=== PATIENT | male | born 1980 | race Caucasian/White ===

== ENCOUNTER 2024-07-28 07:12 | Outpatient (CLI) | payer OTHER, SELFPAY ==
[2024-07-28 08:28] LABS: INR 0.9
[2024-07-28 08:31] LABS: Partial Thromboplastin Time 24.6 Seconds (22.3-36.8)
== END 2024-07-28 07:13 | disposition home or self-care (01) ==
LOC: ANHLAB 07:18
PROVIDERS: PCP Family Medicine Sports Medicine; Visit Provider Urology
DX: N20.0 Calculus of kidney (principal)
CPT/HCPCS: 36415; 85610; 85730; 87086

== ENCOUNTER 2024-07-31 00:01 | Day surgery (SDC) | payer OTHER, SELFPAY ==
[2024-07-27 14:18] VITALS: BMI 29.5
--- NOTE | 2024-07-27 14:27 | PC.NURSE ---
Report to the Outpatient Waiting Room, entrance under the green pavilion located off [facility], at time _0600_ on date _[id number]_. Planned Procedure Time: _0730_.? Time changes happen often and if your time is changed the preop area will call you the afternoon before. - You and your visitor will be asked to self-screen and do not enter if you have any COVID symptoms. Please call surgeon if you need to reschedule. - A mask is optional within the hospital at this time. Patients may have clear liquids (water, carbonated beverages, clear teas, apple juice) until 3 hours prior to surgery with a maximum of 20 ounces. - No food from midnight until time of surgery and no smoking. This includes no chewing gum, candy or mints. Take only the following medications with a SIP of water on the morning of surgery: ____Hydrocodone if needed. DO NOT STOP ANY OF YOUR OTHER PRESCRIPTION MEDICATIONS PRIOR TO SURGERY EXCEPT THE FOLLOWING Medications to discontinue per physician ____None Please no make-up, nail armenian, hairspray, perfume, deodorant, or body powder the day of surgery.? No jewelry (including any body piercings) or valuables the day of surgery, leave them at home.? Please take a shower or bath the night before, or the morning of, surgery with an antibacterial soap.? Wear comfortable, loose fitting clothing.? - Jewelry must be removed prior to entering the operating room.? Rings and piercings that are not removed may be cut off. - The hospital will not accept responsibility for valuables.? - Please leave all valuables, including medications, at home the day of surgery. If you are going home after surgery, a licensed truck driver supervisor must drive you home.? - NO public transportation without another adult if you receive anesthesia. - We recommend that an adult stay with you for 24 hours following discharge. - We also recommend that you do not drive, make important decision, drink alcoholic beverages, or take any drugs that were not prescribed by your health care provider for at least 24 hours after your discharge time. Follow any additional instructions given to you from your surgeon. Telephone instructions given to _William__and asked if any additional questions and then verbalized understanding. Patient advised to call surgeon office or pre surgery nurse liaison [phone] if any additional questions.
--- NOTE | 2024-07-30 14:23 | WPDANESEPPF ---
Anes - Initial Pre Proc Eval Procedure: Operation Date: 07/31/24 07:30 Proposed Procedures p Left Ureteral Extracorporeal Shock Wave Lithotripsy - Jose Collier MD s Cystoscopy, Left Stent Removal/Exchange - Jose Collier MD Date/Time: 07/30/24 14:23 Surgeon: Jose Collier MD Pre Op Diagnosis: left ureteral stone Patient Data Age: 43 Gender: M Height: 1.85 m Weight: 101.4 kg Allergies Allergy/AdvReac Type Severity Reaction Status Date / Time No Known Allergies Allergy Verified 07/27/24 14:16 Home Medications ?Medication ?Instructions ?Recorded ?Confirmed ?Type hydrocodone 5 mg-acetaminophen 325 1 tablet PO Q6H PRN pain 07/27/24 07/27/24 History mg tablet omeprazole 20 mg capsule,delayed 20 mg PO DAILY 07/27/24 07/27/24 History release tamsulosin 0.4 mg capsule (Flomax) 0.4 mg PO HS 07/27/24 07/27/24 History Patient hx anesthesia problems: none Family hx anesthesia problems: none Results Review: All pre-operative results and documents have been reviewed as part of the pre-operative evaluation. [facility] Past Medical History Medical History (Updated 07/30/24 @ 14:24 by Ja Burr DO) Diverticulitis Surgical History Surgical History (Updated 07/30/24 @ 14:24 by Ja Burr DO) History of cervical spinal surgery C5-7 Social History Social History Smoking packs per day: 1 Smoking cigarettes per day: 20.0 Years smoked: 9 Smoking pack-years: 9.00 Smoking status: Former smoker Tobacco type: cigarettes Smoking end date: 07/27/04 Alcohol intake: current Living arrangements: with family Spiritual care concerns: No Anes - Eval Final PreProcedure Day of Procedure 07/30/24 14:23 Patient weight: overweight Heart: regular rate and rhythm Lungs: clear to auscultation Airway: Mallampati scale class III Neurological: alert and oriented Last oral intake: >/= 8 hours ASA classification: II Emergent: no Anesthetic plan: proceed Anesthesia type and monitoring: general LMA and standard monitoring Results Review: All pre-operative results and documents have been reviewed as part of the pre-operative evaluation. Informed Consent: The patient's anesthetic plan and its attendant risks and benefits were discussed with the patient/family/POA. Questions were solicited and answers provided to the satisfaction of the patient/family/POA.
[2024-07-31] VITALS (10 sets, daily range): BP systolic 115–149; BP diastolic 72–96; PULSE 73–91; RESP 13–18; TEMP 36.2–36.4; O2SAT 96–100
--- NOTE | ~2024-07-31 | XR_ITS ---
EXAMINATION: XR abdomen/kub 1V DATE: 07/31/2024 06:25 INDICATION: Left ureteral stone. TECHNIQUE: A supine view of the abdomen on 2 radiographs was obtained. COMPARISON: None. FINDINGS: There are no dilated loops of bowel. There is a left internal ureteral stent in expected po sition. There are 2 stones in left kidney measuring up to 9 mm. There is a 5 mm stone in proximal lef t ureter. IMPRESSION: 1. 5 mm stone in proximal left ureter with left internal ureteral stent in expected position. 2. Left kidney stones. Reviewed, dictated and finalized at location A. NG TECHNICIAN IMPRESSION: 1. 5 mm stone in proximal left ureter with left internal ureteral stent in expe cted position. 2. Left kidney stones.
[2024-07-31] MEDS: LACTATED RINGERS 1,000 ML 30 ML IV CONT ×2 (06:30→08:24)
--- NOTE | 2024-07-31 07:30 | WPDHPUPDATE1 ---
History and Physical Update Update Date/Time: 07/31/24 07:31 History and Physical has been reviewed, including an updated exam of the patient. There are NO changes in the patient's condition. Risks, benefits, and alternatives have been discussed and questions answered. Patient agrees to proceed with procedure. Proceed with left renal eswl
[2024-07-31] MEDS: ceFAZolin 2 GM/D5W 50 ML 2 GM/50 ML BAG IVPB (07:36)
--- NOTE | 2024-07-31 08:16 | P.OP_ITS ---
Procedure Note - Detailed Date of Procedure 07/31/24 Pre-op Diagnosis left renal l stone Post-op Diagnosis Same Procedure Performed Lithotripsy of left renal calculi Surgeon Jose Collier MD Anesthesia General Description of Procedure Patient was taken to the operative suite correctly identified. The stone that was in the proximal ureter was pushed back in the lower pole the kidney. There are 2 stones present there at the present time. Once anesthesia was obtained the lower pole stones were localized in both planes. Two thousand five hundred shocks were given. There appeared to be good fragmentation. Patient tolerated procedure well without any complications and was taken recovery stable co ndition. He will follow-up in 7-10 days with KUB. This completes dictation. Please send a copy of op note to my office. Estimated Blood Loss 0 Drains Yes (Has indwelling stent) Packing No Pathology None sent Complications No immediate complications Condition Stable Disposition PACU
[2024-07-31] MEDS: fentaNYL CITRATE INJ (*CRX) 100 MCG/2 ML VIAL 25 MCG IV PUSH ×2 (09:07→09:15)
[2024-07-31] MEDS: oxyCODONE HCL (*CRX) 5 MG TAB IR PO (09:33)
== END 2024-07-31 10:08 | disposition home or self-care (01) ==
PROVIDERS: PCP Family Medicine Sports Medicine; Visit Provider Urology
PROC: (CPT 50590; principal; 2024-07-31 07:30)
DX: N20.2 Calculus of kidney with calculus of ureter (principal); E78.5 Hyperlipidemia, unspecified; K21.9 Gastro-esophageal reflux disease without esophagitis; Z79.891 Long term (current) use of opiate analgesic; Z98.890 Other specified postprocedural states; Z98.1 Arthrodesis status; Z96.0 Presence of urogenital implants; Z87.891 Personal history of nicotine dependence; Z87.19 Personal history of other diseases of the digestive system
CPT/HCPCS: 50590; 74018; A9270; J0690; J2250; J3010; J7030; J7120

== ENCOUNTER 2024-08-21 15:12 | Outpatient (CLI) | payer OTHER, SELFPAY ==
--- NOTE | ~2024-08-21 | XR_ITS ---
Exam: Abdomen 1 V HISTORY: Calcium kidney stone, PAIN 3 WKS, BLOOD IN URINE COMPARISON: 08/13/2024 TECHNIQUE: Supine images of the abdomen and pelvis. FINDINGS: Bowel gas pattern is non-obstructive. There is no free air or deep sulci. Left-sided double-J stent in good position with the proximal pigtail projecting over the left renal p sherrill and the distal pigtail projecting over the bladder. Redemonstration of multiple calcifications projecting over the lower pole of the left kidney, unchang ed from prior. Lung bases are unremarkable. Bones and soft tissues are unremarkable. IMPRESSION: Nonspecific, nonobstructive bowel gas pattern. Double-J stent in good position with the redemonstration of multiple calcifications projecting over t he lower pole of the left kidney, unchanged from 08/13/2024 Reviewed, dictated and finalized at location A. D CARE COUNSELOR IMPRESSION: Nonspecific, nonobstructive bowel gas pattern. Double-J stent in good position with the redemonstration of multiple calcificat ions projecting over the lower pole of the left kidney, unchanged from
--- OUTSIDE RECORDS SUMMARY | 2024-08-21 15:22 | XMS_ITS | Encounter Summary ---
Author Organization [facility] Address [facility]. [place], [place] [id number] [place] [id number] Care Team Providers Care Caustic Room Attendant Name Role Phone Jann Saucedo MD Unavailable [phone] Luiz Matta MD Primary Care Provider [phone] Luiz Matta MD Primary Care Provider [phone] Encounter Details Date Type Department Care Team (Late st Contact Info) Description 08/18/2021 Contour Message Enc [facility] Family & Internal Medicine [address] [id number] [facility] Comp Information Social History Tobacco Use Types Packs/Day Years Used Date Smoking Tobacco: Former Cigarettes 1 10 990 - 1999 Smokeless Tobacco: Former Chew Quit: 09/26/2020 Comments:Light user Alcohol Use Standard Drinks/Week Comments Yes 0 (1 standard drink = 0.6 oz pur e alcohol) Occasionally PHQ-2 Answer Date Recorded PHQ-2 Score - If the patient scores above 3, please move on to questions 3-9 0 05/02/2021 Education Answer Date Recorded What is the highest level of school you have completed or the highest degree you have received? 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 on file Not on file Not on file documented as of this encounter Plan of Treatment Not on file documented as of this encounter Visit Diagnoses Not on filedocumented in this encounter Additional Health Concerns Infection Onset Date Last Indicated Resolved Time COVID-19 Rule Out 04/09/2023 04/09/2023 04/09/2023 8:30 AM CDT COVID-19 Confirmed 04/09/2023 04/09/2023 12:32 AM CDT Assessment Noted Time PHQ-9 Depression Total Score: 0 05/02/20 21 10:15 AM CDT documented as of this encounter Care Teams Caustic Room Attendant Relationship Specialty [place] [address] [facility] [place] [address] PCP - General FAMILY PRACTICE 02/25/20 09/12/21 [place] [address] [facility] [place] [address] PCP - General FAMILY PRACTICE 09/13/21 Jann Saucedo MD [facility] [address] [place] [address] [place] [employer] Provider INTERVENTIONAL CARDIOLOGY 02/26/18 documented as of this encounter
--- OUTSIDE RECORDS SUMMARY | 2024-08-21 15:22 | XMS_ITS | Encounter Summary ---
Author Organization [facility] Address [address] [place] [address]. [place] [address] [place] [address] Care Team Providers Care Manager Ob Name Role Phone Mckay Bradley MD Primary Care Provider [phone] Jann Saucedo MD Unavailable [phone] Luiz Matta MD Primary Care Provider [phone] Luiz Matta MD Primary Care Provider [phone] Encounter Details Date Type Department Care Team (Late st Contact Info) Description 02/20/2018 Abstract [facility] [address] [place] [address] , Carrie Hamlin MD Social History Tobacco Use Types Packs/Day Years Used Date Smoking Tobacco: Never Assessed Sex and Gender Information Value Date Recorded Sex Assigned at Not on file Legal Sex Male 4:21 PM CDT Gender Identity Not on file Sexual Orientation Not on file documented as of this encounter Plan of Treatment Not on file documented as of this encounter Visit Diagnoses Not on filedocumented in this encounter Additional Health Concerns Infection Onset Date Last Indicated Resolved Time COVID-19 Rule Out 03/04/2020 03/04/2020 05/03/2020 12:32 AM CDT COVID-19 Rule Out 05/16/2020 05/16/2020 05/18/2020 7:50 AM CDT COVID-19 Rule Out 08/10/2020 08/10/202008/10/2020 4:35 PM POWER DISTRIBUTOR COVID-19 Rule Out 03/29/2021 03/29/2021 03/29/2021 3:32 PM CDT COVID-19 Rule Out 03/29/2021 03/29/2021 03/31/2021 4:30 AM CDT COVID-19 Rule Out 04/09/2023 04/09/2023 04/09/2023 8:30 AM CDT COVID-19 Confirmed 04/09/2023 04/09/2023 12:32 AM CDT documented as of this encounter Care Teams Manager Ob Relationship Specialty Start Date End Date Mckay Bradley MD PCP - General INTERNAL MEDICINE 02/20/18 02/24/20 [place] [address] [place] [address] PCP - General FAMILY PRACTICE 02/25/20 09/12/21 [place] [address] [place] [address] PCP - General FAMILY PRACTICE 09/13/21 Jann Saucedo MD [facility]. [facility] [address] [place] [address] [employer] INTERVENTIONAL CARDIOLOGY 02/26/18 documented as of this encounter
--- OUTSIDE RECORDS SUMMARY | 2024-08-21 15:22 | XMS_ITS | Patient Health Summary ---
Author Organization [facility] Address [address] 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,non-owned Affiliates and Associated Physician Practices is amultiple site organization consisting of ambulatory clinics and hospital sitesin [place], [place], [place] and [place]. This disclosure is being madepursuant to the Care Everywhere program and may not contain all information available regarding this patient. Last updated 18.[facility] Allergies No known active allergies Medications * Be aware that medications may not be up to date on this document. Alwaysverify current medications with the patient. * omeprazole (PRILOSEC) 20 MG capsule(Started 04/04/2021) Take 1 (one) capsule by mouth once daily * cyclobenzaprine (FLEXERIL) 10 MG tablet(Started 05/24/2021) Take 1 (one) tablet by mouth nightly as needed * ibuprofen (MOTRIN) 800 MG tablet(Started 05/24/2021) Take 1 (one) tablet by mouth 3 times daily as needed * ergocalciferol (DRISDOL) 1.25 MG (79741 UT) capsule(Started 09/25/2021) Take 1 (one) capsule by mouth every 7 days * meloxicam (Mobic) 7.5 MG tablet(Started 06/13/2022) Take 1 (one) tablet by mouth once daily Active Problems Problem Noted Date Diagnosed Date S/P cervical disc replacement 10/01/2022 Obesity (BMI 30-39.9) 08/29/2022 04/19/2023 Pharyngeal dysphagia 06/14/2021 Myofascial pain 05/29/2021 04/19/2023 Exposure to COVID-19 virus 03/29/202104/19 Fatigue 03/29/2021 04/19/2023 Blunt trauma of neck 09/28/2020 Cervicalgia 09/28/2020 Closed fracture of larynx 09/28/2020 Blunt trauma of neck 08/01/2020 GERD (gastroesophageal reflux disease) 0 Diverticulitis 07/29/2018 Chest pain in adult 02/28/2018 Mixed hyperlipidemia 02/28/2018 Allergic rhinitis 05/07/2012 Immunizations * Covid Pfizer primary monovalent 12+ yr 0.3mL Purple cap(Given 10/17/2020, 09/18/2020) * DTP(Given 03/21/1985, 05/02/1984, 09/06/1981, 02/13/1980) * MMR(Given 03/27/1990, 10/28/1981) * MMR/VARICELLA(Given 03/27/1990, 10/28/1981) * POLIO OPV(Given 03/21/1985, 05/02/1984, 09/06/1981, 02/13/1980) * TD (ADULT), 5 LF TETANUS TOXOID, ADSORBED, PF(Given 02/26/1994) * TDAP (7yrs+)(Given 09/13/2021) * Td (Adult), 2 Lf Tetanus Toxoid, Adsorbed, Pf(Given 02/26/1994) Social History Tobacco Use Types Packs/Day Years Used Date Smoking Tobacco: Never Smokeless Tobacco: Never Sex and Gender Information Value Date Recorded Sex Assigned at Not on file Gender Identity Not on file Sexual Orientation Not on file Last Filed Vital Signs Vital Sign Reading Time Taken Comments Blood Pressure 112/73 01/17/2023 10:37 AM CDT Pulse 61 01/17/2023 10:37 AM CDT Temperature 37 ??C (98.6 ??F) 07/18/2022 1:37 PM NON DESTRUCTIVE TESTING SCIENTIST Respiratory Rate 18 09/29/2020 3:58 PM NON DESTRUCTIVE TESTING SCIENTIST Oxygen Saturation 96% 09/29/2020 3:58 PM NON DESTRUCTIVE TESTING SCIENTIST Inhaled Oxygen Concentration - - Weight 98 kg (216 lb) 04/19/2023 3:24 PM CDT Height 185.4 cm (6' 1 ) 04/19/2023 3:24 PM CDT Body Mass Index 28.5 04/19/2023 3:24 PM CDT Procedures * SC EAR MICROSCOPY EXAMINATION(Performed 04/19/2023) Performed for Tinnitus, unspecified laterality * AUDIOLOGY/TYMPANOMETRY ORDER(Performed 03/14/2023) * SC CHEMODENERV MUSC MIGRAINE(Performed 06/14/2021) Performed for Pharyngeal dysphagia, Closed fracture of larynx, subsequent encounter, Blunt trauma of neck, subsequent encounter * SC LARYNGOSCOPY,FLEX FIBER,DIAGNOSTIC(Performed 05/12/2021) Performed for Pharyngeal dysphagia, Closed fracture of larynx, subsequent encounter * SC LARYNGOSCOPY,FLEX/RIGID+STROBOSCOPY(Performed 04/05/2021) Performed for Blunt trauma of neck, subsequent encounter * SC LARYNGOSCOPY,FLEX/RIGID+STROBOSCOPY(Performed 12/21/2020) Performed for Blunt trauma of neck, subsequent encounter * SC LARYNGOSCOPY,FLEX FIBER,DIAGNOSTIC(Performed 12/21/2020) Performed for Blunt trauma of neck, subsequent encounter * PHOSPHORUS BLOOD(Performed 09/29/2020) Performed for Blunt trauma of neck, initial encounter * MAGNESIUM BLOOD(Performed 09/29/2020) Performed for Blunt trauma of neck, initial encounter * BASIC METABOLIC PANEL (CALCIUM TOTAL)(Performed 09/29/2020) Performed for Blunt trauma of neck, initial encounter * CBC W AUTO DIFFERENTIAL(Performed 09/29/2020) Performed for Blunt trauma of neck, initial encounter * MRI CERVICAL SPINE WO CONTRAST(Performed 09/28/2020) Performed for Trauma * SARS-COV-2 (COVID-19)+INFLU A+B PCR RAPID(Performed 09/28/2020) * URINE DRUG SCREEN IMMUNOASSAY(Performed 09/28/2020) * CT ANGIO BRAIN AND NECK(Performed 09/28/2020) Performed for Trauma * CT CERVICAL SPINE WO CONTRAST(Performed 09/28/2020) Performed for Trauma * CT FACIAL BONES WO CONTRAST(Performed 09/28/2020) Performed for Trauma * XR CHEST 1VW PORTABLE(Performed 09/28/2020) Performed for Trauma * TYPE + SCREEN PANEL(Performed 09/28/2020) * PTT [facility](Performed 09/28/2020) * PT-INR [facility](Performed 09/28/2020) * CBC W AUTO DIFFERENTIAL(Performed 09/28/2020) * BASIC METABOLIC PANEL (CALCIUM TOTAL)(Performed 09/28/2020) * ALCOHOL ETHYL BLOOD(Performed 09/28/2020) Results * SC EAR MICROSCOPY EXAMINATION (04/19/2023 4:11 PM CDT) Narrative Benton Bolden MD - 04/19/2023 4:11 PM CDT Benton Bolden MD ? 04/19/2023 ??4:11 PM Procedure: ??Microscopic exam of the ear(s) Findings: See main note. Procedure in detail: The binocular operating microscope and and ear speculum were used to exam the ear(s). ??The patient tolerated the procedure well and there was no bleeding. Benton Bolden MD Benton Bolden MD PROCEDURE/MINOR NANCY GICAL ORDERABLES * AUDIOLOGY/TYMPANOMETRY ORDER (03/14/2023 6:56 PM CDT) Mariola Champion AUDIOLOGY SERVICES O RDERABLES * SC CHEMODENERV MUSC MIGRAINE (06/14/2021 2:09 PM NON DESTRUCTIVE TESTING SCIENTIST) Narrative Griffin Gore MD - 06/14/2021 2:09 PM NON DESTRUCTIVE TESTING SCIENTIST Griffin Gore MD ? 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 Then using a 25-gauge needle and Kenalog 40 at a concentration of 2-1 with 2% lidocaine with 1 100,000 epinephrine was used and injected along the posterior border of the thyroid cartilage extending up to the attachment of the thyrohyoid ligament. Approximately 2 cc was totally injected the patient tolerated the procedure well. Location of Injection: Left superior horn thyroid cartilage Material Injected: Kenalog 40 1.0 cc. Condition: Stable. ??Patient tolerated procedure well. Complications: None Griffin Gore MD PROCEDURE/MINOR SURG ICAL ORDERABLES * SC LARYNGOSCOPY,FLEX FIBER,DIAGNOSTIC (05/12/2021 11:01 AM CDT) Narrative Griffin Gore MD - 05/12/2021 11:01 AM CDT Griffin Gore MD ? 05/12/2021 11:07 AM Procedure Note Endoscopy Type: ??Laryngoscopy without stroboscopy [id number] Endoscope: Flexible 4mm Scope Anesthesia: Lidocaine 2% and Neosynephrine 1/2% (nasal) Procedure Details: The patient was sitting upright in a chair with the head in a slightly anterior sniffing position. The topical anesthesia was administered and then adequate time was allowed ??for an anesthetic effect. The endoscope was passed thru the nasal cavity with the tongue retracted anteriorly. The tip of the endoscope was positioned in the oropharynx which allowed a complete view of the base of tongue, vallecula, pyriform recesses, epiglottis, bilateral true and false vocal folds, the interarytenoid and post cricoid region, and the immediate subglottis. Findings: normal nose, pharynx and larynx, normal cord motion, superior horn visualized protruding in the pyriform Condition: Stable. ??Patient tolerated procedure well. Complications: None I was present for the entirety of the procedure. Griffni Gore MD PROCEDURE/MINOR SURG ICAL ORDERABLES * SC LARYNGOSCOPY,FLEX/RIGID+STROBOSCOPY (04/05/2021 2:06 PM CDT) Narrative Silviano Pineda MD - 04/05/2021 2:06 PM CDT Silviano Pineda MD ? 04/05/2021 ??2:26 PM Procedure Note Anesthesia: Lidocaine and Neosynephrine Endoscopy Type: ??Flexible Qzwhr-Xhfjclbgrbgqhk-Lapdwhgspfaj Procedure Details: Informed consent was obtained. ??The patient was placed in the sitting position. ??After topical anesthesia and decongestion, the 4 mm laryngoscope was passed. ??The nasal cavities, nasopharynx, oropharynx, hypopharynx, and larynx were all examined. ??Vocal cords were examined during respiration and phonation. ??The following findings were noted: ??Slight asymmetry to left pharynx no mucosal lesion TVC normal function tonsil +3. The patient tolerated procedure well. Complications: None Silviano Pineda MD PROCEDURE/MINOR SURG ICAL ORDERABLES * SC LARYNGOSCOPY,FLEX FIBER,DIAGNOSTIC, SC LARYNGOSCOPY,FLEX/RIGID+STROBOSCOPY (12/21/2020 1:50 PM CDT) Narrative Silviano Pineda MD - 12/21/2020 1:50 PM CDT Silviano Pineda MD ? 12/21/2020 ??1:52 PM Procedure Note Anesthesia: Lidocaine and Neosynephrine Endoscopy Type: ??Flexible Xrufd-Bhubqegxgpgblq-Gmizoxqhwdmn Procedure Details: Informed consent was obtained. ??The patient was placed in the sitting position. ??After topical anesthesia and decongestion, the 4 mm laryngoscope was passed. ??The nasal cavities, nasopharynx, oropharynx, hypopharynx, and larynx were all examined. ??Vocal cords were examined during respiration and phonation. ??The following findings were noted: ??Mild asymmetry left laryngeal cartilage likely from injury mucosa intact no effect on airway. The patient tolerated procedure well. Complications: None Silviano Pineda MD PROCEDURE/MINOR SURG ICAL ORDERABLES * (ABNORMAL) CBC W AUTO DIFFERENTIAL (09/29/2020 2:03 AM NON DESTRUCTIVE TESTING SCIENTIST) Only the most recent of2 resultswithin the time period is included. WBC 7.4 3.5 - 10.5 10? 3 /uL 09/29/2020 2:41 AM [facility] RBC 4.38 4.30 - 5.70 10? 6 /uL 09/29/2020 2:41 AM [facility] Hemoglobin 12.5(L) 13.5 - 17.5 g/dL 09/29/2020 2:41 AM [facility] Hematocrit 38.0(L) 39.0 - 50.0 % 09/29/2020 2:41 AM [facility] MCV 86.8 81.0 - 97.0 fL 09/29/2020 2:41 AM [facility] MCH 28.5 28.0 - 34.0 pg 09/29/2020 2:41 AM [facility] MCHC 32.9 32.0 - 36.0 g/dL 09/29/2020 2:41 AM [facility] Platelet Count 282 150 - 400 10? 3 /uL 09/29/2020 2:41 AM [facility] RDW-SD 39.9 36.0 - 50.0 fL 09/29/2020 2:41 AM [facility] RDW-CV 12.4 11.2 - 14.8 % 09/29/2020 2:41 AM [facility] MPV 9.6 9.3 - 12.8 fL 09/29/2020 2:41 AM [facility] nRBC Absolute 0.00 0 10? 3 /uL 09/29/2020 2:41 AM [facility] nRBC Auto 0.0 0 /100 WBC 09/29/2020 2:41 AM [facility] Neutrophils % 60.5 35.0 - 70.0 % 09/29/2020 2:41 AM [facility] Lymphocytes % 29.0 19.7 - 55.1 % 09/29/2020 2:41 AM [facility] Monocytes % 8.6 3.0 - 15.0 % 09/29/2020 2:41 AM [facility] Eosinophils % 1.1 0.0 - 6.0 % 09/29/2020 2:41 AM [facility] Basophil % 0.3 0.0 - 1.5 % 09/29/2020 2:41 AM [facility] Neutrophils Absolute 4.5 1.6 - 7.0 10? 3 /uL 09/29/2020 2:41 AM [facility] Lymphocyte Absolute 2.1 0.8 - 2.9 10? 3 /uL 09/29/2020 2:41 AM [facility] Monocytes Absolute 0.63 0.14 - 0.66 10? 3 /uL 09/29/2020 2:41 AM [facility] Eosinophils Absolute 0.08 0.00 - 0.45 10? 3 /uL 09/29/2020 2:41 AM [facility] Basophils Absolute 0.02 0.00 - 0.06 10? 3 /uL 09/29/2020 2:41 AM [facility] Immature Granulocytes % 0.5 0.0 - 1.0 % 09/29/2020 2:41 AM [facility] Blood BLOOD SPECIMEN / Unknown Lab Venipuncture / Unknown 09/29/2020 2:03 AM NON DESTRUCTIVE TESTING SCIENTIST 09/29/2020 2:35 AM NON DESTRUCTIVE TESTING SCIENTIST Manny Wall MD LAB - HEMATOLOGY O RDERABLES [facility] [address] [place] [address], [facility] [phone] * (ABNORMAL) BASIC METABOLIC PANEL (CALCIUM TOTAL) (09/29/2020 2:03 AM NON DESTRUCTIVE TESTING SCIENTIST) Only the most recent of2 resultswithin the time period is included. BUN 20 7 - 26 mg/dL 09/29/2020 3:06 AM [facility] Creatinine 0.7 0.6 - 1.2 mg/dL 09/29/2020 3:06 AM [facility] Sodium 139 136 - 145 mmol/L 09/29/2020 3:06 AM [facility] Potassium 3.4(L) 3.5 - 4.5 mmol/L 09/29/2020 3:06 AM [facility] Chloride 105 98 - 107 mmol/L 09/29/2020 3:06 AM [facility] CO2 25 22 - 29 mmol/L 09/29/2020 3:06 AM [facility] Glucose 107 70 - 115 mg/dL 09/29/2020 3:06 AM [facility] Calcium 8.1(L) 8.4 - 10.2 mg/dL 09/29/2020 3:06 AM [facility] Anion Gap 12 8 - 18 09/29/2020 3:06 AM [facility] BUN/Creatinine Ratio 29(H) 7 - 23 09/29/2020 3:06 AM [facility] Osmolality Calculated 291 270 - 300 mOsm/kg 09/29/2020 3:06 AM [facility] eGFR >60 >60 mL/min/1.7 3 m2 09/29/2020 3:06 AM [facility] Blood BLOOD SPECIMEN / Unknown Lab Venipuncture / Unknown 09/29/2020 2:03 AM NON DESTRUCTIVE TESTING SCIENTIST 09/29/2020 2:35 AM NON DESTRUCTIVE TESTING SCIENTIST Manny Wall MD LAB - CHEMISTRY OR DERABLES Performing Organization Address [facility] Co de Phone Number [address] [address], [facility] [phone] * PHOSPHORUS BLOOD (09/29/2020 2:03 AM NON DESTRUCTIVE TESTING SCIENTIST) Phosphorus 4.0 2.3 - 4.7 mg/dL 09/29/2020 3:06 AM NON DESTRUCTIVE TESTING SCIENTIST [facility] Blood BLOOD SPECIMEN / Unknown Lab Venipuncture / Unknown 09/29/2020 2:03 AM NON DESTRUCTIVE TESTING SCIENTIST 09/29/2020 2:35 AM NON DESTRUCTIVE TESTING SCIENTIST Manny Wall MD LAB - CHEMISTRY OR DERABLES Performing Organization Address [facility] de Phone Number [address] [address], [facility] [phone] * MAGNESIUM BLOOD (09/29/2020 2:03 AM NON DESTRUCTIVE TESTING SCIENTIST) Magnesium 1.9 1.6 - 2.6 mg/dL 09/29/2020 3:06 AM NON DESTRUCTIVE TESTING SCIENTIST [facility] Blood BLOOD SPECIMEN / Unknown Lab Venipuncture / Unknown 09/29/2020 2:03 AM NON DESTRUCTIVE TESTING SCIENTIST 09/29/2020 2:35 AM NON DESTRUCTIVE TESTING SCIENTIST Manny Wall MD LAB - CHEMISTRY OR DERABLES Performing Organization Address [facility] Co de Phone Number [address] [address], [facility] [phone] * MRI CERVICAL SPINE WO CONTRAST (09/28/2020 7:11 PM NON DESTRUCTIVE TESTING SCIENTIST) Anatomical Region Laterality Modality Pelvis Magnetic Resonan ce 09/29/2020 7:47 AM NON DESTRUCTIVE TESTING SCIENTIST Impressions 09/29/2020 12:06 PM NON DESTRUCTIVE TESTING SCIENTIST IMPRESSION: 1. No ligamentous injury is identified. 2. Right subarticular/foraminal extrusion of C6-C7 disc with caudal migration which apparently impinges on exiting right C7 nerve in the foramen. 3. The patient has a reported fracture of thyroid cartilage which is not included on the images of this study. I, Dr. ALBARO BURT have personally reviewed and interpreted this examination/study. This report was electronically signed by ALBARO BURT ??on 09/29/2020 12:06 PM . Narrative 09/29/2020 12:06 PM NON DESTRUCTIVE TESTING SCIENTIST MRI CERVICAL SPINE WITHOUT INTRAVENOUS CONTRAST, 09/28/2020 7:11 PM HISTORY: T14.90XA: Trauma TECHNIQUE: MRI of the cervical spine was performed without contrast according to a trauma protocol. COMPARISON: CT Cervical Spine 09/28/2020. FINDINGS: Lordosis of the cervical spine is maintained. There is an apparent 1 mm anterolisthesis of C2 on C3 and 1 mm retrolisthesis of C6 on C7. Vertebral bodies are normal in height without evidence of compression fractures. Marrow signal intensity is normal. The craniocervical junction and its stabilizing ligaments are within normal limits. The spinal cord appears normal in size, contour and signal intensity without evidence of intramedullary hemorrhage. There is no evidence of epidural hematoma. The prevertebral soft tissue is normal. The anterior and posterior longitudinal ligaments, ligamentum flavum and the posterior ligamentous complex appear normal. There is no evidence of soft tissue edema. There is mild shortening of the disc space height at C6-C7. The remainder of the disc spaces are normal in heights. No soft tissue abnormality is identified. Normal flow voids are identified in the vertebral arteries. The location of the previously reported fracture of thyroid cartilage is not imaged on this examination. C2-C3, C3-C4, C4-C5 and C5-C6: The discs are normal without evidence of annular fissure, posterior herniation or posterior bulging. The facets and uncovertebral joints are within normal limits. The neural foramina are normal in size and the exiting nerves are normal. C6-C7: There is a right subarticular/foraminal extrusion of the disc with 4 mm caudal migration through an annular fissure, which impinges on the exiting right C7 nerve inside the foramen. Degenerative changes of the uncovertebral joints and facets are minimal and, on the CT images, there is no posterior bony spur of the uncovertebral joint on the right side. C7-T1: The disc, central canal, facets, uncovertebral joints, neural foramina and exiting nerves are within normal limits. There is incidental finding of a 4 mm perineural cyst in the left neural foramen without clinical significance. T1-T2: There is no evidence of posterior disc abnormality, central canal stenosis, neural foraminal stenosis, cord abnormality, facet osteoarthritis or neural impingement. Procedure Note Albaro Burt MD - 09/29/2020 MRI CERVICAL SPINE WITHOUT INTRAVENOUS CONTRAST, 09/28/2020 7:11 PM HISTORY: T14.90XA: Trauma TECHNIQUE: MRI of the cervical spine was performed without contrast according to a trauma protocol. COMPARISON: CT Cervical Spine 09/28/2020. FINDINGS: Lordosis of the cervical spine is maintained. There is an apparent 1 mm anterolisthesis of C2 on C3 and 1 mm retrolisthesis of C6 on C7.Vertebral bodies are normal in height without evidence of compression fractures. Marrow signal intensity is normal. The craniocervical junction and its stabilizing ligaments are within normal limits. The spinal cord appears normal in size, contour and signal intensity without evidence of intramedullary hemorrhage. There is no evidence of epidural hematoma.The prevertebral soft tissue is normal. The anterior and posterior longitudinal ligaments, ligamentum flavum and the posterior ligamentous complex appear normal. There is no evidence of soft tissue edema. There is mild shortening of the disc space height at C6-C7. Theremainder of the disc spaces are normal in heights. No soft tissue abnormality is identified. Normal flow voids are identified in the vertebral arteries. The location of the previously reported fracture of thyroid cartilage is not imaged on this examination. C2-C3, C3-C4, C4-C5 and C5-C6: The discs are normal without evidence of annular fissure, posterior herniation or posterior bulging. The facetsand uncovertebral joints are within normal limits. The neural foramina are normal in size and the exiting nerves are normal. C6-C7: There is a right subarticular/foraminal extrusion of the discwith 4 mm caudal migration through an annular fissure, which impinges on the exiting right C7 nerve inside the foramen. Degenerative changes of the uncovertebral joints and facets are minimal and, on the CT images, there is no posterior bony spur of the uncovertebral joint on the right side. C7-T1: The disc, central canal, facets, uncovertebral joints, neural foramina and exiting nerves are within normal limits. There isincidental finding of a 4 mm perineural cyst in the left neural foramen without clinical significance. T1-T2: There is no evidence of posterior disc abnormality, central canal stenosis, neural foraminal stenosis, cord abnormality, facet osteoarthritis or neural impingement. IMPRESSION: 1. No ligamentous injury is identified. 2. Right subarticular/foraminal extrusion of C6-C7 disc with caudal migration which apparently impinges on exiting right C7 nerve in the foramen. 3. The patient has a reported fracture of thyroid cartilage which is not included on the images of this study. I, Dr. ALBARO BURT have personally reviewed and interpreted this examination/study. This report was electronically signed by ALBARO BURT on 09/29/2020 12:06 PM . Manny Wall MD MR ORDERABLES * SARS-COV-2 (COVID-19)+INFLU A+B PCR RAPID (09/28/2020 2:30 PM NON DESTRUCTIVE TESTING SCIENTIST) COVID-19 PCR Not detected Not detected 09/29/19 21 3:23 PM [facility] Influenza A Rapid SAMM Not Detected Not Detected 09/28/2020 3:23 PM [facility] Influenza B SAMM Rapid Not Detected Not Detected 09/28/2020 3:23 PM [facility] Microbiology SPECIMEN FROM NASOPHARYNGEAL STRUCTURE / Unknown Collection / Unknown 09/28/2020 2:30 PM NON DESTRUCTIVE TESTING SCIENTIST 09/28/2020 2:55 PM NON DESTRUCTIVE TESTING SCIENTIST [facility] - 09/28/2020 3:23 PM NON DESTRUCTIVE TESTING SCIENTIST Influenza assay performed by Nucleic Acid Ampl[employer]. Results do not exclude the possibility of a mixed viral infection. NOTE: ??Detecting and identifying specific viral nucleic acids from individuals exhibiting signs and symptoms of respiratory infection aids in the diagnosis of respiratory infection, if used in conjunction with other clinical and laboratory findings. The results of this test should not be used as the sole basis for diagnosis, treatment, or patient management decisions. This nucleic acid amplification assay performance was validated by [facility]. This test has been authorized by the Food and Drug administration (FDA)under an Emergency??Use Authorization (EUA). This test has been validated in accordance with the FDA's guidance document Policy for Diagnostic Testing in Laboratories Certified to perform High Complexity Testing under CLIA prior to Emergency Use Authorization for Coronavirus Disease-2019 during the Public Health Emergency issued on September 26, 2019. FDA independent review of this validation is pending. This test is only authorized for the duration of time the declaration that circumstances exist justifying the authorization of emergency use of in vitro diagnostic tests for detection of SARS-CoV-2 virus and/or diagnosis of COVID-19 infection under section 564(b)(1) of the Act, 21 U.S.C 360bbb-3 (b)(1), unless the authorization is terminated or revoked sooner. Fact Sheets for this EUA assay are available upon request. Manny Wall MD LAB - MICROBIOLOGY ORDERABLES [facility] [address] [place] [address], [facility] [phone] * DRUG SCREEN TOX URINE PANEL (09/28/2020 2:20 PM NON DESTRUCTIVE TESTING SCIENTIST) Pathologist [facility] [place] Amphetamines Screen Urine Negative Negative: < 1000 ng/mL 09/28/2020 2:56 PM [facility] Barbiturates Screen Urine Negative Negative: < 200 ng/mL 09/28/2020 2:56 PM [facility] Benzodiazepine Screen Urine Negative Negative: < 200 ng/mL 09/28/2020 2:56 PM [facility] Opiates Urine Negative Negative: < 300 ng/mL 09/28/2020 2:56 PM [facility] Cocaine Metabolites Urine Negative Negative: < 300 ng/mL 09/28/2020 2:56 PM [facility] Phencyclidine Screen Urine Negative Negative: < 25 ng/ml 09/28/2020 2:56 PM [facility] Cannabinoids Screen Urine Negative Negative: <50 ng/mL 09/28/2020 2:56 PM [facility] Methadone Screen Urine Negative Negative: < 300 ng/mL 09/28/2020 2:56 PM [facility] Fentanyl Screen Urine Negative Negative: <1.0 ng/mL 09/28/2020 2:56 PM [facility] Urine URINE / Unknown Collection / Unknown 09/28/2020 2:20 PM NON DESTRUCTIVE TESTING SCIENTIST 09/28/2020 2:42 PM NON DESTRUCTIVE TESTING SCIENTIST Narrative [facility] - 09/28/2020 2:56 PM NON DESTRUCTIVE TESTING SCIENTIST The Urine Toxicology Screening Panel does not screen for Propoxyphene, Meprobamate, Carisoprodol, Trazodone, [id number] medications and/or volatiles (Acetone, Isopropanol, Methanol or Ethylene Glycol). Ethanol, Salicylate, Acetaminophen, Tricyclic Antidepressants and several therapeutic drugs may be individually assayed in serum or plasma specimen. Toxicology testing by the [facility] is an aid to medical diagnosis and treatment of patients. No documented chain of custody was maintained. Results are intended to be used for clinical purposes only. ? Manny Gaitan DO LAB - URINE CHEMISTR Y ORDERABLES Performing Organization Address [facility] de Phone Number [facility] [address] [place] [id number], [facility] [phone] * CT ANGIO BRAIN AND NECK (09/28/2020 1:14 PM NON DESTRUCTIVE TESTING SCIENTIST)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
--- OUTSIDE RECORDS SUMMARY | 2024-08-21 15:22 | XMS_ITS | Clinical Summary ---
Author Organization [facility] Address [address] [place] [address] Care Team Providers Care Manager Operations And Procurement Name Role Phone Luiz Matta MD Primary Care Provider Unknown, Provider Unavailable Unavailable Source Comments [facility],non-owned Affiliates and Associated Physician Practices is amultiple site organization consisting of ambulatory clinics and hospital sitesin [place], [place], [place] and [place]. This disclosure is being madepursuant to the Care Everywhere program and may not contain all information available regarding this patient. Last updated 18.[facility] Allergies No known active allergies Medications * Be aware that medications may not be up to date on this document. Alwaysverify current medications with the patient. Medication Sig Dispensed Refills Start Date End Date Status omeprazole (PRILOSEC) 20 MG capsule Take 1 (one) capsule by mouth once daily 04/04/2021 Active cyclobenzaprine (FLEXERIL) 10 MG tablet Take 1 (one) tablet by mouth nightly as needed 05/24/2021 Active ibuprofen (MOTRIN) 800 MG tablet Take 1 (one) tablet by mouth 3 times daily as needed 05/24/2021 Active ergocalciferol (DRISDOL) 1.25 MG (81354 UT) capsule Take 1 (one) capsule by mouth every 7 days 09/25/2021 Active meloxicam (Mobic) 7.5 MG tablet Take 1 (one) tablet by mouth once daily 06/13/2022 Active Active Problems Problem Noted Date Diagnosed Date [...] Mixed hyperlipidemia 02/28/2018 Allergic rhinitis 05/07/2012 Immunizations Name Administration Dates Next Due Covid Pfizer primary monoval ent 12+ yr 0.3mL Purple cap 10/17/2020,09/18/2020 DTP 03/21/1985, 4,09/06/1981, 980 MMR 03/27/1990,10/28/1981 MMR/VARICELLA 03/27/1990,10/28/1981 POLIO OPV 03/21/1985, 4,09/06/1981, 980 TD (ADULT), 5 LF TETANUS TOX OID, ADSORBED, PF 02/26/1994 TDAP (7yrs+) 09/13/2021 Td (Adult), 2 Lf Tetanus Tox oid, Adsorbed, Pf 02/26/1994 Social History Tobacco Use Types Packs/Day Years [...] 37 ??C (98.6 ??F) 07/18/2022 1:37 PM NURSE'S ASSISTANT Respiratory Rate 18 09/29/2020 3:58 PM NURSE'S ASSISTANT Oxygen Saturation 96% 09/29/2020 3:58 PM NURSE'S ASSISTANT Inhaled Oxygen Concentration - - Weight 98 kg (216 lb) 04/19/2023 3:24 PM CDT Height 185.4 cm (6' 1 ) 04/19/2023 3:24 PM CDT Body Mass Index 28.5 04/19/2023 3:24 PM CDT Plan of Treatment Health Maintenance Due Date Last Done Comments LIPID TESTING 1979 HIV SCREENING 12/13/1994 HEPATITIS C SCREENING 12/09/1997 HEPATITIS B VACCINE (1 of 3 - 19+ 3-dose series) 12/13/1998 SCREENING FOR DIABETES 09/30/2023 09/29/2020, 2020 COVID-19 VACCINE ( season) 2024 03/28/2021, 10/17/2020, 09/18/2020 INFLUENZA VACCINE (#1) 2024 DEPRESSION SCREENING 07/29/2024 ZOSTER VACCINE (1 of 2) 12/13/2029 DTAP/TDAP/TD VACCINES (7 - Td or Tdap) 09/13/2031 09/13/2021, 02/26/1994, 02/26/1994, Additional history exists HIB VACCINE Aged Out No longer eligi ble based on patient's age to complete this topic HPV VACCINE Aged Out No longer eligi ble based on patient's age to complete this topic MENINGOCOCCAL (Group B) VACCINE Aged Out No longer eligible based on patient's age to complete this topic MENINGOCOCCAL VACCINE Aged Out No zach lazaro eligible based on patient's age to complete this topic PNEUMOCOCCAL VACCINE Aged Out No long er eligible based on patient's age to complete this topic Procedures Procedure Name Priority Date/Time Associated Diagnosis Comments BASIC METABOLIC PANEL (CALCIUM TOTAL) Routine 09/29/2020 2:03 AM NURSE'S ASSISTANT Blunt trauma of neck, initial encounter from Last 3 Months or Most Recently Relevant to Health Maintenance Results * (ABNORMAL) BASIC METABOLIC PANEL (CALCIUM TOTAL) (09/29/2020 2:03 AM NURSE'S ASSISTANT) BUN 20 7 - 26 mg/dL 09/29/2020 3:06 AM [facility] Creatinine 0.7 0.6 - 1.2 mg/dL 09/29/2020 3:06 AM [facility] Sodium 139 136 - 145 mmol/L 09/29/2020 3:06 AM [facility] Potassium 3.4(L) 3.5 - 4.5 mmol/L 09/29/2020 3:06 AM [facility] Chloride 105 98 - 107 mmol/L 09/29/2020 3:06 AM [facility] CO2 25 22 - 29 mmol/L 09/29/2020 3:06 AM [facility] Glucose 107 70 - 115 mg/dL 09/29/2020 3:06 AM [facility] Calcium 8.1(L) 8.4 - 10.2 mg/dL 09/29/2020 3:06 AM [facility] Anion Gap 12 8 - 18 09/29/2020 3:06 AM [facility] BUN/Creatinine Ratio 29(H) 7 - 23 09/29/2020 3:06 AM [facility] Osmolality Calculated 291 270 - 300 mOsm/kg 09/29/2020 3:06 AM [facility] eGFR >60 >60 mL/min/1.7 3 m2 09/29/2020 3:06 AM [facility] Blood BLOOD SPECIMEN / Unknown Lab Venipuncture / Unknown 09/29/2020 2:03 AM NURSE'S ASSISTANT 09/29/2020 2:35 AM [facility] Manny Wall MD LAB - CHEMISTRY OR DERABLES [facility] [address] [place] [address] [phone] from Last 3 Months or Most Recently Relevant to Health Maintenance Advance Directives * Full Code (Latest Code Status on File) Date Activated Date Inactivated Comments 09/28/2020 5:29 PM 09/29/2020 6:59 PM Care Teams Manager Operations And Procurement Relationship Specialty [place] [address] [place] [address] PCP - General Family Medicine 09/28/20 Unknown, Provider [address] [place] [address] 09/28/20
--- OUTSIDE RECORDS SUMMARY | 2024-08-21 15:22 | XMS_ITS | Encounter Summary ---
Author Organization [facility] Address [address] [place] [address]. [place], [place] [address] [place] [address] Care Team Providers Care Content Production Specialist Name Role Phone Jann Saucedo MD Unavailable [phone] Luiz Matta MD Primary Care Provider [phone] Luiz Matta MD Primary Care Provider [phone] Reason for Referral * Surgical (Routine) - Closed Specialty Diagnoses / Procedures Referred By Alexandria barrios Referred To Contact Procedures Case request operating room: INJECTION TRIGGER POINT Cervical paraspinous, trapezius, deltoid Alta Oropeza APNP Phone: tel: fax: Referral ID Status Reason Start Date Expiration Date Visits Re quested Visits Authorized [id number] Closed 05/29/2021 06/28/2022 1 1 Encounter Details Date Type Department Care Team (Late st Contact Info) Description 05/29/[address] 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 No / Unsure 05/29/2021 8:59 AM CDT documented as of this encounter Plan of Treatment Scheduled Orders Name Type Priority Associated Diagnoses Orde r Schedule Case request operating room: INJECTION TRIGGER POINT Cervical paraspinous, trapezius, deltoid Case Request Routine Once for 1 Oc currences starting 05/29/2021 until 05/29/2021 documented as of this encounter Visit Diagnoses Not on filedocumented in this encounter Additional Health Concerns Infection Onset Date Last Indicated Resolved Time COVID-19 Rule Out 04/09/2023 04/09/2023 04/09/2023 8:30 AM CDT COVID-19 Confirmed 04/09/2023 04/09/2023 12:32 AM CDT Assessment Noted Time PHQ-9 Depression Total Score: 0 05/02/20 10:15 AM CDT documented as of this encounter Care Teams Content Production Specialist Relationship Specialty [place] [address] [place] [address] PCP - General FAMILY PRACTICE 02/25/20 09/12/21 [place] [address] [place] [address] PCP - General FAMILY PRACTICE 09/13/21 Jann Saucedo MD [facility]. [facility] [address] [place] [address] [place] [facility] Driver INTERVENTIONAL CARDIOLOGY 02/26/18 documented as of this encounter
--- OUTSIDE RECORDS SUMMARY | 2024-08-21 15:22 | XMS_ITS | Referral Summary ---
Author Organization [facility] [employer] Address [address] [address] Care Team Providers Care Kinder Teacher Name Role Phone Luiz Matta MD Primary Care Provider Unknown, Provider Unavailable Unavailable Source Comments [facility],non-owned Affiliates and Associated Physician Practices is amultiple site organization consisting of ambulatory clinics and hospital sitesin [place], [place], [place]. This disclosure is being madepursuant to the Care Everywhere program and may not contain all information available regarding this patient. Last updated 18.[facility] Allergies No known active allergies Medications * [...] needed 05/24/2021 Active ergocalciferol (DRISDOL) 1.25 MG (74321 UT) capsule Take 1 (one) capsule by [...] 37 ??C (98.6 ??F) 07/18/2022 1:37 PM MILITARY SOURCE OPERATIONS OFFICER Respiratory Rate 18 09/29/2020 3:58 PM MILITARY SOURCE OPERATIONS OFFICER Oxygen Saturation 96% 09/29/2020 3:58 PM MILITARY SOURCE OPERATIONS OFFICER Inhaled Oxygen Concentration - - Weight 98 kg (216 lb) 04/19/2023 3:24 PM CDT Height 185.4 cm (6' 1 ) 04/19/2023 3:24 PM CDT Body Mass Index 28.5 04/19/2023 3:24 PM CDT Plan of Treatment Not on file Procedures Procedure Name Priority Date/Time Associated Diagnosis Comments BASIC METABOLIC PANEL (CALCIUM TOTAL) Routine 09/29/2020 2:03 AM MILITARY SOURCE OPERATIONS OFFICER Blunt trauma of neck, initial encounter from Last 3 Months or Most Recently Relevant to Health Maintenance Results * (ABNORMAL) BASIC METABOLIC PANEL (CALCIUM TOTAL) (09/29/2020 2:03 AM MILITARY SOURCE OPERATIONS OFFICER) BUN 20 7 - 26 mg/dL 09/29/2020 3:06 AM [facility] Creatinine 0.7 0.6 - 1.2 mg/dL 09/29/2020 3:06 AM [facility] Sodium 139 136 - 145 mmol/L 09/29/2020 3:06 AM [facility] Potassium 3.4(L) 3.5 - 4.5 mmol/L 09/29/2020 3:06 AM [facility] Chloride 105 98 - 107 mmol/L 09/29/2020 3:06 AM [facility] CO2 25 22 - 29 mmol/L 09/29/2020 3:06 AM [facility] Glucose 107 70 - 115 mg/dL 09/29/2020 3:06 AM [facility] Calcium 8.1(L) 8.4 - 10.2 mg/dL 09/29/2020 3:06 AM [facility] Anion Gap 12 8 - 18 09/29/2020 3:06 AM [facility] BUN/Creatinine Ratio 29(H) 7 - 23 09/29/2020 3:06 AM [facility] Osmolality Calculated 291 270 - 300 mOsm/kg 09/29/2020 3:06 AM [facility] eGFR >60 >60 mL/min/1.7 3 m2 09/29/2020 3:06 AM [facility] Blood BLOOD SPECIMEN / Unknown Lab Venipuncture / Unknown 09/29/2020 2:03 AM MILITARY SOURCE OPERATIONS OFFICER 09/29/2020 2:35 AM MILITARY SOURCE OPERATIONS OFFICER Manny Wall MD LAB - CHEMISTRY OR DERABLES [facility] [address] [place] [address], [facility] [phone] from Last 3 Months or Most Recently Relevant to Health Maintenance Advance Directives * Full Code (Latest Code Status on File) Date Activated Date Inactivated Comments 09/28/2020 5:29 PM 09/29/2020 6:59 PM Care Teams Kinder Teacher Relationship Specialty [place] [address] [place] [address] PCP - General Family Medicine 09/28/20 Unknown, Provider [address] [place] [address] 09/28/20
--- OUTSIDE RECORDS SUMMARY | 2024-08-21 15:22 | XMS_ITS | Encounter Summary ---
Author Organization [facility] Address [address] [place] [address]. [place] [address] [place] [address] Care Team Providers Care Corporate Webmaster Name Role Phone Mckay Bradley MD Primary Care Provider [phone] Jann Saucedo MD Unavailable [phone] Luiz Matta MD Primary Care Provider [phone] Luiz Matta MD Primary Care Provider [phone] Encounter Details Date Type Department Care Team (Late st Contact Info) Description 02/26/2018 Abstract [facility] CONVERSION [address] [place] [address] , Carrie Hamlin MD Social [...] COVID-19 Rule Out 08/10/2020 08/10/202008/10/2020 4:35 PM EMERGENCY MEDICINE NURSE PRACTITIONER COVID-19 Rule Out 03/29/2021 03/29/2021 03/29/2021 3:32 PM CDT COVID-19 Rule Out 03/29/2021 03/29/2021 03/31/2021 4:30 AM CDT COVID-19 Rule Out 04/09/2023 04/09/2023 04/09/2023 8:30 AM CDT COVID-19 Confirmed 04/09/2023 04/09/2023 12:32 AM CDT documented as of this encounter Care Teams Corporate Webmaster Relationship Specialty Start Date End Date Mckay Bradley MD PCP - General INTERNAL MEDICINE 02/20/18 02/24/20 [place] [address] [place] [address] PCP - General FAMILY PRACTICE 02/25/20 09/12/21 [place] [address] [place] [address] PCP - General FAMILY PRACTICE 09/13/21 Jann Saucedo MD [facility]. [facility] [address] [place] [address] Edil Drawing Operator INTERVENTIONAL CARDIOLOGY 02/26/18 documented as of this encounter
--- OUTSIDE RECORDS SUMMARY | 2024-08-21 15:22 | XMS_ITS | Encounter Summary ---
Author Organization [facility] Address [address] [place] [address]. [place], [place] [address] [place] [address] Care Team Providers Care Disk Sharpener Name Role Phone Jann Saucedo MD Unavailable [phone] Luiz Matta MD Primary Care Provider [phone] Reason for Visit * Reason Comments Image (SCAN) Encounter Details Date Type Department Care Team (Latest Contact Info) Description 08/13/2024 Scan HEALTH INFO [facility] Scanned, Doc Med Group Image (SCAN) Social History Tobacco Use Types Packs/Day Years Used Date Smoking Tobacco: Former Cigarettes 1 10 1 990 - 1999 Passive Smoke Exposure: Never Smokeless Tobacco: Former Chew Quit: 09/26/2020 Comments:Light user Alcohol Use Standard Drinks/Week Comments Yes 0 (1 standard drink = 0.6 oz pur e alcohol) a couple week [facility] Utilities Answer Date Recorded In the past 12 months has [facility], gas, oil, or water [employer] threatened to shut off services in your home? No 07/25/2024 Humiliation, Afraid, Rape, and Kick questionnair e Answer Date Recorded Within the last year, have y ou been afraid of your partner or ex-partner? No 07/25/2024 Within the last year, have y ou been humiliated or emotionally abused in other ways by your partner or ex-partner? No Within the last year, have y ou been kicked, hit, slapped, or otherwise physically hurt by your partner or ex-partner? No 07/25/2024 Within the last year, have y ou been raped or forced to have any kind of sexual activity by your partner or ex-partner? No 07/25/2024 Overall Financial Resource Strain (CARDIA) Answe r Date Recorded How hard is it for you to pa y for the very basics like food, housing, medical care, and heating? Not hard at all 07/25/2024 PHQ-2 Answer Date Recorded Patient Health Questionnaire-2 Score 0 09/11/2023 Hunger Vital Sign Answer Date Recorded Within the past 12 months, y ou worried that your food would run out before you got the money to buy more. Never true 07/25/20 24 Within the past 12 months, t he food you bought just didn't last and you didn't have money to get more. Never true 07/25/2024 PRAPARE - Transportation Answer Date Re corded In the past 12 months, has l ack of transportation kept you from medical appointments or from getting medications? No 06/29 In the past 12 months, has l ack of transportation kept you from meetings, work, or from getting things needed for daily living? No 07/25/2024 Housing Stability Vital Sign Answer Harry e Recorded In the last 12 months, was t here a time when you were not able to pay the mortgage or rent on time? No 07/25/2024 In the past 12 months, how m any times have you moved where you were living? 0 07/25/2024 At any time in the past 12 m [facility], were you homeless or living in a custodial (including now)? No 07/25/2024 Education Answer Date Recorded What is the highest level of school you have completed or the highest degree you have received? 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 Answer Date of Assessment Author Status No 07/25/2024 2:43 PM Fariba Davis Nurse Shade Matcher II Active * Do you have serious difficulty walking or climbing stairs? Answer Date of Assessment Author Status No 07/25/2024 2:43 PM Fariba Davis Nurse Shade Matcher II Active * Do you have difficulty dressing or bathing? Answer Date of Assessment Author Status No 07/25/2024 2:43 PM Fariba Davis Nurse Shade Matcher II Active * Because of a physical, mental, or emotional condition, do you have difficulty doing errands alone such as visiting a doctor's office or shopping? Answer Date of Assessment Author Status No 07/25/2024 2:43 PM Fariba Davis Nurse Mary II Active documented as of this encounter Mental Status * Because of a physical, mental, or emotional condition, do you have serious difficulty concentrating, remembering, or making decisions? Answer Entry Date Author Status No 07/25/2024 2:43 PM Fariba Davis Nurse Shade Matcher II Active documented in this encounter Plan of Treatment Not on file documented as of this encounter Goals Goal Patient Goal Type Associated Problems Recent Progress Patient-Stated? Author Safety - demonstrates understanding of home safety measures Lifestyle No Cassia Cardoso RN Health - patient able to perform ADLs independently Lifestyle No John Paul Knapp RN documented as of this encounter Procedures Procedure Name Priority Date/Time Associated Diagnosis Comments IMAGE GENERIC 08/13/2024 documented in this encounter Results * IMAGE GENERIC (08/13/2024) Anatomical Region Laterality Modality Other 08/13/2024 us Doc Med Group Scanned SCANNING Final Resu lt documented in this encounter Visit Diagnoses Not on filedocumented in this encounter Additional Health Concerns Assessment Noted Time PHQ-9 Depression Total Score: 0 09/13/19 22 8:30 AM HOLISTIC PULSER documented as of this encounter Care Teams Disk Sharpener Relationship Specialty [place] [address] [place] [address] PCP - General FAMILY PRACTICE 09/13/21 Jann Saucedo MD [facility]. [facility] [address] [place] [address] Riverside Surveyor Geophysical Prospecting INTERVENTIONAL CARDIOLOGY 02/26/18 documented as of this encounter
--- OUTSIDE RECORDS SUMMARY | 2024-08-21 15:24 | XMS_ITS | Clinical Summary ---
Author Organization [facility] Address [address] [place] [address] Care Team Providers Care Dye Mixer Name Role Phone Luiz Matta MD Primary Care Provider [phone] Allergies No known active allergies Social History Tobacco Use Types Packs/Day Years Used Date Smoking Tobacco: Never Assessed Sex and Gender Information Value Date Recorded Sex Assigned at Not on file Legal Sex Male 2:41 PM CDT Gender Identity Not on file Sexual Orientation Not on file Plan of Treatment Health Maintenance Due Date Last Done Comments DTAP/TDAP/TD VACCINES (2 - Tdap) 02/27/1994 02/26/19 94 HEPATITIS B VACCINES (1 of 3 - 19+ 3-dose series) 12/13/1998 INFLUENZA VACCINE (#1) 2024 HPV VACCINES Aged Out No longer eligi ble based on patient's age to complete this topic PNEUMOCOCCAL VACCINE 0-64 YEARS Aged Out No longer eligible based on patient's age to complete this topic Care Teams Dye Mixer Relationship Specialty [place] [address] [place] [address] PCP - General Family Practice 12/01/20
--- OUTSIDE RECORDS SUMMARY | 2024-08-21 15:25 | XMS_ITS | Continuity of Care Document ---
Author Organization [facility] Address [address] [place] [address]. [place] [address] [place] [address] Care Team Providers Care Risk Mgr Name Role Phone Fran Newby MD Unavailable [phone] Luiz Rich MD Primary Care Provider [phone] Encounters Date Type Department Care Team Description 08/13/2024 Scan [facility] SRVCS Scanned, Doc [facility] Group Image (SCAN) 07/31/2024 Scan [facility] SRVCS Scanned, Doc [facility] Image (SCAN) 07/25/2024 2:12 PM TECHNICAL PRODUCER - 07/27/2024 8:33 AM TECHNICAL PRODUCER Hospital Encounter [facility] [address] [facility] [place] [address] Tod Cifuentes MD Discharge Disposition: Home or Self Care (Routine Discharge) 07/26/2024 6:19 PM TECHNICAL PRODUCER Anesthesia Event [facility] [address] Dony Reyna MD 07/26/2024 6:18 PM TECHNICAL PRODUCER - 07/26/2024 7:14 PM TECHNICAL PRODUCER Surgery [facility] OR ONE [facility] [place], [place] [address] Bob [place] MD CYSTOSCOPY; LEFT URETERAL STENT PLACMENT, LEFT RETROGRADE PYLEOGRAM 07/25/2024 Travel 07/25/2024 7:51 AM TECHNICAL PRODUCER - 07/25/2024 1:31 PM TECHNICAL PRODUCER Emergency [facility] Emergency Room [address] [place], [place] [id number] Issac Boston MD Flank Pain Discharge Disposition: Transfer to Acute Care Hospital 06/08/2024 Scan HEALTH INFO SRVCS Scanned, Doc Med Group 03/31/2024 Travel 03/31/2024 Telephone [facility] Family & Internal Medicine [facility] [address] [place] [address] Luiz Rich MD Appointment Request 03/31/2024 2:00 PM CDT Office Visit [facility] Family & Internal [facility] [address] [place] [address] Luiz Rich MD Follow Up (F/u from work comp. Due to pain in both arms & neck. ) 03/17/2024 Scan HEALTH INFO SRVCS Scanned, Doc Med Group 02/06/2024 Travel 02/06/2024 3:20 PM CDT Office Visit [address] [address] Cami Garnett APRN Diverticulitis (Flare up, started Saturday. ) 02/06/[address] [address] Luiz Rich MD Error 11/26/2023 Travel 11/26/2023 7:00 AM CDT - 11/26/2023 11:59 PM CDT Hospital Encounter [facility] MRI [address] [place] [address] Luiz Rich MD Discharge Disposition: Home or Self Care (Routine Discharge) 11/11/[address] [address] Luiz Rich MD Referral 11/05/2023 Orders Only [facility] Family & Internal Medicine [facility] [address] [place] [phone] Luiz Rich MD 11/04/[address] [address] Luiz Rich MD Results (MRI) 11/01/2023 Travel 11/01/2023 2:25 PM CDT - 11/01/2023 11:59 PM CDT Hospital Encounter [facility] [address] [place] [address] Luiz Rich MD Discharge Disposition: Home or Self Care (Routine Discharge) 10/17/2023 Telephone [facility] Family & Internal [address] [address] Luiz Rich MD Orders 09/27/[address] [address] Luiz Rich MD Error 09/25/2023 Orders Only [facility] [address] [place] [address] Luiz Rich MD 09/25/2023 4:10 PM TECHNICAL PRODUCER - 09/25/2023 11:59 PM TECHNICAL PRODUCER Hospital Encounter [facility] [address] [place] [address] Luiz Rich MD Discharge Disposition: Home or Self Care (Routine Discharge) 09/25/2023 Travel 09/25/2023 3:40 PM TECHNICAL PRODUCER Office Visit [address] [address] Luiz Rich MD Back Pain 09/13/[address] [address] Luiz Rich MD Lab Results 09/12/2023 Orders Only [facility] [address] [place] [address] [place] [address] Luiz Rich MD 09/12/2023 Travel 09/12/2023 2:05 PM TECHNICAL PRODUCER - 09/12/2023 11:59 PM TECHNICAL PRODUCER Hospital Encounter [facility] Laboratory [address] [place] [address] Luiz Rich MD Discharge Disposition: Home or Self Care (Routine Discharge) 09/12/2023 [place] [address] Luiz Rich MD Lab Order 09/11/2023 Travel 09/11/2023 8:00 AM TECHNICAL PRODUCER Office Visit [address] [address] Olga Gaines NP Back Pain (Lower left back pain. Xs 1 month) 04/09/2023 Travel 04/09/2023 7:20 AM CDT Office Visit [facility] Family & Internal [address] [address] Rena Perkins APRN URI (Headache congestion, sore throat, cough, body aches x 3 days) 01/16/[address] [address] Luiz Rich MD Medication Request 01/16/2023 Telephone [facility] Family & Internal [address] [address] Luiz Rich MD Sinus Problem 01/01/2023 Travel 01/01/2023 2:40 PM CDT Office Visit [facility] Family Internal [address] [address] Rena Perkins APRN Cough (Itchy eyes, was outside Saturday and sx's started. Hx of bad allergies. ) 10/12/2022 Travel 10/12/2022 9:00 AM CDT - 10/12/2022 11:59 PM CDT Hospital Encounter [facility] [address] [place] [address] Manny Chung, Malina Garay, PT Cervical Pain Discharge Disposition: Home or Self Care (Routine Discharge) 10/10/2022 Travel 10/10/2022 12:37 PM CDT - 10/10/2022 11:59 PM CDT Hospital Encounter [facility] [address] [place] [address] Manny Chung MD Meyer, Beverly L, PT Cervical Pain Discharge Disposition: Home or Self Care (Routine Discharge) 10/08/2022 Travel 10/08/2022 1:40 PM CDT - 10/08/2022 11:59 PM CDT Hospital Encounter [facility] [address] [place] [address] Manny Chung MD Rittenhouse, Tiffany J, PROGRAM DIRECTOR/MUSIC DIRECTOR Neck Pain Discharge Disposition: Home or Self Care (Routine Discharge) 10/05/2022 Travel 10/05/2022 9:07 AM TECHNICAL PRODUCER - 10/05/2022 11:59 PM TECHNICAL PRODUCER Hospital Encounter [facility] [address] [place] [address] Manny Chung MD Rittenhouse, Tiffany J, PROGRAM DIRECTOR/MUSIC DIRECTOR Neck Pain Discharge Disposition: Home or Self Care (Routine Discharge) 10/03/2022 Travel 10/03/2022 1:44 PM TECHNICAL PRODUCER - 10/03/2022 11:59 PM TECHNICAL PRODUCER Hospital Encounter [facility] [address] [place] [address] Manny Chung MD Rittenhouse, Tiffany J, PROGRAM DIRECTOR/MUSIC DIRECTOR Neck Pain Discharge Disposition: Home or Self Care (Routine Discharge) 10/01/2022 Travel 10/01/2022 8:34 AM TECHNICAL PRODUCER - 10/01/2022 11:59 PM TECHNICAL PRODUCER Hospital Encounter [facility] [address] [place] [address] Manny Chung MD Meyer, Beverly L, PT Neck Pain Discharge Disposition: Home or Self Care (Routine Discharge) 09/21/2022 Travel 09/21/2022 8:00 AM TECHNICAL PRODUCER - 09/21/2022 8:51 AM TECHNICAL PRODUCER Surgery [facility] [address] [place] [address] Shant Whitehead MD Colonoscopy 09/21/2022 8:29 AM TECHNICAL PRODUCER Anesthesia Event [facility] [address] [place] [address] Sylvester Yadav, Yeimy De Santiago, MANUEL 09/21/2022 7:24 AM TECHNICAL PRODUCER - 09/21/2022 9:40 AM TECHNICAL PRODUCER Hospital Encounter [facility] [address] [place] [address] Shant Whitehead MD Discharge Disposition: Home or Self Care (Routine Discharge) 09/14/2022 Orders Only [facility] General Surgery [address], [address] [address] Shant Whitehead MD 09/14/2022 Telephone [facility] One Day Services [address] [place] [address] Shant Whitehead MD Medication 08/29/2022 Travel 08/29/2022 7:40 AM TECHNICAL PRODUCER Office Visit [facility] Family & Internal Medicine [address] [address] Eloise Macias, CODING AUDITOR Abdominal Pain (Pt states he is having Diverticulitis flare) 08/10/2022 Orders Only [address], [address] [address] Shant Whitehead MD 08/10/2022 Prep for Procedure [facility] Surgery [address] [place] [address] Shant Whitehead MD 08/08/2022 Travel 08/08/2022 3:40 PM TECHNICAL PRODUCER Office Visit [facility] General Surgery [address], [address] [place] [address] Shant Whitehead MD Consult (Abdominal pain( new patient)) 07/26/2022 Travel 07/26/2022 1:40 PM TECHNICAL PRODUCER Office Visit [facility] Family & Internal Medicine [address] [address] Luiz Rich MD URI/ENT Symptoms (Going into the chest. /Chest pressure. ); Ear Problem; Cough (Started July 21. /Uses OTC medication.) 07/18/2022 Scan [employer] SRVCS Scanned, Doc [facility] Group 07/13/2022 Travel 07/13/2022 3:41 PM TECHNICAL PRODUCER - 07/13/2022 6:11 PM TECHNICAL PRODUCER Emergency [facility] Emergency Room [address] [place] [address] Milagro Aponte, RADIOLOGIC TECHNOLOGIST MAMMOGRAM-BC Leg Pain Discharge Disposition: Home or Self Care (Routine Discharge) 05/17/2022 Travel 05/17/2022 1:00 PM CDT Office Visit [facility] Family & Internal [address] [address] Luiz Rich MD Diverticulitis; TCM (05/08/22 - 05/10/22. ER gave his antibiotics, Ivs and a liquid diet. ) 05/14/2022 Telephone [facility] Family & Internal [address] [address] Luiz Rich MD TCM 05/11/2022 Telephone [facility] [address] [place] [address] Pippa Manrique, RN Follow Up Call 05/08/2022 11:42 PM CDT - 05/10/2022 3:10 PM CDT Emergency [facility] Med/Surg [address] [place] [address] Valdez Roberson MD Harris, Michael, MD Malcolm, Chanel Rodriguez MD Abdominal Pain Discharge Disposition: Home or Self Care (Routine Discharge) 05/08/2022 Travel 03/14/2022 Travel 03/14/2022 7:00 AM CDT Office Visit [address] [address] Mariola Taylor, CODING AUDITOR Follow Up (6 month f/u, was low on vit D. Pt states he took pills for a little while, they made him not feel the best. ) 02/02/2022 Travel 02/02/2022 9:20 AM CDT Office Visit [address] [address] Eloise Macias NP Abdominal Pain (Pt c/o right side lower abdominal pain that radiates to back. Pt states the pain is constant with a burning sensation when touched) 12/19/2021 Travel 12/19/2021 2:40 PM CDT Office Visit [address] [address] Luiz Rich MD Constipation (Diverticulitis acting up.); GERD (Wants to start his medication again) 09/25/2021 Orders Only [facility] [address] [place] [address] Irma Diehl, DIANNE 09/13/2021 Travel 09/13/2021 7:00 AM TECHNICAL PRODUCER Office Visit [address] [address] Mariola Taylor, CODING AUDITOR Sinus Problem (Having Sinus problems for 3 weeks, making him dizzy, in his chest, pressure in his ears) 08/29/2021 Travel 08/29/2021 3:20 PM TECHNICAL PRODUCER Office Visit [facility] Internal [address] [phone] Luiz Rich MD Work Comp (fractured thyroid cartlage, bulging disc c6 & c7, Injury September 28 2020) 08/18/2021 MyChart Message Enc [facility] Family & Internal Medicine [facility] [address] [place] [phone] Julio [facility] Provider Work Comp Information 08/17/[address] [address] Luiz Rich MD Other 08/03/2021 Scan [facility] INFO SRVCS Scanned, Documents 07/20/2021 Scan [facility] INFO SRVCS Scanned, Documents 07/04/2021 Travel 07/04/2021 4:00 PM TECHNICAL PRODUCER Office Visit [facility] Family & Internal Medicine [address] [address] Luiz Rich MD Follow Up (Follow up to discuss pain management) 06/26/2021 Telephone [facility] [place] [address] [id number] Nick Gabriel, RN Follow Up Call 06/12/2021 Travel 06/12/2021 3:20 PM TECHNICAL PRODUCER - 06/12/2021 3:40 PM TECHNICAL PRODUCER Surgery [facility] Inter[place] [address] [id number] Jeri Callahan MD INJECTION TRIGGER POINT Cervical paraspinous, trapezius, deltoid 06/12/2021 2:26 PM TECHNICAL PRODUCER - 06/12/2021 3:50 PM TECHNICAL PRODUCER Hospital Encounter [facility] [place] [address] [id number] Jeri Callahan MD Discharge Disposition: Home or Self Care (Routine Discharge) 06/01/2021 Telephone [facility] [place] [address] [id number] Flaquita Madsen, RN Follow Up Call 06/01/2021 Telephone [facility] Family & Internal Medicine [address] [address] Luiz Rich MD Referral Request 05/29/2021 Prep for Procedure [facility] [place] [address] [id number] Alta Oropeza APNP 05/29/2021 Travel 05/29/2021 9:02 AM CDT - 05/29/2021 11:59 PM CDT Hospital Encounter [facility] [place] [address] [id number] Alta Oropeza APNP Discharge Disposition: Home or Self Care (Routine Discharge) 05/15/2021 Scan [employer] SRVCS Scanned, Documents 05/15/[address] [address] Luiz Rich MD Error 05/09/2021 Orders Only [address] [address] Luiz Rich MD 05/02/[address] [address] Luiz Rich MD Referral; Returned Call 05/02/2021 Travel 05/02/2021 10:20 AM CDT Office Visit [address] [address] Luiz Rich MD Referral Request (ent, tonsils) 03/29/2021 2:40 PM CDT Office Visit [facility] Family & Internal Medicine [address] [address] Maksim Bone MD URI 03/28/2021 Travel 03/28/2021 3:10 PM CDT Flu/Imm Clinic [address] [phone] 03/23/2021 Patient Self-Triage [facility] DEPARTMENT [address] [place] [address] Mycjtt, [facility] Provider 03/23/2021 Patient Self-Triage [facility] [address] [place] [address] Mychart, [facility] Provider 03/16/2021 Travel 03/16/2021 1:00 PM CDT Office Visit [facility] Family & Internal Medicine [facility] [address] [place] [address] Luiz Rich MD Follow Up (pt here to discuss results of CT scan); Sore Throat (pt c/o of a sore throat for the last few days) 03/14/2021 Telephone [facility] Family & Internal Medicine [facility] [address] [place] [phone] Luiz Rich MD Results 03/13/2021 Telephone [facility] [address] [place] [address] Luiz Rich MD Question 03/13/2021 Travel 03/13/2021 9:58 AM CDT - 03/13/2021 11:59 PM CDT [place] [address] [place] [address] Luiz Rich MD Discharge Disposition: Home or Self Care (Routine Discharge) 02/23/2021 Travel 02/23/2021 3:00 PM CDT Office Visit [facility] Family & Internal Medicine [facility] [address] [place] [phone] Luiz Rich MD Follow Up (review results from ENT at [facility].) 02/23/2021 Telephone [facility] Family & Internal Medicine [facility] [address] [place] [phone] Luiz Rich MD Other 01/12/2021 Travel 01/12/2021 1:00 PM CDT Office Visit [facility] Family & Internal Medicine [facility] [address] [place] [phone] Luiz Rcih MD Follow Up (workmans comp go over records) 01/11/2021 Scan [facility] INFO SRVCS Scanned, Documents 01/04/2021 Scan [facility] INFO SRVCS Scanned, Documents 01/04/[address] [phone] Luiz Rich MD Question 12/23/2020 Scan [facility] INFO SRVCS Scanned, Documents 12/21/2020 Scan [facility] INFO SRVCS Scanned, Documents 12/19/2020 Scan [facility] SRVCS Scanned, Documents Image (SCAN) 12/19/[address] [phone] Luiz Rich MD Question 12/04/2020 Scan [facility] INFO SRVCS Scanned, Documents 12/01/2020 Scan [facility] SRVCS Scanned, Documents MRI (SCAN) 11/21/2020 Travel 11/21/2020 7:40 AM CDT Office Visit [facility] Family & Internal Medicine [facility] [address] [place] [address] Qian Ricks FNP-BC Follow Up (2 week f/u on R ear- patient c/o dizziness and throbbing in the ear ) 11/14/2020 Scan [facility] INFO SRVCS Scanned, Documents 11/09/2020 Scan [facility] SRV[facility] Scanned, Documents 11/03/2020 Travel 11/03/2020 10:20 AM CDT Office Visit [address] [address] Qian Ricks FNP-BC Earache (right ear. onset- 2 days ago); Sinus Problem (onset- 1 mo. spitting up brownish sputum) 09/28/2020 8:54 AM TECHNICAL PRODUCER - 09/28/2020 12:01 PM TECHNICAL PRODUCER Emergency [facility] [place] [address] Neck Injury Discharge Disposition: Transfer to Acute Care Hospital 08/31/2020 8:40 AM TECHNICAL PRODUCER - 08/31/2020 11:59 PM TECHNICAL PRODUCER Hospital Encounter [facility] Laboratory [address] [place] [address] Luiz Rich MD Discharge Disposition: Home or Self Care (Routine Discharge) 08/30/2020 Orders Only [facility] Laboratory [address] [place] [address] Luiz Rich MD 08/30/2020 3:30 PM TECHNICAL PRODUCER - 08/30/2020 11:59 PM TECHNICAL PRODUCER Hospital Encounter [facility] [address] [place] [address] Luiz Rich MD Discharge Disposition: Home or Self Care (Routine Discharge) 08/30/2020 Travel 08/30/2020 3:00 PM TECHNICAL PRODUCER Office Visit [address] [phone] Luiz Rich MD Physical (6 mo. annual wellness physical. ); Lab Order (discuss lab work.) 08/24/2020 Travel 08/24/2020 11:20 AM TECHNICAL PRODUCER Laboratory Only [facility] Medical [facility] Family & Internal Medicine [address] [phone] 08/24/2020 11:00 AM TECHNICAL PRODUCER Telemedicine [facility] Medical [facility] Family & Internal Medicine [address] [phone] Yvonne Arguelles, HETALNP Headache (x 3 days ); Gi Problem (diarreha and stomach upset- started this morning (3 bouts this am) ); Sinus Problem (L tonsil hurts for a few days- sinus issue since last visit thinks drainage is upsetting his stomach (requesting steroid shot) ) 08/12/2020 Orders Only [facility] & Internal [address] [address] Yvonne Arguelles, APNP 08/10/2020 3:40 PM TECHNICAL PRODUCER Telemedicine [facility] Internal [address] [address] Yvonne Arguelles, APNP Suspected Coronavirus (Covid-19) (headache started today and nausea, runny nose- has tried a benjamín pot today, fatigue ) 08/09/2020 Travel 08/09/2020 4:30 PM TECHNICAL PRODUCER - 08/09/2020 11:59 PM TECHNICAL PRODUCER Hospital Encounter [facility] Outpatient Rehab [address] [place] [address] Luiz Rich MD Meyer, Beverly L, PT Cervical Pain Discharge Disposition: Home or Self Care (Routine Discharge) 08/04/2020 Travel 08/04/2020 4:50 PM TECHNICAL PRODUCER - 08/04/2020 11:59 PM TECHNICAL PRODUCER Hospital Encounter [facility] Outpatient Rehab [address] [place] [address] Vanessa Medrano, PT Luiz Rich MD Neck Pain Discharge Disposition: Home or Self Care (Routine Discharge) 08/01/2020 Travel 08/01/2020 3:36 PM TECHNICAL PRODUCER - 08/01/2020 11:59 PM TECHNICAL PRODUCER Hospital Encounter [facility] Outpatient Rehab [address] [place] [address] Luiz Rich MD Meyer, Beverly L, PT Cervical Pain Discharge Disposition: Home or Self Care (Routine Discharge) 07/19/2020 Travel 07/19/2020 3:40 PM TECHNICAL PRODUCER Office Visit [facility] Internal [address] [address] Nohelia Dupree, RADIOLOGIC TECHNOLOGIST MAMMOGRAM Luiz Rich MD Shoulder Pain (right shoulder pain. . back side of arm gets numb and then moves down to the fingers. ) 07/18/[address] [address] Luiz Rich MD Referral 06/21/2020 Travel 06/21/2020 4:20 PM TECHNICAL PRODUCER Office Visit [facility] Family & Internal Medicine [facility] [address] [place] [address] Yvonne Arguelles, ROLANDA Back Pain (sciatic pain L side of back into leg x 2 weeks) 05/18/[address] [address] Luiz Rich MD Results 05/18/2020 Travel 05/18/2020 10:43 AM CDT - 05/18/2020 11:59 PM CDT Hospital Encounter [facility] [address] [place] [phone] Luiz iRch MD Discharge Disposition: Home or Self Care (Routine Discharge) 05/17/[address] [address] Luiz Rich MD Information 05/16/2020 Orders Only [facility] [address] [place] [address] Luiz Rich MD 05/16/2020 12:07 PM CDT - 05/16/2020 11:59 PM CDT Hospital Encounter [facility] [address] [place] [address] Luiz Rich MD Discharge Disposition: Home or Self Care (Routine Discharge) 05/16/2020 Travel 05/16/2020 11:20 AM CDT Office Visit [address] [address] Luiz Rich MD Back Pain (above shoulder); Chest Pain (wraps around to lt side); Mass (lt side of chest and on neck); Rash (lt thigh) 04/05/2020 Travel 04/05/2020 3:20 PM CDT Office Visit [facility] Family & Internal [address] [address] Luiz Rich MD Diverticulitis (Flare up); Knee Pain (left for 3 weeks.) 04/01/2020 Scan [facility] SRVCS Scanned, Documents 03/04/[address] [address] Luiz Rich MD Other 03/03/2020 Travel 03/03/2020 3:00 PM CDT Telemedicine [facility] Family Internal [address] [address] Luiz Rich MD Sinus Problem (yellow drainage, sneezing, slight sore throat,x 3days no fever) 02/25/[address] [address] Luiz Rich MD Medication 02/25/2020 Travel 02/25/2020 3:00 PM CDT Office Visit [facility] Family Internal [address] [address] Luiz Rich MD New Patient (New Patient, Needing General Care. Also asking for a refill of his omeprazole. ) 01/04/2020 Scan [facility] INFO SRVCS Scanned, Documents 07/04/2019 Scan [facility] SRVCS Scanned, Documents 05/26/2019 Scan [facility]VCS Scanned, Documents Colonoscopy Report (SCAN) 04/01/2019 Scan [facility] Scanned, Documents 03/18/2019 Scan [facility] Scanned, Documents CT (SCAN) 03/18/2019 8:08 AM CDT - 03/18/2019 11:59 PM CDT Hospital [place] [address] [place] [address] Mckay Bradley MD Discharge Disposition: Home or Self Care (Routine Discharge) 03/12/2019 Scan [facility] SRVCS Scanned, Documents Image (SCAN) 03/11/2019 Scan [facility]VCS Scanned, Documents 12/01/2018 Scan [facility] Scanned, Documents Image (SCAN) 11/15/2018 Scan [facility] Scanned, Documents Lab (SCAN) 11/13/2018 Scan [facility] Scanned, Documents Image (SCAN) 07/01/2018 Abstract [facility] Favian Jarvis MD 03/11/[address] [place] [address] Kori Gonzalez CODING AUDITOR Results 03/10/2018 Orders Only [facility] [address] [address] Fran Newby MD 03/10/2018 Telephone [facility] at [facility], [address] [address] Eliza Garnett RN Results 03/08/2018 Abstract [facility] Diagnostic Imaging [address] [place] [address] Fran Newby MD 03/05/2018 Scan [facility] at [facility], [address] [address] Scanned, Documents 03/03/2018 Orders Only [facility] at [facility], [address] [address] Fran Newby MD 02/28/2018 10:45 AM CDT Office [facility] [place] [address] [place] [phone] Fran Newby MD Consult (chest pain) 02/26/[address] [facility] CONVERSION [address] [place] [address] , Generic ConversionMD 02/20/2018 Scan [facility] Scanned, Documents Lab (SCAN) 02/20/2018 Scan [facility] Scanned, Documents ECG (SCAN) 02/20/[address] [facility] CONVERSION [address] [place] [address] Carrie Orosco MD 02/20/2018 Orders Only [facility] at [facility], [address] [address] Mkcay Bradley MD 12/26/[address] [facility] Emergency Room [address] [place] [address] Manny Cotter MD 12/17/2017 Scan HEALTH INFO SRVCS Scanned, Documents 2017 Abstract [facility] Diagnostic Imaging [address] [place] [address] Luis Arteaga MD 10/22/2017 Scan HEALTH INFO SRVCS Scanned, Documents Image (SCAN) 09/04/2017 Abstract [facility] Diagnostic Imaging [address] [place] [address] Fredy Duff MD 08/27/2017 Scan HEALTH INFO SRVCS Scanned, Documents 06/01/2017 [place] [address] Carrie Orosco MD 04/05/2017 Scan HEALTH INFO SRVCS Scanned, Documents Image (SCAN) 03/23/2017 Scan HEALTH INFO SRVCS Scanned, Documents 06/13/2016 Scan HEALTH INFO SRVCS Scanned, Documents 03/19/2016 [facility] Md Generic ConversionMD 03/18/2016 Abstract [facility] Prime Care [address] [place] [address] Adriana Quinteros APRN 03/16/2016 Abstract [facility] One Day Services [address] [place] [address] Fredy Duff MD 03/16/2016 [facility] Fredy Duff MD 01/03/2016 Scan [facility] INFO SRVCS Scanned, Documents 12/13/2015 Abstract [facility] Emergency Room [address] [place] [address] Howard Bryan MD 10/30/[address] [facility] Care [address] [place] [address] 07/28/2015 Scan HEALTH INFO SRVCS Scanned, Documents 01/07/2015 Abstract [facility] Diagnostic Imaging [address] [place] [address] Fredy Duff MD 01/07/2015 Abstract [facility] One Day Services [address] [place] [address] Fredy Duff MD 10/22/2014 Abstract [facility] One Day Services [address] [place] [address] Fredy Duff MD 10/08/2014 Abstract [facility] Diagnostic Imaging [address] [place] [address] Fredy Duff MD 08/19/2014 Scan [facility] INFO SRVCS Scanned, Documents 07/25/2014 Abstract [facility] [address] [place] [address] Adriana Quinteros APRN 10/07/2013 Abstract [facility] [address] [place] [address] Emma Solis, RADIOLOGIC TECHNOLOGIST MAMMOGRAM 09/15/2012 [facility] Brant Decker DO 08/13/2012 [facility] 08/11/2012 Abstract [facility] Laboratory [address] [place] [address] Riaz Abreu MD 08/11/2012 [facility] Riaz Abreu MD 05/07/2012 [facility] Ronald Rogers MD 09/06/2008 Abstract [facility] Emergency Room [address] [place] [address] 03/12/2005 Abstract [facility] Conversion Favian Rand MD 03/07/2005 Abstract [facility] CONVERSION [address] [facility] [place] [address] Favian Rand MD 03/07/2005 Abstract [facility] Conversion Md Generic Conversion, 11/29/2004 Abstract [facility] Conversion Md Generic Conversion, 11/21/2004 Abstract [facility] CONVERSION [address] [place] [address] Favian Rand MD 11/21/2004 Abstract [facility] Conversion Favian Rand MD 11/21/2004 Abstract [facility] Conversion Md Generic Conversion, 01/25/2003 Abstract [facility] [place] [address] 01/25/2003 Abstract [place] [address] 01/21/2002 Emergency [facility] [place] [address] Carrie Orosco ConversionMD 12/05/2001 Abstract [facility] [place] [address] Allergies No known active allergies Medications fluticasone propionate (FLONASE) 50 MCG/ACT nasal sprayIndications:Se asonal allergic rhinitis, unspecified trigger,Non-recurre nt acute serous otitis media of right ear 2 sprays by Nasal route daily. 16 g 11 1 Active omeprazole (PRILOSEC) 20 MG capsuleIndications: Gastroesophageal reflux disease, unspecified whether esophagitis present take 1 capsule by mouth in the morning 90 capsule 2 4 Active gabapentin (NEURONTIN) 100 MG capsuleIndications: Cervical pain (neck) Take 1-3 capsules (100-300 mg total) by mouth nightly as needed. 90 capsule 4 Active polyethylene glycol (GLYCOLAX) 17 GM/SCOOP powder Take 17 g by mouth 2 (two) times daily as needed (constipatio n). 4 Active Senna (SENOKOT) 8.6 MG tablet Take 1 tablet (8.6 mg total) by mouth 2 (two) times daily as needed for Constipation . 4 Active HYDROcodone-acetami nophen (NORCO) 5-325 MG tabletIndications:A cute Pain < 7 Day Supply Take 1 tablet by mouth every 8 (eight) hours as needed (moderate to severe pain). Indications: Acute Pain < 7 Day Supply 15 tablet 4 Active ondansetron (ZOFRAN-ODT) 4 MG disintegrating tablet Take 1 tablet (4 mg total) by mouth every 8 (eight) hours as needed for Nausea. 15 tablet 4 Active tamsulosin (FLOMAX) 0.4 MG Cap Take 1 capsule (0.4 mg total) by mouth nightly. 21 capsule 4 Active Active Problems Problem Noted Date Diagnosed Date Urinary tract obstruction due to kidney stone Nephrolithiasis 07/25/2024 Urinary tract obstruction by kidney stone 2023 S/P cervical disc replacement 10/01/2022 Obesity (BMI 30-39.9) 08/29/2022 Pharyngeal dysphagia 06/14/2021 Myofascial pain 05/29/2021 Fatigue, unspecified type 03/29/2021 Exposure to COVID-19 virus 03/29/2021 Cervicalgia 09/28/2020 Closed fracture of thyroid cartilage (CMS/HCC HH S/HCC) 09/28/2020 Blunt trauma of neck 08/01/2020 GERD (gastroesophageal reflux disease) 0 Diverticulitis 07/29/2018 Mixed hyperlipidemia 02/28/2018 Allergic rhinitis 05/07/2012 Resolved Problems Problem Noted Date Diagnosed Date Resolved Date Chest pain in adult 02/28/2018 08/29/19 23 Immunizations Name Administration Dates Next Due Dtp 03/21/1985, 4,09/06/1981,1979 Dtp (Generic) 03/21/1985, 4,09/06/1981,1979 Fluzone Adult - >Age 3 (Pref illed Syringe) 07/19/2020(Deferred: Patient Refused) MMR 03/27/1990,10/28/1981 MMR (Generic) 03/27/1990,10/28/1981 Wyxnlub-Nzrqs-Cwwihky-Varicell Sc Inj 03/27/1990 ,10/28/1981 Opv 03/21/1985, 4,09/06/1981,1979 PFIZER COVID-19 (ORIGINAL FORMULATION, PURPLE CAP) mRNA, LNP-S, PF, 30 MCG/0.3 ML DOSE 03/28/2021,10/17/2020,09/18/2020 Td 02/26/1994 Td (Tenivac) preservative free 02/26/1994 Tdap (Adacel) 09/13/2021 Family History Medical History Relation Comments Hypertension Father No Known Problems Mother no hx of CAD Other Relation Status Comments Father Alive Mother Alive Other Social History Smoking Status as of 08/21/2024 Tobacco Use Types Packs/Day Years Used Date Smoking Tobacco: Never Assessed [facility] Utilities Answer Date Recorded In the past 12 months has e [employer], gas, oil, or water [employer] threatened to shut off services in your [...] any time in the past 12 m [facility], were you homeless or living in a snf (including now)? No 07/25/2024 Education Answer Date [...] Sign Reading Time Taken Comments Blood Pressure 159/89 07/27/2024 7:41 AM TECHNICAL PRODUCER Pulse 83 07/27/2024 7:41 AM TECHNICAL PRODUCER Temperature 36.7 ??C (98.1 ??F) 07/27/2024 7:[address] Respiratory Rate 21 07/27/2024 7:41 AM TECHNICAL PRODUCER Oxygen Saturation 98% 07/27/2024 7:41 AM TECHNICAL PRODUCER Inhaled Oxygen Concentration - - Weight 102.1 kg (225 lb) 07/25/2024 3:26 PM TECHNICAL PRODUCER Height 185.4 cm (6' 1 ) 07/25/2024 3:26 PM TECHNICAL PRODUCER Body Mass Index 29.69 07/25/2024 3:26 PM TECHNICAL PRODUCER Plan of Treatment Not on file Medical Devices Implanted Type Area Automatic Fabric Cutter Device Identifier Shelf Expiration Date Model / Serial / Lot Stent Ureteral Contour Vl 4.8fr X 22-30cm - [id number] Implanted:Qty : 1 on 07/26/2024 by Bob [place] MD at [facility] Stent Left: Ureter [employer] ELISA [id number] 03/19/2027 [id number] / / [id number] Procedures Procedure Name Priority Date/Time Associated Diagnosis Comments IMAGE GENERIC 08/13/2024 IMAGE GENERIC 07/31/2024 BASIC METABOLIC PANEL Routine 07/27/2024 5:00 AM TECHNICAL PRODUCER CBC W/DIFF AUTOMATED Routine 07/27/2024 5:00 AM TECHNICAL PRODUCER XR ABD KUB Today 07/26/2024 7:25 PM TECHNICAL PRODUCER SURG XR RETROGRD UROGRAPHY Routine 07/26/2024 6:45 PM TECHNICAL PRODUCER CYSTOSCOPY STENT INSERTION/REMOVAL/PRAVEEN NGE 07/26/2024 6:18 PM TECHNICAL PRODUCER Urinary tract obstruction by kidney stone PROTHROMBIN TIME, VENOUS Routine 07/26/2024 6:20 AM TECHNICAL PRODUCER HEMOGLOBIN, GLYCOSYLATED Routine 07/26/2024 5:18 AM TECHNICAL PRODUCER BASIC METABOLIC PANEL Routine 07/26/2024 5:18 AM TECHNICAL PRODUCER CBC W/DIFF AUTOMATED Routine 07/26/2024 5:[address] ABD+PEL KIDNEY STONE STAT 07/25/2024 8:45 AM TECHNICAL PRODUCER URINALYSIS, AUTO, COMPLETE STAT 07/25/2024 8:13 AM TECHNICAL PRODUCER COMPREHENSIVE METABOLIC PANEL STAT 07/25/2024 8:10 AM TECHNICAL PRODUCER CBC W/DIFF AUTOMATED STAT 07/25/2024 8:10 AM TECHNICAL PRODUCER MRI ABD WWO CON Routine 11/26/2023 8:19 AM CDT Renal mass MRI LUMB SPINE WO CON DEE 11/01/2023 3:05 PM CDT Lumbar radiculopathy COMPREHENSIVE METABOLIC PANEL Routine 09/25/2023 4:30 PM TECHNICAL PRODUCER Routine general medical examination at a health care facility LIPID PANEL Routine 09/25/2023 4:30 PM TECHNICAL PRODUCER Routine general medical examination at a health care facility URINALYSIS WI REFLEX TO CULTURE Routine 09/12/2023 2:13 PM TECHNICAL PRODUCER Hematuria URINALYSIS AUTO DIP Routine 09/11/2023 Mid back pain on left side CORONAVIRUS (COVID-19) INFLUENZA A & B ANTIGEN IA PANEL Routine 04/09/2023 Suspected COVID-19 virus infection COLONOSCOPY FLX DX W/COLLJ SPEC WHEN PFRMD 09/21/2022 8:16 AM TECHNICAL PRODUCER Diverticulitis COLONOSCOPY Routine 09/21/2022 7:25 AM TECHNICAL PRODUCER CBC W/DIFF AUTOMATED Today 08/29/2022 8:24 AM TECHNICAL PRODUCER Diverticulitis COLLECTION VENOUS BLOOD VENIPUNCTURE Routine 08/29/2022 8:21 AM TECHNICAL PRODUCER Diverticulitis D-DIMER, QUANTITATIVE STAT 07/13/2022 3:53 PM TECHNICAL PRODUCER CBC W/DIFF AUTOMATED STAT 07/13/2022 3:53 PM TECHNICAL PRODUCER BASIC METABOLIC PANEL Routine 05/10/2022 6:47 AM CDT CBC W/DIFF AUTOMATED Routine 05/10/2022 6:47 AM CDT URINALYSIS WI REFLEX TO CULTURE STAT 05/09/2022 10:[address] ABD+PEL W CON STAT 05/09/2022 12:5 5 AM CDT LACTIC ACID STAT 05/09/2022 12:26 AM CDT LIPASE STAT 05/08/2022 11:51 PM CDT COMPREHENSIVE METABOLIC PANEL STAT 05/08/2022 11:51 PM CDT PROTHROMBIN TIME, VENOUS STAT 05/08/2022 11:51 PM CDT CBC W/DIFF AUTOMATED STAT 05/08/2022 11:51 PM CDT VITAMIN D, 25 OH Routine 03/14/2022 7:44 AM CDT Vitamin D deficiency COMPREHENSIVE METABOLIC PANEL Routine 03/14/2022 7:44 AM CDT Gastroesophageal reflux disease, unspecified whether esophagitis present COLLECTION VENOUS BLOOD VENIPUNCTURE Routine 03/14/2022 7:42 AM CDT Vitamin D deficiency VITAMIN D, 25 OH Routine 09/13/2021 8:09 AM TECHNICAL PRODUCER Annual physical exam Obesity (BMI 30-39.9) TSH W/REFLEX Routine 09/13/2021 8:09 AM TECHNICAL PRODUCER Annual physical exam Obesity (BMI 30-39.9) LIPID PANEL Routine 09/13/2021 8:09 AM TECHNICAL PRODUCER Mixed hyperlipidemia COMPREHENSIVE METABOLIC PANEL Routine 09/13/2021 8:09 AM TECHNICAL PRODUCER Annual physical exam Obesity (BMI 30-39.9) CBC W/DIFF AUTOMATED Routine 09/13/2021 8:09 AM TECHNICAL PRODUCER Annual physical exam Obesity (BMI 30-39.9) COLLECTION VENOUS BLOOD VENIPUNCTURE Routine 09/13/2021 7:44 AM TECHNICAL PRODUCER Annual physical exam Obesity (BMI 30-39.9) INJECTION TRIGGER POINT 06/12/2021 3:35 PM TECHNICAL PRODUCER myofascial pain CORONAVIRUS (COVID 19) Routine 03/29/2021 3:37 PM CDT Exposure to COVID-19 virus CORONAVIRUS (COVID-19) ANTIGEN Routine 03/29/2021 Exposure to COVID-19 virus CREATININE WHOLE BLOOD Routine 03/13/2021 7:29 PM CDT Blunt trauma of neck, subsequent encounter CT SOFT TISSUE NECK W CON Routine 03/13/2021 11:44 AM CDT Blunt trauma of neck, subsequent encounter IMAGE GENERIC 12/19/2020 MRI GENERIC 12/01/2020 CT HEAD WO CON STAT 09/28/2020 10:[address] SOFT TISSUE NECK W CON STAT 09/28/2020 10:37 AM TECHNICAL PRODUCER COMPREHENSIVE METABOLIC PANEL STAT 09/28/2020 9:54 AM TECHNICAL PRODUCER CBC W/DIFF AUTOMATED STAT 09/28/2020 9:54 AM TECHNICAL PRODUCER ECG 12-LEAD STAT 09/28/2020 9:52 AM TECHNICAL PRODUCER OCCULT BLOOD, FECES Routine 08/31/2020 7 :00 AM TECHNICAL PRODUCER Anemia, unspecified IRON SAT PANEL (IRON,IBC,%SAT) Routine 08/30/2020 3:44 PM TECHNICAL PRODUCER Anemia, unspecified COLLECTION VENOUS BLOOD VENIPUNCTURE Routine 08/24/2020 11:24 AM TECHNICAL PRODUCER Mixed hyperlipidemia Low hematocrit Hypokalemia LIPID PANEL Routine 08/24/2020 11:18 AM TECHNICAL PRODUCER Mixed hyperlipidemia COMPREHENSIVE METABOLIC PANEL Routine 08/24/2020 11:18 AM TECHNICAL PRODUCER Hypokalemia CBC W/DIFF AUTOMATED Routine 08/24/2020 11:18 AM TECHNICAL PRODUCER Low hematocrit CORONAVIRUS (COVID 19) Routine 08/10/2020 4:36 PM TECHNICAL PRODUCER Acute nonintractable headache, unspecified headache type Post-nasal drip Fatigue, unspecified type Close exposure to COVID-19 virus CORONAVIRUS (COVID-19) ANTIGEN Routine 08/10/2020 Acute nonintractable headache, unspecified headache type Post-nasal drip Fatigue, unspecified type Close exposure to COVID-19 virus XR CHEST PA+LAT Routine 05/18/2020 10:50 AM CDT Chest pain in adult CBC W/DIFF AUTOMATED Routine 05/16/2020 12:20 PM CDT Fatigue Mixed hyperlipidemia COMPREHENSIVE METABOLIC PANEL Routine 05/16/2020 12:20 PM CDT Fatigue Mixed hyperlipidemia D-DIMER, QUANTITATIVE Routine 05/16/2020 12:20 PM CDT Fatigue Mixed hyperlipidemia TROPONIN, QUANT Routine 05/16/2020 12:20 PM CDT Fatigue Mixed hyperlipidemia LIPID PANEL Routine 05/16/2020 12:20 PM CDT Fatigue Mixed hyperlipidemia CORONAVIRUS (COVID 19) Routine 05/16/2020 12:08 PM CDT Fatigue, unspecified type COLONOSCOPY GENERIC (SCAN ORDER) 05/26/2019 CT ABD+PEL W CON Routine 03/18/2019 9:44 AM CDT Acute abdominal pain CT GENERIC 03/18/2019 IMAGE GENERIC 03/12/2019 IMAGE GENERIC 12/01/2018 OUTSIDE LAB (SCAN ORDER) 11/15/2018 IMAGE GENERIC 11/13/2018 CTA CHEST 03/10/2018 11:21 AM CDT ECG GENERIC (SCAN ORDER) 02/20/2018 OUTSIDE LAB (SCAN ORDER) Routine 02/20/2018 IMAGE GENERIC 10/22/2017 IMAGE GENERIC 04/05/2017 CULTURE STOOL Routine 03/07/2005 1:11 PM CDT Results * IMAGE GENERIC (08/13/2024) Only the most recent of8 resultswithin the time period is included. Anatomical Region Laterality Modality Other 08/13/2024 [facility] Scanned SCANNING Final Resu lt * (ABNORMAL) BASIC METABOLIC PANEL (07/27/2024 5:00 AM TECHNICAL PRODUCER) Only the most recent of3 resultswithin the time period is included. GLUCOSE 127(H) 70 - 99 MG/DL 07/27/2024 6:06 AM [facility] BUN 27(H) 7 - 18 MG/DL 07/27/2024 6:06 AM [facility] CREATININE S/P/B 1.06 0.7 - 1.3 MG/DL 07/27/2024 6:06 AM [facility] SODIUM S/P/B 137 136 - 145 MMOL/L 07/27/2024 6:06 AM [facility] POTASSIUM S/P/B 3.7 3.5 - 5.1 MMOL/L 07/27/2024 6:06 AM [facility] CHLORIDE S/P/B 103 97 - 115 MMOL/L 07/27/2024 6:06 AM [facility] CO2 27.4 21 - 32 MMOL/L 07/27/2024 6:06 AM [facility] CALCIUM S/P/B 8.7 8.5 - 10.1 MG/DL 07/27/2024 6:06 AM [facility] ANION GAP 6.6 2 - 10 MMOL/L 07/27/2024 6:06 AM [facility] BUN CREATININE RATIO 25.5 6 - 26 07/27/2024 6:06 AM [facility] GFR ESTIMATE 89(L) >90 ML/MIN/1.7 3 M2 07/27/2024 6:06 AM [facility] Comment: NOTE: eGFR is not calculated for patients <18 years of age or gender unknown. This is an estimated GFR calculation using the new CKD EPI creatinine equation without race and so does not require a correction factor for race. This estimated GFR should not be used for calculating drug doses. 07/27/2024 5:00 AM TECHNICAL PRODUCER us Tod iCfuentes MD LABORATORY Final Result [facility] [address] [place] [address], [place] [phone] * (ABNORMAL) CBC W/DIFF AUTOMATED (07/27/2024 5:00 AM TECHNICAL PRODUCER) Only the most recent of11 resultswithin the time period is included. WBC 9.23 4.5 - 11.0 x10'3/uL 07/27/2024 5:47 AM [facility] RBC 4.36(L) 4.70 - 6.10 x10'6/uL 07/27/2024 5:47 AM [facility] HGB 12.7(L) 14.0 - 18.0 G/DL 07/27/2024 5:47 AM TECHNICAL PRODUCER [facility] HCT 37.5(L) 43.0 - 54.0 % 07/27/2024 5:47 AM [facility] MCV 86.0 80.0 - 94.0 FL 07/27/2024 5:47 AM [facility] MCH 29.1 27.0 - 31.0 PG 07/27/2024 5:47 AM [facility] MCHC 33.9 32.0 - 36.0 G/DL 07/27/2024 5:47 AM [facility] RDW 12.1 11.5 - 14.5 % 07/27/2024 5:47 AM [facility] PLT 295 130 - 400 x10'3/uL 07/27/2024 5:47 AM [facility] MPV 9.5 9.3 - 12.2 FL 07/27/2024 5:47 AM [facility] DIFFERENTIAL TYPE AUTOMATED DIFFERENTIAL 07/27/2024 5:47 AM [facility] NEUTROPHILS % 78.1 % 07/27/2024 5:47 AM [facility] LYMPHOCYTES % 13.1 % 07/27/2024 5:47 AM [facility] MONOCYTES % 8.3 % 07/27/2024 5:47 AM [facility] EOSINOPHILS 0.1 % 07/27/2024 5:47 AM [facility] BASOPHILS 0.1 % 07/27/2024 5:47 AM [facility] IMMATURE GRANS % 0.3 % 07/27/20 5:47 AM [facility] ABS. NEUTROPHILS 7.20 1.80 - 7.70 x10'3/uL 07/27/2024 5:47 AM [facility] ABS. LYMPHOCYTES 1.21 1.00 - 4.80 x10'3/uL 07/27/2024 5:47 AM TECHNICAL PRODUCER [facility] ABS. MONOCYTES 0.77 0.30 - 0.82 x10'3/uL 07/27/2024 5:47 AM TECHNICAL PRODUCER [facility] ABS. EOSINOPHILS 0.01(L) 0.04 - 0.54 x10'3/uL 07/27/2024 5:47 AM TECHNICAL PRODUCER [facility] ABS. BASOPHILS 0.01 0.01 - 0.08 x10'3/uL 07/27/2024 5:47 AM TECHNICAL PRODUCER [facility] ABS. IMMATURE GRANULOCYTES 0.03 0.00 - 0.49 x10'3/uL 07/27/2024 5:47 AM TECHNICAL PRODUCER [facility] 07/27/2024 5:00 AM TECHNICAL PRODUCER Tod Cifuentes MD LABORATORY Final Result [facility] [address] [place] [address], [place] [phone] * XR ABD KUB (07/26/2024 7:25 PM TECHNICAL PRODUCER) Anatomical Region Laterality Modality Abdomen Radiographic Fatou ging 07/26/2024 10:4 5 PM TECHNICAL PRODUCER Impressions 07/26/2024 10:47 PM TECHNICAL PRODUCER IMPRESSION: Left ureteral stent extending from a lower pole calyx to the urinary bladder. Referred By: ISSAC BOSTON Interpreted By: Paxton Orr MD, 07/26/2024 10:45 PM Narrative 07/26/2024 10:47 PM TECHNICAL PRODUCER [facility] [address] [place], [place] [address] Abdomen single view INDICATION: Ureteral stent position. COMPARISON: None. TECHNIQUE: Single AP view. FINDINGS: The left ureteral stent extends from the lower pole calyx to the urinary bladder. ??Multiple calculi are seen at the lower pole of the left kidney. ??No calculi can be seen on the right. ??Normal bowel gas pattern. ??Bony structures are unremarkable. Procedure Note Paxton Orr MD - 07/26/[address] [address] Abdomen single view INDICATION: Ureteral stent position. COMPARISON: None. TECHNIQUE: Single AP view. FINDINGS: The left ureteral stent extends from the lower pole calyx to theurinary bladder. Multiple calculi are seen at the lower pole of the leftkidney. No calculi can be seen on the right. Normal bowel gas pattern.Bony structures are unremarkable. IMPRESSION: Left ureteral stent extending from a lower pole calyx to theurinary bladder. Referred By: ISSAC BOSTON Interpreted By: Paxton Orr MD, 07/26/2024 10:45 PM us Bob [place] MD GENERAL IMAGING Final Result * SURG XR RETROGRD UROGRAPHY (07/26/2024 6:45 PM TECHNICAL PRODUCER) Anatomical Region Laterality Modality Abdomen Fluoroscopy 07/27/2024 7:16 AM TECHNICAL PRODUCER Impressions 07/27/2024 7:16 AM TECHNICAL PRODUCER Impression: Fluoroscopic spot views of left retrograde urography obtained for intraoperative control purposes and evaluated postoperatively. Ordered By: BOB [place] Interpreted By: Gabriel Haynes MD, 07/27/2024 7:16 AM Narrative 07/27/2024 7:16 AM TECHNICAL PRODUCER [address], [place] [address] Intraoperative fluoroscopic views of the retrograde urography History: Urolithiasis Technique: Fluoroscopic images obtained for intraoperative control purposes. Total DAP for exam: 1.7081 Gy-cm2. Findings: Single submitted image demonstrates partial opacification of the left renal collecting system and ureter with contrast. Procedure Note Gabriel Haynes MD - 07/27/2024 [facility] [address] [place], [place] [address] Intraoperative fluoroscopic views of the retrograde urography History: Urolithiasis Technique: Fluoroscopic images obtained for intraoperative controlpurposes. Total DAP for exam: 1.7081 Gy-cm2. Findings: Single submitted image demonstrates partial opacification of theleft renal collecting system and ureter with contrast. Impression: Fluoroscopic spot views of left retrograde urography obtainedfor intraoperative control purposes and evaluated postoperatively. Ordered By: BOB [place] Interpreted By: Gabriel Haynes MD, 07/27/2024 7:16 AM Bob [place] MD IMAGES ONLY Final Result * PROTIME/INR, VENOUS (07/26/2024 6:20 AM TECHNICAL PRODUCER) Only the most recent of2 resultswithin the time period is included. PROTIME 11.1 10.2 - 12.9 SEC 07/26/2024 6:57 AM TECHNICAL PRODUCER [facility] INR 1.0 07/26/2024 6:57 AM TECHNICAL PRODUCER [facility] Comment: Recommended INR Therapeutic Goals: ??2.0-3.0 Routine Therapy ??2.5-3.5 Mechanical Prosthetic Valves (High Risk) 07/26/2024 6:20 AM TECHNICAL PRODUCER us Tod Cifuentes MD LABORATORY Final Result Performing Organization Address City/[facility]/ZIP Co de Phone Number [facility] [address] [place] [address], [place] [phone] * (ABNORMAL) HEMOGLOBIN, GLYCOSYLATED (07/26/2024 5:18 AM TECHNICAL PRODUCER) HGB A1C 5.9(H) <5.7 % 07/26/2024 10:50 AM TECHNICAL PRODUCER [facility] Comment: ADA GUIDELINES 2010 5.7 TO 6.4% INCREASED RISK OF DIABETES > OR = 6.5% CONSISTENT WITH DIABETES ESTIMATED AVG GLUCOSE 123 mg/dL 07/26/2024 10:50 AM TECHNICAL PRODUCER [facility] 07/26/2024 5:18 AM TECHNICAL PRODUCER Tod Cifuentes MD LABORATORY Final Result Performing Organization Address [facility] Co de Phone Number [facility] [address] [place] [address], [place] [phone] * CT ABD+PEL KIDNEY STONE (07/25/2024 8:45 AM TECHNICAL PRODUCER) Anatomical Region Laterality Modality Abdomen Computed Tomogra phy 07/25/2024 8:48 AM TECHNICAL PRODUCER Impressions 07/25/2024 8:50 AM TECHNICAL PRODUCER IMPRESSION: 1. Mild left-sided hydronephrosis due to an 8 x 5 mm irregular stone residing at the left UPJ. Additional nonobstructing stones are present within the lower pole of the left kidney Ordered By: ISSAC BOSTON Interpreted By: Karthik Padgett MD, 07/25/2024 8:48 AM Narrative 07/25/2024 8:50 AM TECHNICAL PRODUCER [facility] [address] [place] [address] CT ABDOMEN AND PELVIS WITHOUT CONTRAST Clinical history: Left flank pain. Technique: Helical images of the abdomen and pelvis were obtained without contrast. A dose lowering technique was used for this procedure, which may include, but is not limited to, dose reduction technique, automated exposure control, the use of iterative reconstruction, and ALARA (As Low As Reasonably Achievable) / Image Gently techniques. Comparison: May 09, 2022. FINDINGS: Images of the lower thorax demonstrate the visualized portion of the heart to appear normal. The lung bases are clear. Images of the abdomen demonstrate the overall size and morphology of the liver to be within normal limits. No hepatic lesions are observed. No ascites is seen. The gallbladder is present and normally distended. No stones are observed within its lumen and there is no evidence of cholecystitis or biliary obstruction. The pancreas, spleen, and adrenal glands appear grossly normal. The kidneys are normal in overall size. A small hyperdense cyst is noted arising from the lower pole of the right kidney and is unchanged from previous. No right- sided stones are present. On the left there is an 8 x 5 mm stone residing within the left UPJ which results in mild hydronephrosis. Additional stones are noted within the lower pole of the left kidney. Images of the pelvis demonstrate the urinary bladder to appear normal. The prostate is normal in size. The stomach and small bowel have a normal appearance throughout. The terminal ileum and appendix are within normal limits. Diverticulosis is seen throughout the descending and sigmoid portions of the colon. There is no evidence of diverticulitis. Procedure Note Karthik Padgett MD - 07/25/2024 [facility] [address] [place] [address] CT ABDOMEN AND PELVIS WITHOUT CONTRAST Clinical history: Left flank pain. Technique: Helical images of the abdomen and pelvis were obtained withoutcontrast. A dose lowering technique was used for this procedure, which mayinclude, but is not limited to, dose reduction technique, automatedexposure control, the use of iterative reconstruction, and ALARA (As LowAs Reasonably Achievable) / Image Gently techniques. Comparison: May 09, 2022. FINDINGS: Images of the lower thorax demonstrate the visualized portion of the heartto appear normal. The lung bases are clear. Images of the abdomen demonstrate the overall size and morphology of theliver to be within normal limits. No hepatic lesions are observed. Noascites is seen. The gallbladder is present and normally distended. Nostones are observed within its lumen and there is no evidence ofcholecystitis or biliary obstruction. The pancreas, spleen, and adrenalglands appear grossly normal. The kidneys are normal in overall size. A small hyperdense cyst is notedarising from the lower pole of the right kidney and is unchanged fromprevious. No right-sided stones are present. On the left there is an 8 x 5mm stone residing within the left UPJ which results in mildhydronephrosis. Additional stones are noted within the lower pole of theleft kidney. Images of the pelvis demonstrate the urinary bladder to appear normal. Theprostate is normal in size. The stomach and small bowel have a normal appearance throughout. Theterminal ileum and appendix are within normal limits. Diverticulosis isseen throughout the descending and sigmoid portions of the colon. There isno evidence of diverticulitis. IMPRESSION: 1. Mild left-sided hydronephrosis due to an 8 x 5 mm irregular stoneresiding at the left UPJ. Additional nonobstructing stones are presentwithin the lower pole of the left kidney Ordered By: ISSAC BOSTON Interpreted By: Karthik Padgett MD, 07/25/2024 8:48 AM Issac Boston MD CT Final Result * (ABNORMAL) Urinalysis, Auto, Complete (07/25/2024 8:13 AM TECHNICAL PRODUCER) COLOR (U) DARK YELLOW 07/25/2024 8:49 AM TECHNICAL PRODUCER [facility] TRANSPARENCY HAZY 07/25/2024 8:49 AM TECHNICAL PRODUCER [facility] SPECIFIC GRAVITY (U) >1.030(H) 1.000 - 1.030 07/25/2024 8:49 AM TECHNICAL PRODUCER [facility] U PH 5.5 5.0 - 9.0 07/25/2024 8:49 AM TECHNICAL PRODUCER [facility] LEUKOCYTES (U) NEGATIVE NEGATIVE 07/25/2024 8:49 AM [facility] NITRITES NEGATIVE NEGATIVE 07/25/2024 8:49 AM [facility] PROTEIN RANDOM (U) 2+(A) NEGATIVE 07/25/2024 8:49 AM [facility] GLUCOSE (U) NEGATIVE NEGATIVE 07/25/2024 8:49 AM [facility] KETONES MG/DL (U) NEGATIVE NEGATIVE 07/25/2024 8:49 AM [facility] BILIRUBIN (U) 1+(A) NEGATIVE 07/25/2024 8:49 AM [facility] BLOOD (U) 3+(A) NEGATIVE 07/25/2024 8:49 AM [facility] WBC/HPF NONE SEEN 0 - 5 /HPF 07/25/2024 8:49 AM [facility] RBC/HPF 50-100 0 - 5 /HPF 07/25/2024 8:49 AM [facility] EPI/HPF NONE SEEN /HPF 07/25/2024 8:49 AM [facility] URINE SPECIMEN OBTAINED BY CLEAN CATCH PROCEDURE / Unknown 07/25/2024 8:13 AM TECHNICAL PRODUCER Issac Boston MD URINE ORDERABLES Final Result [facility] [address] [place] [address], * (ABNORMAL) COMPREHENSIVE METABOLIC PANEL (07/25/2024 8:10 AM TECHNICAL PRODUCER) Only the most recent of8 resultswithin the time period is included. GLUCOSE 149(H) 70 - 99 MG/DL 07/25/2024 8:31 AM [facility] BUN 29(H) 7 - 18 MG/DL 07/25/2024 8:31 AM [facility] CREATININE S/P/B 1.14 0.7 - 1.3 MG/DL 07/25/2024 8:31 AM [facility] SODIUM S/P/B 142 136 - 145 MMOL/L 07/25/2024 8:31 AM [facility] POTASSIUM S/P/B 4.2 3.5 - 5.1 MMOL/L 07/25/2024 8:31 AM [facility] CHLORIDE S/P/B 103 100 - 108 MMOL/L 07/25/2024 8:31 AM [facility] CO2 27.7 21 - 32 MMOL/L 07/25/2024 8:31 AM [facility] CALCIUM S/P/B 9.2 8.5 - 10.1 MG/DL 07/25/2024 8:31 AM [facility] BILIRUBIN TOTAL S/P/B 0.4 0.2 - 1.2 MG/DL 07/25/2024 8:31 AM [facility] TOTAL PROTEIN S/P/B 7.3 6.4 - 8.2 G/DL 07/25/2024 8:31 AM [facility] ALBUMIN S/P/B 3.8 3.4 - 5.0 G/DL 07/25/2024 8:31 AM [facility] AST 19 15 - 37 U/L 07/25/2024 8:31 AM [facility] ALT 31 16 - 60 U/L 07/25/2024 8:31 AM [facility] ALKALINE PHOSPHATASE S/P/B 88 50 - 136 U/L 07/25/2024 8:31 AM [facility] ANION GAP 11.3 5 - 15 MMOL/L 07/25/2024 8:31 AM TECHNICAL PRODUCER [facility] BUN CREATININE RATIO 25.4 6 - 26 07/25/2024 8:31 AM [facility] A/G RATIO 1.1 1.0 - 2.0 RATIO 07/25/2024 8:31 AM [facility] GFR ESTIMATE 81(L) >90 ML/MIN/1.7 3 M2 07/25/2024 8:31 AM [facility] Comment: NOTE: eGFR is not calculated for patients <18 years of age. This is an estimated GFR calculation using the new CKD EPI creatinine equation without race and so does not require a correction factor for race. This estimated GFR should not be used for calculating drug doses. 07/25/2024 8:10 AM TECHNICAL PRODUCER Issac Boston MD LABORATORY Final Result [facility] [address] [place] [address], * MRI ABD WWO CON (11/26/2023 8:19 AM CDT) Anatomical Region Laterality Modality Abdomen Magnetic Resonan ce 11/29/2023 7:14 AM CDT Impressions 11/29/2023 7:26 AM CDT Impression: Redemonstrated small exophytic lesion involving the lower pole the right kidney, correlating with prior MRI lumbar spine and unchanged in size since at least April 2022. Signal characteristics are suggestive of a proteinaceous or hemorrhagic cyst; however, the provided postcontrast subtraction sequences are misregistered and therefore cannot adequately assess for true internal enhancement. Given the stability of this lesion since 2021 consider a follow-up contrast-enhanced MRI of the abdomen in one year to document stability. Ordered By: LUIZ RICH Interpreted By: Manny Gutiérrez MD, 11/29/2023 7:14 AM Narrative 11/29/2023 7:26 AM CDT Examination: MR abdomen without and with contrast. Clinical Information:Renal protocol, renal mass/cyst, indeterminate. Comparison: CT 05/09/2022. MRI lumbar spine 11/01/2023 Technique: Sequences: Multiplanar, multisequence MR images of the abdomen and pelvis were obtained before and after the administration of 20 mL of dotarem. Findings: LIVER: Morphology: Normal. Hepatic steatosis: Absent. Iron overload: Absent. Focal liver lesion(s): None. Hepatic vasculature: Hepatic and portal veins are normally patent. GALLBLADDER AND BILIARY TREE: The gallbladder and bile ducts appear unremarkable. PANCREAS: Unremarkable. No pancreatic ductal dilatation. SPLEEN: Normal. ADRENAL GLANDS: Normal. KIDNEYS: The kidneys enhance symmetrically. No evidence of hydronephrosis bilaterally. A small 7.5 mm simple Bosniak 1 cyst is seen in the right renal cortex. Redemonstrated small exophytic lesion along the lower pole the right kidney measuring approximately 9 mm. This finding correlates with the finding on prior MRI lumbar spine. This finding was present on the prior CT from April 2022 and appears unchanged in size since that time. T2-weighted sequences demonstrate notable low signal within this lesion has to the axial T1 sequences. The precontrast T1- weighted sequences demonstrate intrinsic T1 hyperintense signal (series 9 image 66), which may indicate internal hemorrhagic or proteinaceous contents. The provided subtraction sequences are misregistered highly limiting assessment for internal enhancement. GASTROINTESTINAL: Imaged large and small bowel are normal in caliber and wall thickness. FREE FLUID: None. VASCULATURE: The abdominal aorta is normal in caliber. LYMPH NODES: No abdominal retroperitoneal or mesenteric lymphadenopathy. LOWER CHEST: Heart is normal in size. The lung bases are clear. No pleural or pericardial effusions. BONES: No suspicious osseous lesions. Procedure Note Manny Gutiérrez MD - 11/29/2023 Examination: MR abdomen without and with contrast. Clinical Information:Renal protocol, renal mass/cyst, indeterminate. Comparison: CT 05/09/2022. MRI lumbar spine 11/01/2023 Technique: Sequences: Multiplanar, multisequence MR images of the abdomen and pelviswere obtained before and after the administration of 20 mL of dotarem. Findings: LIVER: Morphology: Normal. Hepatic steatosis: Absent. Iron overload: Absent. Focal liver lesion(s): None. Hepatic vasculature: Hepatic and portal veins are normally patent. GALLBLADDER AND BILIARY TREE: The gallbladder and bile ducts appearunremarkable. PANCREAS: Unremarkable. No pancreatic ductal dilatation. SPLEEN: Normal. ADRENAL GLANDS: Normal. KIDNEYS: The kidneys enhance symmetrically. No evidence of hydronephrosisbilaterally. A small 7.5 mm simple Bosniak 1 cyst is seen in the rightrenal cortex. Redemonstrated small exophytic lesion along the lower polethe right kidney measuring approximately 9 mm. This finding correlateswith the finding on prior MRI lumbar spine. This finding was present onthe prior CT from April 2022 and appears unchanged in size since thattime. T2-weighted sequences demonstrate notable low signal within thislesion has to the axial T1 sequences. The precontrast T1-weightedsequences demonstrate intrinsic T1 hyperintense signal (series 9 image66), which may indicate internal hemorrhagic or proteinaceous contents.The provided subtraction sequences are misregistered highly limitingassessment for internal enhancement. GASTROINTESTINAL: Imaged large and small bowel are normal in caliber andwall thickness. FREE FLUID: None. VASCULATURE: The abdominal aorta is normal in caliber. LYMPH NODES: No abdominal retroperitoneal or mesenteric lymphadenopathy. LOWER CHEST: Heart is normal in size. The lung bases are clear. No pleuralor pericardial effusions. BONES: No suspicious osseous lesions. Impression: Redemonstrated small exophytic lesion involving the lower pole the rightkidney, correlating with prior MRI lumbar spine and unchanged in sizesince at least April 2022. Signal characteristics are suggestive of aproteinaceous or hemorrhagic cyst; however, the provided postcontrastsubtraction sequences are misregistered and therefore cannot adequatelyassess for true internal enhancement. Given the stability of this lesionsince 2021 consider a follow-up contrast-enhanced MRI of the abdomen inone year to document stability. Ordered By: LUIZ RICH Interpreted By: Manny Gutiérrez MD, 11/29/2023 7:14 AM us Luiz Rich MD MRI Final Resul t * MRI LUMB SPINE WO CON (11/01/2023 3:05 PM CDT) Anatomical Region Laterality Modality Spine Magnetic Resonan ce 11/02/2023 12:3 7 AM CDT Impressions 11/02/2023 12:47 AM CDT IMPRESSION: 1. ??Mild multilevel lumbar spondylosis, allowing for transitional lumbosacral anatomy, as described above. 2. ??There is a T1 and T2 hypointense exophytic nodule arising from the inferior pole the right kidney, indeterminate. ??Nonemergent MRI abdomen with contrast and renal protocol would be beneficial for further characterization. Referred By: LUIZ RICH Interpreted By: Qasim Cardenas MD, 11/02/2023 12:37 AM Narrative 11/02/2023 12:47 AM CDT EXAMINATION: MRI LUMB SPINE WO CON, 11/02/2023 12:37 AM TECHNIQUE: Multiplanar multisequence magnetic resonance images of the lumbar spine were obtained without intravenous contrast. HISTORY: Back pain COMPARISON: CT abdomen and pelvis 05/09/2022, CT chest 03/08/2018 FINDINGS: There is transitional lumbosacral anatomy with 6 nonrib-bearing lumbar-type vertebral bodies. ??There is suggestion of incomplete fusion involving the right L1 transverse process. ??Probable lumbarized S1 vertebral body. ??Allowing for this designation, there is intervertebral disc height loss at L1-2, L2-3, L3-4 and L5-S1. ??There is 0.4 cm of retrolisthesis of L5 on S1. ??The conus medullaris terminates at L1, normal. ??There is a normal distribution of cauda equina within the thecal sac. ??There is a 0.6 cm right renal cyst. ??There is a 0.9 cm T2 hypointense, T1 hypointense nodule arising from the inferior pole the right kidney (series 6 image 8, series 5 image 18). L1-2: No significant spinal canal or neural foraminal stenosis L2-3: No significant spinal canal or neural foraminal stenosis. L3-4: No significant spinal canal stenosis. ??Pxbx-ft-geaatmrn facet hypertrophy. ??Mild left neural foraminal stenosis. ??No right neural foraminal stenosis. L4-5: No significant spinal canal stenosis. ??Mild to moderate facet hypertrophy. ??Mild bilateral neural foraminal stenosis. L5-S1: No significant spinal canal stenosis. ??Izte-mj-cxqubsgm facet hypertrophy. ??Mild bilateral neural foraminal stenosis. Procedure Note Qasim Cardenas MD - 11/02/2023 EXAMINATION: MRI LUMB SPINE ALTA CAUSEY, 11/02/2023 12:37 AM TECHNIQUE: Multiplanar multisequence magnetic resonance images of thelumbar spine were obtained without intravenous contrast. HISTORY: Back pain COMPARISON: CT abdomen and pelvis 05/09/2022, CT chest 03/08/2018 FINDINGS: There is transitional lumbosacral anatomy with 6 lgjqhy-hfbdzyvzakxbs-tdmq vertebral bodies. There is suggestion of incomplete fusioninvolving the right L1 transverse process. Probable lumbarized M8zwmllgdxf body. Allowing for this designation, there is intervertebraldisc height loss at L1-2, L2-3, L3-4 and L5- S1. There is 0.4 cm ofretrolisthesis of L5 on S1. The conus medullaris terminates at L1,normal. There is a normal distribution of cauda equina within the thecalsac. There is a 0.6 cm right renal cyst. There is a 0.9 cm M4jnbrcphqmhs, T1 hypointense nodule arising from the inferior pole theright kidney (series 6 image 8, series 5 image 18). L1-2: No significant spinal canal or neural foraminal stenosis L2-3: No significant spinal canal or neural foraminal stenosis. L3-4: No significant spinal canal stenosis. Epff-kb-qkwwzsbh facethypertrophy. Mild left neural foraminal stenosis. No right neuralforaminal stenosis. L4-5: No significant spinal canal stenosis. Mild to moderate facethypertrophy. Mild bilateral neural foraminal stenosis. L5-S1: No significant spinal canal stenosis. Utyj-rn-esujnyoz facethypertrophy. Mild bilateral neural foraminal stenosis. IMPRESSION: 1. Mild multilevel lumbar spondylosis, allowing for transitionallumbosacral anatomy, as described above. 2. There is a T1 and T2 hypointense exophytic nodule arising from theinferior pole the right kidney, indeterminate. Nonemergent MRI abdomenwith contrast and renal protocol would be beneficial for furthercharacterization. Referred By: LUIZ RICH Interpreted By: Qasim Cardenas MD, 11/02/2023 12:37 AM us Luiz Rich MD MRI Final Resul t * (ABNORMAL) LIPID PANEL (09/25/2023 4:30 PM TECHNICAL PRODUCER) Only the most recent of4 resultswithin the time period is included. [facility] Signature CHOLESTEROL 267(H) <200 MG/DL 09/25/2023 5:16 PM [facility] TRIGLYCERIDES 129 <150 MG/DL 09/25/2023 5:16 PM [facility] HDL 56 >40.0 MG/DL 09/25/2023 5:16 PM [facility] LDL (CALCULATED) 185(H) <100 MG/DL 09/25/2023 5:16 PM [facility] NON HDL CHOLESTEROL 211(H) <130 MG/DL 09/25/2023 5:16 PM [facility] Comment: NOTE: WHEN THE TRIGLYCERIDES ARE >200 mg/dL, NON HDL C IS A SECONDARY [employer] OF THERAPY, WITH A GOAL 30 mg/dL HIGHER THAN THE IDENTIFIED LDL C GOAL. CHOL/HDL RATIO 4.8(H) 0.0 - 4.5 09/25/2023 5:16 PM [facility] VLDL CALCULATION 26 5 - 55 MG/DL 09/25/2023 5:16 PM [facility] LIPID INTERPRETATION 09/25/2023 5:16 PM [facility] Comment: NIH CONCENSUS REPORT RECOMMENDATIONS: ?ADULT ?CHILD ??LOW RISK: ?CHOLESTEROL ? <200 ? <170 ?TRIGLYCERIDE ?<150 ?--- ?HDL ? >=60 ?--- ?LDL ? <100 ? <110 ??BORDERLINE: ?CHOLESTEROL ? 200-239 ?? 170-199 ?TRIGLYCERIDE ?150-199 ? --- ?HDL ?40-59 ?--- ?LDL ? 100-159 ?? 110-129 ??HIGH RISK: ?CHOLESTEROL ? >=240 ?>=200 ?TRIGLYCERIDE ?>=200 ? --- ?HDL ?<40 ?--- ?LDL ? >=160 ?>=130 09/25/2023 4:30 PM TECHNICAL PRODUCER us Luiz Rich MD LABORATORY Final Resul t [facility] [address] [place] [address], * (ABNORMAL) URINALYSIS WI REFLEX TO CULTURE (09/12/2023 2:13 PM TECHNICAL PRODUCER) Only the most recent of2 resultswithin the time period is included. COLOR (U) YELLOW 09/12/2023 3:19 PM TECHNICAL PRODUCER [facility] (H) [facility] TRANSPARENCY CLEAR 09/12/2023 3:19 PM [facility] SPECIFIC GRAVITY (U) 1.025 1.000 - 1.030 09/12/2023 3:19 PM [facility] U PH 6.0 5.0 - 9.0 09/12/2023 3:19 PM [facility] LEUKOCYTES (U) NEGATIVE NEGATIVE 09/12/2023 3:19 PM [facility] NITRITES NEGATIVE NEGATIVE 09/12/2023 3:19 PM [facility] PROTEIN RANDOM (U) NEGATIVE NEGATIVE 09/12/2023 3:19 PM [facility] GLUCOSE (U) NEGATIVE NEGATIVE 09/12/2023 3:19 PM [facility] KETONES MG/DL (U) NEGATIVE NEGATIVE 09/12/2023 3:19 PM [facility] BILIRUBIN (U) NEGATIVE NEGATIVE 09/12/2023 3:19 PM [facility] BLOOD (U) TRACE(A) NEGATIVE 09/12/2023 3:19 PM [facility] WBC/HPF NONE SEEN 0 - 5 /HPF 09/12/2023 3:19 PM [facility] RBC/HPF 0-5 0 - 5 /HPF 09/12/2023 3:19 PM [facility] EPI/HPF FEW /HPF 09/12/2023 3:19 PM [facility] CULTURE & SENSITIVITY INDICATED? CULTURE IS NOT INDICATED 09/12/2023 3:19 PM [facility] URINE SPECIMEN OBTAINED BY CLEAN CATCH PROCEDURE / Unknown 09/12/2023 2:13 PM TECHNICAL PRODUCER us Luiz Rich MD URINE ORDERABLES Final Resu lt [facility] () [facility] [address] [place] [address], [place] [phone] * (ABNORMAL) URINALYSIS AUTO DIP (09/11/2023) COLOR (U) YELLOW YELLOW [facility] (9401), [facility] TRANSPARENCY CLEAR CLEAR [facility] (9401), [facility] GLUCOSE (U) NEGATIVE NEGATIVE MG/DL [facility] (9401), [facility] BILIRUBIN (U) NEGATIVE NEGATIVE [facility] (9401), [facility] KETONES MG/DL (U) NEGATIVE NEGATIVE MG/DL [facility] (9401), [facility] SPECIFIC GRAVITY (U) 1.025 1.001 - 1.035 [facility] (9401), [facility] BLOOD (U) TRACE (Non Hemolyzed, Intact)(A) NEGATIVE [facility] (9401), [facility] U PH 6.0 5.0 - 9.0 [facility] (9401), [facility] PROTEIN (U) NEGATIVE NEGATIVE mg/dL [facility] (9401), [facility] UROBILINOGEN 0.2 0.2 - 1.0 EU/dL = mg/dL [facility] (9401), [facility] NITRITES NEGATIVE NEGATIVE MG/DL [facility] (9401), [facility] LEUKOCYTES (U) NEGATIVE NEGATIVE [facility]-HO LY CROSS [facility] (9401), [facility] URINE SPECIMEN OBTAINED BY CLEAN CATCH PROCEDURE / Unknown 09/11/2023 us Olga Gaines CODING AUDITOR URINE ORDERABLES Final Re sult [facility] (9401), [facility] [address] [facility] [place] [address], [place] [phone] * (ABNORMAL) CORONAVIRUS (COVID-19) INFLUENZA A & B ANTIGEN IA PANEL (04/09/2023) CORONAVIRUS ANTIGEN IA POSITIVE(A) NEGATIVE [id number], [place] INFLUENZA A NEGATIVE NEGATIVE [id number], [place] INFLUENZA B NEGATIVE NEGATIVE [id number] [address] [place] Internal Control: VALID VALID [id number] [facility], [place] NASAL STRUCTURE / Unknown 04/09/2023 Rena Perkins APRN MICROBIOLOGY - GENERAL ORD ERABLES Final Result Performing Organization Address City/[facility]/ZIP Co de Phone Number -[phone] [address] [place] [address] [place] [address], [place] [phone] * D-DIMER, QUANTITATIVE (07/13/2022 3:53 PM TECHNICAL PRODUCER) Only the most recent of2 resultswithin the time period is included. D-DIMER 222 0 - 500 ng{FEU}/mL 07/13/2022 4:09 PM TECHNICAL PRODUCER [facility] Comment: D-Dimer values less than or equal to 500 ng/mL FEU have a negative predictive value of >95% for exclusion of deep vein thrombosis and pulmonary embolism. In patients over 50 (who tend to have higher normal baseline D-Dimer values), recent studies suggest age-adjusted D-Dimer cutoff values (calculated as: age [years] x 10 ng/mL) result in equivalent outcomes and no additional false negative findings. 07/13/2022 3:53 PM TECHNICAL PRODUCER Milagro Aponte RADIOLOGIC TECHNOLOGIST MAMMOGRAM- LABORATORY Final Res ult Performing Organization Address City/[facility]/ZIP Co de Phone Number [facility] [address] [place] [address], [place] [phone] * CT ABD+PEL W IV CON ONLY (05/09/2022 12:55 AM CDT) Only the most recent of2 resultswithin the time period is included. Anatomical Region Laterality Modality Abdomen Computed Tomogra phy 05/09/2022 7:20 AM CDT Impressions 05/09/2022 7:28 AM CDT IMPRESSION: Acute sigmoid colon diverticulitis with colonic wall thickening, inflamed proximal sigmoid diverticulum, and pericolonic fat stranding. No evidence of perforation or abscess formation. Trace amount of free fluid in the pelvis. Colonic diverticulosis in descending and sigmoid colon. Preliminary teleradiology report provided. No free intraperitoneal air identified. Visualized lung bases appear clear of active disease. Into the lower pole intrarenal nonobstructing calculi. Tiny renal cyst formation felt be present. Lesions noted. Unremarkable gallbladder. Normal appendix. No apparent bowel obstruction or obstructive uropathy. Minimal abdominal aortic calcification without abdominal aortic aneurysm. Small left inguinal hernia containing fat only. Lumbar neural arches all appear intact. Ordered By: VALDEZ ROBERSON Interpreted By: Kapil Abad, 05/09/2022 7:20 AM Narrative 05/09/2022 7:28 AM CDT IMAGING STUDIES: CT ABD+PEL WITH IV CONTRAST WITHOUT ORAL CONTRAST WITH SAGITTAL AND CORONAL RECONSTRUCTION ? DATE: 05/09/2022 12:46 AM HISTORY: Mid to lower abdominal pain. History of diverticulitis. Neutropenia. COMPARISON: 03/18/2019 CT abdomen and pelvis. CONTRAST: 75 mL Isovue-370 IV. Radiation dose reduction technique was utilized. Procedure Note Kapil Abad MD - 05/09/2022 IMAGING STUDIES: CT ABD+PEL WITH IV CONTRAST WITHOUT ORAL CONTRAST WITHSAGITTAL AND CORONAL RECONSTRUCTION DATE: 05/09/2022 12:46 AM HISTORY: Mid to lower abdominal pain. History of diverticulitis.Neutropenia. COMPARISON: 03/18/2019 CT abdomen and pelvis. CONTRAST: 75 mL Isovue-370 IV. Radiation dose reduction technique was utilized. IMPRESSION: Acute sigmoid colon diverticulitis with colonic wall thickening, inflamedproximal sigmoid diverticulum, and pericolonic fat stranding. No evidenceof perforation or abscess formation. Trace amount of free fluid in thepelvis. Colonic diverticulosis in descending and sigmoid colon.Preliminary teleradiology report provided. No free intraperitoneal air identified. Visualized lung bases appear clearof active disease. Into the lower pole intrarenal nonobstructing calculi.Tiny renal cyst formation felt be present. Lesions noted. Unremarkable gallbladder. Normal appendix. No apparent bowel obstructionor obstructive uropathy. Minimal abdominal aortic calcification withoutabdominal aortic aneurysm. Small left inguinal hernia containing fat only.Lumbar neural arches all appear intact. Ordered By: VALDEZ ROBERSON Interpreted By: Kapil Abad, 05/09/2022 7:20 AM us Valdez Roberson MD CT Final Result * LACTIC ACID (05/09/2022 12:26 AM CDT) [facility] LACTIC ACID VENOUS 1.2 0.4 - 2.0 MMOL/L 05/09/2022 1:27 AM CDT [facility] 05/09/2022 12:2 6 AM CDT Valdez Roberson MD LABORATORY Final Result [facility] [address] [place] [address], * LIPASE (05/08/2022 11:51 PM CDT) [facility] LIPASE 75 73 - 393 UNITS/L 05/09/2022 12:44 AM CDT [facility] 05/08/2022 11:5 1 PM CDT us Valdez Roberson MD LABORATORY Final Result Performing Organization Address City/[facility]/ZIP Co de Phone Number [facility] [address] [place] [address], [place] [phone] * (ABNORMAL) VITAMIN D, 25 [place] (03/14/2022 7:44 AM CDT) Only the most recent of2 resultswithin the time period is included. VITAMIN D 25 HYDROXY TOTAL S/P/B 26.9(L) >29.9 ng/mL [facility]. Comment: Vitamin D, 25-Hydroxy reports concentrations of two common forms, 25-OHD2 and 25-OHD3. 25-OHD3 indicates both endogenous production and supplementation. 25-OHD2 is an indicator of exogenous sources, such as diet or supplementation. Therapy is based on measurement of Total 25-OHD, with levels <20 ng/mL indicative of Vitamin D deficiency, while levels between 20 ng/mL and 30 ng/mL suggest insufficiency. Optimal levels are >=30 ng/mL. Vitamin-D is fat-soluble and therefore inadvertent or intentional ingestion of excessively high amounts could be toxic. Studies in children and adults suggest blood levels would need to exceed 150 ng/mL before there is any concern. Fatuma Hawkins, Britney SHEETS, et al. Evaluation, treatment, and prevention of vitamin D deficiency: an Endocrine Society clinical practice guideline. J Clin Endocrinol Metab. 2011;96(7):1911-30.This test is performed by a Liquid Chromatography-Tandem Mass Spectrometry (LC-MS/MS) method. This test was developed and its performance characteristics determined by the [facility]. It has not been cleared or approved by the U.S. FDA. The [facility], [facility]. is regulated under Clinical Laboratory Improvement Amendments (CLIA) as qualified to perform high-complexity testing. This test is used for clinical purposes. It should not be regarded as investigational or for research. Vitamin D, 25-Hydroxy reports concentrations of two common forms, 25-OHD2 and 25-OHD3. 25-OHD3 indicates both endogenous production and supplementation. 25-OHD2 is an indicator of exogenous sources, such as diet or supplementation. Therapy is based on measurement of Total 25-OHD, with levels <20 ng/mL indicative of Vitamin D deficiency, while levels between 20 ng/mL and 30 ng/mL suggest insufficiency. Optimal levels are > or = 30 ng/mL. Vitamin D is fat-soluble and therefore inadvertent or intentional ingestion of excessively high amounts could be toxic. Studies in children and adults suggest blood levels would need to exceed 150 ng/mL before there is any concern. Fatuma Hawkins, Britney SHEETS, et al., Evaluation, treatment, and prevention of vitamin D deficiency: an Endocrine Society clinical practice guideline. J Clin. Endocrinol. Metab. 2011;96(7):1911-30. VITAMIN D 25 HYDROXY D3 S/P/B 25.9 ng/mL [facility]. Comment: This test was developed and its analytical performance characteristics have been determined by [facility]. It has not been cleared or approved by the FDA. This assay has been validated pursuant to the CLIA regulations and is used for clinical purposes. VITAMIN D 25 HYDROXY D2 S/P/B 1.0 ng/mL [facility]. Comment: This test was developed and its analytical performance characteristics have been determined by [facility]. It has not been cleared or approved by the FDA. This assay has been validated pursuant to the CLIA regulations and is used for clinical purposes. 03/14/2022 7:44 AM CDT 03/15/2022 4:13 AM CDT Mariola Taylor NP LABORATORY Final Result [facility]. [address] [place] [address], [address] [place] [address] * TSH W/REFLEX (09/13/2021 8:09 AM TECHNICAL PRODUCER) TSH 1.59 0.40 - 4.50 mIU/L [facility] 09/13/2021 8:09 AM TECHNICAL PRODUCER 09/14/2021 4:11 PM TECHNICAL PRODUCER us Mariola Taylor NP LABORATORY Final Result [facility] [address] [place] [address] * [facility] SARS-COV RNA QUAL NAAT (03/29/2021 3:37 PM CDT) Only the most recent of3 resultswithin the time period is included. CORONAVIRUS SARS COV 2 PCR (RESP) NOT DETECTED NOT DETECTED [facility] Comment: ?? A Not Detected result means that SARS-CoV-2 RNA was not present in the specimen above the limit of detection. ?? A Not Detected result does not rule out the possibility of COVID-19 and should not be used as the sole basis for treatment or patient management decisions. If COVID-19 is still suspected, based on exposure history together with other clinical findings, re-testing should be considered in the context of clinical observations and epidemiological data for patient management decisions. Test Method: Nucleic Acid Amplification Test including reverse plant maintenance mechanic polymerase chain reaction (RT-PCR) and plant maintenance mechanic mediated amplification (TMA). The test method meets the [place] Centers for Disease Control and prevention (CDC) pre departure and arrival requirement for viral test for COVID-19 dated August 25, 2020. Testing requirements for traveling may change with time. The patient is responsible for determining the test requirements for each nation while they are traveling. ?? This test has been authorized by the FDA under an Emergency Use Authorization (EUA) for use by authorized laboratories. Please review the Fact Sheets and FDA authorized labeling available for health care providers and patients using the following websites: https://www.[employer].com/home/Covid-19/HCP/[facility]/fact- sheet.html https://www.[employer]/home/Covid-19/Patients/ [facility]/fact-sheet.html Due to the current public health emergency, [facility] is accepting samples from appropriate clinical sources collected using wide variety of swabs and transport media for COVID-19. Not detected test results derived from specimens received in non- commercially manufactured viral collection kits or those not yet authorized by FDA for COVID-19 testing should be cautiously evaluated and take extra precautions such as such as additional clinical monitoring, including collection of an additional specimen. ?? Additional information about COVID-19 can be found at the [facility] website: www.[employer].[facility]/Covid19. NASAL STRUCTURE / Unknown 03/29/2021 3:37 PM CDT 03/30/2021 8:32 AM CDT Maksim Bone MD MICROBIOLOGY - GENERAL O RDERABLES Final Result [facility] [address] [address] * CORONAVIRUS (COVID-19) ANTIGEN (03/29/2021) Only the most recent of2 resultswithin the time period is included. CORONAVIRUS ANTIGEN [place] NEGATIVE NEGATIVE -[id number], [place] Internal Control: [id number] Specimen from nose (specimen) NASAL STRUCTURE / Unknown 03/29/2021 Maksim Bone MD MICROBIOLOGY - GENERAL O RDERABLES Final Result Performing Organization Address [facility]/ZIP Co de Phone Number -[phone] [facility] [facility] [address] [place] [address], [place] [phone] * CREATININE WHOLE BLOOD (Radiology only) (03/13/2021 7:29 PM CDT) Pathologist [facility] CREATININE WHOLE BLOOD 0.9 0.6 - 1.3 MG/DL 03/13/2021 7:35 PM CDT [facility] 03/13/2021 7:29 PM CDT Luiz Rich MD LABORATORY Final Resul t [facility] [address] [place] [address], [place] [phone] * CT SOFT TISSUE NECK W CON (03/13/2021 11:44 AM CDT) Only the most recent of2 resultswithin the time period is included. Anatomical Region Laterality Modality Neck Computed Tomogra phy 03/13/2021 12:5 8 PM CDT Impressions 03/13/2021 1:05 PM CDT FINDINGS AND IMPRESSION: 1. ??History of comminuted fracture of the thyroid cartilage. The cartilage remains heterogeneous in attenuation with numerous bilateral hairline lucencies particularly along its superior margin resembling the previous exam. The hyoid bone appears intact. 2. ??Minimal asymmetric appearance of the vocal cords without discrete mass. The epiglottis is not enlarged. No prevertebral edema. Exam compromised by artifact affecting the visualization of the oropharynx from dental origin. 3. ??Mild bilateral symmetric palatine tonsillar hypertrophy. 4. ??No obvious lymphadenopathy. The parathyroid, sublingual and submandibular salivary glands appear symmetric and homogeneous. The thyroid gland appears unremarkable. 5. ??Lung apices are clear. Airway appears patent. Paranasal sinuses appear grossly clear. Mastoids appear well-aerated. 6. ??Mild degenerative changes of the lower cervical spine Voice recognition software utilized. Referred By: LUIZ RICH Interpreted By: Donn Gorman, 03/13/2021 12:58 PM Narrative 03/13/2021 1:05 PM CDT IMAGING STUDIES: ??CT SOFT TISSUE NECK W CON ? DATE: 03/13/2021 10:17 AM HISTORY: ??Pain, Blunt Trauma ?history of laryngeal fracture. Persistent dysphagia since trauma on September 2020 COMPARISON STUDIES: No previous available. ?? TECHNIQUE: Thin axial sections were acquired from the thoracic inlet to the skull base before and after the administration of intravenous contrast. Sagittal and coronal constructions were evaluated. Radiation dose reduction technique was utilized. CONTRAST: 75mL Isovue-370 IV Procedure Note Donn Gorman MD - 03/13/2021 IMAGING STUDIES: CT SOFT TISSUE NECK W CON DATE: 03/13/2021 10:17 AM HISTORY: Pain, Blunt Trauma history of laryngeal fracture. Persistentdysphagia since trauma on September 2020 COMPARISON STUDIES: No previous available. TECHNIQUE: Thin axial sections were acquired from the thoracic inlet tothe skull base before and after the administration of intravenouscontrast. Sagittal and coronal constructions were evaluated. Radiationdose reduction technique was utilized. CONTRAST: 75mL Isovue-370 IV FINDINGS AND IMPRESSION: 1. History of comminuted fracture of the thyroid cartilage. The cartilageremains heterogeneous in attenuation with numerous bilateral hairlinelucencies particularly along its superior margin resembling the previousexam. The hyoid bone appears intact. 2. Minimal asymmetric appearance of the vocal cords without discretemass. The epiglottis is not enlarged. No prevertebral edema. Examcompromised by artifact affecting the visualization of the oropharynx fromdental origin. 3. Mild bilateral symmetric palatine tonsillar hypertrophy. 4. No obvious lymphadenopathy. The parathyroid, sublingual andsubmandibular salivary glands appear symmetric and homogeneous. Thethyroid gland appears unremarkable. 5. Lung apices are clear. Airway appears patent. Paranasal sinuses appeargrossly clear. Mastoids appear well-aerated. 6. Mild degenerative changes of the lower cervical spine Voice recognition software utilized. Referred By: LUIZ RICH Interpreted By: Donn Gorman, 03/13/2021 12:58 PM Luiz Rich MD CT Final Resul t * MRI GENERIC (12/01/2020) Anatomical Region Laterality Modality Other 12/01/2020 Narrative 12/01/2020 Ordered by an unspecified provider. us Documents Scanned SCANNING Final Result * CT HEAD WO CON (09/28/2020 10:37 AM TECHNICAL PRODUCER) Anatomical Region Laterality Modality Head Computed Tomogra phy 09/28/2020 10:3 9 AM TECHNICAL PRODUCER Impressions 09/28/2020 10:41 AM TECHNICAL PRODUCER IMPRESSION: No acute intracranial process. Referred By: CHANEL BARONE Interpreted By: Len Hernandez MD, 09/28/2020 10:39 AM Narrative 09/28/2020 10:41 AM TECHNICAL PRODUCER EXAMINATION: CT of the head without contrast DATE: 09/28/2020 CLINICAL HISTORY: ??Hit in the throat with a steel pipe while working. Reports another worker stepped on a lever causing the pipe to hit his throat. Reports difficultly breathing . O2 in triage 95-96%. Reports can taste blood going down throat COMPARISON: None. TECHNIQUE: CT examination of the head without contrast ??was performed with axial images obtained. A dose lowering technique was used for this procedure, which may include, but is not limited to, dose reduction technique, automated exposure control, the use of iterative reconstruction, and ALARA (As Low As Reasonably Achievable) / Image Gently techniques. FINDINGS: No midline shift or mass effect. Ventricles are neither dilated nor displaced. No acute intracranial hemorrhage. No CT evidence of acute large territorial infarct. No acute skull fracture. No air-fluid levels in the visualized paranasal sinuses or mastoid air cells. ? Procedure Note Len Hernandez MD - 09/28/2020 EXAMINATION: CT of the head without contrast DATE: 09/28/2020 CLINICAL HISTORY: Hit in the throat with a steel pipe while working. Reports another worker stepped on a lever causing the pipe to hit his throat. Reports difficultly breathing . O2 in triage 95-96%. Reports can taste blood going down throat COMPARISON: None. TECHNIQUE: CT examination of the head without contrast was performedwith axial images obtained. A dose lowering technique was used for this procedure, which may include, but is not limited to, dose reduction technique, automated exposure control, the use of iterativereconstruction, and ALARA (As Low As Reasonably Achievable) / Image Gently techniques. FINDINGS: No midline shift or mass effect. Ventricles are neither dilated nor displaced. No acute intracranial hemorrhage. No CT evidence of acutelarge territorial infarct. No acute skull fracture. No air-fluid levels in the visualized paranasal sinuses or mastoid air cells. IMPRESSION: No acute intracranial process. Referred By: CHANEL BARONE Interpreted By: Len Hernandez MD, 09/28/2020 10:39 AM Chanel Barone MD CT Final Result * ECG 12 lead (09/28/2020 9:52 AM TECHNICAL PRODUCER) 09/28/2020 9:52 AM TECHNICAL PRODUCER Narrative [facility] ([facility]) RAD - 09/28/2020 5:23 PM TECHNICAL PRODUCER ?[place]`katherine Tasley ? [address] [place] ? Test Date: ?2020-09-28 Pat Name: ? PORTILLO BALLESTEROS ? Department: ? Room: ? [id number] Gender: ? Male ? Software Development Specialist: ?? IE : ?1980 ? Requested By: CHANEL BARONE Order Number: [id number] ? Laura OROSCO: ?? Griffin Jackson ? Measurements Intervals ?Valentine ? Rate: ? 66 ? P: ?-12 VA: ? 140 ?QRS: ?24 QRSD: ? 98 ? T: ?32 QT: ? 377 ? QTc: ?396 ? Interpretive Statements SINUS RHYTHM No previous ECG available for comparison No ischemic changes Gabriel Mascorro M.D. CRITICAL ALERT ISSUED ON 09-28-2020 9:56:39 NICAL PRODUCER Procedure Note Griffin Jackson MD - 09/28/[address] [place] Test Date: 2020-09-28 Pat Name: PORTILLO BALLESTEROS Department: Room: [place] [address] Gender: Male Software Development Specialist: IE : 1980 Requested By: CHANEL BARONE Order Number: [id number] Laura MD: Griffin Jackson Measurements Intervals Valentine Rate: 66 P: -12 VA: 140 QRS: 24 QRSD: 98 T: 32 QT: 377 QTc: 396 Interpretive Statements SINUS RHYTHM No previous ECG available for comparison No ischemic changes Gabriel Mascorro M.D. CRITICAL ALERT ISSUED ON 09-28-2020 9:56:39 NICAL PRODUCER us Chanel Barone MD ECG ORDERABLES Final Result [facility] ([facility]) RAD * OCCULT BLOOD, FECES (08/31/2020 7:00 AM TECHNICAL PRODUCER) OCCULT BLOOD FECAL NEGATIVE NEGATIVE 08/31/2020 8:49 AM TECHNICAL PRODUCER [facility] STOOL SPECIMEN / Unknown 08/31/2020 7:00 AM TECHNICAL PRODUCER us Luiz Rich MD BODY FLUIDS AND STOOLS ORDAgus JUAN CARLOS Final Result Performing Organization Address [facility]/ZIP Co de Phone Number [facility] [address] [place] [address], [place] [phone] * (ABNORMAL) IRON SAT PANEL (IRON,IBC,%SAT) (08/30/2020 3:44 PM TECHNICAL PRODUCER) Pathologist [facility] IRON 64(L) 65 - 175 MCG/DL 08/30/2020 4:41 PM TECHNICAL PRODUCER [facility] IRON BINDING CAPACITY 327 250 - 450 MCG/DL 08/30/2020 4:41 PM TECHNICAL PRODUCER [facility] IRON SATURATION 20 20 - 55 % 4:41 PM TECHNICAL PRODUCER [facility] 08/30/2020 3:44 PM TECHNICAL PRODUCER us Luiz Rich MD LABORATORY Final Resul t Performing Organization Address [facility]/ZIP Co de Phone Number [facility] [address] [place] [address], [place] [phone] * XR CHEST PA+LAT (05/18/2020 10:50 AM CDT) Anatomical Region Laterality Modality Chest Radiographic Fatou ging 05/18/2020 11:0 6 AM CDT Impressions 05/18/2020 11:06 AM CDT IMPRESSION: No evidence of acute cardiopulmonary disease. Lungs are clear. No pneumothorax or large pleural effusion. Normal heart size. Interpreted By: Benton Brownlee, 05/18/2020 11:06 AM Narrative 05/18/2020 11:06 AM CDT IMAGING STUDIES: ??XR CHEST PA+LAT ? EXAM DATE/TIME: ??05/18/2020 10:45 AM INDICATION: chest pain ?? . COMPARISON: ??No comparison. TECHNIQUE: 2 views. Procedure Note Benton Brownlee MD - 05/18/2020 IMAGING STUDIES: XR CHEST PA+LAT EXAM DATE/TIME: 05/18/2020 10:45 AM INDICATION: chest pain . COMPARISON: No comparison. TECHNIQUE: 2 views. IMPRESSION: No evidence of acute cardiopulmonary disease. Lungs are clear. No pneumothorax or large pleural effusion. Normal heart size. Interpreted By: Benton Brownlee, 05/18/2020 11:06 AM Luiz Rich MD GENERAL IMAGING Final Resul t * TROPONIN, QUANT (05/16/2020 12:20 PM CDT) TROPONIN I <0.017 0.000 - 0.056 ng/mL. 05/16/2020 6:54 PM CDT [facility] Comment: NORMAL: LESS THAN OR EQUAL TO 0.056 NG/ML INDETERMINATE ZONE: 0.056 TO 0.599 NG/ML CONDITIONS RESULTING IN MYOCARDIAL CELL DAMAGE CAN POTENTIALLY INCREASE LEVELS ABOVE THE EXPECTED RANGE. HIGH DOSES OF BIOTIN MAY INTERFERE WITH THIS TEST RESULT. CORRELATION TO CLINICAL HISTORY AND PRESENTATION RECOMMENDED. 05/16/2020 12:2 0 PM CDT us Luiz Rich MD LABORATORY Final Resul t [facility] [address] [place] [address], * COLONOSCOPY GENERIC (05/26/2019) 05/26/2019 Narrative 05/26/2019 Ordered by an unspecified provider. us Documents Scanned SCANNING Final Result * CT GENERIC (03/18/2019) Anatomical Region Laterality Modality Other 03/18/2019 Narrative 03/18/2019 Ordered by an unspecified provider. us Documents Scanned SCANNING Final Result * OUTSIDE LAB (SCAN) (11/15/2018) Only the most recent of2 resultswithin the time period is included. 11/15/2018 Narrative 11/15/2018 Ordered by an unspecified provider. us Documents Scanned SCANNING Final Result * CTA CHEST (03/10/2018 11:21 AM CDT) Anatomical Region Laterality Modality Chest Computed Tomogra phy 03/10/2018 11:2 1 AM CDT Narrative 03/10/2018 12:00 AM CDT PORTILLO BALLESTEROS ? Admit/Service Date: 03/08/18 ?? Acct: [id number] ?Discharge Date: ?? : 1980 ??Sex: M ?Ord Site: [facility] ?? Pt Type: REG CLI ? Ordering MD: FRAN NEWBY MD ? Study Date ? Report # ?Order # ? Ext Order ID ?? 03/08/18 ? [id number] ? [id number] ?[id number] ? Proc Code: ? A-CHST ? Procedure Description: ?? CTA Chest ? IMAGING STUDIES: ??CTA CHEST ? DATE: ??03/08/2018 8:18 AM ? INDICATION: ??OTHER - CHEST PAIN ??. ? COMPARISON: ??No prior studies for comparison.. ? CONTRAST DOSE: ??125 mL Isovue-370 ? Radiation dose reduction technique was utilized. ? IMPRESSION: ? No airspace disease, soft tissue attenuation nodule or mass. No pleural effusion. Both lungs are clear. ? CTPA: There is no low attenuation filling defect present within the main pulmonary flow tract, pulmonary arteries or its major branches to suggest the presence of pulmonary embolism. No aortic dissection. ? No lymphadenopathy. Normal heart size without pericardial effusion. ? Only mild degenerative changes present within the thoracic spine. ? Small hiatal hernia. Small amount of residual thymus present within the anterior mediastinum. ? Procedure Note Carrie Orosco MD - 03/10/2018 PORTILLO BALLESTEROS Admit/Service Date:03/08/18 Acct: [id number] Discharge Date: : 1980 Sex: M Ord Site: [facility] Pt Type: REG CLI Ordering MD:FRAN NEWBY MD Study Date Report # Order # Ext Order ID 03/08/18 [id number] Proc Code: A-CHST Procedure Description: CTA Chest IMAGING STUDIES: CTA CHEST DATE: 03/08/2018 8:18 AM INDICATION: OTHER - CHEST PAIN . COMPARISON: No prior studies for comparison.. CONTRAST DOSE: 125 mL Isovue-370 Radiation dose reduction technique was utilized. IMPRESSION: No airspace disease, soft tissue attenuation nodule or mass. No pleuraleffusion. Both lungs are clear. CTPA: There is no low attenuation filling defect present within the mainpulmonary flow tract, pulmonary arteries or its major branches to suggest the presence ofpulmonary embolism. No aortic dissection. No lymphadenopathy. Normal heart size without pericardial effusion. Only mild degenerative changes present within the thoracic spine. Small hiatal hernia. Small amount of residual thymus present within theanterior mediastinum. us Fran Newby MD CT Final Resul t * ECG GENERIC (02/20/2018) 02/20/2018 Narrative 02/20/2018 Ordered by an unspecified provider. us Documents Scanned SCANNING Final Result * Stool Culture (03/07/2005 1:11 PM CDT) SPEC DESCRIPTION STOOL MED GROUP TO EPIC CONVERSION SPECIAL REQUESTS NONE MED GROUP TO EPIC CONVERSION CULTURE RESULT [facility] OUP TO EPIC CONVERSION Comment:NO SALMONELLA, SHIGE LLA, CAMPYLOBACTER OR E COLI [id number] ISOLATED REPORT STATUS FINAL [id number] [facility] TO EPIC CONVERSION 03/07/2005 1:11 PM CDT 03/07/2005 1:11 PM CDT Favian Rand MD MICROBIOLOGY - GENERAL O RDERABLES Final Result [facility] TO EPIC CONVERSION Visit Diagnoses Diagnosis Start Date Cough 08/11/2012 Open wound of forehead Open wound of forehead, without mention of complication 10/07/2013 Nonsuppurative otitis media Nonsuppurative otitis media, not specified as acute or chronic 07/25/2014 Abdominal pain, epigastric 10/08/2014 Atrophic gastritis Atrophic gastritis without mention of hemorrhage 10/22/2014 Abdominal pain, epigastric 01/07/2015 Other symptoms involving digestive system 01/07/2015 Chronic sinusitis Unspecified sinusitis (chronic) 10/30/2015 Cutaneous abscess of buttock Cellulitis and abscess of buttock 12/13/2015 Gastritis without bleeding Unspecified gastritis and gastroduodenitis without mention of hemorrhage 03/16/2016 Acute serous otitis media of right ear Acute serous otitis media 03/18/2016 Abdominal pain Abdominal pain, unspecified site 09/04/2017 Localized swelling, mass or lump of neck Swelling, mass, or lump in head and neck 2017 Otitis media Unspecified otitis media 12/26/2017 Chest pain Chest pain, unspecified 02/20/2018 Chest pain in adult 02/28/2018 Mixed hyperlipidemia 02/28/2018 Chest pain Chest pain, unspecified 03/03/2018 Chest pain Chest pain, unspecified 03/08/2018 Acute abdominal pain Abdominal pain, unspecified site 03/18/2019 Gastroesophageal reflux disease, esophagitis presence not specified 02/25/2020 Acute upper respiratory infection Acute upper respiratory infections of unspecified site 03/03/2020 Diverticulitis Diverticulitis of colon (without mention of hemorrhage) 04/05/2020 Fatigue Other malaise and fatigue 05/16/2020 Mixed hyperlipidemia 05/16/2020 Fatigue Other malaise and fatigue 05/16/2020 Mixed hyperlipidemia 05/16/2020 Fatigue, unspecified type 05/16/2020 Mixed hyperlipidemia 05/16/2020 Low hemoglobin Anemia, unspecified 05/17/2020 Low hematocrit 05/17/2020 Hypokalemia Hypopotassemia 05/17/2020 Mixed hyperlipidemia 05/17/2020 Chest pain in adult 05/17/2020 Chest pain in adult 05/18/2020 Sciatica of left side Sciatica 06/21/2020 Acute left-sided low back pain with left-sided sciatica 06/21/2020 Cervical radiculopathy Brachial neuritis or radiculitis nos 07/19/2020 Cervical radiculopathy Brachial neuritis or radiculitis nos 08/01/2020 Cervical radiculopathy Brachial neuritis or radiculitis nos 08/04/2020 Cervical radiculopathy Brachial neuritis or radiculitis nos 08/09/2020 Acute nonintractable headache, unspecified headache type 08/10/2020 Post-nasal drip Postnasal drip 08/10/2020 Fatigue, unspecified type 08/10/2020 Close exposure to COVID-19 virus 08/10/2020 Post-nasal drip Postnasal drip 08/12/2020 Acute upper respiratory infection Acute upper respiratory infections of unspecified site 08/12/2020 Mixed hyperlipidemia 08/24/2020 Low hematocrit 08/24/2020 Hypokalemia Hypopotassemia 08/24/2020 Acute non-recurrent sinusitis, unspecified location 08/24/2020 Anemia, unspecified 08/30/2020 Anemia, unspecified 08/30/2020 Routine general medical examination at a health care facility 08/30/2020 Anemia, unspecified type 08/30/2020 Vasectomy evaluation Other general counseling and advice for contraceptive management 08/30/2020 Anemia, unspecified 08/31/2020 Fracture, thyroid cartilage closed, initial encounter ([facility]) 09/28/2020 Seasonal allergic rhinitis, unspecified trigger 11/03/2020 Non-recurrent acute serous otitis media of right ear 11/03/2020 Benign paroxysmal positional vertigo of right ear 11/21/2020 Eustachian tube dysfunction, right 11/21/2020 Gastroesophageal reflux disease, unspecified whether esophagitis present 12/19/2020 Closed fracture of thyroid cartilage, sequela 01/12/2021 Blunt trauma of neck, subsequent encounter 02/23/2021 Blunt trauma of neck, subsequent encounter 03/13/2021 Closed fracture of thyroid cartilage, sequela 03/16/2021 Blunt trauma of neck, subsequent encounter 03/16/2021 Need for prophylactic vaccination against viral disease Need for prophylactic vaccination and inoculation against other viral diseases 03/28/2021 Exposure to COVID-19 virus 03/29/2021 Fatigue, unspecified type 03/29/2021 Neck pain Cervicalgia 05/02/2021 Neck pain Cervicalgia 05/02/2021 Blunt trauma of neck Injury of face and neck 05/09/2021 Neck pain Cervicalgia 06/01/2021 Cervical radiculopathy Brachial neuritis or radiculitis nos 07/04/2021 Closed fracture of thyroid cartilage, sequela 07/04/2021 Cervical radiculopathy Brachial neuritis or radiculitis nos 08/29/2021 Blunt trauma of neck, subsequent encounter 08/29/2021 Annual physical exam Routine general medical examination at a health care facility 09/13/2021 Gastroesophageal reflux disease, unspecified whether esophagitis present 09/13/2021 Mixed hyperlipidemia 09/13/2021 Obesity (BMI 30-39.9) Obesity, unspecified 09/13/2021 Acute non-recurrent maxillary sinusitis 09/13/2021 Screening for depression 09/13/2021 Need for vxuonyfaip-zihchze-eezsczjxb (Tdap) vaccine Need for prophylactic vaccination with combined pthhdgtikd-htoogor-jlluobyif (DTP) vaccine 09/13/2021 Vitamin D deficiency Unspecified vitamin D deficiency 09/25/2021 Diverticulitis Diverticulitis of colon (without mention of hemorrhage) 12/19/2021 Gastroesophageal reflux disease, unspecified whether esophagitis present 12/19/2021 Neuropathic pain Neuralgia, neuritis, and radiculitis, unspecified 02/02/2022 Other constipation 02/02/2022 Obesity (BMI 30.0-34.9) Obesity, unspecified 02/02/2022 Vitamin D deficiency Unspecified vitamin D deficiency 03/14/2022 Gastroesophageal reflux disease, unspecified whether esophagitis present 03/14/2022 Seasonal allergic rhinitis, unspecified trigger 03/14/2022 Chronic intractable headache, unspecified headache type 03/14/2022 Diverticulitis Diverticulitis of colon (without mention of hemorrhage) 05/08/2022 Diverticulitis of large intestine without perforation or abscess without bleeding Diverticulitis of colon (without mention of hemorrhage) 05/17/2022 Left leg pain Pain in limb 07/13/2022 Acute sinusitis, recurrence not specified, unspecified location 07/26/2022 Diverticulitis Diverticulitis of colon (without mention of hemorrhage) 08/08/2022 Diverticulitis Diverticulitis of colon (without mention of hemorrhage) 08/10/2022 Diverticulitis Diverticulitis of colon (without mention of hemorrhage) 08/10/2022 Diverticulitis Diverticulitis of colon (without mention of hemorrhage) 08/29/2022 Obesity (BMI 30-39.9) Obesity, unspecified 08/29/2022 Depression screening Screening for depression 08/29/2022 Diverticulitis Diverticulitis of colon (without mention of hemorrhage) 09/14/2022 Diverticulitis Diverticulitis of colon (without mention of hemorrhage) 09/21/2022 Diverticulitis Diverticulitis of colon (without mention of hemorrhage) 09/21/2022 S/P cervical disc replacement 10/01/2022 S/P cervical disc replacement 10/03/2022 S/P cervical disc replacement 10/05/2022 S/P cervical disc replacement 10/08/2022 S/P cervical disc replacement 10/10/2022 S/P cervical disc replacement 10/12/2022 Acute maxillary sinusitis, recurrence not specified 01/01/2023 Acute cough 01/01/2023 Diverticulitis Diverticulitis of colon (without mention of hemorrhage) 01/16/2023 Suspected COVID-19 virus infection 04/09/2023 COVID 04/09/2023 Acute cough 04/09/2023 Mid back pain on left side Pain in thoracic spine 09/11/2023 Generalized abdominal discomfort Abdominal pain, generalized 09/11/2023 Microscopic hematuria 09/11/2023 Hematuria Hematuria, unspecified 09/12/2023 Hematuria Hematuria, unspecified 09/12/2023 Hematuria Hematuria, unspecified 09/12/2023 Routine general medical examination at a health care facility 09/25/2023 Routine general medical examination at a health care facility 09/25/2023 Encounter for general health examination Routine general medical examination at a health care facility 09/25/2023 Lumbar radiculopathy Thoracic or lumbosacral neuritis or radiculitis, unspecified 10/17/2023 Lumbar radiculopathy Thoracic or lumbosacral neuritis or radiculitis, unspecified 11/01/2023 Mid back pain on left side Pain in thoracic spine 11/05/2023 Renal mass Unspecified disorder of kidney and ureter 11/05/2023 Renal mass Unspecified disorder of kidney and ureter 11/26/2023 Diverticulitis Diverticulitis of colon (without mention of hemorrhage) 02/06/2024 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 02/06/2024 Cervical pain (neck) Cervicalgia 03/31/2024 Kidney stone Calculus of kidney 07/25/2024 Urinary tract obstruction by kidney stone Calculus of kidney 07/26/2024 Urinary tract obstruction by kidney stone Calculus of kidney 07/25/2024 Mixed hyperlipidemia 07/25/2024 Urinary tract obstruction due to kidney stone Calculus of kidney 07/25/2024 Diverticulitis Diverticulitis of colon (without mention of hemorrhage) 05/08/2022 Diverticulitis Diverticulitis of colon (without mention of hemorrhage) 09/21/2022 Nephrolithiasis Calculus of kidney 07/25/2024 Urinary tract obstruction by kidney stone Calculus of kidney 07/25/2024 Urinary tract obstruction due to kidney stone Calculus of kidney 07/25/2024 Goals Goal Patient Goal Type Associated Problems Recent Progress Patient-Stated? Author Safety - demonstrates understanding of home safety measures Lifestyle No Cassia Cardoso, RN Health - patient able to perform ADLs independently Lifestyle No John Paul Knapp RN Care Teams Risk Mgr Relationship Specialty [place] [address] [place] [address] PCP - General FAMILY PRACTICE 09/13/21 Fran Newby MD [facility] [address] [place] [address] Tilly An Employee Sponsor Or Advocate And INTERVENTIONAL CARDIOLOGY 02/26/18
== END 2024-08-21 15:13 | disposition home or self-care (01) ==
PROVIDERS: PCP Family Medicine Sports Medicine; Visit Provider Urology
DX: N20.0 Calculus of kidney (principal); Z96.0 Presence of urogenital implants
CPT/HCPCS: 74018

== ENCOUNTER 2024-08-26 15:13 | Outpatient (CLI) | payer OTHER, SELFPAY ==
[2024-08-26 15:52] LABS: Prothrombin Time 13.4 Seconds (11.1-14.7)
[2024-08-26 15:53] LABS: Partial Thromboplastin Time 27.6 Seconds (22.3-36.8)
--- OUTSIDE RECORDS SUMMARY | 2024-08-26 16:03 | XMS_ITS | Referral Summary ---
Author Organization [facility] Address [address] [place] [address] Care Team Providers Care Transitional Care Liaison Name Role Phone Luiz Matta MD Primary Care Provider [phone] Unknown, Provider Unavailable Unavailable Source Comments [facility],non-owned Affiliates and Associated Physician Practices is amultiple site organization consisting of ambulatory clinics and hospital sitesin [place], [place] and [place]. This disclosure is being madepursuant to the Care Everywhere program and may not contain all information available regarding this patient. Last updated 18.[facility] Allergies No known active allergies Medications * [...] needed 05/24/2021 Active ergocalciferol (DRISDOL) 1.25 MG (70450 UT) capsule Take 1 (one) capsule by [...] 37 ??C (98.6 ??F) 07/18/2022 1:37 PM PRECISION HONING MACHINE OPERATOR Respiratory Rate 18 09/29/2020 3:58 PM PRECISION HONING MACHINE OPERATOR Oxygen Saturation 96% 09/29/2020 3:58 PM PRECISION HONING MACHINE OPERATOR Inhaled Oxygen Concentration - - Weight 98 kg (216 lb) 04/19/2023 3:24 PM CDT Height 185.4 cm (6' 1 ) 04/19/2023 3:24 PM CDT Body Mass Index 28.5 04/19/2023 3:24 PM CDT Plan of Treatment Not on file Procedures Procedure Name Priority Date/Time Associated Diagnosis Comments BASIC METABOLIC PANEL (CALCIUM TOTAL) Routine 09/29/2020 2:03 AM PRECISION HONING MACHINE OPERATOR Blunt trauma of neck, initial encounter from Last 3 Months or Most Recently Relevant to Health Maintenance Results * (ABNORMAL) BASIC METABOLIC PANEL (CALCIUM TOTAL) (09/29/2020 2:03 AM PRECISION HONING MACHINE OPERATOR) BUN 20 7 - 26 mg/dL 09/29/2020 3:06 AM [facility] Creatinine 0.7 0.6 - 1.2 mg/dL 09/29/2020 3:06 AM [facility] Sodium 139 136 - 145 mmol/L 09/29/2020 3:06 AM [facility] Potassium 3.4(L) 3.5 - 4.5 mmol/L 09/29/2020 3:06 AM [facility] Chloride 105 98 - 107 mmol/L 09/29/2020 3:06 AM [facility] CO2 25 22 - 29 mmol/L 09/29/2020 3:06 AM [facility] Glucose 107 70 - 115 mg/dL 09/29/2020 3:06 AM [facility] Calcium 8.1(L) 8.4 - 10.2 mg/dL 09/29/2020 3:06 AM [facility] Anion Gap 12 8 - 18 09/29/2020 3:06 AM [facility] BUN/Creatinine Ratio 29(H) 7 - 23 09/29/2020 3:06 AM [facility] Osmolality Calculated 291 270 - 300 mOsm/kg 09/29/2020 3:06 AM [facility] eGFR >60 >60 mL/min/1.7 3 m2 09/29/2020 3:06 AM [facility] Blood BLOOD SPECIMEN / Unknown Lab Venipuncture / Unknown 09/29/2020 2:03 AM PRECISION HONING MACHINE OPERATOR 09/29/2020 2:35 AM PRECISION HONING MACHINE OPERATOR Manny Wall MD LAB - CHEMISTRY OR DERABLES [facility] [address] [place] [address], [place] [phone] from Last 3 Months or Most Recently Relevant to Health Maintenance Advance Directives * Full Code (Latest Code Status on File) Date Activated Date Inactivated Comments 09/28/2020 5:29 PM 09/29/2020 6:59 PM Care Teams Transitional Care Liaison Relationship Specialty [place] [address] [place] [address] PCP - General Family Medicine 09/28/20 Unknown, Provider [address] [place] [address] 09/28/20
--- OUTSIDE RECORDS SUMMARY | 2024-08-26 16:03 | XMS_ITS | Encounter Summary ---
Author Organization [facility] Address [facility] [facility] [place], [place] [address] [place] [address] Care Team Providers Care Information Technology Security Analyst Name Role Phone Jann Saucedo MD Unavailable [phone] Luiz Matta MD Primary Care Provider [phone] Luiz Matta MD Primary Care Provider [phone] Encounter Details Date Type Department Care Team (Late st Contact Info) Description 08/18/2021 Engagio Message Enc [facility] Family & Internal Medicine [address] [address] 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
--- OUTSIDE RECORDS SUMMARY | 2024-08-26 16:03 | XMS_ITS | Encounter Summary ---
Author Organization [facility] Address [address] [place] [address]. [place] [address] [place] [address] Care Team Providers Care Wellness Coach Name Role Phone Jann Saucedo MD Unavailable [phone] Luiz Matta MD Primary Care Provider [phone] Luiz Matta MD Primary Care Provider [phone] Reason for Referral * Surgical (Routine) - Closed Specialty Diagnoses / Procedures Referred By Alexandria barrios Referred To Contact Procedures Case request operating room: INJECTION TRIGGER POINT Cervical paraspinous, trapezius, deltoid Alta Oropeza APNP Phone: tel: fax: Referral ID Status Reason Start Date Expiration Date Visits Re quested Visits Authorized [id number] Closed 05/29/2021 06/28/2022 1 1 Encounter Details Date Type Department Care Team (Late st Contact Info) Description 05/29/2021 Prep for Procedure [facility] [place] [address] [id number] Alta Oropeza APNP [address] [place] [address] Social History Tobacco Use Types [...] 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 [address] [place] [address] [employer] Neurophysiology Tech INTERVENTIONAL CARDIOLOGY 02/26/18 documented as of this encounter
--- OUTSIDE RECORDS SUMMARY | 2024-08-26 16:03 | XMS_ITS | Clinical Summary ---
Author Organization [facility] Address [address] [place] [address] Care Team Providers Care Mid Level Game Designer Name Role Phone Luiz Matta MD Primary Care Provider Unknown, Provider Unavailable Unavailable Source Comments [facility],non-owned Affiliates and Associated Physician Practices is amultiple site organization consisting of ambulatory clinics and hospital sitesin [place], [place], [place] and [place]. This disclosure is being madepursuant to the Care Everywhere program and may not contain all information available regarding this patient. Last updated 18.[facility] Allergies No known active allergies Medications * [...] needed 05/24/2021 Active ergocalciferol (DRISDOL) 1.25 MG (23422 UT) capsule Take 1 (one) capsule by [...] 37 ??C (98.6 ??F) 07/18/2022 1:37 PM CORPORATE COORDINATOR Respiratory Rate 18 09/29/2020 3:58 PM CORPORATE COORDINATOR Oxygen Saturation 96% 09/29/2020 3:58 PM CORPORATE COORDINATOR Inhaled Oxygen Concentration - - Weight 98 [...] PANEL (CALCIUM TOTAL) Routine 09/29/2020 2:03 AM CORPORATE COORDINATOR Blunt trauma of neck, initial encounter from Last 3 Months or Most Recently Relevant to Health Maintenance Results * (ABNORMAL) BASIC METABOLIC PANEL (CALCIUM TOTAL) (09/29/2020 2:03 AM CORPORATE COORDINATOR) BUN 20 7 - 26 mg/dL 09/29/2020 3:06 AM [facility] Creatinine 0.7 0.6 - 1.2 mg/dL 09/29/2020 3:06 AM [facility] Sodium 139 136 - 145 mmol/L 09/29/2020 3:06 AM [facility] Potassium 3.4(L) 3.5 - 4.5 mmol/L 09/29/2020 3:06 AM [facility] Chloride 105 98 - 107 mmol/L 09/29/2020 3:06 AM [facility] CO2 25 22 - 29 mmol/L 09/29/2020 3:06 AM [facility] Glucose 107 70 - 115 mg/dL 09/29/2020 3:06 AM [facility] Calcium 8.1(L) 8.4 - 10.2 mg/dL 09/29/2020 3:06 AM [facility] Anion Gap 12 8 - 18 09/29/2020 3:06 AM [facility] BUN/Creatinine Ratio 29(H) 7 - 23 09/29/2020 3:06 AM [facility] Osmolality Calculated 291 270 - 300 mOsm/kg 09/29/2020 3:06 AM [facility] eGFR >60 >60 mL/min/1.7 3 m2 09/29/2020 3:06 AM [facility] Blood BLOOD SPECIMEN / Unknown Lab Venipuncture / Unknown 09/29/2020 2:03 AM CORPORATE COORDINATOR 09/29/2020 2:35 AM [facility] Manny Wall MD LAB - CHEMISTRY OR DERABLES [facility] [address] [place] [address] [phone] from Last 3 Months or Most Recently Relevant to Health Maintenance Advance Directives * Full Code (Latest Code Status on File) Date Activated Date Inactivated Comments 09/28/2020 5:29 PM 09/29/2020 6:59 PM Care Teams Mid Level Game Designer Relationship Specialty [place] [address] [place] [address] PCP - General Family Medicine 09/28/20 Unknown, Provider [address] [place] [address] 09/28/20
--- OUTSIDE RECORDS SUMMARY | 2024-08-26 16:03 | XMS_ITS | Patient Health Summary ---
Author Organization [facility] Address [address] [place] [address] Care Team Providers Care Escalator Installer Name Role Phone Luiz Matta MD Primary Care Provider [phone] Unknown, Provider Unavailable Unavailable Note from [facility],non-owned Affiliates and Associated Physician Practices is amultiple site organization consisting of ambulatory clinics and hospital sitesin [place], [place], [place] and [place]. This disclosure is being madepursuant to the Care Everywhere program and may not contain all information available regarding this patient. Last updated 18.[facility] Allergies No known active allergies Medications * [...] as needed * ergocalciferol (DRISDOL) 1.25 MG (92512 UT) capsule(Started 09/25/2021) Take 1 (one) capsule [...] 37 ??C (98.6 ??F) 07/18/2022 1:37 PM FIELD MAP EDITOR Respiratory Rate 18 09/29/2020 3:58 PM FIELD MAP EDITOR Oxygen Saturation 96% 09/29/2020 3:58 PM FIELD MAP EDITOR Inhaled Oxygen Concentration - - Weight 98 kg (216 lb) 04/19/2023 3:24 PM CDT Height 185.4 cm (6' 1 ) 04/19/2023 3:24 PM CDT Body Mass Index 28.5 04/19/2023 3:24 PM CDT Procedures * AR EAR MICROSCOPY EXAMINATION(Performed 04/19/2023) Performed for Tinnitus, unspecified laterality * AUDIOLOGY/TYMPANOMETRY ORDER(Performed 03/14/2023) * AR CHEMODENERV MUSC MIGRAINE(Performed 06/14/2021) Performed for Pharyngeal dysphagia, Closed fracture of larynx, subsequent encounter, Blunt trauma of neck, subsequent encounter * AR LARYNGOSCOPY,FLEX FIBER,DIAGNOSTIC(Performed 05/12/2021) Performed for Pharyngeal dysphagia, Closed fracture of larynx, subsequent encounter * AR LARYNGOSCOPY,FLEX/RIGID+STROBOSCOPY(Performed 04/05/2021) Performed for Blunt trauma of neck, subsequent encounter * AR LARYNGOSCOPY,FLEX/RIGID+STROBOSCOPY(Performed 12/21/2020) Performed for Blunt trauma of neck, subsequent encounter * AR LARYNGOSCOPY,FLEX FIBER,DIAGNOSTIC(Performed 12/21/2020) Performed for Blunt trauma [...] * ALCOHOL ETHYL BLOOD(Performed 09/28/2020) Results * AR EAR MICROSCOPY EXAMINATION (04/19/2023 4:11 PM CDT) [...] Mariola Champion AUDIOLOGY SERVICES O RDERABLES * AR CHEMODENERV MUSC MIGRAINE (06/14/2021 2:09 PM FIELD MAP EDITOR) Narrative Griffin Gore MD - 06/14/2021 2:09 PM FIELD MAP EDITOR Griffin Gore MD ? 06/14/2021 ??5:55 PM [...] Gore MD PROCEDURE/MINOR SURG ICAL ORDERABLES * AR LARYNGOSCOPY,FLEX FIBER,DIAGNOSTIC (05/12/2021 11:01 AM CDT) Narrative Griffin Gore MD - 05/12/2021 11:01 AM CDT Griffin Gore MD ? 05/12/2021 11:07 AM Procedure Note Endoscopy Type: ??Laryngoscopy without stroboscopy 26665 Endoscope: Flexible 4mm Scope Anesthesia: Lidocaine 2% [...] present for the entirety of the procedure. Griffin Gore MD PROCEDURE/MINOR SURG ICAL ORDERABLES * AR LARYNGOSCOPY,FLEX/RIGID+STROBOSCOPY (04/05/2021 2:06 PM CDT) Narrative Silviano Pineda MD - 04/05/2021 2:06 PM CDT Silviano Pineda MD ? 04/05/2021 ??2:26 PM Procedure Note Anesthesia: Lidocaine and Neosynephrine Endoscopy Type: ??Flexible Qterb-Vybrrrsqifdqjo-Pqvpvwkxtlor Procedure Details: Informed consent was obtained. ??The [...] Pineda MD PROCEDURE/MINOR SURG ICAL ORDERABLES * AR LARYNGOSCOPY,FLEX FIBER,DIAGNOSTIC, AR LARYNGOSCOPY,FLEX/RIGID+STROBOSCOPY (12/21/2020 1:50 PM CDT) Narrative Silviano Pineda MD - 12/21/2020 1:50 PM CDT Silviano Pineda MD ? 12/21/2020 ??1:52 PM Procedure Note Anesthesia: Lidocaine and Neosynephrine Endoscopy Type: ??Flexible Rbgyl-Nntszinlylacae-Bydcqyusnhgc Procedure Details: Informed consent was obtained. ??The [...] CBC W AUTO DIFFERENTIAL (09/29/2020 2:03 AM FIELD MAP EDITOR) Only the most recent of2 resultswithin the time period is included. WBC 7.4 3.5 - 10.5 10? 3 /uL 09/29/2020 2:41 AM [facility] RBC 4.38 4.30 - 5.70 10? 6 /uL 09/29/2020 2:41 AM [facility] Hemoglobin 12.5(L) 13.5 - 17.5 g/dL 09/29/2020 2:41 AM [facility] Hematocrit 38.0(L) 39.0 - 50.0 % 09/29/2020 2:41 AM [facility] MCV 86.8 81.0 - 97.0 fL 09/29/2020 2:41 AM [facility] MCH 28.5 28.0 - 34.0 pg 09/29/2020 2:41 AM [facility] MCHC 32.9 32.0 - 36.0 g/dL 09/29/2020 2:41 AM [facility] Platelet Count 282 150 - 400 10? 3 /uL 09/29/2020 2:41 AM [facility] RDW-SD 39.9 36.0 - 50.0 fL 09/29/2020 2:41 AM [facility] RDW-CV 12.4 11.2 - 14.8 % 09/29/2020 2:41 AM [facility] MPV 9.6 9.3 - 12.8 fL 09/29/2020 2:41 AM [facility] nRBC Absolute 0.00 0 10? 3 /uL 09/29/2020 2:41 AM [facility] nRBC Auto 0.0 0 /100 WBC 09/29/2020 2:41 AM [facility] Neutrophils % 60.5 35.0 - 70.0 % 09/29/2020 2:41 AM [facility] Lymphocytes % 29.0 19.7 - 55.1 % 09/29/2020 2:41 AM [facility] Monocytes % 8.6 3.0 - 15.0 % 09/29/2020 2:41 AM [facility] Eosinophils % 1.1 0.0 - 6.0 % 09/29/2020 2:41 AM [facility] Basophil % 0.3 0.0 - 1.5 % 09/29/2020 2:41 AM [facility] Neutrophils Absolute 4.5 1.6 - 7.0 10? 3 /uL 09/29/2020 2:41 AM [facility] Lymphocyte Absolute 2.1 0.8 - 2.9 10? 3 /uL 09/29/2020 2:41 AM [facility] Monocytes Absolute 0.63 0.14 - 0.66 10? 3 /uL 09/29/2020 2:41 AM [facility] Eosinophils Absolute 0.08 0.00 - 0.45 10? 3 /uL 09/29/2020 2:41 AM [facility] Basophils Absolute 0.02 0.00 - 0.06 10? 3 /uL 09/29/2020 2:41 AM [facility] Immature Granulocytes % 0.5 0.0 - 1.0 % 09/29/2020 2:41 AM [facility] Blood BLOOD SPECIMEN / Unknown Lab Venipuncture / Unknown 09/29/2020 2:03 AM FIELD MAP EDITOR 09/29/2020 2:35 AM FIELD MAP EDITOR Manny Wall MD LAB - HEMATOLOGY O RDERABLES [facility] [address] [place] [address], [facility] [phone] * (ABNORMAL) BASIC METABOLIC PANEL (CALCIUM TOTAL) (09/29/2020 2:03 AM FIELD MAP EDITOR) Only the most recent of2 resultswithin the time period is included. BUN 20 7 - 26 mg/dL 09/29/2020 3:06 AM [facility] Creatinine 0.7 0.6 - 1.2 mg/dL 09/29/2020 3:06 AM [facility] Sodium 139 136 - 145 mmol/L 09/29/2020 3:06 AM [facility] Potassium 3.4(L) 3.5 - 4.5 mmol/L 09/29/2020 3:06 AM [facility] Chloride 105 98 - 107 mmol/L 09/29/2020 3:06 AM [facility] CO2 25 22 - 29 mmol/L 09/29/2020 3:06 AM [facility] Glucose 107 70 - 115 mg/dL 09/29/2020 3:06 AM [facility] Calcium 8.1(L) 8.4 - 10.2 mg/dL 09/29/2020 3:06 AM [facility] Anion Gap 12 8 - 18 09/29/2020 3:06 AM [facility] BUN/Creatinine Ratio 29(H) 7 - 23 09/29/2020 3:06 AM [facility] Osmolality Calculated 291 270 - 300 mOsm/kg 09/29/2020 3:06 AM [facility] eGFR >60 >60 mL/min/1.7 3 m2 09/29/2020 3:06 AM [facility] Blood BLOOD SPECIMEN / Unknown Lab Venipuncture / Unknown 09/29/2020 2:03 AM FIELD MAP EDITOR 09/29/2020 2:35 AM FIELD MAP EDITOR Manny Wall MD LAB - CHEMISTRY OR DERABLES Performing Organization Address [facility] Co de Phone Number [address] [address], [facility] [phone] * PHOSPHORUS BLOOD (09/29/2020 2:03 AM FIELD MAP EDITOR) Phosphorus 4.0 2.3 - 4.7 mg/dL 09/29/2020 3:06 AM FIELD MAP EDITOR [facility] Blood BLOOD SPECIMEN / Unknown Lab Venipuncture / Unknown 09/29/2020 2:03 AM FIELD MAP EDITOR 09/29/2020 2:35 AM FIELD MAP EDITOR Manny Wall MD LAB - CHEMISTRY OR DERABLES Performing Organization Address [facility] de Phone Number [address] [address], [facility] [phone] * MAGNESIUM BLOOD (09/29/2020 2:03 AM FIELD MAP EDITOR) Magnesium 1.9 1.6 - 2.6 mg/dL 09/29/2020 3:06 AM FIELD MAP EDITOR [facility] Blood BLOOD SPECIMEN / Unknown Lab Venipuncture / Unknown 09/29/2020 2:03 AM FIELD MAP EDITOR 09/29/2020 2:35 AM FIELD MAP EDITOR Manny Wall MD LAB - CHEMISTRY OR DERABLES Performing Organization Address [facility] Co de Phone Number [address] [address], [facility] [phone] * MRI CERVICAL SPINE WO CONTRAST (09/28/2020 7:11 PM FIELD MAP EDITOR) Anatomical Region Laterality Modality Pelvis Magnetic Resonan ce 09/29/2020 7:47 AM FIELD MAP EDITOR Impressions 09/29/2020 12:06 PM FIELD MAP EDITOR IMPRESSION: 1. No ligamentous injury is identified. [...] 12:06 PM . Narrative 09/29/2020 12:06 PM FIELD MAP EDITOR MRI CERVICAL SPINE WITHOUT INTRAVENOUS CONTRAST, 09/28/2020 [...] (COVID-19)+INFLU A+B PCR RAPID (09/28/2020 2:30 PM FIELD MAP EDITOR) COVID-19 PCR Not detected Not detected 09/29/19 21 3:23 PM [facility] Influenza A Rapid SAMM Not Detected Not Detected 09/28/2020 3:23 PM [facility] Influenza B SAMM Rapid Not Detected Not Detected 09/28/2020 3:23 PM [facility] Microbiology SPECIMEN FROM NASOPHARYNGEAL STRUCTURE / Unknown Collection / Unknown 09/28/2020 2:30 PM FIELD MAP EDITOR 09/28/2020 2:55 PM FIELD MAP EDITOR [facility] - 09/28/2020 3:23 PM FIELD MAP EDITOR Influenza assay performed by [employer]. [...] acid amplification assay performance was validated by [facility]. This test has been authorized by the [...] Manny Wall MD LAB - MICROBIOLOGY ORDERABLES [facility] [address] [place] [address], [facility] [phone] * DRUG SCREEN TOX URINE PANEL (09/28/2020 2:20 PM FIELD MAP EDITOR) Pathologist [facility] Amphetamines Screen Urine Negative Negative: < 1000 ng/mL 09/28/2020 2:56 PM [facility] Barbiturates Screen Urine Negative Negative: < 200 ng/mL 09/28/2020 2:56 PM [facility] Benzodiazepine Screen Urine Negative Negative: < 200 ng/mL 09/28/2020 2:56 PM [facility] Opiates Urine Negative Negative: < 300 ng/mL 09/28/2020 2:56 PM [facility] Cocaine Metabolites Urine Negative Negative: < 300 ng/mL 09/28/2020 2:56 PM [facility] Phencyclidine Screen Urine Negative Negative: < 25 ng/ml 09/28/2020 2:56 PM [facility] Cannabinoids Screen Urine Negative Negative: <50 ng/mL 09/28/2020 2:56 PM [facility] Methadone Screen Urine Negative Negative: < 300 ng/mL 09/28/2020 2:56 PM [facility] Fentanyl Screen Urine Negative Negative: <1.0 ng/mL 09/28/2020 2:56 PM [facility] Urine URINE / Unknown Collection / Unknown 09/28/2020 2:20 PM FIELD MAP EDITOR 09/28/2020 2:42 PM FIELD MAP EDITOR Narrative [facility] - 09/28/2020 2:56 PM FIELD MAP EDITOR The Urine Toxicology Screening Panel does not screen for Propoxyphene, Meprobamate, Carisoprodol, Trazodone, ejmh-wnx-tisumtb medications and/or volatiles (Acetone, Isopropanol, Methanol or Ethylene Glycol). Ethanol, Salicylate, Acetaminophen, Tricyclic Antidepressants and several therapeutic drugs may be individually assayed in serum or plasma specimen. Toxicology testing by the [facility] is an aid to medical diagnosis and treatment of patients. No documented chain of custody was maintained. Results are intended to be used for clinical purposes only. ? Manny Gaitan DO LAB - URINE CHEMISTR Y ORDERABLES Performing Organization Address [facility] de Phone Number [facility] [address] [place] [address], [facility] [phone] * CT ANGIO BRAIN AND NECK (09/28/2020 1:14 PM FIELD MAP EDITOR) Anatomical Region Laterality Modality Head Computed Tomogra phy 09/28/2020 2:44 PM FIELD MAP EDITOR Impressions 09/28/2020 3:33 PM FIELD MAP EDITOR IMPRESSION: 1.Mildly displaced left inferior thyroid cartilage fracture with adjacent soft tissue swelling. 2.No evidence of large arterial injury identified in the neck. 3.No large arterial occlusion, significant stenoses, or aneurysm identified in the head or neck. Dictated by Laurie Menezes MD (residential life director). This report was approved ??by Laurie Menezes ?? on 09/28/2020 3:33 PM . I, Dr. MORGAN QUEVEDO have personally reviewed and interpreted this examination/study. This report was electronically signed by MORGAN QUEVEDO ??on 09/28/2020 3:33 PM . Narrative 09/28/2020 3:[address] ANGIO BRAIN AND NECK DATE: 09/28/2020 [...] neck. Dictated by Laurie Menezes MD (residential life director). This report was approved by Laurie Menezes on 09/28/2020 3:33 PM . IDr. MORGAN have personally reviewed and interpreted this examination/study. This report was electronically signed by MORGAN QUEVEDO on09/28/2020 3:33 PM . Manny Gaitan DO CT ORDERABLES * CT CERVICAL SPINE WO CONTRAST (09/28/2020 1:14 PM FIELD MAP EDITOR) Anatomical Region Laterality Modality Spine Computed Tomogra phy 09/28/2020 1:51 PM FIELD MAP EDITOR Impressions 09/28/2020 3:28 PM FIELD MAP EDITOR IMPRESSION: 1.No acute facial bone fractures identified. [...] Report dictated by Laurie Menezes MD (residential life director). This report was approved ??by Laurie Menezes ?? on 09/28/2020 3:[address] MORGAN Coleman have personally reviewed and interpreted this examination/study. This report was electronically signed by MORGAN QUEVEDO ??on 09/28/2020 3:28 PM . Narrative 09/28/2020 3:[address] FACIAL BONES WO CONTRAST, CT CERVICAL [...] Report dictated by Laurie Menezes MD (residential life director). This report was approved by Laurie Menezes on 09/28/2020 3:28 PM . I, Dr. MORGAN QUEVEDO have personally reviewed and interpreted this examination/study. This report was electronically signed by MORGAN QUEVEDO on09/28/2020 3:28 PM . Manny Gaitan DO CT ORDERABLES * CT FACIAL BONES WO CONTRAST (09/28/2020 1:14 PM FIELD MAP EDITOR) Anatomical Region Laterality Modality Head Computed Tomogra phy 09/28/2020 1:51 PM FIELD MAP EDITOR Impressions 09/28/2020 3:28 PM FIELD MAP EDITOR IMPRESSION: 1.No acute facial bone fractures identified. [...] Report dictated by Laurie Menezes MD (residential life director). This report was approved ??by Laurie Menezes ?? on 09/28/2020 3:28 PM . I, Dr. MORGAN QUEVEDO have personally reviewed and interpreted this examination/study. This report was electronically signed by MORGAN QUEVEDO ??on 09/28/2020 3:28 PM . Narrative 09/28/2020 3:[address] FACIAL BONES WO CONTRAST, CT CERVICAL [...] Report dictated by Laurie Menezes MD (residential life director). This report was approved by Laurie Menezes on 09/28/2020 3:28 PM . I, Dr. MORGAN QUEVEDO have personally reviewed and interpreted this examination/study. This report was electronically signed by MORGAN QUEVEDO on09/28/2020 3:28 PM . Manny Gaitan DO CT ORDERABLES * XR CHEST 1VW PORTABLE (09/28/2020 12:42 PM FIELD MAP EDITOR) Anatomical Region Laterality Modality Chest Radiographic Fatou ging 09/28/2020 1:11 PM FIELD MAP EDITOR Impressions 09/28/2020 1:23 PM FIELD MAP EDITOR FINDINGS/IMPRESSION: There are low bilateral lung volumes with associated bronchovascular crowding. There is no focal consolidation, pleural effusion, or pneumothorax. The cardiomediastinal silhouette is normal. Dictated by Song Estrada MD (residential life director). Dr. JA Coleman MD have personally reviewed and interpreted this examination/study. This report was electronically signed by JA ZHANG MD ??on 09/28/2020 1:23 PM . Narrative 09/28/2020 1:23 PM FIELD MAP EDITOR EXAMINATION: XR CHEST 1VW PORTABLE HISTORY: Trauma [...] normal. Dictated by Song Estrada MD (residential life director). I, Dr. JA ZHANG MD have personally reviewed and interpreted this examination/study. This report was electronically signed by JA ZHANG MD on09/28/2020 1:23 PM . Manny Gaitan DO DIAGNOSTIC IMAGING O RDERABLES * PTT [facility] (09/28/2020 12:42 PM FIELD MAP EDITOR) APTT 25.8 23.0 - 38.4 Seconds 09/28/2020 1:25 PM FIELD MAP EDITOR [facility] Comment:Suggested therapeuti c range for full dose I.V. unfractionated heparin therapy for venous thromboembolism is 71 to 109 seconds. Blood BLOOD SPECIMEN / Unknown Venipuncture / Unknown 09/28/2020 12:42 PM FIELD MAP EDITOR 09/28/2020 1:15 PM FIELD MAP EDITOR Manny Gaitan DO LAB - COAGULATION OR DERABLES [facility] [address] [place] [address], [facility] [phone] * PT-INR [facility] (09/28/2020 12:42 PM FIELD MAP EDITOR) PT 12.2 12.1 - 14.8 Seconds 09/28/2020 1:25 PM FIELD MAP EDITOR [facility] INR 0.9 See Comment 09/28/2020 1:25 PM FIELD MAP EDITOR [facility] Comment:The suggested therap eutic range for standard coumadin (warfarin) therapy is an INR of 2.0-3.0. For high-risk patients (Mechanical Mitral Valve Prosthesis, etc.), the suggested prophylactic therapeutic range is an INR of 2.5-3.5. Blood BLOOD SPECIMEN / Unknown Venipuncture / Unknown 09/28/2020 12:42 PM FIELD MAP EDITOR 09/28/2020 1:15 PM FIELD MAP EDITOR Manny Gaitan DO LAB - COAGULATION OR DERABLES Performing Organization Address [facility] Co de Phone Number [address] [address], [place] [phone] * TYPE + SCREEN PANEL (09/28/2020 12:42 PM FIELD MAP EDITOR) Pathologist [facility] Antibody Screen NEG 1:32 PM FIELD MAP EDITOR [facility] ABO Rh A POS 09/28/2020 1:32 PM FIELD MAP EDITOR [facility] Blood Bank BLOOD SPECIMEN / Unknown Venipuncture / Unknown 09/28/2020 12:42 PM FIELD MAP EDITOR 09/28/2020 12:47 PM FIELD MAP EDITOR Manny Gaitan DO LAB - BLOOD BANK ORD ERABLES Performing Organization Address [facility] de Phone Number [facility] [address] [place] [address], [place] [phone] * ALCOHOL ETHYL BLOOD (09/28/2020 12:42 PM FIELD MAP EDITOR) Pathologist [facility] Interpretation Ethanol None Detected None Detected mg/dL 09/28/2020 1:12 PM FIELD MAP EDITOR [facility] Comment:Ethanol levels less than 10 mg/dL are resulted as None detected . Blood BLOOD SPECIMEN / Unknown Venipuncture / Unknown 09/28/2020 12:42 PM FIELD MAP EDITOR 09/28/2020 12:49 PM FIELD MAP EDITOR Manny Gaitan DO LAB - CHEMISTRY ORDE RABLES Performing Organization Address [facility] Co de Phone Number [address] [address], [place] [phone] Care Teams Escalator Installer Relationship Specialty [place] [address] [place] [address] PCP - General Family Medicine 09/28/20 Unknown, Provider [address] [place] [address] 09/28/20
--- OUTSIDE RECORDS SUMMARY | 2024-08-26 16:04 | XMS_ITS | Clinical Summary ---
Author Organization [facility] Offices Address [address] [place] [phone] Care Team Providers Care Osteopathic Neurologist Name Role Phone Luiz Matta MD Primary Care Provider [phone] Allergies No known active allergies Social History [...] age to complete this topic Care Teams Osteopathic Neurologist Relationship Specialty [place] [address] [place] [address] PCP - General Family Practice 12/01/20
--- OUTSIDE RECORDS SUMMARY | 2024-08-26 16:04 | XMS_ITS | Encounter Summary ---
Author Organization [facility] Address [address] [place] [address]. [place] [address] [place] [address] Care Team Providers Care Shipwright Helper Name Role Phone Mckay Bradley MD Primary Care Provider [phone] Jann Saucedo MD Unavailable [phone] Luiz Matta MD Primary Care Provider [phone] Luiz Matta MD Primary Care Provider [phone] Encounter Details Date Type Department Care Team (Late st Contact Info) Description 02/26/2018 Abstract [facility] CONVERSION [address] [place] [address] , Carrie Hamlin MD Social [...] COVID-19 Rule Out 08/10/2020 08/10/202008/10/2020 4:35 PM MANUFACTURERS AGENT COVID-19 Rule Out 03/29/2021 03/29/2021 03/29/2021 3:32 PM CDT COVID-19 Rule Out 03/29/2021 03/29/2021 03/31/2021 4:30 AM CDT COVID-19 Rule Out 04/09/2023 04/09/2023 04/09/2023 8:30 AM CDT COVID-19 Confirmed 04/09/2023 04/09/2023 12:32 AM CDT documented as of this encounter Care Teams Shipwright Helper Relationship Specialty Start Date End Date Mckay Bradley MD PCP - General INTERNAL MEDICINE 02/20/18 02/24/20 [place] [address] [place] [address] PCP - General FAMILY PRACTICE 02/25/20 09/12/21 [place] [address] [place] [address] PCP - General FAMILY PRACTICE 09/13/21 Jann Saucedo MD [facility]. [facility] [address] [place] [address] Edil Director Of Managed Care INTERVENTIONAL CARDIOLOGY 02/26/18 documented as of this encounter
--- OUTSIDE RECORDS SUMMARY | 2024-08-26 16:04 | XMS_ITS | Encounter Summary ---
Author Organization [facility] Address [address] [place] [address]. [place] [address] [place] [address] Care Team Providers Care Director Food And Beverage Name Role Phone Mckay Bradley MD Primary Care Provider [phone] Jann Saucedo MD Unavailable [phone] Luiz Matta MD Primary Care Provider [phone] Luiz Matta MD Primary Care Provider [phone] Encounter Details Date Type Department Care Team (Late st Contact Info) Description 02/20/[address] [facility] CONVERSION [address] [place] [address] , Carrie Hamlin MD Social [...] COVID-19 Rule Out 08/10/2020 08/10/202008/10/2020 4:35 PM PEOPLE GREETER COVID-19 Rule Out 03/29/2021 03/29/2021 03/29/2021 3:32 PM CDT COVID-19 Rule Out 03/29/2021 03/29/2021 03/31/2021 4:30 AM CDT COVID-19 Rule Out 04/09/2023 04/09/2023 04/09/2023 8:30 AM CDT COVID-19 Confirmed 04/09/2023 04/09/2023 12:32 AM CDT documented as of this encounter Care Teams Director Food And Beverage Relationship Specialty Start Date End Date Mckay Bradley MD PCP - General INTERNAL MEDICINE 02/20/18 02/24/20 [place] [address] [place] [address] PCP - General FAMILY PRACTICE 02/25/20 09/12/21 [place] [address] [place] [address] PCP - General FAMILY PRACTICE 09/13/21 Jann Saucedo MD [facility]. [facility] [address] [place] [address] Edil Jack Winder INTERVENTIONAL CARDIOLOGY 02/26/18 documented as of this encounter
--- OUTSIDE RECORDS SUMMARY | 2024-08-26 16:05 | XMS_ITS | Continuity of Care Document ---
Author Organization [facility] Address [address] [place] [address]. [place] [address] [place] [address] Care Team Providers Care Top Cutter Name Role Phone Fran Newby MD Unavailable [phone] Luiz Rich MD Primary Care Provider [phone] Encounters Date Type Department Care Team Description 08/13/2024 Scan [facility] SRVCS Scanned, Doc [facility] Image (SCAN) 07/31/2024 Scan [facility] SRVCS Scanned, Doc [facility] Image (SCAN) 07/25/2024 2:12 PM EMERGENCY ROOM PHYSICIAN - 07/27/2024 8:33 AM EMERGENCY ROOM PHYSICIAN Hospital Encounter [facility] [address] [facility] [place] [address] Tod Cifuentes MD Discharge Disposition: Home or Self Care (Routine Discharge) 07/26/2024 6:19 PM EMERGENCY ROOM PHYSICIAN Anesthesia Event [facility] [place] [address] Dony Reyna MD 07/26/2024 6:18 PM EMERGENCY ROOM PHYSICIAN - 07/26/2024 7:14 PM EMERGENCY ROOM PHYSICIAN Surgery [facility] OR ONE [facility] [place], [place] [id number] Bob Elmore MD CYSTOSCOPY; LEFT URETERAL STENT PLACMENT, LEFT RETROGRADE PYLEOGRAM 07/25/2024 Travel 07/25/2024 7:51 AM EMERGENCY ROOM PHYSICIAN - 07/25/2024 1:31 PM EMERGENCY ROOM PHYSICIAN Emergency [facility] Emergency Room [address] [place], [place] [id number] Issac Boston MD Flank Pain Discharge Disposition: Transfer to Acute Care Hospital 06/08/2024 Scan HEALTH INFO SRVCS Scanned, Doc [facility] Group 03/31/2024 Travel 03/31/2024 Telephone [facility] Family & Internal Medicine [facility] [address] [place] [address] Luiz Rich MD Appointment Request 03/31/2024 2:00 PM CDT Office Visit [facility] Family & Internal [facility] [address] [place] [address] Luiz Rich MD Follow Up (F/u from work comp. Due to pain in both arms & neck. ) 03/17/2024 Scan HEALTH INFO SRVCS Scanned, Doc [facility] 02/06/2024 Travel 02/06/2024 3:20 PM CDT Office Visit [address] [address] Cami Garnett APRN Diverticulitis (Flare up, started Saturday. ) 02/06/[address] [address] Luiz Rich MD Error 11/26/2023 Travel 11/26/2023 7:00 AM CDT - 11/26/2023 11:59 PM CDT Hospital Encounter [facility] MRI [address] [place] [address] Luiz Rich MD Discharge Disposition: Home or Self Care (Routine Discharge) 11/11/[address] [address] Luiz Rich MD Referral 11/05/2023 Orders Only [facility] Family & Internal Medicine [facility] [address] [place] [phone] Liuz Rich MD 11/04/[address] [address] Luiz Rich MD Results (MRI) 11/01/2023 Travel 11/01/2023 2:25 PM CDT - 11/01/2023 11:59 PM CDT Hospital Encounter [facility] [address] [place] [address] Luiz Rich MD Discharge Disposition: Home or Self Care (Routine Discharge) 10/17/2023 Telephone [facility] Family & Internal [address] [address] Liuz Rich MD Orders 09/27/[address] [address] Luiz Rich MD Error 09/25/2023 Orders Only [facility] [address] [place] [address] Luiz Rich MD 09/25/2023 4:10 PM EMERGENCY ROOM PHYSICIAN - 09/25/2023 11:59 PM EMERGENCY ROOM PHYSICIAN Hospital Encounter [facility] [address] [place] [address] Luiz Rich MD Discharge Disposition: Home or Self Care (Routine Discharge) 09/25/2023 Travel 09/25/2023 3:40 PM EMERGENCY ROOM PHYSICIAN Office Visit [address] [address] Luiz Rich MD Back Pain 09/13/[address] [address] Luiz Rich MD Lab Results 09/12/2023 Orders Only [facility] [address] [place] [address] [place] [address] Luiz Rich MD 09/12/2023 Travel 09/12/2023 2:05 PM EMERGENCY ROOM PHYSICIAN - 09/12/2023 11:59 PM EMERGENCY ROOM PHYSICIAN Hospital Encounter [facility] Laboratory [address] [place] [address] Luiz Rich MD Discharge Disposition: Home or Self Care (Routine Discharge) 09/12/2023 [place] [address] Luiz Rich MD Lab Order 09/11/2023 Travel 09/11/2023 8:00 AM EMERGENCY ROOM PHYSICIAN Office Visit [address] [address] Olga Gaines NP Back Pain (Lower left back pain. Xs 1 month) 04/09/2023 Travel 04/09/2023 7:20 AM CDT Office Visit [facility] Family & Internal [address] [address] Rena Perkins APRN URI (Headache congestion, sore throat, cough, body aches x 3 days) 01/16/[address] [address] Luiz Rich MD Medication Request 01/16/2023 Telephone [facility] Family & Internal [address] [address] Luiz Rich MD Sinus Problem 01/01/2023 Travel 01/01/2023 2:40 PM CDT Office Visit [facility] Family Internal [address] [address] Rena Perkins APRN Cough (Itchy eyes, was outside Saturday and sx's started. Hx of bad allergies. ) 10/12/2022 Travel 10/12/2022 9:00 AM CDT - 10/12/2022 11:59 PM CDT Hospital Encounter [facility] [address] [place] [address] Manny Chung, Malina Garay, PT Cervical Pain Discharge Disposition: Home or Self Care (Routine Discharge) 10/10/2022 Travel 10/10/2022 12:37 PM CDT - 10/10/2022 11:59 PM CDT Hospital Encounter [facility] [address] [place] [address] Manny Chung MD Meyer, Beverly L, PT Cervical Pain Discharge Disposition: Home or Self Care (Routine Discharge) 10/08/2022 Travel 10/08/2022 1:40 PM CDT - 10/08/2022 11:59 PM CDT Hospital Encounter [facility] [address] [place] [address] Manny Chung MD Rittenhouse, Tiffany J, CASTING TRUCKER Neck Pain Discharge Disposition: Home or Self Care (Routine Discharge) 10/05/2022 Travel 10/05/2022 9:07 AM EMERGENCY ROOM PHYSICIAN - 10/05/2022 11:59 PM EMERGENCY ROOM PHYSICIAN Hospital Encounter [facility] [address] [place] [address] Manny Chung MD Rittenhouse, Tiffany J, CASTING TRUCKER Neck Pain Discharge Disposition: Home or Self Care (Routine Discharge) 10/03/2022 Travel 10/03/2022 1:44 PM EMERGENCY ROOM PHYSICIAN - 10/03/2022 11:59 PM EMERGENCY ROOM PHYSICIAN Hospital Encounter [facility] [address] [place] [address] Manny Chung MD Rittenhouse, Tiffany J, CASTING TRUCKER Neck Pain Discharge Disposition: Home or Self Care (Routine Discharge) 10/01/2022 Travel 10/01/2022 8:34 AM EMERGENCY ROOM PHYSICIAN - 10/01/2022 11:59 PM EMERGENCY ROOM PHYSICIAN Hospital Encounter [facility] [address] [place] [address] Manny Chung MD Meyer, Beverly L, PT Neck Pain Discharge Disposition: Home or Self Care (Routine Discharge) 09/21/2022 Travel 09/21/2022 8:00 AM EMERGENCY ROOM PHYSICIAN - 09/21/2022 8:51 AM EMERGENCY ROOM PHYSICIAN Surgery [facility] [address] [place] [address] Shant Whitehead MD Colonoscopy 09/21/2022 8:29 AM EMERGENCY ROOM PHYSICIAN Anesthesia Event [facility] [address] [place] [address] Sylvester Yadav, Yeimy De Santiago, MANUEL 09/21/2022 7:24 AM EMERGENCY ROOM PHYSICIAN - 09/21/2022 9:40 AM EMERGENCY ROOM PHYSICIAN Hospital Encounter [facility] [address] [place] [address] Shant Whitehead MD Discharge Disposition: Home or Self Care (Routine Discharge) 09/14/2022 Orders Only [facility] General Surgery [address], [address] [address] Shant Whitehead MD 09/14/2022 Telephone [facility] Day [facility] [address] [place] [address] Shant Whitehead MD Medication 08/29/2022 Travel 08/29/2022 7:40 AM EMERGENCY ROOM PHYSICIAN Office Visit [facility] Family & Internal Medicine [address] [address] Eloise Macias, SUPERVISORY EXAMINER Abdominal Pain (Pt states he is having Diverticulitis flare) 08/10/2022 Orders Only [address], [address] [address] Shant Whitehead MD 08/10/2022 Prep for Procedure [facility] Surgery [address] [place] [address] Shant Whitehead MD 08/08/2022 Travel 08/08/2022 3:40 PM EMERGENCY ROOM PHYSICIAN Office Visit [facility] General Surgery [address], [address] [place] [address] Shant Whitehead MD Consult (Abdominal pain( new patient)) 07/26/2022 Travel 07/26/2022 1:40 PM EMERGENCY ROOM PHYSICIAN Office Visit [facility] Family & Internal Medicine [address] [address] Luiz Rich MD URI/ENT Symptoms (Going into the chest. /Chest pressure. ); Ear Problem; Cough (Started July 21. /Uses OTC medication.) 07/18/2022 Scan [facility]leas SRVCS Scanned, Doc [facility] Group 07/13/2022 Travel 07/13/2022 3:41 PM EMERGENCY ROOM PHYSICIAN - 07/13/2022 6:11 PM EMERGENCY ROOM PHYSICIAN Emergency [facility] Emergency Room [address] [place] [address] Milagro Aponte, WEIGHT AND TEST BAR CLERK-BC Leg Pain Discharge Disposition: Home or Self Care (Routine Discharge) 05/17/2022 Travel 05/17/2022 1:00 PM CDT Office Visit [facility] Family & Internal [address] [address] Luiz Rich MD Diverticulitis; TCM (05/08/22 - 05/10/22. ER gave his antibiotics, Ivs and a liquid diet. ) 05/14/2022 Telephone [facility] Family & Internal [address] [address] Luiz Rich MD TCM 05/11/2022 Telephone [facility] [address] [place] [address] Pippa Manrique, RN Follow Up Call 05/08/2022 11:42 PM CDT - 05/10/2022 3:10 PM CDT Emergency [facility] Med/Surg [address] [place] [address] Valdez Roberson MD Harris, Michael, MD Malcolm, Chanel Rodriguez MD Abdominal Pain Discharge Disposition: Home or Self Care (Routine Discharge) 05/08/2022 Travel 03/14/2022 Travel 03/14/2022 7:00 AM CDT Office Visit [address] [address] Mariola Taylor, SUPERVISORY EXAMINER Follow Up (6 month f/u, was low on vit D. Pt states he took pills for a little while, they made him not feel the best. ) 02/02/2022 Travel 02/02/2022 9:20 AM CDT Office Visit [address] [address] Eloise Macias NP Abdominal Pain (Pt c/o right side lower abdominal pain that radiates to back. Pt states the pain is constant with a burning sensation when touched) 12/19/2021 Travel 12/19/2021 2:40 PM CDT Office Visit [address] [address] Luiz Rich MD Constipation (Diverticulitis acting up.); GERD (Wants to start his medication again) 09/25/2021 Orders Only [facility] [address] [place] [address] Irma Diehl, DIANNE 09/13/2021 Travel 09/13/2021 7:00 AM EMERGENCY ROOM PHYSICIAN Office Visit [address] [address] Mariola Taylor, SUPERVISORY EXAMINER Sinus Problem (Having Sinus problems for 3 weeks, making him dizzy, in his chest, pressure in his ears) 08/29/2021 Travel 08/29/2021 3:20 PM EMERGENCY ROOM PHYSICIAN Office Visit [facility] Internal [address] [phone] Luiz Rich MD Work Comp (fractured thyroid cartlage, bulging disc c6 & c7, Injury September 28 2020) 08/18/2021 MyChart Message Enc [facility] Family & Internal Medicine [facility] [address] [place] [phone] Julio [facility] Provider Work Comp Information 08/17/[address] [address] Luiz Rich MD Other 08/03/2021 Scan [facility] INFO SRVCS Scanned, Documents 07/20/2021 Scan [facility] INFO SRVCS Scanned, Documents 07/04/2021 Travel 07/04/2021 4:00 PM EMERGENCY ROOM PHYSICIAN Office Visit [facility] Family & Internal Medicine [address] [address] Luiz Rich MD Follow Up (Follow up to discuss pain management) 06/26/2021 Telephone [facility] [place] [address] [phone] Nick Gabriel, RN Follow Up Call 06/12/2021 Travel 06/12/2021 3:20 PM EMERGENCY ROOM PHYSICIAN - 06/12/2021 3:40 PM EMERGENCY ROOM PHYSICIAN Surgery [facility] [place] [address] [phone] Jeri Callahan MD INJECTION TRIGGER POINT Cervical paraspinous, trapezius, deltoid 06/12/2021 2:26 PM EMERGENCY ROOM PHYSICIAN - 06/12/2021 3:50 PM EMERGENCY ROOM PHYSICIAN Hospital Encounter [facility] [place] [address] [phone] Jeri Callahan MD Discharge Disposition: Home or Self Care (Routine Discharge) 06/01/2021 Telephone [facility] [place] [address] [phone] Flaquita Madsen, RN Follow Up Call 06/01/2021 Telephone [facility] Family & Internal Medicine [address] [address] Luiz Rich MD Referral Request 05/29/2021 Prep for Procedure [facility] [place] [address] [id number] Alta Oropeza APNP 05/29/2021 Travel 05/29/2021 9:02 AM CDT - 05/29/2021 11:59 PM CDT Hospital Encounter [facility] [place] [address] [phone] Alta Oropeza APNP Discharge Disposition: Home or Self Care (Routine Discharge) 05/15/2021 Scan Dobleas SRVCS Scanned, Documents 05/15/[address] [address] Luiz Rich MD Error 05/09/2021 Orders Only [address] [address] Luiz Rich MD 05/02/[address] [address] Luiz Rich MD Referral; Returned Call 05/02/2021 Travel 05/02/2021 10:20 AM CDT Office Visit [address] [address] Luiz Rich MD Referral Request (ent, tonsils) 03/29/2021 2:40 PM CDT Office Visit [facility] Family & Internal Medicine [address] [address] Maksim Bone MD URI 03/28/2021 Travel 03/28/2021 3:10 PM CDT Flu/Imm Clinic [address] [phone] 03/23/2021 Patient Self-Triage [facility] [address] [place] [address] Mycjtt, [facility] Provider 03/23/2021 Patient Self-Triage [facility] [address] [place] [address] Mychart, [facility] Provider 03/16/2021 Travel 03/16/2021 1:00 PM CDT Office Visit [facility] Family & Internal Medicine [facility] [address] [place] [address] Luiz Rich MD Follow Up (pt here to discuss results of CT scan); Sore Throat (pt c/o of a sore throat for the last few days) 03/14/2021 Telephone [facility] Family & Internal Medicine [facility] [address] [place] [address] Luiz Rich MD Results 03/13/2021 Telephone [facility] [address] [place] [address] Luiz Rich MD Question 03/13/2021 Travel 03/13/2021 9:58 AM CDT - 03/13/2021 11:59 PM CDT [place] [address] [place] [address] Luiz Rich MD Discharge Disposition: Home or Self Care (Routine Discharge) 02/23/2021 Travel 02/23/2021 3:00 PM CDT Office Visit [facility] Family & Internal Medicine [facility] [address] [place] [phone] Luiz Rich MD Follow Up (review results from ENT at [facility].) 02/23/2021 Telephone [facility] Family & Internal Medicine [facility] [address] [place] [phone] Luiz Rich MD Other 01/12/2021 Travel 01/12/2021 1:00 PM CDT Office Visit [facility] Family & Internal Medicine [facility] [address] [place] [phone] Luiz Rich MD Follow Up (workmans comp go over records) 01/11/2021 Scan [facility] INFO SRVCS Scanned, Documents 01/04/2021 Scan [facility] SRVCS Scanned, Documents 01/04/[address] [phone] Luiz Rich MD Question 12/23/2020 Scan [facility] INFO SRVCS Scanned, Documents 12/21/2020 Scan [facility] SRVCS Scanned, Documents 12/19/2020 Scan [facility] SRVCS Scanned, Documents Image (SCAN) 12/19/[address] [phone] Luiz Rich MD Question 12/04/2020 Scan [facility] SRVCS Scanned, Documents 12/01/2020 Scan [facility] SRV[facility] Scanned, Documents MRI (SCAN) 11/21/2020 Travel 11/21/2020 7:40 AM CDT Office Visit [facility] Family & Internal Medicine [facility] [address] [place] [address] Qian Ricks FNP-BC Follow Up (2 week f/u on R ear- patient c/o dizziness and throbbing in the ear ) 11/14/2020 Scan [facility] INFO SRVCS Scanned, Documents 11/09/2020 Scan [facility] SRV[facility] Scanned, Documents 11/03/2020 Travel 11/03/2020 10:20 AM CDT Office Visit [address] [address] Qian Ricks FNP-BC Earache (right ear. onset- 2 days ago); Sinus Problem (onset- 1 mo. spitting up brownish sputum) 09/28/2020 8:54 AM EMERGENCY ROOM PHYSICIAN - 09/28/2020 12:01 PM EMERGENCY ROOM PHYSICIAN Emergency [facility] [place] [address] Neck Injury Discharge Disposition: Transfer to Acute Care Hospital 08/31/2020 8:40 AM EMERGENCY ROOM PHYSICIAN - 08/31/2020 11:59 PM EMERGENCY ROOM PHYSICIAN Hospital Encounter [facility] [address] [place] [address] Luiz Rich MD Discharge Disposition: Home or Self Care (Routine Discharge) 08/30/2020 Orders Only [facility] [address] [place] [address] Luiz Rich MD 08/30/2020 3:30 PM EMERGENCY ROOM PHYSICIAN - 08/30/2020 11:59 PM EMERGENCY ROOM PHYSICIAN Hospital Encounter [facility] [address] [place] [address] Luiz Rich MD Discharge Disposition: Home or Self Care (Routine Discharge) 08/30/2020 Travel 08/30/2020 3:00 PM EMERGENCY ROOM PHYSICIAN Office Visit [address] [phone] Luiz Rich MD Physical (6 mo. annual wellness physical. ); Lab Order (discuss lab work.) 08/24/2020 Travel 08/24/2020 11:20 AM EMERGENCY ROOM PHYSICIAN Laboratory Only [facility] Medical [facility] Family & Internal Medicine [address] [address] 08/24/2020 11:00 AM EMERGENCY ROOM PHYSICIAN Telemedicine [facility] Medical [facility] Family & Internal Medicine [address] [phone] Yvonne Arguelles, HETALNP Headache (x 3 days ); Gi Problem (diarreha and stomach upset- started this morning (3 bouts this am) ); Sinus Problem (L tonsil hurts for a few days- sinus issue since last visit thinks drainage is upsetting his stomach (requesting steroid shot) ) 08/12/2020 Orders Only [facility] & Internal [address] [address] Yvonne Arguelles, APNP 08/10/2020 3:40 PM EMERGENCY ROOM PHYSICIAN Telemedicine [facility] Internal [address] [address] Yvonne Arguelles, APNP Suspected Coronavirus (Covid-19) (headache started today and nausea, runny nose- has tried a benjamín pot today, fatigue ) 08/09/2020 Travel 08/09/2020 4:30 PM EMERGENCY ROOM PHYSICIAN - 08/09/2020 11:59 PM EMERGENCY ROOM PHYSICIAN Hospital Encounter [facility] [address] [place] [address] Luiz Rich MD Meyer, Beverly L, PT Cervical Pain Discharge Disposition: Home or Self Care (Routine Discharge) 08/04/2020 Travel 08/04/2020 4:50 PM EMERGENCY ROOM PHYSICIAN - 08/04/2020 11:59 PM EMERGENCY ROOM PHYSICIAN Hospital Encounter [facility] [address] [place] [address] Vanessa Medrano, PT Luiz Rich MD Neck Pain Discharge Disposition: Home or Self Care (Routine Discharge) 08/01/2020 Travel 08/01/2020 3:36 PM EMERGENCY ROOM PHYSICIAN - 08/01/2020 11:59 PM EMERGENCY ROOM PHYSICIAN Hospital Encounter [facility] [address] [place] [address] Luiz Rich MD Meyer, Beverly L, PT Cervical Pain Discharge Disposition: Home or Self Care (Routine Discharge) 07/19/2020 Travel 07/19/2020 3:40 PM EMERGENCY ROOM PHYSICIAN Office Visit [facility] Internal [address] [address] Nohelia Dupree, WEIGHT AND TEST BAR CLERK Luiz Rich MD Shoulder Pain (right shoulder pain. . back side of arm gets numb and then moves down to the fingers. ) 07/18/[address] [address] Luiz Rich MD Referral 06/21/2020 Travel 06/21/2020 4:20 PM EMERGENCY ROOM PHYSICIAN Office Visit [facility] Family & Internal Medicine [facility] [address] [place] [address] Yvonne Arguelles, ROLANDA Back Pain (sciatic pain L side of back into leg x 2 weeks) 05/18/[address] [address] Luiz Rich MD Results 05/18/2020 Travel 05/18/2020 10:43 AM CDT - 05/18/2020 11:59 PM CDT Hospital Encounter [facility] [address] [place] [phone] Luiz Rich MD Discharge Disposition: Home or Self Care (Routine Discharge) 05/17/[address] [address] Luiz Rich MD Information 05/16/2020 Orders Only [facility] [address] [place] [address] Luiz Rich MD 05/16/2020 12:07 PM CDT - 05/16/2020 11:59 PM CDT Hospital Encounter [facility] [address] [place] [address] Luiz Rich MD Discharge Disposition: Home or Self Care (Routine Discharge) 05/16/2020 Travel 05/16/2020 11:20 AM CDT Office Visit [address] [address] Luiz Rich MD Back Pain (above shoulder); Chest Pain (wraps around to lt side); Mass (lt side of chest and on neck); Rash (lt thigh) 04/05/2020 Travel 04/05/2020 3:20 PM CDT Office Visit [facility] Family & Internal [address] [address] Luiz Rich MD Diverticulitis (Flare up); Knee Pain (left for 3 weeks.) 04/01/2020 Scan [facility] INFO SRVCS Scanned, Documents 03/04/[address] [address] Luiz Rich MD Other 03/03/2020 Travel 03/03/2020 3:00 PM CDT Telemedicine [facility] Family Internal [address] [address] Luiz Rich MD Sinus Problem (yellow drainage, sneezing, slight sore throat,x 3days no fever) 02/25/[address] [address] Luiz Rich MD Medication 02/25/2020 Travel 02/25/2020 3:00 PM CDT Office Visit [facility] Family Internal [address] [phone] Luiz Rich MD New Patient (New Patient, [...] - 03/18/2019 11:59 PM CDT Hospital [place] [address] [place] [address] Mckay Bradley MD Discharge Disposition: Home or Self Care (Routine Discharge) 03/12/2019 Scan [facility] INFO SRVCS Scanned, Documents Image (SCAN) 03/11/2019 Scan [facility] SRVCS Scanned, Documents 12/01/2018 Scan [facility] SRVCS Scanned, Documents Image (SCAN) 11/15/2018 Scan [facility] SRVCS Scanned, Documents Lab (SCAN) 11/13/2018 Scan [facility] INFO SRVCS Scanned, Documents Image (SCAN) 07/01/[address] [facility] Favian Jarvis MD 03/11/[address] [facility] [place] [address] Kori Gonzalez SUPERVISORY EXAMINER Results 03/10/2018 Orders Only [facility] [address] [address] Fran Newby MD 03/10/2018 Telephone [facility] at [facility], [address] [address] Eliza Garnett RN Results 03/08/2018 Abstract [facility] Diagnostic Imaging [address] [place] [address] Fran Newby MD 03/05/2018 Scan [facility] at [facility], [address] [address] Scanned, Documents 03/03/2018 Orders Only [facility] at [facility], [address] [address] Fran Newby MD 02/28/2018 10:45 AM CDT Office Visit [facility] [place] [address] [place] [phone] Fran Newby MD Consult (chest pain) 02/26/2018 Abstract [facility] CONVERSION [address] [place] [address] , Generic ConversionMD 02/20/2018 Scan [facility] SRVCS Scanned, Documents Lab (SCAN) 02/20/2018 Scan [facility] SRVCS Scanned, Documents ECG (SCAN) 02/20/2018 Abstract [facility] CONVERSION [address] [place] [address] Carrie Orosco MD 02/20/2018 Orders Only [facility] at [facility], [address] [address] Mckay Bradley MD 12/26/2017 Abstract [facility] Emergency Room [address] [place] [address] Manny Cotter MD 12/17/2017 Scan HEALTH INFO SRVCS Scanned, Documents 2017 Abstract [facility] Imaging [address] [place] [id number] Luis Arteaga MD 10/22/2017 Scan HEALTH INFO SRVCS Scanned, Documents Image (SCAN) 09/04/2017 Abstract [facility] Diagnostic Imaging [address] [place] [address] Fredy Duff MD 08/27/2017 Scan HEALTH INFO SRVCS Scanned, Documents 06/01/2017 [place] [address] Carrie Orosco MD 04/05/2017 Scan HEALTH INFO SRVCS Scanned, Documents Image (SCAN) 03/23/2017 Scan HEALTH INFO SRVCS Scanned, Documents 06/13/2016 Scan HEALTH INFO SRVCS Scanned, Documents 03/19/2016 [facility] Md Generic ConversionMD 03/18/[address] [facility] Prime Care [address] [place] [address] Adriana Quinteros APRN 03/16/2016 Abstract [facility] One Day Services [address] [place] [address] Fredy Duff MD 03/16/2016 [facility] Fredy Duff MD 01/03/2016 Scan [facility] INFO SRVCS Scanned, Documents 12/13/2015 Abstract [facility] Emergency Room [address] [place] [address] Howard Bryan MD 10/30/2015 Abstract [facility] Care [address] [place] [address] 07/28/2015 Scan HEALTH INFO SRVCS Scanned, Documents 01/07/2015 Abstract [facility] Diagnostic Imaging [address] [place] [address] Fredy Duff MD 01/07/2015 Abstract [facility] [address] [place] [address] Fredy Duff MD 10/22/2014 Abstract [facility] [address] [place] [address] Fredy Duff MD 10/08/2014 Abstract [facility] Diagnostic Imaging [address] [place] [address] Fredy Duff MD 08/19/2014 Scan [facility] INFO SRVCS Scanned, Documents 07/25/2014 Abstract [facility] [address] [place] [address] Adriana Quinteros APRN 10/07/2013 Abstract [facility] [address] [place] [address] Emma Solis, WEIGHT AND TEST BAR CLERK 09/15/2012 [facility] Brant Decker DO 08/13/2012 [facility] 08/11/2012 Abstract [facility] Laboratory [address] [place] [address] Riaz Abreu MD 08/11/2012 [facility] Riaz Abreu MD 05/07/2012 [facility] Ronald Rogers MD 09/06/2008 Abstract [facility] Emergency Room [address] [place] [address] 03/12/2005 Abstract [facility] Conversion Favian Rand MD 03/07/2005 Abstract [facility] [address] [facility] [place] [address] Favian Rand MD 03/07/2005 Abstract [facility] Conversion Md Generic Conversion, 11/29/2004 Abstract [facility] Conversion Md Generic Conversion, 11/21/2004 Abstract [facility] [address] [place] [address] Favian Rand MD 11/21/2004 Abstract [facility] Conversion Favian Rand MD 11/21/2004 Abstract [facility] Conversion Md Generic Conversion, 01/25/2003 Abstract [facility] [place] [address] 01/25/2003 Abstract [place] [address] 01/21/2002 Emergency [facility] [place] [address] Carrie Orosco ConversionMD 12/05/2001 Abstract [facility] [place] [address] Allergies No known active allergies Medications fluticasone [...] Patient Refused) MMR 03/27/1990,10/28/1981 MMR (Generic) 03/27/1990,10/28/1981 Ykyrxaw-Knouz-Bjgzybu-Varicell Sc Inj 03/27/1990 ,10/28/1981 Opv 03/21/1985, 4,09/06/1981,1979 PFIZER COVID-19 (ORIGINAL FORMULATION, PURPLE CAP) mRNA, LNP-S, PF, 30 MCG/0.3 ML DOSE 03/28/2021,10/17/2020,09/18/2020 Td 02/26/1994 Td (Tenivac) preservative free 02/26/1994 Tdap (Adacel) 09/13/2021 Family History Medical History Relation Comments Hypertension Father No Known Problems Mother no hx of CAD Other Relation Status Comments Father Alive Mother Alive Other Social History Smoking Status as of 08/26/2024 Tobacco Use Types Packs/Day Years Used Date Smoking Tobacco: Never Assessed [facility] Utilities Answer Date Recorded In the past 12 months has e [employer], gas, oil, or water [employer] threatened to shut off services in your [...] any time in the past 12 m [facility], were you homeless or living in a penitentiary (including now)? No 07/25/2024 Education Answer Date [...] Comments Blood Pressure 159/89 07/27/2024 7:41 AM EMERGENCY ROOM PHYSICIAN Pulse 83 07/27/2024 7:41 AM EMERGENCY ROOM PHYSICIAN Temperature 36.7 ??C (98.1 ??F) 07/27/2024 7:[address] Respiratory Rate 21 07/27/2024 7:41 AM EMERGENCY ROOM PHYSICIAN Oxygen Saturation 98% 07/27/2024 7:41 AM EMERGENCY ROOM PHYSICIAN Inhaled Oxygen Concentration - - Weight 102.1 kg (225 lb) 07/25/2024 3:26 PM EMERGENCY ROOM PHYSICIAN Height 185.4 cm (6' 1 ) 07/25/2024 3:26 PM EMERGENCY ROOM PHYSICIAN Body Mass Index 29.69 07/25/2024 3:26 PM EMERGENCY ROOM PHYSICIAN Plan of Treatment Not on file Medical Devices Implanted Type Area Geriatric Social Work Professor Device Identifier Shelf Expiration Date Model / Serial / Lot Stent Ureteral Contour Vl 4.8fr X 22-30cm - [id number] Implanted:Qty : 1 on 07/26/2024 by Bob Elmore MD at [facility] [employer] Stent Left: Ureter Ready Solar ELISA [id number] 03/19/2027 [id number] / / [id number] Procedures Procedure Name Priority Date/Time Associated Diagnosis Comments IMAGE GENERIC 08/13/2024 IMAGE GENERIC 07/31/2024 BASIC METABOLIC PANEL Routine 07/27/2024 5:00 AM EMERGENCY ROOM PHYSICIAN CBC W/DIFF AUTOMATED Routine 07/27/2024 5:00 AM EMERGENCY ROOM PHYSICIAN XR ABD KUB Today 07/26/2024 7:25 PM EMERGENCY ROOM PHYSICIAN SURG XR RETROGRD UROGRAPHY Routine 07/26/2024 6:45 PM EMERGENCY ROOM PHYSICIAN CYSTOSCOPY STENT INSERTION/REMOVAL/PRAVEEN NGE 07/26/2024 6:18 PM EMERGENCY ROOM PHYSICIAN Urinary tract obstruction by kidney stone PROTHROMBIN TIME, VENOUS Routine 07/26/2024 6:20 AM EMERGENCY ROOM PHYSICIAN HEMOGLOBIN, GLYCOSYLATED Routine 07/26/2024 5:18 AM EMERGENCY ROOM PHYSICIAN BASIC METABOLIC PANEL Routine 07/26/2024 5:18 AM EMERGENCY ROOM PHYSICIAN CBC W/DIFF AUTOMATED Routine 07/26/2024 5:18 [address]YS[address] ABD+PEL KIDNEY STONE STAT 07/25/2024 8:45 AM EMERGENCY ROOM PHYSICIAN URINALYSIS, AUTO, COMPLETE STAT 07/25/2024 8:13 AM EMERGENCY ROOM PHYSICIAN COMPREHENSIVE METABOLIC PANEL STAT 07/25/2024 8:10 AM EMERGENCY ROOM PHYSICIAN CBC W/DIFF AUTOMATED STAT 07/25/2024 8:10 AM EMERGENCY ROOM PHYSICIAN MRI ABD WWO CON Routine 11/26/2023 8:19 AM CDT Renal mass MRI LUMB SPINE WO CON DEE 11/01/2023 3:05 PM CDT Lumbar radiculopathy COMPREHENSIVE METABOLIC PANEL Routine 09/25/2023 4:30 PM EMERGENCY ROOM PHYSICIAN Routine general medical examination at a health care facility LIPID PANEL Routine 09/25/2023 4:30 PM EMERGENCY ROOM PHYSICIAN Routine general medical examination at a health care facility URINALYSIS WI REFLEX TO CULTURE Routine 09/12/2023 2:13 PM EMERGENCY ROOM PHYSICIAN Hematuria URINALYSIS AUTO DIP Routine 09/11/2023 Mid back pain on left side CORONAVIRUS (COVID-19) INFLUENZA A & B ANTIGEN IA PANEL Routine 04/09/2023 Suspected COVID-19 virus infection COLONOSCOPY FLX DX W/COLLJ SPEC WHEN PFRMD 09/21/2022 8:16 AM EMERGENCY ROOM PHYSICIAN Diverticulitis COLONOSCOPY Routine 09/21/2022 7:25 AM EMERGENCY ROOM PHYSICIAN CBC W/DIFF AUTOMATED Today 08/29/2022 8:24 AM EMERGENCY ROOM PHYSICIAN Diverticulitis COLLECTION VENOUS BLOOD VENIPUNCTURE Routine 08/29/2022 8:21 AM EMERGENCY ROOM PHYSICIAN Diverticulitis D-DIMER, QUANTITATIVE STAT 07/13/2022 3:53 PM EMERGENCY ROOM PHYSICIAN CBC W/DIFF AUTOMATED STAT 07/13/2022 3:53 PM EMERGENCY ROOM PHYSICIAN BASIC METABOLIC PANEL Routine 05/10/2022 6:47 AM [...] D, 25 OH Routine 09/13/2021 8:09 AM EMERGENCY ROOM PHYSICIAN Annual physical exam Obesity (BMI 30-39.9) TSH W/REFLEX Routine 09/13/2021 8:09 AM EMERGENCY ROOM PHYSICIAN Annual physical exam Obesity (BMI 30-39.9) LIPID PANEL Routine 09/13/2021 8:09 AM EMERGENCY ROOM PHYSICIAN Mixed hyperlipidemia COMPREHENSIVE METABOLIC PANEL Routine 09/13/2021 8:09 AM EMERGENCY ROOM PHYSICIAN Annual physical exam Obesity (BMI 30-39.9) CBC W/DIFF AUTOMATED Routine 09/13/2021 8:09 AM EMERGENCY ROOM PHYSICIAN Annual physical exam Obesity (BMI 30-39.9) COLLECTION VENOUS BLOOD VENIPUNCTURE Routine 09/13/2021 7:44 AM EMERGENCY ROOM PHYSICIAN Annual physical exam Obesity (BMI 30-39.9) INJECTION TRIGGER POINT 06/12/2021 3:35 PM EMERGENCY ROOM PHYSICIAN myofascial pain CORONAVIRUS (COVID 19) Routine 03/29/2021 [...] HEAD WO CON STAT 09/28/2020 10:[address]YS[address] SOFT TISSUE NECK W CON STAT 09/28/2020 10:37 AM EMERGENCY ROOM PHYSICIAN COMPREHENSIVE METABOLIC PANEL STAT 09/28/2020 9:54 AM EMERGENCY ROOM PHYSICIAN CBC W/DIFF AUTOMATED STAT 09/28/2020 9:54 AM EMERGENCY ROOM PHYSICIAN ECG 12-LEAD STAT 09/28/2020 9:52 AM EMERGENCY ROOM PHYSICIAN OCCULT BLOOD, FECES Routine 08/31/2020 7 :00 AM EMERGENCY ROOM PHYSICIAN Anemia, unspecified IRON SAT PANEL (IRON,IBC,%SAT) Routine 08/30/2020 3:44 PM EMERGENCY ROOM PHYSICIAN Anemia, unspecified COLLECTION VENOUS BLOOD VENIPUNCTURE Routine 08/24/2020 11:24 AM EMERGENCY ROOM PHYSICIAN Mixed hyperlipidemia Low hematocrit Hypokalemia LIPID PANEL Routine 08/24/2020 11:18 AM EMERGENCY ROOM PHYSICIAN Mixed hyperlipidemia COMPREHENSIVE METABOLIC PANEL Routine 08/24/2020 11:18 AM EMERGENCY ROOM PHYSICIAN Hypokalemia CBC W/DIFF AUTOMATED Routine 08/24/2020 11:18 AM EMERGENCY ROOM PHYSICIAN Low hematocrit CORONAVIRUS (COVID 19) Routine 08/10/2020 4:36 PM EMERGENCY ROOM PHYSICIAN Acute nonintractable headache, unspecified headache type Post-nasal [...] (ABNORMAL) BASIC METABOLIC PANEL (07/27/2024 5:00 AM EMERGENCY ROOM PHYSICIAN) Only the most recent of3 resultswithin the time period is included. GLUCOSE 127(H) 70 - 99 MG/DL 07/27/2024 6:06 AM [facility] BUN 27(H) 7 - 18 MG/DL 07/27/2024 6:06 AM [facility] CREATININE S/P/B 1.06 0.7 - 1.3 MG/DL 07/27/2024 6:06 AM [facility] SODIUM S/P/B 137 136 - 145 MMOL/L 07/27/2024 6:06 AM [facility] POTASSIUM S/P/B 3.7 3.5 - 5.1 MMOL/L 07/27/2024 6:06 AM [facility] CHLORIDE S/P/B 103 97 - 115 MMOL/L 07/27/2024 6:06 AM [facility] CO2 27.4 21 - 32 MMOL/L 07/27/2024 6:06 AM [facility] CALCIUM S/P/B 8.7 8.5 - 10.1 MG/DL 07/27/2024 6:06 AM [facility] ANION GAP 6.6 2 - 10 MMOL/L 07/27/2024 6:06 AM [facility] BUN CREATININE RATIO 25.5 6 - 26 07/27/2024 6:06 AM [facility] GFR ESTIMATE 89(L) >90 ML/MIN/1.7 3 M2 07/27/2024 6:06 AM [facility] Comment: NOTE: eGFR is not calculated for patients <18 years of age or gender unknown. This is an estimated GFR calculation using the new CKD EPI creatinine equation without race and so does not require a correction factor for race. This estimated GFR should not be used for calculating drug doses. 07/27/2024 5:00 AM EMERGENCY ROOM PHYSICIAN us Tod Cifuentes MD LABORATORY Final Result [facility] [address] [place] [address], [place] [phone] * (ABNORMAL) CBC W/DIFF AUTOMATED (07/27/2024 5:00 AM EMERGENCY ROOM PHYSICIAN) Only the most recent of11 resultswithin the time period is included. WBC 9.23 4.5 - 11.0 x10'3/uL 07/27/2024 5:47 AM [facility] RBC 4.36(L) 4.70 - 6.10 x10'6/uL 07/27/2024 5:47 AM [facility] HGB 12.7(L) 14.0 - 18.0 G/DL 07/27/2024 5:47 AM EMERGENCY ROOM PHYSICIAN [facility] HCT 37.5(L) 43.0 - 54.0 % 07/27/2024 5:47 AM [facility] MCV 86.0 80.0 - 94.0 FL 07/27/2024 5:47 AM [facility] MCH 29.1 27.0 - 31.0 PG 07/27/2024 5:47 AM [facility] MCHC 33.9 32.0 - 36.0 G/DL 07/27/2024 5:47 AM [facility] RDW 12.1 11.5 - 14.5 % 07/27/2024 5:47 AM [facility] PLT 295 130 - 400 x10'3/uL 07/27/2024 5:47 AM [facility] MPV 9.5 9.3 - 12.2 FL 07/27/2024 5:47 AM [facility] DIFFERENTIAL TYPE AUTOMATED DIFFERENTIAL 07/27/2024 5:47 AM [facility] NEUTROPHILS % 78.1 % 07/27/2024 5:47 AM [facility] LYMPHOCYTES % 13.1 % 07/27/2024 5:47 AM [facility] MONOCYTES % 8.3 % 07/27/2024 5:47 AM [facility] EOSINOPHILS 0.1 % 07/27/2024 5:47 AM [facility] BASOPHILS 0.1 % 07/27/2024 5:47 AM [facility] IMMATURE GRANS % 0.3 % 07/27/20 5:47 AM [facility] ABS. NEUTROPHILS 7.20 1.80 - 7.70 x10'3/uL 07/27/2024 5:47 AM [facility] ABS. LYMPHOCYTES 1.21 1.00 - 4.80 x10'3/uL 07/27/2024 5:47 AM EMERGENCY ROOM PHYSICIAN [facility] ABS. MONOCYTES 0.77 0.30 - 0.82 x10'3/uL 07/27/2024 5:47 AM EMERGENCY ROOM PHYSICIAN [facility] ABS. EOSINOPHILS 0.01(L) 0.04 - 0.54 x10'3/uL 07/27/2024 5:47 AM EMERGENCY ROOM PHYSICIAN [facility] ABS. BASOPHILS 0.01 0.01 - 0.08 x10'3/uL 07/27/2024 5:47 AM EMERGENCY ROOM PHYSICIAN [facility] ABS. IMMATURE GRANULOCYTES 0.03 0.00 - 0.49 x10'3/uL 07/27/2024 5:47 AM EMERGENCY ROOM PHYSICIAN [facility] 07/27/2024 5:00 AM EMERGENCY ROOM PHYSICIAN Tod Cifuentes MD LABORATORY Final Result [facility] [address] [place] [address], [place] [phone] * XR ABD KUB (07/26/2024 7:25 PM EMERGENCY ROOM PHYSICIAN) Anatomical Region Laterality Modality Abdomen Radiographic Fatou ging 07/26/2024 10:4 5 PM EMERGENCY ROOM PHYSICIAN Impressions 07/26/2024 10:47 PM EMERGENCY ROOM PHYSICIAN IMPRESSION: Left ureteral stent extending from a lower pole calyx to the urinary bladder. Referred By: ISSAC BOSTON Interpreted By: Paxton Orr MD, 07/26/2024 10:45 PM Narrative 07/26/2024 10:47 PM EMERGENCY ROOM PHYSICIAN [facility] [address] [place], [place] [address] Abdomen single view INDICATION: Ureteral stent position. COMPARISON: None. TECHNIQUE: Single AP view. FINDINGS: The left ureteral stent extends from the lower pole calyx to the urinary bladder. ??Multiple calculi are seen at the lower pole of the left kidney. ??No calculi can be seen on the right. ??Normal bowel gas pattern. ??Bony structures are unremarkable. Procedure Note Paxton Orr MD - 07/26/[address] [address] Abdomen single view INDICATION: Ureteral stent position. [...] bladder. Referred By: ISSAC BOSTON Interpreted By: Patxon Orr MD, 07/26/2024 10:45 PM us Bob Elmore MD GENERAL IMAGING Final Result * SURG XR RETROGRD UROGRAPHY (07/26/2024 6:45 PM EMERGENCY ROOM PHYSICIAN) Anatomical Region Laterality Modality Abdomen Fluoroscopy 07/27/2024 7:16 AM EMERGENCY ROOM PHYSICIAN Impressions 07/27/2024 7:16 AM EMERGENCY ROOM PHYSICIAN Impression: Fluoroscopic spot views of left retrograde urography obtained for intraoperative control purposes and evaluated postoperatively. Ordered By: BOB ELMORE Interpreted By: Gabriel Haynes MD, 07/27/2024 7:16 AM Narrative 07/27/2024 7:16 AM EMERGENCY ROOM PHYSICIAN [address], [place] [address] Intraoperative fluoroscopic views of the retrograde urography History: Urolithiasis Technique: Fluoroscopic images obtained for intraoperative control purposes. Total DAP for exam: 1.7081 Gy-cm2. Findings: Single submitted image demonstrates partial opacification of the left renal collecting system and ureter with contrast. Procedure Note Gabriel Haynes MD - 07/27/2024 [facility] [address] [place], [place] [address] Intraoperative fluoroscopic views of the retrograde urography [...] Result * PROTIME/INR, VENOUS (07/26/2024 6:20 AM EMERGENCY ROOM PHYSICIAN) Only the most recent of2 resultswithin the time period is included. PROTIME 11.1 10.2 - 12.9 SEC 07/26/2024 6:57 AM EMERGENCY ROOM PHYSICIAN [facility] INR 1.0 07/26/2024 6:57 AM EMERGENCY ROOM PHYSICIAN [facility] Comment: Recommended INR Therapeutic Goals: ??2.0-3.0 Routine Therapy ??2.5-3.5 Mechanical Prosthetic Valves (High Risk) 07/26/2024 6:20 AM EMERGENCY ROOM PHYSICIAN us Tod Cifuentes MD LABORATORY Final Result Performing Organization Address City/Va Hospital/ZIP Co de Phone Number [facility] [address] [place] [address], [place] [phone] * (ABNORMAL) HEMOGLOBIN, GLYCOSYLATED (07/26/2024 5:18 AM EMERGENCY ROOM PHYSICIAN) HGB A1C 5.9(H) <5.7 % 07/26/2024 10:50 AM EMERGENCY ROOM PHYSICIAN [facility] Comment: ADA GUIDELINES 2010 5.7 TO 6.4% INCREASED RISK OF DIABETES > OR = 6.5% CONSISTENT WITH DIABETES ESTIMATED AVG GLUCOSE 123 mg/dL 07/26/2024 10:50 AM EMERGENCY ROOM PHYSICIAN [facility] 07/26/2024 5:18 AM EMERGENCY ROOM PHYSICIAN Tod Cifuentes MD LABORATORY Final Result Performing Organization Address [facility] Co de Phone Number [facility] [address] [place] [address], [place] [phone] * CT ABD+PEL KIDNEY STONE (07/25/2024 8:45 AM EMERGENCY ROOM PHYSICIAN) Anatomical Region Laterality Modality Abdomen Computed Tomogra phy 07/25/2024 8:48 AM EMERGENCY ROOM PHYSICIAN Impressions 07/25/2024 8:50 AM EMERGENCY ROOM PHYSICIAN IMPRESSION: 1. Mild left-sided hydronephrosis due to an 8 x 5 mm irregular stone residing at the left UPJ. Additional nonobstructing stones are present within the lower pole of the left kidney Ordered By: ISSAC BOSTON Interpreted By: Karthik Padgett MD, 07/25/2024 8:48 AM Narrative 07/25/2024 8:50 [address] EMERGENCY ROOM PHYSICIAN [facility] [address] [place] [address] CT ABDOMEN AND PELVIS WITHOUT CONTRAST Clinical [...] Procedure Note Karthik Padgett MD - 07/25/2024 [facility] [address] [facility] [place] [address] CT ABDOMEN AND PELVIS WITHOUT CONTRAST Clinical [...] (ABNORMAL) Urinalysis, Auto, Complete (07/25/2024 8:13 AM EMERGENCY ROOM PHYSICIAN) COLOR (U) DARK YELLOW 07/25/2024 8:49 AM EMERGENCY ROOM PHYSICIAN [facility] TRANSPARENCY HAZY 07/25/2024 8:49 AM EMERGENCY ROOM PHYSICIAN [facility] SPECIFIC GRAVITY (U) >1.030(H) 1.000 - 1.030 07/25/2024 8:49 AM EMERGENCY ROOM PHYSICIAN [facility] U PH 5.5 5.0 - 9.0 07/25/2024 8:49 AM EMERGENCY ROOM PHYSICIAN [facility] LEUKOCYTES (U) NEGATIVE NEGATIVE 07/25/2024 8:49 AM [facility] NITRITES NEGATIVE NEGATIVE 07/25/2024 8:49 AM [facility] PROTEIN RANDOM (U) 2+(A) NEGATIVE 07/25/2024 8:49 AM [facility] GLUCOSE (U) NEGATIVE NEGATIVE 07/25/2024 8:49 AM [facility] KETONES MG/DL (U) NEGATIVE NEGATIVE 07/25/2024 8:49 AM [facility] BILIRUBIN (U) 1+(A) NEGATIVE 07/25/2024 8:49 AM [facility] BLOOD (U) 3+(A) NEGATIVE 07/25/2024 8:49 AM [facility] WBC/HPF NONE SEEN 0 - 5 /HPF 07/25/2024 8:49 AM [facility] RBC/HPF 50-100 0 - 5 /HPF 07/25/2024 8:49 AM [facility] EPI/HPF NONE SEEN /HPF 07/25/2024 8:49 AM [facility] URINE SPECIMEN OBTAINED BY CLEAN CATCH PROCEDURE / Unknown 07/25/2024 8:13 AM EMERGENCY ROOM PHYSICIAN Issac Boston MD URINE ORDERABLES Final Result [facility] [address] [place] [address], * (ABNORMAL) COMPREHENSIVE METABOLIC PANEL (07/25/2024 8:10 AM EMERGENCY ROOM PHYSICIAN) Only the most recent of8 resultswithin the time period is included. GLUCOSE 149(H) 70 - 99 MG/DL 07/25/2024 8:31 AM [facility] BUN 29(H) 7 - 18 MG/DL 07/25/2024 8:31 AM [facility] CREATININE S/P/B 1.14 0.7 - 1.3 MG/DL 07/25/2024 8:31 AM [facility] SODIUM S/P/B 142 136 - 145 MMOL/L 07/25/2024 8:31 AM [facility] POTASSIUM S/P/B 4.2 3.5 - 5.1 MMOL/L 07/25/2024 8:31 AM [facility] CHLORIDE S/P/B 103 100 - 108 MMOL/L 07/25/2024 8:31 AM [facility] CO2 27.7 21 - 32 MMOL/L 07/25/2024 8:31 AM [facility] CALCIUM S/P/B 9.2 8.5 - 10.1 MG/DL 07/25/2024 8:31 AM [facility] BILIRUBIN TOTAL S/P/B 0.4 0.2 - 1.2 MG/DL 07/25/2024 8:31 AM [facility] TOTAL PROTEIN S/P/B 7.3 6.4 - 8.2 G/DL 07/25/2024 8:31 AM [facility] ALBUMIN S/P/B 3.8 3.4 - 5.0 G/DL 07/25/2024 8:31 AM [facility] AST 19 15 - 37 U/L 07/25/2024 8:31 AM [facility] ALT 31 16 - 60 U/L 07/25/2024 8:31 AM [facility] ALKALINE PHOSPHATASE S/P/B 88 50 - 136 U/L 07/25/2024 8:31 AM [facility] ANION GAP 11.3 5 - 15 MMOL/L 07/25/2024 8:31 AM EMERGENCY ROOM PHYSICIAN [facility] BUN CREATININE RATIO 25.4 6 - 26 07/25/2024 8:31 AM [facility] A/G RATIO 1.1 1.0 - 2.0 RATIO 07/25/2024 8:31 AM [facility] GFR ESTIMATE 81(L) >90 ML/MIN/1.7 3 M2 07/25/2024 8:31 AM [facility] Comment: NOTE: eGFR is not calculated for patients <18 years of age. This is an estimated GFR calculation using the new CKD EPI creatinine equation without race and so does not require a correction factor for race. This estimated GFR should not be used for calculating drug doses. 07/25/2024 8:10 AM EMERGENCY ROOM PHYSICIAN Issac Boston MD LABORATORY Final Result [facility] [address] [place] [address], * MRI ABD WWO CON (11/26/2023 8:19 [...] stenosis. L3-4: No significant spinal canal stenosis. ??Pxdy-di-tyeliucu facet hypertrophy. ??Mild left neural foraminal stenosis. ??No right neural foraminal stenosis. L4-5: No significant spinal canal stenosis. ??Mild to moderate facet hypertrophy. ??Mild bilateral neural foraminal stenosis. L5-S1: No significant spinal canal stenosis. ??Kxtv-dt-iazrsnec facet hypertrophy. ??Mild bilateral neural foraminal stenosis. Procedure Note Qasim Cardenas MD - 11/02/2023 EXAMINATION: MRI LUMB SPINE ALTA CAUSEY, 11/02/2023 12:37 AM TECHNIQUE: Multiplanar multisequence magnetic resonance images of thelumbar spine were obtained without intravenous contrast. HISTORY: Back pain COMPARISON: CT abdomen and pelvis 05/09/2022, CT chest 03/08/2018 FINDINGS: There is transitional lumbosacral anatomy with 6 gcwocb-ujnuqkwgngsgz-anzd vertebral bodies. There is suggestion of incomplete fusioninvolving the right L1 transverse process. Probable lumbarized V4jmxjqjqam body. Allowing for this designation, there is intervertebraldisc height loss at L1-2, L2-3, L3-4 and L5- S1. There is 0.4 cm ofretrolisthesis of L5 on S1. The conus medullaris terminates at L1,normal. There is a normal distribution of cauda equina within the thecalsac. There is a 0.6 cm right renal cyst. There is a 0.9 cm W0qectjgvkgiw, T1 hypointense nodule arising from the inferior pole theright kidney (series 6 image 8, series 5 image 18). L1-2: No significant spinal canal or neural foraminal stenosis L2-3: No significant spinal canal or neural foraminal stenosis. L3-4: No significant spinal canal stenosis. Vabb-xf-vvftvutu facethypertrophy. Mild left neural foraminal stenosis. No right neuralforaminal stenosis. L4-5: No significant spinal canal stenosis. Mild to moderate facethypertrophy. Mild bilateral neural foraminal stenosis. L5-S1: No significant spinal canal stenosis. Avjd-zz-rbzwzcnp facethypertrophy. Mild bilateral neural foraminal stenosis. IMPRESSION: [...] * (ABNORMAL) LIPID PANEL (09/25/2023 4:30 PM EMERGENCY ROOM PHYSICIAN) Only the most recent of4 resultswithin the time period is included. [facility] Signature CHOLESTEROL 267(H) <200 MG/DL 09/25/2023 5:16 PM [facility] TRIGLYCERIDES 129 <150 MG/DL 09/25/2023 5:16 PM [facility] HDL 56 >40.0 MG/DL 09/25/2023 5:16 PM [facility] LDL (CALCULATED) 185(H) <100 MG/DL 09/25/2023 5:16 PM [facility] NON HDL CHOLESTEROL 211(H) <130 MG/DL 09/25/2023 5:16 PM [facility] Comment: NOTE: WHEN THE TRIGLYCERIDES ARE >200 mg/dL, NON HDL C IS A SECONDARY TARGET OF THERAPY, WITH A GOAL 30 mg/dL HIGHER THAN THE IDENTIFIED LDL C GOAL. CHOL/HDL RATIO 4.8(H) 0.0 - 4.5 09/25/2023 5:16 PM [facility] VLDL CALCULATION 26 5 - 55 MG/DL 09/25/2023 5:16 PM [facility] LIPID INTERPRETATION 09/25/2023 5:16 PM [facility] [facility] Comment: [facility] REPORT RECOMMENDATIONS: ?ADULT [...] ?LDL ? >=160 ?>=130 09/25/2023 4:30 PM EMERGENCY ROOM PHYSICIAN us Luiz Rich MD LABORATORY Final Resul t [facility] ([facility] [address] [place] [address], * (ABNORMAL) URINALYSIS WI REFLEX TO CULTURE (09/12/2023 2:13 PM EMERGENCY ROOM PHYSICIAN) Only the most recent of2 resultswithin the time period is included. COLOR (U) YELLOW 09/12/2023 3:19 PM EMERGENCY ROOM PHYSICIAN [facility] (H) [facility] TRANSPARENCY CLEAR 09/12/2023 3:19 PM [facility] SPECIFIC GRAVITY (U) 1.025 1.000 - 1.030 09/12/2023 3:19 PM [facility] U PH 6.0 5.0 - 9.0 09/12/2023 3:19 PM [facility] LEUKOCYTES (U) NEGATIVE NEGATIVE 09/12/2023 3:19 PM [facility] NITRITES NEGATIVE NEGATIVE 09/12/2023 3:19 PM [facility] PROTEIN RANDOM (U) NEGATIVE NEGATIVE 09/12/2023 3:19 PM [facility] GLUCOSE (U) NEGATIVE NEGATIVE 09/12/2023 3:19 PM [facility] KETONES MG/DL (U) NEGATIVE NEGATIVE 09/12/2023 3:19 PM [facility] BILIRUBIN (U) NEGATIVE NEGATIVE 09/12/2023 3:19 PM [facility] BLOOD (U) TRACE(A) NEGATIVE 09/12/2023 3:19 PM [facility] WBC/HPF NONE SEEN 0 - 5 /HPF 09/12/2023 3:19 PM [facility] RBC/HPF 0-5 0 - 5 /HPF 09/12/2023 3:19 PM [facility] EPI/HPF FEW /HPF 09/12/2023 3:19 PM [facility] CULTURE & SENSITIVITY INDICATED? CULTURE IS NOT INDICATED 09/12/2023 3:19 PM [facility] URINE SPECIMEN OBTAINED BY CLEAN CATCH PROCEDURE / Unknown 09/12/2023 2:13 PM EMERGENCY ROOM PHYSICIAN us Luiz Rich MD URINE ORDERABLES Final Resu lt [facility] () [facility] [address] [place] [address], [place] [phone] * (ABNORMAL) URINALYSIS AUTO DIP (09/11/2023) COLOR (U) YELLOW YELLOW [facility] ([facility]), [facility] TRANSPARENCY CLEAR CLEAR [facility] (9401), [facility] GLUCOSE (U) NEGATIVE NEGATIVE MG/DL [facility] (9401), [facility] BILIRUBIN (U) NEGATIVE NEGATIVE [facility] (9401), [facility] KETONES MG/DL (U) NEGATIVE NEGATIVE MG/DL [facility] (9401), [facility] SPECIFIC GRAVITY (U) 1.025 1.001 - 1.035 [facility] (9401), [facility] BLOOD (U) TRACE (Non Hemolyzed, Intact)(A) NEGATIVE [facility] (9401), [facility] U PH 6.0 5.0 - 9.0 [facility] (9401), [facility] PROTEIN (U) NEGATIVE NEGATIVE mg/dL [facility] (9401), [facility] UROBILINOGEN 0.2 0.2 - 1.0 EU/dL = mg/dL [facility] (9401), [facility] NITRITES NEGATIVE NEGATIVE MG/DL [facility] (9401), [facility] LEUKOCYTES (U) NEGATIVE NEGATIVE [facility] (9401), [facility] URINE SPECIMEN OBTAINED BY CLEAN CATCH PROCEDURE / Unknown 09/11/2023 us Olga Gaines SUPERVISORY EXAMINER URINE ORDERABLES Final Re sult [facility] (9401), [facility] [address] [facility] [address] [place] [address], [place] [phone] * (ABNORMAL) CORONAVIRUS (COVID-19) INFLUENZA A & B ANTIGEN IA PANEL (04/09/2023) CORONAVIRUS ANTIGEN IA POSITIVE(A) NEGATIVE [facility]-[id number], [place] INFLUENZA A NEGATIVE NEGATIVE MG-[address], [place] INFLUENZA B NEGATIVE NEGATIVE MG-[address] [place] Internal Control: VALID VALID MG-[id number], [place] NASAL STRUCTURE / Unknown 04/09/2023 Rena Perkins APRN MICROBIOLOGY - GENERAL ORD ERABLES Final Result Performing Organization Address City/Va Hospital/ZIP Co de Phone Number -[phone] [address] [place] [address] [place] [address], [place] [phone] * D-DIMER, QUANTITATIVE (07/13/2022 3:53 PM EMERGENCY ROOM PHYSICIAN) Only the most recent of2 resultswithin the time period is included. D-DIMER 222 0 - 500 ng{FEU}/mL 07/13/2022 4:09 PM EMERGENCY ROOM PHYSICIAN [facility] Comment: D-Dimer values less than [...] additional false negative findings. 07/13/2022 3:53 PM EMERGENCY ROOM PHYSICIAN Milagro Aponte WEIGHT AND TEST BAR CLERK- LABORATORY Final Res ult Performing Organization Address City/[facility] Hospital/ZIP Co de Phone Number [facility] [address] [place] [address], [place] [phone] * CT ABD+PEL W IV CON ONLY [...] * LACTIC ACID (05/09/2022 12:26 AM CDT) [facility] LACTIC ACID VENOUS 1.2 0.4 - 2.0 MMOL/L 05/09/2022 1:27 AM CDT [facility] 05/09/2022 12:2 6 AM CDT Valdez Roberson MD LABORATORY Final Result [facility] [address] [place] [address], * LIPASE (05/08/2022 11:51 PM CDT) [facility] LIPASE 75 73 - 393 UNITS/L 05/09/2022 12:44 AM CDT [facility] 05/08/2022 11:5 1 PM CDT us Valdez Roberson MD LABORATORY Final Result Performing Organization Address City/[facility] Hospital/ZIP Co de Phone Number [facility] [address] [place] [address], [place] [phone] * (ABNORMAL) VITAMIN D, 25 [place] (03/14/2022 7:44 AM CDT) Only the most recent of2 resultswithin the time period is included. VITAMIN D 25 HYDROXY TOTAL S/P/B 26.9(L) >29.9 ng/mL [facility]. Comment: Vitamin D, 25-Hydroxy reports concentrations of [...] and its performance characteristics determined by the [facility], [facility]. It has not been cleared or approved by the U.S. FDA. The [facility], [facility]. is regulated under Clinical Laboratory Improvement [...] D 25 HYDROXY D3 S/P/B 25.9 ng/mL [facility]. Comment: This test was developed and its analytical performance characteristics have been determined by [facility]. It has not been cleared or approved by the FDA. This assay has been validated pursuant to the CLIA regulations and is used for clinical purposes. VITAMIN D 25 HYDROXY D2 S/P/B 1.0 ng/mL [employer]. Comment: This test was developed and its analytical performance characteristics have been determined by [facility]. It has not been cleared or approved by the FDA. This assay has been validated pursuant to the CLIA regulations and is used for clinical purposes. 03/14/2022 7:44 AM CDT 03/15/2022 4:13 AM CDT Mariola Taylor NP LABORATORY Final Result [facility] [place] [employer]. [address] [place] [address], [address] [place] [address] * TSH W/REFLEX (09/13/2021 8:09 AM EMERGENCY ROOM PHYSICIAN) TSH 1.59 0.40 - 4.50 mIU/L [facility] 09/13/2021 8:09 AM EMERGENCY ROOM PHYSICIAN 09/14/2021 4:11 PM EMERGENCY ROOM PHYSICIAN us Mariola Taylor NP LABORATORY Final Result [facility] [address] [place] [address] * [facility] SARS-COV RNA QUAL NAAT (03/29/2021 3:37 PM CDT) Only the most recent of3 resultswithin the time period is included. CORONAVIRUS SARS COV 2 PCR (RESP) NOT DETECTED NOT DETECTED [facility] [place] Comment: ?? A Not Detected result [...] Method: Nucleic Acid Amplification Test including reverse lead portfolio manager polymerase chain reaction (RT-PCR) and lead portfolio manager mediated amplification (TMA). The test method meets [...] providers and patients using the following websites: https://www.[employer]com/home/Covid-19/HCP/[facility]/fact- sheet.html https://www.[employer]home/Covid-19/Patients/ [facility]/fact-sheet.html Due to the current public health emergency, [facility] is accepting samples from appropriate clinical sources [...] about COVID-19 can be found at the [facility] website: www.[employer]Covid19. NASAL STRUCTURE / Unknown 03/29/2021 3:37 PM CDT 03/30/2021 8:32 AM CDT Maksim Bone MD MICROBIOLOGY - GENERAL O RDERABLES Final Result [facility] [address] [address] * CORONAVIRUS (COVID-19) ANTIGEN (03/29/2021) Only the most recent of2 resultswithin the time period is included. CORONAVIRUS ANTIGEN IA NEGATIVE NEGATIVE -[address], [place] Internal Control: VALID VALID [id number] Specimen from nose (specimen) NASAL STRUCTURE / Unknown 03/29/2021 Maksim Bone MD MICROBIOLOGY - GENERAL O RDERABLES Final Result Performing Organization Address [facility]/ZIP Co de Phone Number -[phone] [facility] [address] [place] [address], [place] [phone] * CREATININE WHOLE BLOOD (Radiology only) (03/13/2021 7:29 PM CDT) Pathologist [facility] CREATININE WHOLE BLOOD 0.9 0.6 - 1.3 MG/DL 03/13/2021 7:35 PM CDT [facility] 03/13/2021 7:29 PM CDT Luiz Rich MD LABORATORY Final Resul t [facility] [address] [place] [address], [place] [phone] * CT SOFT TISSUE NECK W CON [...] CT HEAD WO CON (09/28/2020 10:37 AM EMERGENCY ROOM PHYSICIAN) Anatomical Region Laterality Modality Head Computed Tomogra phy 09/28/2020 10:3 9 AM EMERGENCY ROOM PHYSICIAN Impressions 09/28/2020 10:41 AM EMERGENCY ROOM PHYSICIAN IMPRESSION: No acute intracranial process. Referred By: CHANEL BARONE Interpreted By: Len Heranndez MD, 09/28/2020 10:39 AM Narrative 09/28/2020 10:41 AM EMERGENCY ROOM PHYSICIAN EXAMINATION: CT of the head without contrast [...] * ECG 12 lead (09/28/2020 9:52 AM EMERGENCY ROOM PHYSICIAN) 09/28/2020 9:52 AM EMERGENCY ROOM PHYSICIAN Narrative [facility] ([place]) RAD - 09/28/2020 5:23 PM EMERGENCY ROOM PHYSICIAN ?Bridgeton`katherine Seeley ? [address] [place] ? Test Date: ?2020-09-28 Pat Name: ? PORTILLO BALLESTEROS ? Department: ? Room: ? [id number] Gender: ? Male ? 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 IE : ?1980 ? Requested By: CHANEL BARONE Order Number: [id number] ? Laura OROSCO: ?? Griffin Jackson ? Measurements Intervals ?[place] ? Rate: ? 66 ? P: ?-12 AL: ? 140 ?QRS: ?24 QRSD: ? 98 ? T: ?32 QT: ? 377 ? QTc: ?396 ? Interpretive Statements SINUS RHYTHM No previous ECG available for comparison No ischemic changes Gabriel Mascorro M.D. 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 CRITICAL ALERT ISSUED ON 09-28-2020 9:56:39 GENCY ROOM PHYSICIAN us Chanel Barone MD ECG ORDERABLES Final Result [facility] * OCCULT BLOOD, FECES (08/31/2020 7:00 AM EMERGENCY ROOM PHYSICIAN) OCCULT BLOOD FECAL NEGATIVE NEGATIVE 08/31/2020 8:49 AM EMERGENCY ROOM PHYSICIAN [facility] STOOL SPECIMEN / Unknown 08/31/2020 7:00 AM EMERGENCY ROOM PHYSICIAN us Luiz Rich MD BODY FLUIDS AND STOOLS ORDAgus JUAN CARLOS Final Result Performing Organization Address [facility]/ZIP Co de Phone Number [facility] [address] [place] [address], [place] [phone] * (ABNORMAL) IRON SAT PANEL (IRON,IBC,%SAT) (08/30/2020 3:44 PM EMERGENCY ROOM PHYSICIAN) Pathologist [facility] IRON 64(L) 65 - 175 MCG/DL 08/30/2020 4:41 PM EMERGENCY ROOM PHYSICIAN [facility] IRON BINDING CAPACITY 327 250 - 450 MCG/DL 08/30/2020 4:41 PM EMERGENCY ROOM PHYSICIAN [facility] IRON SATURATION 20 20 - 55 % 4:41 PM EMERGENCY ROOM PHYSICIAN [facility] 08/30/2020 3:44 PM EMERGENCY ROOM PHYSICIAN us Luiz Rich MD LABORATORY Final Resul t Performing Organization Address [facility]/ZIP Co de Phone Number [facility] [address] [place] [address], [place] [phone] * XR CHEST PA+LAT (05/18/2020 10:50 AM [...] - 0.056 ng/mL. 05/16/2020 6:54 PM CDT [facility] Comment: NORMAL: LESS THAN OR EQUAL TO 0.056 NG/ML INDETERMINATE ZONE: 0.056 TO 0.599 NG/ML CONDITIONS RESULTING IN MYOCARDIAL CELL DAMAGE CAN POTENTIALLY INCREASE LEVELS ABOVE THE EXPECTED RANGE. HIGH DOSES OF BIOTIN MAY INTERFERE WITH THIS TEST RESULT. CORRELATION TO CLINICAL HISTORY AND PRESENTATION RECOMMENDED. 05/16/2020 12:2 0 PM CDT us Luiz Rich MD LABORATORY Final Resul t [facility] [address] [place] [address], * COLONOSCOPY GENERIC (05/26/2019) 05/26/2019 Narrative 05/26/2019 [...] BALLESTEROS ? Admit/Service Date: 03/08/18 ?? Acct: [id number] ?Discharge Date: ?? : 1980 ??Sex: M ?[facility] ?? Pt Type: REG CLI ? Ordering MD: FRAN NEWBY MD ? Study Date ? Report # ?Order # ? Ext Order ID ?? 03/08/18 ? [id number] ? [id number] ?[id number] ? Proc Code: ? A-CHST ? Procedure [...] - 03/10/2018 PORTILLO BALLESTEROS Admit/Service Date:03/08/18 Acct: [id number] Discharge Date: : 1980 Sex: M Ord Site: [facility] Pt Type: REG CLI Ordering MD:FRAN NEWBY MD Study Date Report # Order # Ext Order ID 03/08/18 [id number] Proc Code: A-CHST Procedure Description: CTA Chest [...] E COLI [id number] ISOLATED REPORT STATUS FINAL [id number] [employer] TO EPIC CONVERSION 03/07/2005 1:11 PM [...] 08/31/2020 Fracture, thyroid cartilage closed, initial encounter ([facility]) 09/28/2020 Seasonal allergic rhinitis, unspecified trigger [...] 09/13/2021 Screening for depression 09/13/2021 Need for jhhmfvajng-bwbfbyn-fpirbnmhx (Tdap) vaccine Need for prophylactic vaccination with combined fvusqungub-ufiueir-bwpwvzpvq (DTP) vaccine 09/13/2021 Vitamin D deficiency Unspecified [...] understanding of home safety measures Lifestyle No Casisa Cardoso, RN Health - patient able to perform ADLs independently Lifestyle No John Paul Knapp RN Care Teams Top Cutter Relationship Specialty [place] [address] [place] [address] PCP - General FAMILY PRACTICE 09/13/[address] [facility] [address] [place] [address] [place] Painting Machine Operator INTERVENTIONAL CARDIOLOGY 02/26/18
[2024-08-26 16:31] LABS: Color Urine Brown (Yellow)
[2024-08-26 16:33] LABS: Add Urine Microscopic? YES; Appearance Urine Turbid (Clear); pH Urine 5.5 (5.0-8.0)
[2024-08-26 16:34] LABS: Bilirubin Urine 1+ (Negative); Blood Urine 3+ (Negative); Glucose Urine UA Negative (Negative); Ketones Urine Negative (Negative); Nitrate Urine Negative (Negative); Protein Urine 3+ (Negative); Urobilinogen Urine 0.2 mg/dL (0.2-1.0)
[2024-08-26 16:35] LABS: Leukocyte Esterase Ur 3+ LEU/UL (Negative)
[2024-08-26 16:38] LABS: RBC Urine >100 /hpf (0-2); WBC Urine Unable to determine /hpf (0-3)
== END 2024-08-26 15:14 | disposition home or self-care (01) ==
PROVIDERS: PCP Family Medicine Sports Medicine; Visit Provider Urology
DX: N20.0 Calculus of kidney (principal)
CPT/HCPCS: 36415; 81001; 85610; 85730; 87086

== ENCOUNTER 2024-08-28 03:10 | Day surgery (SDC) | payer OTHER, SELFPAY ==
[2024-08-26 08:34] VITALS: BMI 28.4
--- NOTE | 2024-08-26 08:39 | PC.NURSE ---
Report to the Outpatient Waiting Room, entrance under the green pavilion located off [facility], at time _1000_ on date _[id number]_. Planned Procedure Time: _1200_.? Time changes happen often and if your time is changed the preop area will call you the afternoon before. - You and your visitor will be asked to self-screen and do not enter if you have any COVID symptoms. Please call surgeon if you need to reschedule. - A mask is optional within the hospital at this time. Patients may have clear liquids (water, carbonated beverages, clear teas, apple juice) until 3 hours prior to surgery with a maximum of 20 ounces. - No food from midnight until time of surgery and no smoking. This includes no chewing gum, candy or mints. Take only the following medications with a SIP of water on the morning of surgery: ____Pain med if needed. DO NOT STOP ANY OF YOUR OTHER PRESCRIPTION MEDICATIONS PRIOR TO SURGERY EXCEPT THE FOLLOWING Medications to discontinue per physician ___None Date to take last dose Please no make-up, nail bangladeshi, hairspray, perfume, deodorant, or body powder the day of surgery.? No jewelry (including any body piercings) or valuables the day of surgery, leave them at home.? Please take a shower or bath the night before, or the morning of, surgery with an antibacterial soap.? Wear comfortable, loose fitting clothing.? - Jewelry must be removed prior to entering the operating room.? Rings and piercings that are not removed may be cut off. - The hospital will not accept responsibility for valuables.? - Please leave all valuables, including medications, at home the day of surgery. If you are going home after surgery, a licensed class a truck driver must drive you home.? - NO public transportation without another adult if you receive anesthesia. - We recommend that an adult stay with you for 24 hours following discharge. - We also recommend that you do not drive, make important decision, drink alcoholic beverages, or take any drugs that were not prescribed by your health care provider for at least 24 hours after your discharge time. Hold all vitamins and supplements for 3 days per anesthesiologist. Follow any additional instructions given to you from your surgeon. Telephone instructions given to _Karl_and asked if any additional questions and then verbalized understanding. Patient advised to call surgeon office or pre surgery nurse liaison [phone] if any additional questions.
[2024-08-28] VITALS (7 sets, daily range): BP systolic 106–145; BP diastolic 66–97; PULSE 60–92; RESP 10–16; TEMP 36.1–36.4; O2SAT 97–100; BMI 28.5
--- NOTE | ~2024-08-28 | XR_ITS ---
XR abdomen/kub 1V 08/28/2024 10:14 Indication: Preop ESWL Procedure: KUB Comparison: 08/21/2024 Findings: There is a left internal ureteral stent. There are clustered stones in the lower pole of th e left kidney. No stones are identified in the course of the stents. Bowel gas pattern nonobstructive . No acute osseous abnormality. Impression: 1: Left nephrolithiasis. Reviewed, dictated and finalized at location A. OR ANALYST Impression: 1: Left nephrolithiasis.
--- OUTSIDE RECORDS SUMMARY | 2024-08-28 03:21 | XMS_ITS | Patient Health Summary ---
Author Organization [facility] Address [address] [place] [address] Care Team Providers Care Bogger Operator Name Role Phone Luiz Matta MD Primary Care Provider [phone] Unknown, Provider Unavailable Unavailable Note from [facility],non-owned Affiliates and Associated Physician Practices is amultiple site organization consisting of ambulatory clinics and hospital sitesin [place], [place], [place] and [place]. This disclosure is being madepursuant to the Care Everywhere program and may not contain all information available regarding this patient. Last updated 18.[facility] Allergies No known active allergies Medications * [...] as needed * ergocalciferol (DRISDOL) 1.25 MG (83229 UT) capsule(Started 09/25/2021) Take 1 (one) capsule [...] 37 ??C (98.6 ??F) 07/18/2022 1:37 PM DRAPERY CUTTER Respiratory Rate 18 09/29/2020 3:58 PM DRAPERY CUTTER Oxygen Saturation 96% 09/29/2020 3:58 PM DRAPERY CUTTER Inhaled Oxygen Concentration - - Weight 98 kg (216 lb) 04/19/2023 3:24 PM CDT Height 185.4 cm (6' 1 ) 04/19/2023 3:24 PM CDT Body Mass Index 28.5 04/19/2023 3:24 PM CDT Procedures * VA EAR MICROSCOPY EXAMINATION(Performed 04/19/2023) Performed for Tinnitus, unspecified laterality * AUDIOLOGY/TYMPANOMETRY ORDER(Performed 03/14/2023) * VA CHEMODENERV MUSC MIGRAINE(Performed 06/14/2021) Performed for Pharyngeal dysphagia, Closed fracture of larynx, subsequent encounter, Blunt trauma of neck, subsequent encounter * VA LARYNGOSCOPY,FLEX FIBER,DIAGNOSTIC(Performed 05/12/2021) Performed for Pharyngeal dysphagia, Closed fracture of larynx, subsequent encounter * VA LARYNGOSCOPY,FLEX/RIGID+STROBOSCOPY(Performed 04/05/2021) Performed for Blunt trauma of neck, subsequent encounter * VA LARYNGOSCOPY,FLEX/RIGID+STROBOSCOPY(Performed 12/21/2020) Performed for Blunt trauma of neck, subsequent encounter * VA LARYNGOSCOPY,FLEX FIBER,DIAGNOSTIC(Performed 12/21/2020) Performed for Blunt trauma [...] * ALCOHOL ETHYL BLOOD(Performed 09/28/2020) Results * VA EAR MICROSCOPY EXAMINATION (04/19/2023 4:11 PM CDT) [...] Mariola Champion AUDIOLOGY SERVICES O RDERABLES * VA CHEMODENERV MUSC MIGRAINE (06/14/2021 2:09 PM DRAPERY CUTTER) Narrative Griffin Gore MD - 06/14/2021 2:09 PM DRAPERY CUTTER Griffin Gore MD ? 06/14/2021 ??5:55 PM [...] Gore MD PROCEDURE/MINOR SURG ICAL ORDERABLES * VA LARYNGOSCOPY,FLEX FIBER,DIAGNOSTIC (05/12/2021 11:01 AM CDT) Narrative Griffin Gore MD - 05/12/2021 11:01 AM CDT Griffin Gore MD ? 05/12/2021 11:07 AM Procedure Note Endoscopy Type: ??Laryngoscopy without stroboscopy 51460 Endoscope: Flexible 4mm Scope Anesthesia: Lidocaine 2% [...] Gore MD PROCEDURE/MINOR SURG ICAL ORDERABLES * VA LARYNGOSCOPY,FLEX/RIGID+STROBOSCOPY (04/05/2021 2:06 PM CDT) Narrative Silviano Pineda MD - 04/05/2021 2:06 PM CDT Silviano Pineda MD ? 04/05/2021 ??2:26 PM Procedure Note Anesthesia: Lidocaine and Neosynephrine Endoscopy Type: ??Flexible Fyscz-Kvtfkvvsmdidph-Zqtfattmxuta Procedure Details: Informed consent was obtained. ??The [...] Pineda MD PROCEDURE/MINOR SURG ICAL ORDERABLES * VA LARYNGOSCOPY,FLEX FIBER,DIAGNOSTIC, VA LARYNGOSCOPY,FLEX/RIGID+STROBOSCOPY (12/21/2020 1:50 PM CDT) Narrative Silviano Pineda MD - 12/21/2020 1:50 PM CDT Silviano Pineda MD ? 12/21/2020 ??1:52 PM Procedure Note Anesthesia: Lidocaine and Neosynephrine Endoscopy Type: ??Flexible Fzlwd-Vcjcmtirtvegvz-Ajhinghrjevu Procedure Details: Informed consent was obtained. ??The [...] CBC W AUTO DIFFERENTIAL (09/29/2020 2:03 AM DRAPERY CUTTER) Only the most recent of2 resultswithin the time period is included. WBC 7.4 3.5 - 10.5 10? 3 /uL 09/29/2020 2:41 AM [facility] RBC 4.38 4.30 - 5.70 10? 6 /uL 09/29/2020 2:41 AM [facility] Hemoglobin 12.5(L) 13.5 - 17.5 g/dL 09/29/2020 2:41 AM [facility] Hematocrit 38.0(L) 39.0 - 50.0 % 09/29/2020 2:41 AM [facility] MCV 86.8 81.0 - 97.0 fL 09/29/2020 2:41 AM [facility] MCH 28.5 28.0 - 34.0 pg 09/29/2020 2:41 AM [facility] MCHC 32.9 32.0 - 36.0 g/dL 09/29/2020 2:41 AM [facility] Platelet Count 282 150 - 400 10? 3 /uL 09/29/2020 2:41 AM [facility] RDW-SD 39.9 36.0 - 50.0 fL 09/29/2020 2:41 AM [facility] RDW-CV 12.4 11.2 - 14.8 % 09/29/2020 2:41 AM [facility] MPV 9.6 9.3 - 12.8 fL 09/29/2020 2:41 AM [facility] nRBC Absolute 0.00 0 10? 3 /uL 09/29/2020 2:41 AM [facility] nRBC Auto 0.0 0 /100 WBC 09/29/2020 2:41 AM [facility] Neutrophils % 60.5 35.0 - 70.0 % 09/29/2020 2:41 AM [facility] Lymphocytes % 29.0 19.7 - 55.1 % 09/29/2020 2:41 AM [facility] Monocytes % 8.6 3.0 - 15.0 % 09/29/2020 2:41 AM [facility] Eosinophils % 1.1 0.0 - 6.0 % 09/29/2020 2:41 AM [facility] Basophil % 0.3 0.0 - 1.5 % 09/29/2020 2:41 AM [facility] Neutrophils Absolute 4.5 1.6 - 7.0 10? 3 /uL 09/29/2020 2:41 AM [facility] Lymphocyte Absolute 2.1 0.8 - 2.9 10? 3 /uL 09/29/2020 2:41 AM [facility] Monocytes Absolute 0.63 0.14 - 0.66 10? 3 /uL 09/29/2020 2:41 AM [facility] Eosinophils Absolute 0.08 0.00 - 0.45 10? 3 /uL 09/29/2020 2:41 AM [facility] Basophils Absolute 0.02 0.00 - 0.06 10? 3 /uL 09/29/2020 2:41 AM [facility] Immature Granulocytes % 0.5 0.0 - 1.0 % 09/29/2020 2:41 AM [facility] Blood BLOOD SPECIMEN / Unknown Lab Venipuncture / Unknown 09/29/2020 2:03 AM DRAPERY CUTTER 09/29/2020 2:35 AM DRAPERY CUTTER Manny Wall MD LAB - HEMATOLOGY O RDERABLES [facility] [address] [place] [address], [facility] [phone] * (ABNORMAL) BASIC METABOLIC PANEL (CALCIUM TOTAL) (09/29/2020 2:03 AM DRAPERY CUTTER) Only the most recent of2 resultswithin the time period is included. BUN 20 7 - 26 mg/dL 09/29/2020 3:06 AM [facility] Creatinine 0.7 0.6 - 1.2 mg/dL 09/29/2020 3:06 AM [facility] Sodium 139 136 - 145 mmol/L 09/29/2020 3:06 AM [facility] Potassium 3.4(L) 3.5 - 4.5 mmol/L 09/29/2020 3:06 AM [facility] Chloride 105 98 - 107 mmol/L 09/29/2020 3:06 AM [facility] CO2 25 22 - 29 mmol/L 09/29/2020 3:06 AM [facility] Glucose 107 70 - 115 mg/dL 09/29/2020 3:06 AM [facility] Calcium 8.1(L) 8.4 - 10.2 mg/dL 09/29/2020 3:06 AM [facility] Anion Gap 12 8 - 18 09/29/2020 3:06 AM [facility] BUN/Creatinine Ratio 29(H) 7 - 23 09/29/2020 3:06 AM [facility] Osmolality Calculated 291 270 - 300 mOsm/kg 09/29/2020 3:06 AM [facility] eGFR >60 >60 mL/min/1.7 3 m2 09/29/2020 3:06 AM [facility] Blood BLOOD SPECIMEN / Unknown Lab Venipuncture / Unknown 09/29/2020 2:03 AM DRAPERY CUTTER 09/29/2020 2:35 AM DRAPERY CUTTER Manny Wall MD LAB - CHEMISTRY OR DERABLES Performing Organization Address [facility] Co de Phone Number [address] [address], [facility] [phone] * PHOSPHORUS BLOOD (09/29/2020 2:03 AM DRAPERY CUTTER) Phosphorus 4.0 2.3 - 4.7 mg/dL 09/29/2020 3:06 AM DRAPERY CUTTER [facility] Blood BLOOD SPECIMEN / Unknown Lab Venipuncture / Unknown 09/29/2020 2:03 AM DRAPERY CUTTER 09/29/2020 2:35 AM DRAPERY CUTTER Manny Wall MD LAB - CHEMISTRY OR DERABLES Performing Organization Address [facility] de Phone Number [address] [address], [facility] [phone] * MAGNESIUM BLOOD (09/29/2020 2:03 AM DRAPERY CUTTER) Magnesium 1.9 1.6 - 2.6 mg/dL 09/29/2020 3:06 AM DRAPERY CUTTER [facility] Blood BLOOD SPECIMEN / Unknown Lab Venipuncture / Unknown 09/29/2020 2:03 AM DRAPERY CUTTER 09/29/2020 2:35 AM DRAPERY CUTTER Manny Wall MD LAB - CHEMISTRY OR DERABLES Performing Organization Address [facility] Co de Phone Number [address] [address], [facility] [phone] * MRI CERVICAL SPINE WO CONTRAST (09/28/2020 7:11 PM DRAPERY CUTTER) Anatomical Region Laterality Modality Pelvis Magnetic Resonan ce 09/29/2020 7:47 AM DRAPERY CUTTER Impressions 09/29/2020 12:06 PM DRAPERY CUTTER IMPRESSION: 1. No ligamentous injury is identified. [...] 12:06 PM . Narrative 09/29/2020 12:06 PM DRAPERY CUTTER MRI CERVICAL SPINE WITHOUT INTRAVENOUS CONTRAST, 09/28/2020 [...] (COVID-19)+INFLU A+B PCR RAPID (09/28/2020 2:30 PM DRAPERY CUTTER) COVID-19 PCR Not detected Not detected 09/29/19 21 3:23 PM [facility] Influenza A Rapid SAMM Not Detected Not Detected 09/28/2020 3:23 PM [facility] Influenza B SAMM Rapid Not Detected Not Detected 09/28/2020 3:23 PM [facility] Microbiology SPECIMEN FROM NASOPHARYNGEAL STRUCTURE / Unknown Collection / Unknown 09/28/2020 2:30 PM DRAPERY CUTTER 09/28/2020 2:55 PM DRAPERY CUTTER [facility] - 09/28/2020 3:23 PM DRAPERY CUTTER Influenza assay performed by [employer]. [...] acid amplification assay performance was validated by [facility]. This test has been authorized [...] Manny Wall MD LAB - MICROBIOLOGY ORDERABLES [facility] [address] [place] [address], [facility] [phone] * DRUG SCREEN TOX URINE PANEL (09/28/2020 2:20 PM DRAPERY CUTTER) Pathologist [facility] Amphetamines Screen Urine Negative Negative: < 1000 ng/mL 09/28/2020 2:56 PM [facility] Barbiturates Screen Urine Negative Negative: < 200 ng/mL 09/28/2020 2:56 PM [facility] Benzodiazepine Screen Urine Negative Negative: < 200 ng/mL 09/28/2020 2:56 PM [facility] Opiates Urine Negative Negative: < 300 ng/mL 09/28/2020 2:56 PM [facility] Cocaine Metabolites Urine Negative Negative: < 300 ng/mL 09/28/2020 2:56 PM [facility] Phencyclidine Screen Urine Negative Negative: < 25 ng/ml 09/28/2020 2:56 PM [facility] Cannabinoids Screen Urine Negative Negative: <50 ng/mL 09/28/2020 2:56 PM [facility] Methadone Screen Urine Negative Negative: < 300 ng/mL 09/28/2020 2:56 PM [facility] Fentanyl Screen Urine Negative Negative: <1.0 ng/mL 09/28/2020 2:56 PM [facility] Urine URINE / Unknown Collection / Unknown 09/28/2020 2:20 PM DRAPERY CUTTER 09/28/2020 2:42 PM DRAPERY CUTTER Narrative [facility] - 09/28/2020 2:56 PM DRAPERY CUTTER The Urine Toxicology Screening Panel does not screen for Propoxyphene, Meprobamate, Carisoprodol, Trazodone, wjru-ymn-fiqhbtr medications and/or volatiles (Acetone, Isopropanol, Methanol or Ethylene Glycol). Ethanol, Salicylate, Acetaminophen, Tricyclic Antidepressants and several therapeutic drugs may be individually assayed in serum or plasma specimen. Toxicology testing by the [facility] is an aid to medical diagnosis and treatment of patients. No documented chain of custody was maintained. Results are intended to be used for clinical purposes only. ? Manny Gaitan DO LAB - URINE CHEMISTR Y ORDERABLES Performing Organization Address [facility] de Phone Number [facility] [address] [place] [phone], [facility] [phone] * CT ANGIO BRAIN AND NECK (09/28/2020 1:14 PM DRAPERY CUTTER) Anatomical Region Laterality Modality Head Computed Tomogra phy 09/28/2020 2:44 PM DRAPERY CUTTER Impressions 09/28/2020 3:33 PM DRAPERY CUTTER IMPRESSION: 1.Mildly displaced left inferior thyroid cartilage fracture with adjacent soft tissue swelling. 2.No evidence of large arterial injury identified in the neck. 3.No large arterial occlusion, significant stenoses, or aneurysm identified in the head or neck. Dictated by Laurie Menezes MD (educational institution president). This report was approved ??by Laurie Menezes ?? on 09/28/2020 3:33 PM . I, Dr. MORGAN QUEVEDO have personally reviewed and interpreted this examination/study. This report was electronically signed by MORGAN QUEVEDO ??on 09/28/2020 3:33 PM . Narrative 09/28/2020 3:[address] ANGIO BRAIN AND NECK DATE: 09/28/2020 [...] or neck. Dictated by Laurie Menezes MD (educational institution president). This report was approved by Laurie Menezes on 09/28/2020 3:33 PM . IDr. MORGAN have personally reviewed and interpreted this examination/study. This report was electronically signed by MORGAN QUEVEDO on09/28/2020 3:33 PM . Manny Gaitan DO CT ORDERABLES * CT CERVICAL SPINE WO CONTRAST (09/28/2020 1:14 PM DRAPERY CUTTER) Anatomical Region Laterality Modality Spine Computed Tomogra phy 09/28/2020 1:51 PM DRAPERY CUTTER Impressions 09/28/2020 3:28 PM DRAPERY CUTTER IMPRESSION: 1.No acute facial bone fractures identified. [...] evaluation. Report dictated by Laurie Menezes MD (educational institution president). This report was approved ??by Laurie Menezes ?? on 09/28/2020 3:[address] MORGAN Coleman have personally reviewed and interpreted this examination/study. This report was electronically signed by MORGAN QUEVEDO ??on 09/28/2020 3:28 PM . Narrative 09/28/2020 3:[address] FACIAL BONES WO CONTRAST, CT CERVICAL [...] evaluation. Report dictated by Laurie Menezes MD (educational institution president). This report was approved by Laurie Menezes on 09/28/2020 3:28 PM . I, Dr. MORGAN QUEVEDO have personally reviewed and interpreted this examination/study. This report was electronically signed by MORGAN QUEVEDO on09/28/2020 3:28 PM . Manny Gaitan DO CT ORDERABLES * CT FACIAL BONES WO CONTRAST (09/28/2020 1:14 PM DRAPERY CUTTER) Anatomical Region Laterality Modality Head Computed Tomogra phy 09/28/2020 1:51 PM DRAPERY CUTTER Impressions 09/28/2020 3:28 PM DRAPERY CUTTER IMPRESSION: 1.No acute facial bone fractures identified. [...] evaluation. Report dictated by Laurie Menezes MD (educational institution president). This report was approved ??by Laurie Menezes ?? on 09/28/2020 3:28 PM . I, Dr. MORGAN QUEVEDO have personally reviewed and interpreted this examination/study. This report was electronically signed by MORGAN QUEVEDO ??on 09/28/2020 3:28 PM . Narrative 09/28/2020 3:[address] FACIAL BONES WO CONTRAST, CT CERVICAL [...] evaluation. Report dictated by Laurie Menezes MD (educational institution president). This report was approved by Laurie Menezes on 09/28/2020 3:28 PM . I, Dr. MORGAN QUEVEDO have personally reviewed and interpreted this examination/study. This report was electronically signed by MORGAN QUEVEDO on09/28/2020 3:28 PM . Manny Gaitan DO CT ORDERABLES * XR CHEST 1VW PORTABLE (09/28/2020 12:42 PM DRAPERY CUTTER) Anatomical Region Laterality Modality Chest Radiographic Fatou ging 09/28/2020 1:11 PM DRAPERY CUTTER Impressions 09/28/2020 1:23 PM DRAPERY CUTTER FINDINGS/IMPRESSION: There are low bilateral lung volumes with associated bronchovascular crowding. There is no focal consolidation, pleural effusion, or pneumothorax. The cardiomediastinal silhouette is normal. Dictated by Song Estrada MD (educational institution president). Dr. JA Coleman MD have personally reviewed and interpreted this examination/study. This report was electronically signed by JA ZHANG MD ??on 09/28/2020 1:23 PM . Narrative 09/28/2020 1:23 PM DRAPERY CUTTER EXAMINATION: XR CHEST 1VW PORTABLE HISTORY: Trauma [...] is normal. Dictated by Song Estrada MD (educational institution president). I, Dr. JA ZHANG MD have personally reviewed and interpreted this examination/study. This report was electronically signed by JA ZHANG MD on09/28/2020 1:23 PM . Manny Gaitan DO DIAGNOSTIC IMAGING O RDERABLES * PTT [facility] (09/28/2020 12:42 PM DRAPERY CUTTER) APTT 25.8 23.0 - 38.4 Seconds 09/28/2020 1:25 PM DRAPERY CUTTER [facility] Comment:Suggested therapeuti c range for full dose I.V. unfractionated heparin therapy for venous thromboembolism is 71 to 109 seconds. Blood BLOOD SPECIMEN / Unknown Venipuncture / Unknown 09/28/2020 12:42 PM DRAPERY CUTTER 09/28/2020 1:15 PM DRAPERY CUTTER Manny Gaitan DO LAB - COAGULATION OR DERABLES [facility] [address] [place] [address], [facility] [phone] * PT-INR [facility] (09/28/2020 12:42 PM DRAPERY CUTTER) PT 12.2 12.1 - 14.8 Seconds 09/28/2020 1:25 PM DRAPERY CUTTER [facility] INR 0.9 See Comment 09/28/2020 1:25 PM DRAPERY CUTTER [facility] Comment:The suggested therap eutic range for standard coumadin (warfarin) therapy is an INR of 2.0-3.0. For high-risk patients (Mechanical Mitral Valve Prosthesis, etc.), the suggested prophylactic therapeutic range is an INR of 2.5-3.5. Blood BLOOD SPECIMEN / Unknown Venipuncture / Unknown 09/28/2020 12:42 PM DRAPERY CUTTER 09/28/2020 1:15 PM DRAPERY CUTTER Manny Gaitan DO LAB - COAGULATION OR DERABLES Performing Organization Address [facility] Co de Phone Number [address] [address], [place] [phone] * TYPE + SCREEN PANEL (09/28/2020 12:42 PM DRAPERY CUTTER) Pathologist [facility] Antibody Screen NEG 1:32 PM DRAPERY CUTTER [facility] ABO Rh A POS 09/28/2020 1:32 PM DRAPERY CUTTER [facility] Blood Bank BLOOD SPECIMEN / Unknown Venipuncture / Unknown 09/28/2020 12:42 PM DRAPERY CUTTER 09/28/2020 12:47 PM DRAPERY CUTTER Manny Gaitan DO LAB - BLOOD BANK ORD ERABLES Performing Organization Address [facility] de Phone Number [facility] [address] [place] [phone], [place] [phone] * ALCOHOL ETHYL BLOOD (09/28/2020 12:42 PM DRAPERY CUTTER) Pathologist [facility] Interpretation Ethanol None Detected None Detected mg/dL 09/28/2020 1:12 PM DRAPERY CUTTER [facility] Comment:Ethanol levels less than 10 mg/dL are resulted as None detected . Blood BLOOD SPECIMEN / Unknown Venipuncture / Unknown 09/28/2020 12:42 PM DRAPERY CUTTER 09/28/2020 12:49 PM DRAPERY CUTTER Manny Gaitan DO LAB - CHEMISTRY ORDE RABLES Performing Organization Address [facility] Co de Phone Number [address] [address], [place] [phone] Care Teams Bogger Operator Relationship Specialty [place] [address] [place] [address] PCP - General Family Medicine 09/28/20 Unknown, Provider [id number] [place] [address] 09/28/20
--- OUTSIDE RECORDS SUMMARY | 2024-08-28 03:21 | XMS_ITS | Referral Summary ---
Author Organization [facility] [employer] Address [address] [place] [address] Care Team Providers Care Shipping Helper Name Role Phone Luiz Matta MD Primary Care Provider [phone] Unknown, Provider Unavailable Unavailable Source Comments [facility],non-owned Affiliates and Associated Physician Practices is amultiple site organization consisting of ambulatory clinics and hospital sitesin [place], [place], [place] and [place]. This disclosure is being madepursuant to the Care Everywhere program and may not contain all information available regarding this patient. Last updated 18.[facility] [employer] Allergies No known active allergies Medications * [...] needed 05/24/2021 Active ergocalciferol (DRISDOL) 1.25 MG (79834 UT) capsule Take 1 (one) capsule by [...] 37 ??C (98.6 ??F) 07/18/2022 1:37 PM PHOTOGRAPHIC PLATEMAKER Respiratory Rate 18 09/29/2020 3:58 PM PHOTOGRAPHIC PLATEMAKER Oxygen Saturation 96% 09/29/2020 3:58 PM PHOTOGRAPHIC PLATEMAKER Inhaled Oxygen Concentration - - Weight 98 kg (216 lb) 04/19/2023 3:24 PM CDT Height 185.4 cm (6' 1 ) 04/19/2023 3:24 PM CDT Body Mass Index 28.5 04/19/2023 3:24 PM CDT Plan of Treatment Not on file Procedures Procedure Name Priority Date/Time Associated Diagnosis Comments BASIC METABOLIC PANEL (CALCIUM TOTAL) Routine 09/29/2020 2:03 AM PHOTOGRAPHIC PLATEMAKER Blunt trauma of neck, initial encounter from Last 3 Months or Most Recently Relevant to Health Maintenance Results * (ABNORMAL) BASIC METABOLIC PANEL (CALCIUM TOTAL) (09/29/2020 2:03 AM PHOTOGRAPHIC PLATEMAKER) BUN 20 7 - 26 mg/dL 09/29/2020 3:06 AM [facility] Creatinine 0.7 0.6 - 1.2 mg/dL 09/29/2020 3:06 AM [facility] Sodium 139 136 - 145 mmol/L 09/29/2020 3:06 AM [facility] Potassium 3.4(L) 3.5 - 4.5 mmol/L 09/29/2020 3:06 AM [facility] Chloride 105 98 - 107 mmol/L 09/29/2020 3:06 AM [facility] CO2 25 22 - 29 mmol/L 09/29/2020 3:06 AM [facility] Glucose 107 70 - 115 mg/dL 09/29/2020 3:06 AM [facility] Calcium 8.1(L) 8.4 - 10.2 mg/dL 09/29/2020 3:06 AM [facility] Anion Gap 12 8 - 18 09/29/2020 3:06 AM [facility] BUN/Creatinine Ratio 29(H) 7 - 23 09/29/2020 3:06 AM [facility] Osmolality Calculated 291 270 - 300 mOsm/kg 09/29/2020 3:06 AM [facility] eGFR >60 >60 mL/min/1.7 3 m2 09/29/2020 3:06 AM [facility] Blood BLOOD SPECIMEN / Unknown Lab Venipuncture / Unknown 09/29/2020 2:03 AM PHOTOGRAPHIC PLATEMAKER 09/29/2020 2:35 AM PHOTOGRAPHIC PLATEMAKER Manny Wall MD LAB - CHEMISTRY OR DERABLES [facility] [address] [place] [address], [facility] [phone] from Last 3 Months or Most Recently Relevant to Health Maintenance Advance Directives * Full Code (Latest Code Status on File) Date Activated Date Inactivated Comments 09/28/2020 5:29 PM 09/29/2020 6:59 PM Care Teams Shipping Helper Relationship Specialty [place] [address] [place] [address] PCP - General Family Medicine 09/28/20 Unknown, Provider [address] [place] [address] 09/28/20
--- OUTSIDE RECORDS SUMMARY | 2024-08-28 03:21 | XMS_ITS | Clinical Summary ---
Author Organization [facility] Administrative Offices Address [address] [place] [address] Care Team Providers Care Dining Room Cashier Name Role Phone Luiz Matta MD Primary Care Provider [phone] Allergies No known active allergies Social History [...] age to complete this topic Care Teams Dining Room Cashier Relationship Specialty [place] [address] [place] [address] PCP - General Family Practice 12/01/20
--- OUTSIDE RECORDS SUMMARY | 2024-08-28 03:21 | XMS_ITS | Encounter Summary ---
Author Organization [facility] Address [address] [place] [address]. [place], [place] [address] [place] [id number] Care Team Providers Care Resident Advisor Name Role Phone Jann Saucedo MD Unavailable [phone] Luiz Matta MD Primary Care Provider [phone] Reason for Visit * Reason Comments Image (SCAN) Encounter Details Date Type Department Care Team (Latest Contact Info) Description 08/21/2024 Scan HEALTH INFO [facility] Scanned, Doc Med Group Image (SCAN) Social History Tobacco Use Types Packs/Day Years Used Date Smoking Tobacco: Former Cigarettes 1 10 1 990 - 1999 Passive Smoke Exposure: Never Smokeless Tobacco: Former Chew Quit: 09/26/2020 Comments:Light user Alcohol Use Standard Drinks/Week Comments Yes 0 (1 standard drink = 0.6 oz pur e alcohol) a couple week [facility] Utilities Answer Date Recorded In the past 12 months has [employer], gas, oil, or water [employer] threatened to shut off services in your [...] any time in the past 12 m [facility], were you homeless or living in a prison (including now)? 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 Answer Date of Assessment Author Status No 07/25/2024 2:43 PM Fariba Davis Nurse Campaign Developer II Active * Do you have serious difficulty walking or climbing stairs? Answer Date of Assessment Author Status No 07/25/2024 2:43 PM Fariba Davis Nurse Campaign Developer II Active * Do you have difficulty dressing or bathing? Answer Date of Assessment Author Status No 07/25/2024 2:43 PM Fariba Davis Nurse Campaign Developer II Active * Because of a physical, [...] No 07/25/2024 2:43 PM Fariba Davis Nurse Campaign Developer II Active documented in this encounter Plan [...] Priority Date/Time Associated Diagnosis Comments IMAGE GENERIC 08/21/2024 documented in this encounter Results * IMAGE GENERIC (08/21/2024) Anatomical Region Laterality Modality Other 08/21/2024 us Doc Med Group Scanned SCANNING Final Resu lt documented in this encounter Visit Diagnoses Not on filedocumented in this encounter Additional Health Concerns Assessment Noted Time PHQ-9 Depression Total Score: 0 09/13/19 22 8:30 AM ARCHEOLOGY PROFESSOR documented as of this encounter Care Teams Resident Advisor Relationship Specialty [place] [address] [place] [address] PCP - General FAMILY PRACTICE 09/13/21 Jann Saucedo MD [facility]. [facility] [address] [place] [address] [employer] Chemist INTERVENTIONAL CARDIOLOGY 02/26/18 documented as of this encounter
--- OUTSIDE RECORDS SUMMARY | 2024-08-28 03:21 | XMS_ITS | Encounter Summary ---
Author Organization [facility] Address [address] [place] [address]. [place] [address] [place] [address] Care Team Providers Care Firer [employer]ost [employer] Name Role Phone Mckay Bradley MD Primary Care Provider [phone] Jann Saucedo MD Unavailable [phone] Luiz Matta MD Primary Care Provider [phone] Luiz Matta MD Primary Care Provider [phone] Encounter Details Date Type Department Care Team (Late st Contact Info) Description 02/26/2018 Abstract [facility] CONVERSION [address] [place] [address] , Carrie Hamlin MD Social [...] COVID-19 Rule Out 08/10/2020 08/10/202008/10/2020 4:35 PM NURSING HOME ASSISTANT COVID-19 Rule Out 03/29/2021 03/29/2021 03/29/2021 3:32 PM CDT COVID-19 Rule Out 03/29/2021 03/29/2021 03/31/2021 4:30 AM CDT COVID-19 Rule Out 04/09/2023 04/09/2023 04/09/2023 8:30 AM CDT COVID-19 Confirmed 04/09/2023 04/09/2023 12:32 AM CDT documented as of this encounter Care Teams Firer [employer] Relationship Specialty Start Date End Date Mckay Bradley MD PCP - General INTERNAL MEDICINE 02/20/18 02/24/20 [place] [address] [place] [address] PCP - General FAMILY PRACTICE 02/25/20 09/12/21 [place] [address] [place] [address] PCP - General FAMILY PRACTICE 09/13/21 Jann Saucedo MD [facility]. [facility] [address] [place] [address] [employer] Retailer INTERVENTIONAL CARDIOLOGY 02/26/18 documented as of this encounter
--- OUTSIDE RECORDS SUMMARY | 2024-08-28 03:21 | XMS_ITS | Encounter Summary ---
Author Organization [facility] Address [address] [place] [address]. [place] [address] [place] [address] Care Team Providers Care Data Security Consultant Name Role Phone Mckay Bradley MD Primary Care Provider [phone] Jann Saucedo MD Unavailable [phone] Luiz Matta MD Primary Care Provider [phone] Luiz Matta MD Primary Care Provider [phone] Encounter Details Date Type Department Care Team (Late st Contact Info) Description 02/20/2018 Abstract [facility] CONVERSION [address] [place] [address] , Carrie Hamlin MD Social [...] COVID-19 Rule Out 08/10/2020 08/10/202008/10/2020 4:35 PM DITCHING MACHINE OPERATING ENGINEER COVID-19 Rule Out 03/29/2021 03/29/2021 03/29/2021 3:32 PM CDT COVID-19 Rule Out 03/29/2021 03/29/2021 03/31/2021 4:30 AM CDT COVID-19 Rule Out 04/09/2023 04/09/2023 04/09/2023 8:30 AM CDT COVID-19 Confirmed 04/09/2023 04/09/2023 12:32 AM CDT documented as of this encounter Care Teams Data Security Consultant Relationship Specialty Start Date End Date Mckay Bradley MD PCP - General INTERNAL MEDICINE 02/20/18 02/24/20 [place] [address] [place] [address] PCP - General FAMILY PRACTICE 02/25/20 09/12/21 [place] [address] [place] [address] PCP - General FAMILY PRACTICE 09/13/21 Jann Saucedo MD [facility]. [facility] [address] [place] [address] [employer] Vendor INTERVENTIONAL CARDIOLOGY 02/26/18 documented as of this encounter
--- OUTSIDE RECORDS SUMMARY | 2024-08-28 03:21 | XMS_ITS | Clinical Summary ---
Author Organization [facility] Address [address] [place] [address] Care Team Providers Care Silver Steward Name Role Phone Luiz Matta MD Primary Care Provider Unknown, Provider Unavailable Unavailable Source Comments [facility],non-owned Affiliates and Associated Physician Practices is amultiple site organization consisting of ambulatory clinics and hospital sitesin [place], [place], [place] and [place]. This disclosure is being madepursuant to the Care Everywhere program and may not contain all information available regarding this patient. Last updated 18.[facility] Allergies No known active allergies Medications * [...] needed 05/24/2021 Active ergocalciferol (DRISDOL) 1.25 MG (17161 UT) capsule Take 1 (one) capsule by [...] 37 ??C (98.6 ??F) 07/18/2022 1:37 PM [employer] SYSTEMS REPAIRER Respiratory Rate 18 09/29/2020 3:58 PM AVION[employer] SYSTEMS REPAIRER Oxygen Saturation 96% 09/29/2020 3:58 PM [employer]ION[employer] SYSTEMS REPAIRER Inhaled Oxygen Concentration - - Weight 98 [...] PANEL (CALCIUM TOTAL) Routine 09/29/2020 2:03 AM [employer] SYSTEMS REPAIRER Blunt trauma of neck, initial encounter from Last 3 Months or Most Recently Relevant to Health Maintenance Results * (ABNORMAL) BASIC METABOLIC PANEL (CALCIUM TOTAL) (09/29/2020 2:03 AM [employer]ION[employer] SYSTEMS REPAIRER) BUN 20 7 - 26 mg/dL 09/29/2020 3:06 AM [facility] Creatinine 0.7 0.6 - 1.2 mg/dL 09/29/2020 3:06 AM [facility] Sodium 139 136 - 145 mmol/L 09/29/2020 3:06 AM [facility] Potassium 3.4(L) 3.5 - 4.5 mmol/L 09/29/2020 3:06 AM [facility] Chloride 105 98 - 107 mmol/L 09/29/2020 3:06 AM [facility] CO2 25 22 - 29 mmol/L 09/29/2020 3:06 AM [facility] Glucose 107 70 - 115 mg/dL 09/29/2020 3:06 AM [facility] Calcium 8.1(L) 8.4 - 10.2 mg/dL 09/29/2020 3:06 AM [facility] Anion Gap 12 8 - 18 09/29/2020 3:06 AM [facility] BUN/Creatinine Ratio 29(H) 7 - 23 09/29/2020 3:06 AM [facility] Osmolality Calculated 291 270 - 300 mOsm/kg 09/29/2020 3:06 AM [facility] eGFR >60 >60 mL/min/1.7 3 m2 09/29/2020 3:06 AM [facility] Blood BLOOD SPECIMEN / Unknown Lab Venipuncture / Unknown 09/29/2020 2:03 AM [employer] SYSTEMS REPAIRER 09/29/2020 2:35 AM [facility] Manny Wall MD LAB - CHEMISTRY OR DERABLES [facility] [address] [place] [address] [phone] from Last 3 Months or Most Recently Relevant to Health Maintenance Advance Directives * Full Code (Latest Code Status on File) Date Activated Date Inactivated Comments 09/28/2020 5:29 PM 09/29/2020 6:59 PM Care Teams Silver Steward Relationship Specialty [place] [address] [place] [address] PCP - General Family Medicine 09/28/20 Unknown, Provider [address] [place] [address] 09/28/20
--- OUTSIDE RECORDS SUMMARY | 2024-08-28 03:21 | XMS_ITS | Continuity of Care Document ---
Author Organization [facility] Address [address] [place] [address]. [place] [address] [place] [address] Care Team Providers Care Promotion Specialist Name Role Phone Fran Newby MD Unavailable [phone] Luiz Matta MD Primary Care Provider [phone] Encounters Date Type Department Care Team Description 08/21/2024 Scan [facility] SRVCS Scanned, Doc [facility] Image (SCAN) 08/13/2024 Scan [facility] INFO SRVCS Scanned, [facility] Image (SCAN) 07/31/2024 Scan [facility] INFO SRVCS Scanned, Doc [facility] Image (SCAN) 07/25/2024 2:12 PM PROGRAM SERVICES ASSISTANT - 07/27/2024 8:33 AM PROGRAM SERVICES ASSISTANT Hospital Encounter [facility] [address]rd [place] [address] Tod Cifuentes MD Discharge Disposition: Home or Self Care (Routine Discharge) 07/26/2024 6:19 PM PROGRAM SERVICES ASSISTANT Anesthesia Event [facility] [place] [address] Dony Reyna MD 07/26/2024 6:18 PM PROGRAM SERVICES ASSISTANT - 07/26/2024 7:14 PM PROGRAM SERVICES ASSISTANT [place] [address] Bob Elmore MD CYSTOSCOPY; LEFT URETERAL STENT PLACMENT, LEFT RETROGRADE PYLEOGRAM 07/25/2024 Travel 07/25/2024 7:51 AM PROGRAM SERVICES ASSISTANT - 07/25/2024 1:31 PM PROGRAM SERVICES ASSISTANT Emergency [facility] Emergency Room [address] [place] [address] Issac Boston MD Flank Pain Discharge Disposition: Transfer to Acute [facility] 06/08/2024 Scan [facility] INFO SRVCS Scanned, Doc [facility] Group 03/31/2024 Travel 03/31/2024 Telephone [facility] Family & Internal [facility] [address] [place] [address] Luiz Matta MD Appointment Request 03/31/2024 2:00 PM CDT Office Visit [facility] Family & Internal [facility] [address] [place] [address] Luiz Matta MD Follow Up (F/u from work comp. Due to pain in both arms & neck. ) 03/17/2024 Scan [facility] INFO SRVCS Scanned, Doc [facility] 02/06/2024 Travel 02/06/2024 3:20 PM CDT Office Visit [address] [address] Cami Garnett APRN Diverticulitis (Flare up, started Saturday. ) 02/06/[address] [address] Luiz Matta MD Error 11/26/2023 Travel 11/26/2023 7:00 AM CDT - 11/26/2023 11:59 PM CDT Hospital Encounter [facility] MRI [address] [place] [address] Luiz Matta MD Discharge Disposition: Home or Self Care (Routine Discharge) 11/11/[address] [address] Luiz Matta MD Referral 11/05/2023 Orders Only [facility] Family & Internal [address] [address] Luiz Matta MD 11/04/[address] [address] Luiz Matta MD Results (MRI) 11/01/2023 Travel 11/01/2023 2:25 PM CDT - 11/01/2023 11:59 PM CDT Hospital Encounter [facility] [address] [place] [address] Luiz Matta MD Discharge Disposition: Home or Self Care (Routine Discharge) 10/17/2023 Telephone [facility] Family & Internal [address] [address] Luiz Matta MD Orders 09/27/[address] [address] Luiz Matta MD Error 09/25/2023 Orders Only [facility] [address] [place] [address] Luiz Matta MD 09/25/2023 4:10 PM PROGRAM SERVICES ASSISTANT - 09/25/2023 11:59 PM PROGRAM SERVICES ASSISTANT Hospital Encounter [facility] [address] [place] [address] Luiz Matta MD Discharge Disposition: Home or Self Care (Routine Discharge) 09/25/2023 Travel 09/25/2023 3:40 PM PROGRAM SERVICES ASSISTANT Office Visit [address] [address] Luiz Matta MD Back Pain 09/13/[address] [address] Luiz Matta MD Lab Results 09/12/[address] [facility] [address] [place] [address] Luiz Matta MD 09/12/2023 Travel 09/12/2023 2:05 PM PROGRAM SERVICES ASSISTANT - 09/12/2023 11:59 PM PROGRAM SERVICES ASSISTANT Hospital Encounter [facility] [address] [place] [address] Luiz Matta MD Discharge Disposition: Home or Self Care (Routine Discharge) 09/12/[address] [address] Luiz Matta MD Lab Order 09/11/2023 Travel 09/11/2023 8:00 AM PROGRAM SERVICES ASSISTANT Office Visit [address] [address] Olga Gaines NP Back Pain (Lower left back pain. Xs 1 month) 04/09/2023 Travel 04/09/2023 7:20 AM CDT Office Visit [facility] Family & Internal [address] [address] Rena Perkins APRN URI (Headache congestion, sore throat, cough, body aches x 3 days) 01/16/[address] [address] Luiz Matta MD Medication Request 01/16/2023 Telephone [facility] Family & Internal Medicine [facility] [address] [place] [phone] Luiz Matta MD Sinus Problem 01/01/2023 Travel 01/01/2023 2:40 PM CDT Office Visit [facility] Family & Internal Medicine [address] [address] Rena Perkins APRN Cough (Itchy eyes, was outside Saturday and sx's started. Hx of bad allergies. ) 10/12/2022 Travel 10/12/2022 9:00 AM CDT - 10/12/2022 11:59 PM CDT Hospital Encounter [facility] [address] [place] [address] Manny Chung MD Meyer, Beverly L, PT Cervical Pain Discharge Disposition: Home or Self Care (Routine Discharge) 10/10/2022 Travel 10/10/2022 12:37 PM CDT - 10/10/2022 11:59 PM CDT Hospital Encounter [facility] [address] [place] [address] Manny Chung MD Meyer, Beverly L, PT Cervical Pain Discharge Disposition: Home or Self Care (Routine Discharge) 10/08/2022 Travel 10/08/2022 1:40 PM CDT - 10/08/2022 11:59 PM CDT Hospital Encounter [facility] [address] [place] [address] Manny Chung MD Rittenhouse, Tiffany J, FINANCE INTERN Neck Pain Discharge Disposition: Home or Self Care (Routine Discharge) 10/05/2022 Travel 10/05/2022 9:07 AM PROGRAM SERVICES ASSISTANT - 10/05/2022 11:59 PM PROGRAM SERVICES ASSISTANT Hospital Encounter [facility] [address] [place] [address] Manny Chung MD Rittenhouse, Tiffany J, FINANCE INTERN Neck Pain Discharge Disposition: Home or Self Care (Routine Discharge) 10/03/2022 Travel 10/03/2022 1:44 PM PROGRAM SERVICES ASSISTANT - 10/03/2022 11:59 PM PROGRAM SERVICES ASSISTANT Hospital Encounter [facility] [address] [place] [address] Manny Chung MD Rittenhouse, Tiffany J, FINANCE INTERN Neck Pain Discharge Disposition: Home or Self Care (Routine Discharge) 10/01/2022 Travel 10/01/2022 8:34 AM PROGRAM SERVICES ASSISTANT - 10/01/2022 11:59 PM PROGRAM SERVICES ASSISTANT Hospital Encounter [facility] [address] [place] [address] Manny Chung MD Meyer, Beverly L, PT Neck Pain Discharge Disposition: Home or Self Care (Routine Discharge) 09/21/2022 Travel 09/21/2022 8:00 AM PROGRAM SERVICES ASSISTANT - 09/21/2022 8:51 AM PROGRAM SERVICES ASSISTANT Surgery [facility] [address] [place] [address] Shatn Whitehead MD Colonoscopy 09/21/2022 8:29 AM PROGRAM SERVICES ASSISTANT Anesthesia Event [facility] [address] [place] [address] Sylvester Yadav CRNA Hitt, Tracy A, CRNA 09/21/2022 7:24 AM PROGRAM SERVICES ASSISTANT - 09/21/2022 9:40 AM PROGRAM SERVICES ASSISTANT Hospital Encounter [facility] [address] [place] [address] Shant Whitehead MD Discharge Disposition: Home or Self Care (Routine Discharge) 09/14/2022 Orders Only [facility] General Surgery [address], [address] [address] Shant Whitehead MD 09/14/2022 Telephone [facility] [address] [place] [address] Shant Whitehead MD Medication 08/29/2022 Travel 08/29/2022 7:40 AM PROGRAM SERVICES ASSISTANT Office Visit [facility] Family & Internal Medicine [address] [address] Eloise Macias, HOT STICK MAN Abdominal Pain (Pt states he is having Diverticulitis flare) 08/10/2022 Orders Only [facility] General Surgery [address], [address] [place] [phone] Shant Whitehead MD 08/10/2022 Prep for Procedure [facility] [address] [place] [phone] Shant Whitehead MD 08/08/2022 Travel 08/08/2022 3:40 PM PROGRAM SERVICES ASSISTANT Office Visit [facility] General Surgery [address], [address] [place] [address] hSant Whitehead MD Consult (Abdominal pain( new patient)) 07/26/2022 Travel 07/26/2022 1:40 PM PROGRAM SERVICES ASSISTANT Office Visit [facility] Family & Internal Medicine [address] [address] Luiz Matta MD URI/ENT Symptoms (Going into the chest. /Chest pressure. ); Ear Problem; Cough (Started July 21. /Uses OTC medication.) 07/18/2022 Scan [employer] [facility] SRVCS Scanned, Doc Med Group 07/13/2022 Travel 07/13/2022 3:41 PM PROGRAM SERVICES ASSISTANT - 07/13/2022 6:11 PM PROGRAM SERVICES ASSISTANT Emergency [facility] Emergency Room [address] [place] [address] Milagro Aponte, DIABETES MANAGER-BC Leg Pain Discharge Disposition: Home or Self Care (Routine Discharge) 05/17/2022 Travel 05/17/2022 1:00 PM CDT Office Visit [facility] Family & Internal Medicine [address] [phone] Luiz Matta MD Diverticulitis; TCM (05/08/22 - 05/10/22. ER gave his antibiotics, Ivs and a liquid diet. ) 05/14/2022 Telephone [facility] Family & Internal Medicine [address] [phone] Luiz Matta MD TCM 05/11/2022 Telephone [facility] Med/Surg [id number] [place] [address] Pippa Manrique, RN Follow Up Call 05/08/2022 11:42 PM CDT - 05/10/2022 3:10 PM CDT Emergency [facility] Med/Surg [address] [place] [address] Valdez Roberson MD Harris, Michael, MD Malcolm, Ashley Helen, MD Abdominal Pain Discharge Disposition: Home or Self Care (Routine Discharge) 05/08/2022 Travel 03/14/2022 Travel 03/14/2022 7:00 AM CDT Office Visit [facility] Family Internal [address] [address] Mariola Taylor, HOT STICK MAN Follow Up (6 month f/u, was low on vit D. Pt states he took pills for a little while, they made him not feel the best. ) 02/02/2022 Travel 02/02/2022 9:20 AM CDT Office Visit [address] [address] Eloise Macias, FRANCES Abdominal Pain (Pt c/o right side lower abdominal pain that radiates to back. Pt states the pain is constant with a burning sensation when touched) 12/19/2021 Travel 12/19/2021 2:40 PM CDT Office Visit [address] [address] Luiz Matta MD Constipation (Diverticulitis acting up.); GERD (Wants to start his medication again) 09/25/2021 Orders Only [facility] [address] [place] [address] Irma Diehl PA 09/13/2021 Travel 09/13/2021 7:00 AM PROGRAM SERVICES ASSISTANT Office Visit [facility] Internal [address] [address] Mariola Taylor, HOT STICK MAN Sinus Problem (Having Sinus problems for 3 weeks, making him dizzy, in his chest, pressure in his ears) 08/29/2021 Travel 08/29/2021 3:20 PM PROGRAM SERVICES ASSISTANT Office Visit [facility] Family & Internal [facility] [address] [place] [address] Luiz Matta MD Work Comp (fractured thyroid cartlage, bulging disc c6 & c7, Injury September 28 2020) 08/18/2021 Open Source Storage Message Enc [facility] Internal [facility] [address] [place] [phone] Julio [facility] Provider Work Comp Information 08/17/[address] [address] Luiz Matta MD Other 08/03/2021 Scan [facility] INFO SRVCS Scanned, Documents 07/20/2021 Scan [facility] INFO SRVCS Scanned, Documents 07/04/2021 Travel 07/04/2021 4:00 PM PROGRAM SERVICES ASSISTANT Office Visit [facility] Family Internal [address] [address] Luiz Matta MD Follow Up (Follow up to discuss pain management) 06/26/2021 Telephone [facility] Interventional [place] [address] [id number] Nick Gabriel RN Follow Up Call 06/12/2021 Travel 06/12/2021 3:20 PM PROGRAM SERVICES ASSISTANT - 06/12/2021 3:40 PM PROGRAM SERVICES ASSISTANT Surgery [facility] Interventional [place] [address] [id number] Jeri Callahan MD INJECTION TRIGGER POINT Cervical paraspinous, trapezius, deltoid 06/12/2021 2:26 PM PROGRAM SERVICES ASSISTANT - 06/12/2021 3:50 PM PROGRAM SERVICES ASSISTANT Hospital Encounter [facility] Interventional [place] [address] [id number] Jeri Callahan MD Discharge Disposition: Home or Self Care (Routine Discharge) 06/01/2021 Telephone [facility] [place] [address] [id number] Flaquita Madsen, RN Follow Up Call 06/01/2021 Telephone [facility] Medical Group Family & Internal Medicine [address] [phone] Luiz Matta MD Referral Request 05/29/2021 Prep for Procedure [facility] [place] [address] [id number] Alta Oropeza APNP 05/29/2021 Travel 05/29/2021 9:02 AM CDT - 05/29/2021 11:59 PM CDT Hospital Encounter [facility] Interventional [place] [address] [id number] Alta Oropeza APNP Discharge Disposition: Home or Self Care (Routine Discharge) 05/15/2021 Scan My[employer] INFO SRVCS Scanned, Documents 05/15/[address] [address] Luiz Matta MD Error 05/09/2021 Orders Only [address] [address] Luiz Matta MD 05/02/[address] [address] Luiz Matta MD Referral; Returned Call 05/02/2021 Travel 05/02/2021 10:20 AM CDT Office Visit [address] [address] Luiz Matta MD Referral Request (ent, tonsils) 03/29/2021 2:40 PM CDT Office Visit [facility] Family & Internal Medicine [facility] [address] [place] [phone] Maksim Bone MD URI 03/28/2021 Travel 03/28/2021 3:10 PM CDT Flu/Imm Clinic [address] [address] 03/23/2021 Patient Self-Triage MYCHART DEPARTMENT [address] [place] [address] Mychart, [facility] Provider 03/23/2021 Patient Self-Triage [facility] [address] [place] [address] Mycjtt, [facility] Provider 03/16/2021 Travel 03/16/2021 1:00 PM CDT Office Visit [facility] Family Internal [facility] [address] [place] [phone] Luiz Matta MD Follow Up (pt here to discuss results of CT scan); Sore Throat (pt c/o of a sore throat for the last few days) 03/14/2021 Telephone [facility] Family & Internal [facility] [address] [place] [address] Luiz Matta MD Results 03/13/2021 Telephone [facility] [address] [place] [address] Luiz Matta MD Question 03/13/2021 Travel 03/13/2021 9:58 AM CDT - 03/13/2021 11:59 PM CDT [place] [address] [place] [address] Luiz Matta MD Discharge Disposition: Home or Self Care (Routine Discharge) 02/23/2021 Travel 02/23/2021 3:00 PM CDT Office Visit [facility] Family & Internal [facility] [address] [place] [phone] Luiz Matta MD Follow Up (review results from ENT at [facility].) 02/23/2021 Telephone [facility] Family & Internal Medicine [address] [phone] Luiz Matta MD Other 01/12/2021 Travel 01/12/2021 1:00 PM CDT Office Visit [facility] Family & Internal [address] [address] Luiz Matta MD Follow Up (workmans comp go over records) 01/11/2021 Scan [facility] INFO SRVCS Scanned, Documents 01/04/2021 Scan [facility] INFO SRVCS Scanned, Documents 01/04/[address] [address] Luiz Matta MD Question 12/23/2020 Scan [facility] INFO SRVCS Scanned, Documents 12/21/2020 Scan [facility] INFO SRVCS Scanned, Documents 12/19/2020 Scan [facility] SRVCS Scanned, Documents Image (SCAN) 12/19/[address] [address] Luiz Matta MD Question 12/04/2020 Scan [facility] INFO SRVCS Scanned, Documents 12/01/2020 Scan [facility] SRVCS Scanned, Documents MRI (SCAN) 11/21/2020 Travel 11/21/2020 7:40 AM CDT Office Visit [facility] Family & Internal Medicine [address] [phone] Qian Ricks FNP-JOSE Follow Up (2 week f/u on R ear- patient c/o dizziness and throbbing in the ear ) 11/14/2020 Scan [facility] INFO SRVCS Scanned, Documents 11/09/2020 Scan [facility] INFO SRVCS Scanned, Documents 11/03/2020 Travel 11/03/2020 10:20 AM CDT Office Visit [address] [address] Sandra Ricksory, DIABETES MANAGER-BC Earache (right ear. onset- 2 days ago); Sinus Problem (onset- 1 mo. spitting up brownish sputum) 09/28/2020 8:54 AM PROGRAM SERVICES ASSISTANT - 09/28/2020 12:01 PM PROGRAM SERVICES ASSISTANT Emergency [facility] [place] [address] Neck Injury Discharge Disposition: Transfer to Acute Care Hospital 08/31/2020 8:40 AM PROGRAM SERVICES ASSISTANT - 08/31/2020 11:59 PM PROGRAM SERVICES ASSISTANT Hospital Encounter [facility] [address] [place] [address] Luiz Matta MD Discharge Disposition: Home or Self Care (Routine Discharge) 08/30/2020 Orders Only [facility] [address] [place] [address] Luiz Matta MD 08/30/2020 3:30 PM PROGRAM SERVICES ASSISTANT - 08/30/2020 11:59 PM PROGRAM SERVICES ASSISTANT Hospital Encounter [facility] [address] [place] [address] Luiz Matta MD Discharge Disposition: Home or Self Care (Routine Discharge) 08/30/2020 Travel 08/30/2020 3:00 PM PROGRAM SERVICES ASSISTANT Office Visit [address] [address] Luiz Matta MD Physical (6 mo. annual wellness physical. ); Lab Order (discuss lab work.) 08/24/2020 Travel 08/24/2020 11:20 AM PROGRAM SERVICES ASSISTANT Laboratory Only [facility] Medical [facility] Family & Internal Medicine [address] [address] 08/24/2020 11:00 AM PROGRAM SERVICES ASSISTANT Telemedicine [facility] Family & Internal Medicine [address] [address] Yvonne Arguelles, APNP Headache (x 3 days ); Gi Problem (diarreha and stomach upset- started this morning (3 bouts this am) ); Sinus Problem (L tonsil hurts for a few days- sinus issue since last visit thinks drainage is upsetting his stomach (requesting steroid shot) ) 08/12/2020 Orders Only [facility] Family & Internal [address] [address] Yvonne Arguelles, ROLANDA 08/10/2020 3:40 PM PROGRAM SERVICES ASSISTANT Telemedicine [facility] Family & Internal [address] [address] Yvonne Arguelles, ROLANDA Suspected Coronavirus (Covid-19) (headache started today and nausea, runny nose- has tried a benjamín pot today, fatigue ) 08/09/2020 Travel 08/09/2020 4:30 PM PROGRAM SERVICES ASSISTANT - 08/09/2020 11:59 PM PROGRAM SERVICES ASSISTANT Hospital Encounter [facility] [address] [place] [address] Luiz Matta MD Meyer, Beverly L, PT Cervical Pain Discharge Disposition: Home or Self Care (Routine Discharge) 08/04/2020 Travel 08/04/2020 4:50 PM PROGRAM SERVICES ASSISTANT - 08/04/2020 11:59 PM PROGRAM SERVICES ASSISTANT Hospital Encounter [facility] [address] [place] [address] Vanessa Medrano, PT Luiz Matta MD Neck Pain Discharge Disposition: Home or Self Care (Routine Discharge) 08/01/2020 Travel 08/01/2020 3:36 PM PROGRAM SERVICES ASSISTANT - 08/01/2020 11:59 PM PROGRAM SERVICES ASSISTANT Hospital Encounter [facility] [address] [place] [address] Luiz Matta MD Meyer, Beverly L, PT Cervical Pain Discharge Disposition: Home or Self Care (Routine Discharge) 07/19/2020 Travel 07/19/2020 3:40 PM PROGRAM SERVICES ASSISTANT Office Visit [facility] Family & Internal [address] [phone] Nohelia Dupree, DIABETES MANAGER Luiz Matta MD Shoulder Pain (right shoulder pain. . back side of arm gets numb and then moves down to the fingers. ) 07/18/2020 [place] [address] Luiz Matta MD Referral 06/21/2020 Travel 06/21/2020 4:20 PM PROGRAM SERVICES ASSISTANT Office Visit [facility] Medical Group Family & Internal Medicine [facility] [address] [place] [phone] Yvonne Arguelles, ROLANDA Back Pain (sciatic pain L side of back into leg x 2 weeks) 05/18/2020 [place] [address] Luiz Matta MD Results 05/18/2020 Travel 05/18/2020 10:43 AM CDT - 05/18/2020 11:59 PM CDT Hospital Encounter [facility] [address] [place] [address] Luiz Matta MD Discharge Disposition: Home or Self Care (Routine Discharge) 05/17/[address] [address] Luiz Matta MD Information 05/16/2020 Orders Only [facility] [address] [place] [address] Luiz Matta MD 05/16/2020 12:07 PM CDT - 05/16/2020 11:59 PM CDT Hospital Encounter [facility] [address] [place] [address] Luiz Matta MD Discharge Disposition: Home or Self Care (Routine Discharge) 05/16/2020 Travel 05/16/2020 11:20 AM CDT Office Visit [address] [address] Luiz Matta MD Back Pain (above shoulder); Chest Pain (wraps around to lt side); Mass (lt side of chest and on neck); Rash (lt thigh) 04/05/2020 Travel 04/05/2020 3:20 PM CDT Office Visit [facility] Family & Internal Medicine [address] [address] Luiz Matta MD Diverticulitis (Flare up); Knee Pain (left for 3 weeks.) 04/01/2020 Scan [facility] INFO SRVCS Scanned, Documents 03/04/[address] [address] Luiz Matta MD Other 03/03/2020 Travel 03/03/2020 3:00 PM CDT Telemedicine [facility] Family & Internal [address] [phone] Luiz Matta MD Sinus Problem (yellow drainage, sneezing, slight sore throat,x 3days no fever) 02/25/[address] [phone] Luiz Matta MD Medication 02/25/2020 Travel 02/25/2020 3:00 PM CDT Office Visit [facility] Family & Internal [address] [address] Luiz Matta MD New Patient (New Patient, Needing General [...] - 03/18/2019 11:59 PM CDT Hospital [place] [address] [place] [address] Mckay Bradley MD Discharge Disposition: Home or Self Care (Routine Discharge) 03/12/2019 Scan [facility] INFO SRVCS Scanned, Documents Image (SCAN) 03/11/2019 Scan [facility] INFO SRVCS Scanned, Documents 12/01/2018 Scan [facility] INFO SRVCS Scanned, Documents Image (SCAN) 11/15/2018 Scan [facility] INFO SRVCS Scanned, Documents Lab (SCAN) 11/13/2018 Scan [facility] INFO SRVCS Scanned, Documents Image (SCAN) 07/01/2018 Abstract [facility] Conversion Favian Rand MD 03/11/[address] [facility] [place] [address] Kori Gonzalez NP Results 03/10/2018 Orders Only [facility] [address] [address] Fran Newby MD 03/10/2018 Telephone [facility] at [facility], [address] [address] Eliza Garnett, [place] Results 03/08/2018 Abstract [facility] [address] [place] [address] Fran Newby MD 03/05/2018 Scan [facility], [address] [address] Scanned, Documents 03/03/2018 Orders Only [facility], [address] [address] Fran Newby MD 02/28/2018 10:45 AM CDT Office Visit [facility] [place] [address] [place] [address] Fran Newby MD Consult (chest pain) 02/26/2018 Abstract [facility] [id number] [place] [address] , Generic ConversionMD 02/20/2018 Scan [facility] INFO SRVCS Scanned, Documents Lab (SCAN) 02/20/2018 Scan [facility] INFO SRVCS Scanned, Documents ECG (SCAN) 02/20/2018 Abstract [facility] [id number] [place] [address] , Generic ConversionMD 02/20/2018 Orders Only [facility] at [facility], [address] [address] Mckay Bradley MD 12/26/2017 Abstract [facility] Emergency Room [address] [place] [address] Manny Cotter MD 12/17/2017 Scan HEALTH INFO SRVCS Scanned, Documents 2017 Abstract [facility] Diagnostic Imaging [address] [place] [address] Luis Arteaga MD 10/22/2017 Scan HEALTH INFO SRVCS Scanned, Documents Image (SCAN) 09/04/2017 Abstract [facility] Imaging [address] [place] [address] Fredy Duff MD 08/27/2017 Scan HEALTH INFO SRVCS Scanned, Documents 06/01/2017 [place] [address] , Generic ConversionMD 04/05/2017 Scan HEALTH INFO SRVCS Scanned, Documents Image (SCAN) 03/23/2017 Scan HEALTH INFO SRVCS Scanned, Documents 06/13/2016 Scan HEALTH INFO SRVCS Scanned, Documents 03/19/2016 Abstract [facility] , Generic ConversionMD 03/18/2016 Abstract [facility] Prime Care [address] [facility] [address] Adriana Quinteros APRN 03/16/2016 Abstract [facility] One Day Services [address] [place] [address] Fredy Duff MD 03/16/2016 Abstract [facility] Fredy Duff MD 01/03/2016 Scan HEALTH INFO SRVCS Scanned, Documents 12/13/2015 Abstract [facility] Emergency Room [address] [place] [address] Howard Bryan MD 10/30/2015 Abstract [facility] Care [address] [place] [address] 07/28/2015 Scan HEALTH INFO SRVCS Scanned, Documents 01/07/2015 Abstract [facility] Diagnostic Imaging [address] [place] [address] Fredy Duff MD 01/07/2015 Abstract [facility] [address] [place] [address] Fredy Duff MD 10/22/2014 Abstract [facility] [address] [place] [address] Fredy Duff MD 10/08/2014 Abstract [facility] [address] [place] [address] Fredy Duff MD 08/19/2014 Scan HEALTH INFO SRVCS Scanned, Documents 07/25/2014 Abstract [facility] [address] [place] [address] Adriana Quinteros APRN 10/07/2013 Abstract [facility] [address] [place] [address] Emma Solis, DIABETES MANAGER 09/15/2012 Abstract [facility] Brant Decker DO 08/13/2012 Abstract [facility] 08/11/2012 Abstract [facility] Laboratory [address] [place] [address] Riaz Abreu MD 08/11/2012 Abstract [facility] Riaz Abreu MD 05/07/2012 Abstract [facility] Ronald Rogers MD 09/06/2008 Abstract [facility] Emergency Room [address] [facility] [place] [address] 03/12/2005 Abstract [facility] Conversion Favian Rand MD 03/07/2005 Abstract [facility] [address] [facility] [place] [address] Favian Rand MD 03/07/2005 Abstract [facility] Conversion Md Generic ConversionMD 11/29/2004 Abstract [facility] Conversion Md Generic ConversionMD 11/21/2004 Abstract [facility] [address] [facility] [place] [address] Favian Rand MD 11/21/2004 Abstract [facility] Conversion Favian Rand MD 11/21/2004 Abstract [facility] Conversion Md Generic ConversionMD 01/25/2003 Abstract [facility] [place] [address] 01/25/2003 [place] [address] 01/21/2002 Emergency [facility] [place] [address] Carrie Orosco MD 12/05/2001 Abstract [facility] [place] [address] Allergies No known active allergies Medications fluticasone [...] Patient Refused) MMR 03/27/1990,10/28/1981 MMR (Generic) 03/27/1990,10/28/1981 Vybfhwb-Oyryc-Zwlqktb-Varicell Sc Inj 03/27/1990 ,10/28/1981 Opv 03/21/1985, 4,09/06/1981,1979 PFIZER COVID-19 (ORIGINAL FORMULATION, PURPLE CAP) mRNA, LNP-S, PF, 30 MCG/0.3 ML DOSE 03/28/2021,10/17/2020,09/18/2020 Td 02/26/1994 Td (Tenivac) preservative free 02/26/1994 Tdap (Adacel) 09/13/2021 Family History Medical History Relation Comments Hypertension Father No Known Problems Mother no hx of CAD Other Relation Status Comments Father Alive Mother Alive Other Social History Smoking Status as of 08/28/2024 Tobacco Use Types Packs/Day Years Used Date Smoking Tobacco: Never Assessed [facility] Utilities Answer Date Recorded In the past 12 months has th e [employer], gas, oil, or water [employer] threatened to shut off services in your [...] any time in the past 12 m [facility], were you homeless or living in a mcfp (including now)? No 07/25/2024 Education Answer Date [...] Comments Blood Pressure 159/89 07/27/2024 7:41 AM PROGRAM SERVICES ASSISTANT Pulse 83 07/27/2024 7:41 AM PROGRAM SERVICES ASSISTANT Temperature 36.7 ??C (98.1 ??F) 07/27/2024 7:41 AM CS T Respiratory Rate 21 07/27/2024 7:41 AM PROGRAM SERVICES ASSISTANT Oxygen Saturation 98% 07/27/2024 7:41 AM PROGRAM SERVICES ASSISTANT Inhaled Oxygen Concentration - - Weight 102.1 kg (225 lb) 07/25/2024 3:26 PM PROGRAM SERVICES ASSISTANT Height 185.4 cm (6' 1 ) 07/25/2024 3:26 PM PROGRAM SERVICES ASSISTANT Body Mass Index 29.69 07/25/2024 3:26 PM PROGRAM SERVICES ASSISTANT Plan of Treatment Not on file Medical Devices Implanted Type Area Delivery Tech Device Identifier Shelf Expiration Date Model / Serial / Lot Stent Ureteral Contour Vl 4.8fr X 22-30cm - [id number] Implanted:Qty : 1 on 07/26/2024 by Bob Elomre MD at [facility] Stent Left: Ureter Pulse.io ELISA [id number] 03/19/2027 [id number] / / [id number] Procedures Procedure Name Priority Date/Time Associated Diagnosis Comments IMAGE GENERIC 08/21/2024 IMAGE GENERIC 08/13/2024 IMAGE GENERIC 07/31/2024 BASIC METABOLIC PANEL Routine 07/27/2024 5:00 AM PROGRAM SERVICES ASSISTANT CBC W/DIFF AUTOMATED Routine 07/27/2024 5:00 AM PROGRAM SERVICES ASSISTANT XR ABD KUB Today 07/26/2024 7:25 PM PROGRAM SERVICES ASSISTANT SURG XR RETROGRD UROGRAPHY Routine 07/26/2024 6:45 PM PROGRAM SERVICES ASSISTANT CYSTOSCOPY STENT INSERTION/REMOVAL/PRAVEEN NGE 07/26/2024 6:18 PM PROGRAM SERVICES ASSISTANT Urinary tract obstruction by kidney stone PROTHROMBIN TIME, VENOUS Routine 07/26/2024 6:20 AM PROGRAM SERVICES ASSISTANT HEMOGLOBIN, GLYCOSYLATED Routine 07/26/2024 5:18 AM PROGRAM SERVICES ASSISTANT BASIC METABOLIC PANEL Routine 07/26/2024 5:18 AM PROGRAM SERVICES ASSISTANT CBC W/DIFF AUTOMATED Routine 07/26/2024 5:18 AM PROGRAM SERVICES [address] CT ABD+PEL KIDNEY STONE STAT 07/25/2024 8:45 AM PROGRAM SERVICES ASSISTANT URINALYSIS, AUTO, COMPLETE STAT 07/25/2024 8:13 AM PROGRAM SERVICES ASSISTANT COMPREHENSIVE METABOLIC PANEL STAT 07/25/2024 8:10 AM PROGRAM SERVICES ASSISTANT CBC W/DIFF AUTOMATED STAT 07/25/2024 8:10 AM PROGRAM SERVICES ASSISTANT MRI ABD WWO CON Routine 11/26/2023 8:19 AM CDT Renal mass MRI LUMB SPINE WO CON DEE 11/01/2023 3:05 PM CDT Lumbar radiculopathy COMPREHENSIVE METABOLIC PANEL Routine 09/25/2023 4:30 PM PROGRAM SERVICES ASSISTANT Routine general medical examination at a health care facility LIPID PANEL Routine 09/25/2023 4:30 PM PROGRAM SERVICES ASSISTANT Routine general medical [facility] at [facility] URINALYSIS WI REFLEX TO CULTURE Routine 09/12/2023 2:13 PM PROGRAM SERVICES ASSISTANT Hematuria URINALYSIS AUTO DIP Routine 09/11/2023 Mid back pain on left side CORONAVIRUS (COVID-19) INFLUENZA A & B ANTIGEN IA PANEL Routine 04/09/2023 Suspected COVID-19 virus infection COLONOSCOPY FLX DX W/COLLJ SPEC WHEN PFRMD 09/21/2022 8:16 AM PROGRAM SERVICES ASSISTANT Diverticulitis COLONOSCOPY Routine 09/21/2022 7:25 AM PROGRAM SERVICES ASSISTANT CBC W/DIFF AUTOMATED Today 08/29/2022 8:24 AM PROGRAM SERVICES ASSISTANT Diverticulitis COLLECTION VENOUS BLOOD VENIPUNCTURE Routine 08/29/2022 8:21 AM PROGRAM SERVICES ASSISTANT Diverticulitis D-DIMER, QUANTITATIVE STAT 07/13/2022 3:53 PM PROGRAM SERVICES ASSISTANT CBC W/DIFF AUTOMATED STAT 07/13/2022 3:53 PM PROGRAM SERVICES ASSISTANT BASIC METABOLIC PANEL Routine 05/10/2022 6:47 AM [...] D, 25 [place] Routine 09/13/2021 8:09 AM PROGRAM SERVICES ASSISTANT Annual physical exam Obesity (BMI 30-39.9) TSH W/REFLEX Routine 09/13/2021 8:09 AM PROGRAM SERVICES ASSISTANT Annual physical exam Obesity (BMI 30-39.9) LIPID PANEL Routine 09/13/2021 8:09 AM PROGRAM SERVICES ASSISTANT Mixed hyperlipidemia COMPREHENSIVE METABOLIC PANEL Routine 09/13/2021 8:09 AM PROGRAM SERVICES ASSISTANT Annual physical exam Obesity (BMI 30-39.9) CBC W/DIFF AUTOMATED Routine 09/13/2021 8:09 AM PROGRAM SERVICES ASSISTANT Annual physical exam Obesity (BMI 30-39.9) COLLECTION VENOUS BLOOD VENIPUNCTURE Routine 09/13/2021 7:44 AM PROGRAM SERVICES ASSISTANT Annual physical exam Obesity (BMI 30-39.9) INJECTION TRIGGER POINT 06/12/2021 3:35 PM PROGRAM SERVICES ASSISTANT myofascial pain CORONAVIRUS (COVID 19) Routine 03/29/2021 [...] HEAD WO CON STAT 09/28/2020 10:[address] SOFT TISSUE NECK W CON STAT 09/28/2020 10:37 AM PROGRAM SERVICES ASSISTANT COMPREHENSIVE METABOLIC PANEL STAT 09/28/2020 9:54 AM PROGRAM SERVICES ASSISTANT CBC W/DIFF AUTOMATED STAT 09/28/2020 9:54 AM PROGRAM SERVICES ASSISTANT ECG 12-LEAD STAT 09/28/2020 9:52 AM PROGRAM SERVICES ASSISTANT OCCULT BLOOD, FECES Routine 08/31/2020 7 :00 AM PROGRAM SERVICES ASSISTANT Anemia, unspecified IRON SAT PANEL (IRON,IBC,%SAT) Routine 08/30/2020 3:44 PM PROGRAM SERVICES ASSISTANT Anemia, unspecified COLLECTION VENOUS BLOOD VENIPUNCTURE Routine 08/24/2020 11:24 AM PROGRAM SERVICES ASSISTANT Mixed hyperlipidemia Low hematocrit Hypokalemia LIPID PANEL Routine 08/24/2020 11:18 AM PROGRAM SERVICES ASSISTANT Mixed hyperlipidemia COMPREHENSIVE METABOLIC PANEL Routine 08/24/2020 11:18 AM PROGRAM SERVICES ASSISTANT Hypokalemia CBC W/DIFF AUTOMATED Routine 08/24/2020 11:18 AM PROGRAM SERVICES ASSISTANT Low hematocrit CORONAVIRUS (COVID 19) Routine 08/10/2020 4:36 PM PROGRAM SERVICES ASSISTANT Acute nonintractable headache, unspecified headache type Post-nasal [...] 1:11 PM CDT Results * IMAGE GENERIC (08/21/2024) Only the most recent of9 resultswithin the time period is included. Anatomical Region Laterality Modality Other 08/21/2024 [facility] Scanned SCANNING Final Resu lt * (ABNORMAL) BASIC METABOLIC PANEL (07/27/2024 5:00 AM PROGRAM SERVICES ASSISTANT) Only the most recent of3 resultswithin the time period is included. GLUCOSE 127(H) 70 - 99 MG/DL 07/27/2024 6:06 AM [facility] BUN 27(H) 7 - 18 MG/DL 07/27/2024 6:06 AM [facility] CREATININE S/P/B 1.06 0.7 - 1.3 MG/DL 07/27/2024 6:06 AM [facility] SODIUM S/P/B 137 136 - 145 MMOL/L 07/27/2024 6:06 AM [facility] POTASSIUM S/P/B 3.7 3.5 - 5.1 MMOL/L 07/27/2024 6:06 AM [facility] CHLORIDE S/P/B 103 97 - 115 MMOL/L 07/27/2024 6:06 AM [facility] CO2 27.4 21 - 32 MMOL/L 07/27/2024 6:06 AM [facility] CALCIUM S/P/B 8.7 8.5 - 10.1 MG/DL 07/27/2024 6:06 AM [facility] ANION GAP 6.6 2 - 10 MMOL/L 07/27/2024 6:06 AM [facility] BUN CREATININE RATIO 25.5 6 - 26 07/27/2024 6:06 AM [facility] GFR ESTIMATE 89(L) >90 ML/MIN/1.7 3 M2 07/27/2024 6:06 AM [facility] Comment: NOTE: eGFR is not calculated for patients <18 years of age or gender unknown. This is an estimated GFR calculation using the new CKD EPI creatinine equation without race and so does not require a correction factor for race. This estimated GFR should not be used for calculating drug doses. 07/27/2024 5:00 AM PROGRAM SERVICES ASSISTANT Tod Cifuentes MD LABORATORY Final Result [facility] [address] [place] [address], * (ABNORMAL) CBC W/DIFF AUTOMATED (07/27/2024 5:00 AM PROGRAM SERVICES ASSISTANT) Only the most recent of11 resultswithin the time period is included. WBC 9.23 4.5 - 11.0 x10'3/uL 07/27/2024 5:47 AM [facility] RBC 4.36(L) 4.70 - 6.10 x10'6/uL 07/27/2024 5:47 AM [facility] HGB 12.7(L) 14.0 - 18.0 G/DL 07/27/2024 5:47 AM [facility] HCT 37.5(L) 43.0 - 54.0 % 07/27/2024 5:47 AM [facility] MCV 86.0 80.0 - 94.0 FL 07/27/2024 5:47 AM [facility] MCH 29.1 27.0 - 31.0 PG 07/27/2024 5:47 AM [facility] MCHC 33.9 32.0 - 36.0 G/DL 07/27/2024 5:47 AM [facility] RDW 12.1 11.5 - 14.5 % 07/27/2024 5:47 AM [facility] PLT 295 130 - 400 x10'3/uL 07/27/2024 5:47 AM [facility] MPV 9.5 9.3 - 12.2 FL 07/27/2024 5:47 AM [facility] DIFFERENTIAL TYPE AUTOMATED DIFFERENTIAL 07/27/2024 5:47 AM [facility] NEUTROPHILS % 78.1 % 07/27/2024 5:47 AM [facility] LYMPHOCYTES % 13.1 % 07/27/2024 5:47 AM [facility] MONOCYTES % 8.3 % 07/27/2024 5:47 AM [facility] EOSINOPHILS 0.1 % 07/27/2024 5:47 AM [facility] BASOPHILS 0.1 % 07/27/2024 5:47 AM [facility] IMMATURE GRANS % 0.3 % 07/27/20 5:47 AM [facility] ABS. NEUTROPHILS 7.20 1.80 - 7.70 x10'3/uL 07/27/2024 5:47 AM PROGRAM SERVICES ASSISTANT [facility] ABS. LYMPHOCYTES 1.21 1.00 - 4.80 x10'3/uL 07/27/2024 5:47 AM PROGRAM SERVICES ASSISTANT [facility] ABS. MONOCYTES 0.77 0.30 - 0.82 x10'3/uL 07/27/2024 5:47 AM PROGRAM SERVICES ASSISTANT [facility] ABS. EOSINOPHILS 0.01(L) 0.04 - 0.54 x10'3/uL 07/27/2024 5:47 AM PROGRAM SERVICES ASSISTANT [facility] ABS. BASOPHILS 0.01 0.01 - 0.08 x10'3/uL 07/27/2024 5:47 AM PROGRAM SERVICES ASSISTANT [facility] ABS. IMMATURE GRANULOCYTES 0.03 0.00 - 0.49 x10'3/uL 07/27/2024 5:47 AM PROGRAM SERVICES ASSISTANT [facility] 07/27/2024 5:00 AM PROGRAM SERVICES ASSISTANT Tod Cifuentes MD LABORATORY Final Result [facility] [address] [place] [address], [place] [phone] * XR ABD KUB (07/26/2024 7:25 PM PROGRAM SERVICES ASSISTANT) Anatomical Region Laterality Modality Abdomen Radiographic Fatou ging 07/26/2024 10:4 5 PM PROGRAM SERVICES ASSISTANT Impressions 07/26/2024 10:47 PM PROGRAM SERVICES ASSISTANT IMPRESSION: Left ureteral stent extending from a lower pole calyx to the urinary bladder. Referred By: ISSAC BOSTON Interpreted By: Paxton Orr MD, 07/26/2024 10:45 PM Narrative 07/26/2024 10:47 PM PROGRAM SERVICES ASSISTANT [facility] [address] [place], [place] [address] Abdomen single view INDICATION: Ureteral stent position. COMPARISON: None. TECHNIQUE: Single AP view. FINDINGS: The left ureteral stent extends from the lower pole calyx to the urinary bladder. ??Multiple calculi are seen at the lower pole of the left kidney. ??No calculi can be seen on the right. ??Normal bowel gas pattern. ??Bony structures are unremarkable. Procedure Note Paxton Orr MD - 07/26/2024 [facility] [address] [place] [address] Abdomen single view INDICATION: Ureteral stent position. [...] SURG XR RETROGRD UROGRAPHY (07/26/2024 6:45 PM PROGRAM SERVICES ASSISTANT) Anatomical Region Laterality Modality Abdomen Fluoroscopy 07/27/2024 7:16 AM PROGRAM SERVICES ASSISTANT Impressions 07/27/2024 7:16 AM PROGRAM SERVICES ASSISTANT Impression: Fluoroscopic spot views of left retrograde urography obtained for intraoperative control purposes and evaluated postoperatively. Ordered By: BOB ELMORE Interpreted By: Gabriel Haynes MD, 07/27/2024 7:16 AM Narrative 07/27/2024 7:16 AM PROGRAM SERVICES ASSISTANT [facility] [address] [place], [place] [address] Intraoperative fluoroscopic views of the retrograde urography History: Urolithiasis Technique: Fluoroscopic images obtained for intraoperative control purposes. Total DAP for exam: 1.7081 Gy-cm2. Findings: Single submitted image demonstrates partial opacification of the left renal collecting system and ureter with contrast. Procedure Note Gabriel Haynes MD - 07/27/[address] [address] Intraoperative fluoroscopic views of the retrograde urography [...] Result * PROTIME/INR, VENOUS (07/26/2024 6:20 AM PROGRAM SERVICES ASSISTANT) Only the most recent of2 resultswithin the time period is included. PROTIME 11.1 10.2 - 12.9 SEC 07/26/2024 6:57 AM PROGRAM SERVICES ASSISTANT [facility] INR 1.0 07/26/2024 6:57 AM PROGRAM SERVICES ASSISTANT [facility] Comment: Recommended INR Therapeutic Goals: ??2.0-3.0 Routine Therapy ??2.5-3.5 Mechanical Prosthetic Valves (High Risk) 07/26/2024 6:20 AM PROGRAM SERVICES ASSISTANT Tod Cifuentes MD LABORATORY Final Result [facility] [address] [place] [address], [place] [phone] * (ABNORMAL) HEMOGLOBIN, GLYCOSYLATED (07/26/2024 5:18 AM PROGRAM SERVICES ASSISTANT) HGB A1C 5.9(H) <5.7 % 07/26/2024 10:50 AM PROGRAM SERVICES ASSISTANT [facility] Comment: ADA GUIDELINES 2010 5.7 TO 6.4% INCREASED RISK OF DIABETES > OR = 6.5% CONSISTENT WITH DIABETES ESTIMATED AVG GLUCOSE 123 mg/dL 07/26/2024 10:50 AM PROGRAM SERVICES ASSISTANT [facility] 07/26/2024 5:18 AM PROGRAM SERVICES ASSISTANT Tod Cifuentes MD LABORATORY Final Result [facility] [address] [place] [address], [place] [phone] * CT ABD+PEL KIDNEY STONE (07/25/2024 8:45 AM PROGRAM SERVICES ASSISTANT) Anatomical Region Laterality Modality Abdomen Computed Tomogra phy 07/25/2024 8:48 AM PROGRAM SERVICES ASSISTANT Impressions 07/25/2024 8:50 AM PROGRAM SERVICES ASSISTANT IMPRESSION: 1. Mild left-sided hydronephrosis due to an 8 x 5 mm irregular stone residing at the left UPJ. Additional nonobstructing stones are present within the lower pole of the left kidney Ordered By: ISSAC BOSTON Interpreted By: Karthik Padgett MD, 07/25/2024 8:48 AM Narrative 07/25/2024 8:50 AM PROGRAM SERVICES ASSISTANT [facility] [address] [place] [address] CT ABDOMEN AND PELVIS WITHOUT CONTRAST Clinical [...] Procedure Note Karthik Padgett MD - 07/25/2024 [facility] [address] [place] [address] CT ABDOMEN AND PELVIS WITHOUT CONTRAST Clinical [...] (ABNORMAL) Urinalysis, Auto, Complete (07/25/2024 8:13 AM PROGRAM SERVICES ASSISTANT) COLOR (U) DARK YELLOW 07/25/2024 8:49 [address] PROGRAM SERVICES [address] [facility] TRANSPARENCY HAZY 07/25/2024 8:49 [address] PROGRAM SERVICES [address] [facility] SPECIFIC GRAVITY (U) >1.030(H) 1.000 - 1.030 07/25/2024 8:49 [address] PROGRAM SERVICES [address] [facility] U PH 5.5 5.0 - 9.0 07/25/2024 8:49 AM [facility] LEUKOCYTES (U) NEGATIVE NEGATIVE 07/25/2024 8:49 AM [facility] NITRITES NEGATIVE NEGATIVE 07/25/2024 8:49 AM [facility] PROTEIN RANDOM (U) 2+(A) NEGATIVE 07/25/2024 8:49 AM [facility] GLUCOSE (U) NEGATIVE NEGATIVE 07/25/2024 8:49 AM [facility] KETONES MG/DL (U) NEGATIVE NEGATIVE 07/25/2024 8:49 AM [facility] BILIRUBIN (U) 1+(A) NEGATIVE 07/25/2024 8:49 AM [facility] BLOOD (U) 3+(A) NEGATIVE 07/25/2024 8:49 AM [facility] WBC/HPF NONE SEEN 0 - 5 /HPF 07/25/2024 8:49 AM [facility] RBC/HPF 50-100 0 - 5 /HPF 07/25/2024 8:49 AM [facility] EPI/HPF NONE SEEN /HPF 07/25/2024 8:49 AM [facility] URINE SPECIMEN OBTAINED BY CLEAN CATCH PROCEDURE / Unknown 07/25/2024 8:13 AM PROGRAM SERVICES ASSISTANT us Issac Boston MD URINE ORDERABLES Final Result [facility] [address] [place] [address], [place] [phone] * (ABNORMAL) COMPREHENSIVE METABOLIC PANEL (07/25/2024 8:10 AM PROGRAM SERVICES ASSISTANT) Only the most recent of8 resultswithin the time period is included. GLUCOSE 149(H) 70 - 99 MG/DL 07/25/2024 8:31 AM [facility] BUN 29(H) 7 - 18 MG/DL 07/25/2024 8:31 AM [facility] CREATININE S/P/B 1.14 0.7 - 1.3 MG/DL 07/25/2024 8:31 AM [facility] SODIUM S/P/B 142 136 - 145 MMOL/L 07/25/2024 8:31 AM [facility] POTASSIUM S/P/B 4.2 3.5 - 5.1 MMOL/L 07/25/2024 8:31 AM [facility] CHLORIDE S/P/B 103 100 - 108 MMOL/L 07/25/2024 8:31 AM [facility] CO2 27.7 21 - 32 MMOL/L 07/25/2024 8:31 AM [facility] CALCIUM S/P/B 9.2 8.5 - 10.1 MG/DL 07/25/2024 8:31 AM [facility] BILIRUBIN TOTAL S/P/B 0.4 0.2 - 1.2 MG/DL 07/25/2024 8:31 AM [facility] TOTAL PROTEIN S/P/B 7.3 6.4 - 8.2 G/DL 07/25/2024 8:31 AM [facility] ALBUMIN S/P/B 3.8 3.4 - 5.0 G/DL 07/25/2024 8:31 AM [facility] AST 19 15 - 37 U/L 07/25/2024 8:31 AM [facility] ALT 31 16 - 60 U/L 07/25/2024 8:31 AM [facility] ALKALINE PHOSPHATASE S/P/B 88 50 - 136 U/L 07/25/2024 8:31 AM PROGRAM SERVICES ASSISTANT [facility] ANION GAP 11.3 5 - 15 MMOL/L 07/25/2024 8:31 AM [facility] BUN CREATININE RATIO 25.4 6 - 26 07/25/2024 8:31 AM [facility] A/G RATIO 1.1 1.0 - 2.0 RATIO 07/25/2024 8:31 AM [facility] GFR ESTIMATE 81(L) >90 ML/MIN/1.7 3 M2 07/25/2024 8:31 AM [facility] Comment: NOTE: eGFR is not calculated for patients <18 years of age. This is an estimated GFR calculation using the new CKD EPI creatinine equation without race and so does not require a correction factor for race. This estimated GFR should not be used for calculating drug doses. 07/25/2024 8:10 AM PROGRAM SERVICES ASSISTANT Issac Boston MD LABORATORY Final Result [facility] [address] [place] [address], * MRI ABD WWO CON (11/26/2023 8:19 [...] year to document stability. Ordered By: LUIZ MATTA Interpreted By: Manny Gutiérrez MD, 11/29/2023 7:14 [...] year to document stability. Ordered By: LUIZ MATTA Interpreted By: Manny Gutiérrez MD, 11/29/2023 7:14 AM us Luiz Matta MD MRI Final Resul t * MRI [...] beneficial for further characterization. Referred By: LUIZ MATTA Interpreted By: Qasim Cardenas MD, 11/02/2023 12:37 [...] stenosis. L3-4: No significant spinal canal stenosis. ??Bbde-jl-kccxcmil facet hypertrophy. ??Mild left neural foraminal stenosis. ??No right neural foraminal stenosis. L4-5: No significant spinal canal stenosis. ??Mild to moderate facet hypertrophy. ??Mild bilateral neural foraminal stenosis. L5-S1: No significant spinal canal stenosis. ??Vexj-xr-sezwcvws facet hypertrophy. ??Mild bilateral neural foraminal stenosis. Procedure Note Qasim Cardenas MD - 11/02/2023 EXAMINATION: MRI LUMB SPINE WO CON, 11/02/2023 12:37 AM TECHNIQUE: Multiplanar multisequence magnetic resonance images of thelumbar spine were obtained without intravenous contrast. HISTORY: Back pain COMPARISON: CT abdomen and pelvis 05/09/2022, CT chest 03/08/2018 FINDINGS: There is transitional lumbosacral anatomy with 6 xguofr-yiwtpqvbtqmiu-xlbo vertebral bodies. There is suggestion of incomplete fusioninvolving the right L1 transverse process. Probable lumbarized W5qxcathwlm body. Allowing for this designation, there is intervertebraldisc height loss at L1-2, L2-3, L3-4 and L5- S1. There is 0.4 cm ofretrolisthesis of L5 on S1. The conus medullaris terminates at L1,normal. There is a normal distribution of cauda equina within the thecalsac. There is a 0.6 cm right renal cyst. There is a 0.9 cm Y1exsfyocvzig, T1 hypointense nodule arising from the inferior pole theright kidney (series 6 image 8, series 5 image 18). L1-2: No significant spinal canal or neural foraminal stenosis L2-3: No significant spinal canal or neural foraminal stenosis. L3-4: No significant spinal canal stenosis. Fejy-iy-lugfgdyc facethypertrophy. Mild left neural foraminal stenosis. No right neuralforaminal stenosis. L4-5: No significant spinal canal stenosis. Mild to moderate facethypertrophy. Mild bilateral neural foraminal stenosis. L5-S1: No significant spinal canal stenosis. Ozqu-dc-uqyepwhm facethypertrophy. Mild bilateral neural foraminal stenosis. IMPRESSION: 1. Mild multilevel lumbar spondylosis, allowing for transitionallumbosacral anatomy, as described above. 2. There is a T1 and T2 hypointense exophytic nodule arising from theinferior pole the right kidney, indeterminate. Nonemergent MRI abdomenwith contrast and renal protocol would be beneficial for furthercharacterization. Referred By: LUIZ MATTA Interpreted By: Qasim Cardenas MD, 11/02/2023 12:37 AM us Luiz Matta MD MRI Final Resul t * (ABNORMAL) LIPID PANEL (09/25/2023 4:30 PM PROGRAM SERVICES ASSISTANT) Only the most recent of4 resultswithin the time period is included. [facility] [address] CHOLESTEROL 267(H) <200 MG/DL 09/25/2023 5:16 PM [facility] TRIGLYCERIDES 129 <150 MG/DL 09/25/2023 5:16 PM [facility] HDL 56 >40.0 MG/DL 09/25/2023 5:16 PM [facility] LDL (CALCULATED) 185(H) <100 MG/DL 09/25/2023 5:16 PM [facility] NON HDL CHOLESTEROL 211(H) <130 MG/DL 09/25/2023 5:16 PM [facility] Comment: NOTE: WHEN THE TRIGLYCERIDES ARE >200 mg/dL, NON HDL C IS A SECONDARY TARGET OF THERAPY, WITH A GOAL 30 mg/dL HIGHER THAN THE IDENTIFIED LDL C GOAL. CHOL/HDL RATIO 4.8(H) 0.0 - 4.5 09/25/2023 5:16 PM [facility] VLDL CALCULATION 26 5 - 55 MG/DL 09/25/2023 5:16 PM [facility] LIPID INTERPRETATION 09/25/2023 5:16 PM [facility] Comment: NIH CONCENSUS REPORT RECOMMENDATIONS: [...] ?LDL ? >=160 ?>=130 09/25/2023 4:30 PM PROGRAM SERVICES ASSISTANT us Luiz Matta MD LABORATORY Final Resul t [facility] [address] [place] [address], * (ABNORMAL) URINALYSIS WI REFLEX TO CULTURE (09/12/2023 2:13 PM PROGRAM SERVICES ASSISTANT) Only the most recent of2 resultswithin the time period is included. COLOR (U) YELLOW 09/12/2023 3:19 PM [facility] TRANSPARENCY CLEAR 09/12/2023 3:19 PM [facility] SPECIFIC GRAVITY (U) 1.025 1.000 - 1.030 09/12/2023 3:19 PM [facility] U PH 6.0 5.0 - 9.0 09/12/2023 3:19 PM [facility] LEUKOCYTES (U) NEGATIVE NEGATIVE 09/12/2023 3:19 PM [facility] NITRITES NEGATIVE NEGATIVE 09/12/2023 3:19 PM [facility] PROTEIN RANDOM (U) NEGATIVE NEGATIVE 09/12/2023 3:19 PM [facility] GLUCOSE (U) NEGATIVE NEGATIVE 09/12/2023 3:19 PM [facility] KETONES MG/DL (U) NEGATIVE NEGATIVE 09/12/2023 3:19 PM [facility] BILIRUBIN (U) NEGATIVE NEGATIVE 09/12/2023 3:19 PM [facility] BLOOD (U) TRACE(A) NEGATIVE 09/12/2023 3:19 PM [facility] WBC/HPF NONE SEEN 0 - 5 /HPF 09/12/2023 3:19 PM [facility] RBC/HPF 0-5 0 - 5 /HPF 09/12/2023 3:19 PM [facility] EPI/HPF FEW /HPF 09/12/2023 3:19 PM [facility] CULTURE & SENSITIVITY INDICATED? CULTURE IS NOT INDICATED 09/12/2023 3:19 PM [facility] URINE SPECIMEN OBTAINED BY CLEAN CATCH PROCEDURE / Unknown 09/12/2023 2:13 PM PROGRAM SERVICES ASSISTANT us Luiz Matta MD URINE ORDERABLES Final Resu lt [facility] [address] [facility] [place] [address], [place] [phone] * (ABNORMAL) URINALYSIS AUTO DIP (09/11/2023) COLOR (U) YELLOW YELLOW [facility] (9401), [facility] TRANSPARENCY CLEAR CLEAR [facility] (9401), [facility] GLUCOSE (U) NEGATIVE NEGATIVE MG/DL [facility] (9401), [facility] BILIRUBIN (U) NEGATIVE NEGATIVE [facility] (9401), [facility] KETONES MG/DL (U) NEGATIVE NEGATIVE MG/DL [facility] (9401), [facility] SPECIFIC GRAVITY (U) 1.025 1.001 - 1.035 [facility] (9401), [facility] BLOOD (U) TRACE (Non Hemolyzed, Intact)(A) NEGATIVE [facility] (9401), [facility] U PH 6.0 5.0 - 9.0 [facility] (9401), [facility] PROTEIN (U) NEGATIVE NEGATIVE mg/dL [facility] (9401), [facility] UROBILINOGEN 0.2 0.2 - 1.0 EU/dL = mg/dL [facility] (9401), [facility] NITRITES NEGATIVE NEGATIVE MG/DL [facility] (9401), [facility] LEUKOCYTES (U) NEGATIVE NEGATIVE [facility] (9401), [facility] URINE SPECIMEN OBTAINED BY CLEAN CATCH PROCEDURE / Unknown 09/11/2023 Olga Gaines HOT STICK MAN URINE ORDERABLES Final Re sult [facility] (9401), [facility] [address] [facility] [address] [address], [place] [phone] * (ABNORMAL) CORONAVIRUS (COVID-19) INFLUENZA A & B ANTIGEN IA PANEL (04/09/2023) Pathologist [facility] CORONAVIRUS ANTIGEN IA POSITIVE(A) NEGATIVE -[address], [place] INFLUENZA A NEGATIVE NEGATIVE MG-[address], [place] INFLUENZA B NEGATIVE NEGATIVE MG-[address], [place] Internal Control: VALID VALID -[address] [place] NASAL STRUCTURE / Unknown 04/09/2023 Rena Perkins APRN MICROBIOLOGY - GENERAL ORD ERABLES Final Result -[address] [facility] [address] [place] [address], * D-DIMER, QUANTITATIVE (07/13/2022 3:53 PM PROGRAM SERVICES ASSISTANT) Only the most recent of2 resultswithin the time period is included. Pathologist [facility] D-DIMER 222 0 - 500 ng{FEU}/mL 07/13/2022 4:09 PM PROGRAM SERVICES ASSISTANT [facility] Comment: D-Dimer values less [...] additional false negative findings. 07/13/2022 3:53 PM PROGRAM SERVICES ASSISTANT Milagro Aponte DIABETES MANAGER-BC LABORATORY Final Res ult [facility] [address] [place] [address], [place] [phone] * CT ABD+PEL W IV CON ONLY [...] * LACTIC ACID (05/09/2022 12:26 AM CDT) LACTIC ACID VENOUS 1.2 0.4 - 2.0 MMOL/L 05/09/2022 1:27 AM CDT [facility] 05/09/2022 12:2 6 AM CDT us Valdez Roberson MD LABORATORY Final Result [facility] [address] [place] [address], [place] [phone] * LIPASE (05/08/2022 11:51 PM CDT) LIPASE 75 73 - 393 UNITS/L 05/09/2022 12:44 AM CDT [facility] 05/08/2022 11:5 1 PM CDT us Valdez Roberson MD LABORATORY Final Result Performing Organization Address City/[facility]/ZIP Co de Phone Number [facility] [address] [place] [address], [place] [phone] * (ABNORMAL) VITAMIN D, 25 [place] (03/14/2022 7:44 AM CDT) Only the most recent of2 resultswithin the time period is included. [facility] [address] VITAMIN D 25 HYDROXY TOTAL S/P/B 26.9(L) >29.9 ng/mL [facility]. Comment: Vitamin D, 25-Hydroxy reports [...] 150 ng/mL before there is any concern. Blayne MF, Fatuma ABDALLA, Britney SHEETS, et al. Evaluation, treatment, and prevention of vitamin D deficiency: an Endocrine Society clinical practice guideline. J Clin Endocrinol Metab. 2011;96(7):1911-30.This test is performed by a Liquid Chromatography-Tandem Mass Spectrometry (LC-MS/MS) method. This test was developed and its performance characteristics determined by the [facility], [facility]. It has not been cleared or approved by the U.S. FDA. The [facility], [facility]. is regulated under Clinical Laboratory Improvement Amendments [...] 150 ng/mL before there is any concern. Blayne MF, Fatuma NC, Britney SHEETS, et al., Evaluation, treatment, and prevention of vitamin D deficiency: an Endocrine Society clinical practice guideline. J Clin. Endocrinol. Metab. 2011;96(7):1911-30. VITAMIN D 25 HYDROXY D3 S/P/B 25.9 ng/mL [facility]. Comment: This test was developed and its analytical performance characteristics have been determined by [facility]. It has not been cleared or approved by the FDA. This assay has been validated pursuant to the CLIA regulations and is used for clinical purposes. VITAMIN D 25 HYDROXY D2 S/P/B 1.0 ng/mL [employer]. Comment: This test was developed and its analytical performance characteristics have been determined by [facility]. It has not been cleared or approved by the FDA. This assay has been validated pursuant to the CLIA regulations and is used for clinical purposes. 03/14/2022 7:44 AM CDT 03/15/2022 4:13 AM CDT Mariola Taylor NP LABORATORY Final Result [facility] [employer] [address] [place] [address] [address] [place] [address] * TSH W/REFLEX (09/13/2021 8:09 AM PROGRAM SERVICES ASSISTANT) TSH 1.59 0.40 - 4.50 mIU/L [facility] 09/13/2021 8:09 AM PROGRAM SERVICES ASSISTANT 09/14/2021 4:11 PM PROGRAM SERVICES ASSISTANT Mariola Taylor NP LABORATORY Final Result [facility] [address] [address] * [facility] SARS-COV RNA QUAL NAAT (03/29/2021 3:37 PM CDT) Only the most recent of3 resultswithin the time period is included. Pathologist [facility] CORONAVIRUS SARS COV 2 PCR (RESP) NOT DETECTED NOT DETECTED [facility] Comment: ?? A Not Detected result means [...] Method: Nucleic Acid Amplification Test including reverse plastics heat welder polymerase chain reaction (RT-PCR) and plastics heat welder mediated amplification (TMA). The test method meets [...] providers and patients using the following websites: https://www.[employer].com/home/Covid-19/HCP/[facility]/fact- sheet.html https://www.[employer]/home/Covid-19/Patients/ [facility]/fact-sheet.html Due to the current public health emergency, [facility] is accepting samples from appropriate clinical sources [...] about COVID-19 can be found at the [facility] website: www.[employer]/Covid19. NASAL STRUCTURE / Unknown 03/29/2021 3:37 PM CDT 03/30/2021 8:32 AM CDT Maksim Bone MD MICROBIOLOGY - GENERAL O RDERABLES Final Result [facility] [address] [place] [address] * CORONAVIRUS (COVID-19) ANTIGEN (03/29/2021) Only the most recent of2 resultswithin the time period is included. CORONAVIRUS ANTIGEN IA NEGATIVE NEGATIVE MG-[address], [place] Internal Control: VALID VALID MG-[address], [place] Specimen from nose (specimen) NASAL STRUCTURE / Unknown 03/29/2021 us Maksim Bone MD MICROBIOLOGY - GENERAL O RDERABLES Final Result Performing Organization Address City/[facility] Co de Phone Number -[phone], [place] [address] [place] [address], [place] [phone] * CREATININE WHOLE BLOOD (Radiology only) (03/13/2021 7:29 PM CDT) Pathologist [facility] CREATININE WHOLE BLOOD 0.9 0.6 - 1.3 MG/DL 03/13/2021 7:35 PM CDT [facility] 03/13/2021 7:29 PM CDT Luiz Matta MD LABORATORY Final Resul t Performing Organization Address City/[facility]/ZIP Co de Phone Number [facility] [address] [place] [address], [place] [phone] * CT SOFT TISSUE NECK W CON [...] Voice recognition software utilized. Referred By: LUIZ MATTA Interpreted By: Donn Gorman, 03/13/2021 12:58 PM [...] Voice recognition software utilized. Referred By: LUIZ MATTA Interpreted By: Donn Gorman, 03/13/2021 12:58 PM us Luiz Matta MD CT Final Resul t * MRI GENERIC (12/01/2020) Anatomical Region Laterality Modality Other 12/01/2020 Narrative 12/01/2020 Ordered by an unspecified provider. us Documents Scanned SCANNING Final Result * CT HEAD WO CON (09/28/2020 10:37 AM PROGRAM SERVICES ASSISTANT) Anatomical Region Laterality Modality Head Computed Tomogra phy 09/28/2020 10:3 9 AM PROGRAM SERVICES ASSISTANT Impressions 09/28/2020 10:41 AM PROGRAM SERVICES ASSISTANT IMPRESSION: No acute intracranial process. Referred By: CHANEL NOLASCO Interpreted By: Len Hernandez MD, 09/28/2020 10:39 AM Narrative 09/28/2020 10:41 AM PROGRAM SERVICES ASSISTANT EXAMINATION: CT of the head without contrast [...] No acute intracranial process. Referred By: CHANEL NOLASCO Interpreted By: Len Hernandez MD, 09/28/2020 10:39 AM us Chanel Nolasco MD CT Final Result * ECG 12 lead (09/28/2020 9:52 AM PROGRAM SERVICES ASSISTANT) 09/28/2020 9:52 AM PROGRAM SERVICES ASSISTANT Narrative [facility] ([place]RIC[place]) RAD - 09/28/2020 5:23 PM PROGRAM SERVICES ASSISTANT ?[facility] [place] ? [address] [place] ? Test Date: ?2020-09-28 Pat Name: ? PORTILLO KIDD ? Department: ? Room: ? [id number] Gender: ? Male ? 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 Requested By: CHANEL NOLASCO Order Number: [id number] ? Reading : ?? Griffin Jackson ? Measurements Intervals ?[place] ? Rate: ? 66 ? P: ?-12 MI: ? 140 ?QRS: ?24 QRSD: ? 98 ? T: ?32 QT: ? 377 ? QTc: ?396 ? Interpretive Statements SINUS RHYTHM No previous ECG available for comparison No ischemic changes Gabriel Mascorro M.D. 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 CRITICAL ALERT ISSUED ON 09-28-2020 9:56:39 RAM SERVICES ASSISTANT Chanel Nolasco MD ECG ORDERABLES Final Result [facility] ([place] RAD * OCCULT BLOOD, FECES (08/31/2020 7:00 AM PROGRAM SERVICES ASSISTANT) OCCULT BLOOD FECAL NEGATIVE NEGATIVE 08/31/2020 8:49 AM PROGRAM SERVICES ASSISTANT [facility] STOOL SPECIMEN / Unknown 08/31/2020 7:00 AM PROGRAM SERVICES ASSISTANT Luiz Matta MD BODY FLUIDS AND STOOLS ORDE RABLES Final Result Performing Organization Address [facility] Co de Phone Number [facility] [address] [place] [address], [place] [phone] * (ABNORMAL) IRON SAT PANEL (IRON,IBC,%SAT) (08/30/2020 3:44 PM PROGRAM SERVICES ASSISTANT) IRON 64(L) 65 - 175 MCG/DL 08/30/2020 4:41 PM PROGRAM SERVICES ASSISTANT [facility] IRON BINDING CAPACITY 327 250 - 450 MCG/DL 08/30/2020 4:41 PM PROGRAM SERVICES ASSISTANT [facility] IRON SATURATION 20 20 - 55 % 4:41 PM PROGRAM SERVICES ASSISTANT [facility] 08/30/2020 3:44 PM PROGRAM SERVICES ASSISTANT us Luiz Matta MD LABORATORY Final Resul t Performing Organization Address City/[facility]/ZIP Co de Phone Number [facility] [address] [place] [address], [place] [phone] * XR CHEST PA+LAT (05/18/2020 10:50 AM [...] By: Benton Brownlee, 05/18/2020 11:06 AM Luiz Matta MD GENERAL IMAGING Final Resul t * TROPONIN, QUANT (05/16/2020 12:20 PM CDT) TROPONIN I <0.017 0.000 - 0.056 ng/mL. 05/16/2020 6:54 PM CDT [facility] Comment: NORMAL: LESS THAN OR EQUAL TO 0.056 NG/ML INDETERMINATE ZONE: 0.056 TO 0.599 NG/ML CONDITIONS RESULTING IN MYOCARDIAL CELL DAMAGE CAN POTENTIALLY INCREASE LEVELS ABOVE THE EXPECTED RANGE. HIGH DOSES OF BIOTIN MAY INTERFERE WITH THIS TEST RESULT. CORRELATION TO CLINICAL HISTORY AND PRESENTATION RECOMMENDED. 05/16/2020 12:2 0 PM CDT us Luiz Matta MD LABORATORY Final Resul t [facility] [address] [place] [address], * COLONOSCOPY GENERIC (05/26/2019) 05/26/2019 Narrative 05/26/2019 [...] CDT Narrative 03/10/2018 12:00 AM CDT PORTILLO KIDD ? Admit/Service Date: 03/08/18 ?? Acct: [id number] ?Discharge Date: ?? : 1980 ??Sex: M ?Ord Site: [facility] ?? Pt Type: REG CLI ? Ordering MD: FRAN NEWBY MD ? Study Date ? Report # ?Order # ? Ext Order ID ?? 03/08/18 ? [id number] ? [id number] ?[id number] ? Proc Code: ? A-CHST ? Procedure [...] Note Carrie Orosco MD - 03/10/2018 PORTILLO KIDD Admit/Service Date:03/08/18 Acct: [id number] Discharge Date: : 1980 Sex: M Ord Site: [facility] Pt Type: REG CLI Ordering MD:FRAN NEWBY MD Study Date Report # Order # Ext Order ID 03/08/18 [id number] Proc Code: A-CHST Procedure Description: CTA Chest [...] of residual thymus present within theanterior mediastinum. Fran Newby MD CT Final Resul t [...] E COLI [id number] ISOLATED REPORT STATUS FINAL [id number] [employer] TO EPIC CONVERSION 03/07/2005 1:11 PM CDT 03/07/2005 1:11 PM CDT us Favian Rand MD MICROBIOLOGY - GENERAL O [...] 08/31/2020 Fracture, thyroid cartilage closed, initial encounter ([facility]) 09/28/2020 Seasonal allergic rhinitis, unspecified trigger 11/03/2020 [...] 09/13/2021 Screening for depression 09/13/2021 Need for leuhcicupb-mvyjhbx-omhfwjvwk (Tdap) vaccine Need for prophylactic vaccination with combined racucsqdgk-ejggiux-rgkopqrhw (DTP) vaccine 09/13/2021 Vitamin D deficiency Unspecified [...] able to perform ADLs independently Lifestyle No Joaquín rodrigues r, John Paul Miller RN Care Teams Promotion Specialist Relationship Specialty [place] [address] [place] [address] PCP - General FAMILY PRACTICE 09/13/21 Fran Newby MD [facility] [address] [place] [address] [employer] Product Lister INTERVENTIONAL CARDIOLOGY 02/26/18
--- OUTSIDE RECORDS SUMMARY | 2024-08-28 03:21 | XMS_ITS | Encounter Summary ---
Author Organization [facility] Address [address] [place] [address]. [place] [address] [place] [address] Care Team Providers Care Tobacco Primer Machine Operator Name Role Phone Jann Saucedo MD Unavailable [phone] Luiz Matta MD Primary Care Provider [phone] Luiz Matta MD Primary Care Provider [phone] Reason for Referral * Surgical (Routine) - Closed Specialty Diagnoses / Procedures Referred By Alexandria barrios Referred To Contact Procedures Case request operating room: INJECTION TRIGGER POINT Cervical paraspinous, trapezius, deltoid Alta Oropeza APNP Phone: tel: fax: Referral ID Status Reason Start Date Expiration Date Visits Re quested Visits Authorized [id number] Closed 05/29/2021 06/28/2022 1 1 Encounter Details Date Type Department Care Team (Late st Contact Info) Description 05/29/2021 Prep for Procedure [facility] [place] [address] [id number] Alta Oropeza APNP [address] [place] [address] Social History Tobacco Use Types [...] 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 [facility] [address] [place] [address] [place] [employer] INTERVENTIONAL CARDIOLOGY 02/26/18 documented as of this encounter
--- OUTSIDE RECORDS SUMMARY | 2024-08-28 03:21 | XMS_ITS | Encounter Summary ---
Author Organization [facility] Address [facility] [facility] 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
--- NOTE | 2024-08-28 10:37 | WPDHPUPDATE1 ---
History and Physical Update Update Date/Time: 08/28/24 10:37 History and Physical has been reviewed, including an updated exam of the patient. There are NO changes in the patient's condition. Risks, benefits, and alternatives have been discussed and questions answered. Patient agrees to proceed with procedure. Proceed with left renal lithotripsy
[2024-08-28] MEDS: ceFAZolin 2 GM/D5W 50 ML 2 GM/50 ML BAG IVPB (11:44)
--- NOTE | 2024-08-28 12:17 | W.PM.PROC2 ---
Procedure Note - Detailed Date of Procedure 08/28/24 Pre-op Diagnosis Kidney Stones Lt side Post-op Diagnosis Same Procedure Performed Lithotripsy of left renal calculus Surgeon Jose Collier MD Anesthesia General Description of Procedure Patient was taken to the operative suite correctly identified. Once anesthesia was obtained the cluster of stones in the left lower pole were visualized in both planes. Two thousand five hundred shocks were given to this area. Patient tolerated procedure well without any complications and was taken recovery stable condition. He will follow-up in 7-10 days with KUB and will plan on removing the stent at that time. This completes dictation. Please send a copy of op note to my office. Estimated Blood Loss 0 Drains Yes Packing No Pathology None sent Complications No immediate complications Condition Stable Disposition PACU
[2024-08-28] MEDS: LACTATED RINGERS 1,000 ML 30 ML IV CONT (12:25)
[2024-08-28] MEDS: oxyCODONE HCL (*CRX) 5 MG TAB IR PO (13:45)
== END 2024-08-28 13:47 | disposition home or self-care (01) ==
PROVIDERS: PCP Family Medicine Sports Medicine; Visit Provider Urology
PROC: (CPT 50590; principal; 2024-08-28 12:00)
DX: N20.0 Calculus of kidney (principal); F17.220 Nicotine dependence, chewing tobacco, uncomplicated; Z98.890 Other specified postprocedural states; Z96.0 Presence of urogenital implants
CPT/HCPCS: 50590; 74018; A9270; J0690; J1100; J2250; J2405; J2704; J3010; J7120

== ENCOUNTER 2024-09-03 14:17 | Outpatient (CLI) | payer OTHER, SELFPAY ==
--- NOTE | ~2024-09-03 | XR_ITS ---
EXAMINATION: XR abdomen/kub 1V DATE: 09/03/2024 14:34 INDICATION: Calcium kidney stone TECHNIQUE: A supine view of the abdomen on 2 radiographs was obtained. COMPARISON: 08/28/2024 FINDINGS: 3 mm stone and 3 additional 1 mm stones clustered at a lower pole calyx of the left kidney. No stones seen along a left internal ureteral stent which remains in expected position. Bone island at the cep halad aspect of the right acetabulum. Bones are otherwise unremarkable. Visualized lower lungs are cl ear with no pleural effusion. Heart size is normal. IMPRESSION: 1. Cluster of a few small stones at a lower pole calyx of the left kidney which appears decreased sin ce the prior study. 2. Unchanged left internal ureteral stent in expected position. Reviewed, dictated and finalized at location A. WORKER IMPRESSION: 1. Cluster of a few small stones at a lower pole calyx of the left kidney which appears decreased since the prior study. 2. Unchanged left internal ureteral stent in expected position.
== END 2024-09-03 14:18 | disposition home or self-care (01) ==
PROVIDERS: PCP Family Medicine Sports Medicine; Visit Provider Urology
DX: N20.0 Calculus of kidney (principal); Z96.0 Presence of urogenital implants
CPT/HCPCS: 74018

== ENCOUNTER 2024-10-08 12:55 | Outpatient (CLI) | payer OTHER, SELFPAY ==
--- NOTE | ~2024-10-08 | XR_ITS ---
XR abdomen/kub 1V Ordering provider: oJse Collier MD History: . calcium kidney stone . Comparison: September 03, 2024 FINDINGS: BOWEL: Nonobstructive bowel gas pattern. ORGANOMEGALY: None. SIGNIFICANT PATHOLOGIC CALCIFICATIONS: None. OTHER: No free air is seen under the diaphragm. Admitting of lumbarization of S1. IMPRESSION: NO ACUTE ABDOMINAL FINDINGS. Reviewed, dictated and finalized at location A.
--- OUTSIDE RECORDS SUMMARY | 2024-10-08 14:32 | XMS_ITS | Patient Health Summary ---
Author Organization [facility] Address [address] [place] [address] Care Team Providers Care Traffic Or System Dispatcher Name Role Phone Luiz Matta MD Primary Care Provider [phone] Unknown, Provider Unavailable Unavailable Note from [facility],non-owned Affiliates and Associated Physician Practices is amultiple site organization consisting of ambulatory clinics and hospital sitesin [place], [place], [place] and [place]. This disclosure is being madepursuant [...] as needed * ergocalciferol (DRISDOL) 1.25 MG (11629 UT) capsule(Started 09/25/2021) Take 1 (one) capsule [...] 61 01/17/2023 10:37 AM CDT Temperature 37 C (98.6 F) 07/18/2022 1:37 PM GEOGRAPHIC INFORMATION SYSTEM SURVEYOR Respiratory Rate 18 09/29/2020 3:58 PM GEOGRAPHIC INFORMATION SYSTEM SURVEYOR Oxygen Saturation 96% 09/29/2020 3:58 PM GEOGRAPHIC INFORMATION SYSTEM SURVEYOR Inhaled Oxygen Concentration - - Weight 98 kg (216 lb) 04/19/2023 3:24 PM CDT Height 185.4 cm (6' 1 ) 04/19/2023 3:24 PM CDT Body Mass Index 28.5 04/19/2023 3:24 PM CDT Procedures * GA EAR MICROSCOPY EXAMINATION(Performed 04/19/2023) Performed for Tinnitus, unspecified laterality * AUDIOLOGY/TYMPANOMETRY ORDER(Performed 03/14/2023) * GA CHEMODENERV MUSC MIGRAINE(Performed 06/14/2021) Performed for Pharyngeal dysphagia, Closed fracture of larynx, subsequent encounter, Blunt trauma of neck, subsequent encounter * GA LARYNGOSCOPY,FLEX FIBER,DIAGNOSTIC(Performed 05/12/2021) Performed for Pharyngeal dysphagia, Closed fracture of larynx, subsequent encounter * GA LARYNGOSCOPY,FLEX/RIGID+STROBOSCOPY(Performed 04/05/2021) Performed for Blunt trauma of neck, subsequent encounter * GA LARYNGOSCOPY,FLEX/RIGID+STROBOSCOPY(Performed 12/21/2020) Performed for Blunt trauma of neck, subsequent encounter * GA LARYNGOSCOPY,FLEX FIBER,DIAGNOSTIC(Performed 12/21/2020) Performed for Blunt trauma [...] * ALCOHOL ETHYL BLOOD(Performed 09/28/2020) Results * GA EAR MICROSCOPY EXAMINATION (04/19/2023 4:11 PM CDT) Narrative Benton Bolden MD - 04/19/2023 4:11 PM CDT Benton Bolden MD 04/19/2023 4:11 PM Procedure: Microscopic exam of the ear(s) Findings: See main note. Procedure in detail: The binocular operating microscope and and ear speculum were used to exam the ear(s). The patient tolerated the procedure well and there was no bleeding. Benton Bolden MD Benton Bolden MD PROCEDURE/MINOR NANCY GICAL ORDERABLES * AUDIOLOGY/TYMPANOMETRY ORDER (03/14/2023 6:56 PM CDT) Mariola Champion AUDIOLOGY SERVICES O RDERABLES * GA CHEMODENERV MUSC MIGRAINE (06/14/2021 2:09 PM GEOGRAPHIC INFORMATION SYSTEM SURVEYOR) Narrative Griffin Gore MD - 06/14/2021 2:09 PM GEOGRAPHIC INFORMATION SYSTEM SURVEYOR Griffin Gore MD 06/14/2021 5:55 PM Procedure Note-In Office Steroid injection for [...] Injected: Kenalog 40 1.0 cc. Condition: Stable. Patient tolerated procedure well. Complications: None Griffin Gore MD PROCEDURE/MINOR SURG ICAL ORDERABLES * GA LARYNGOSCOPY,FLEX FIBER,DIAGNOSTIC (05/12/2021 11:01 AM CDT) Griffin Merida MD - 05/12/2021 11:01 AM CDT Griffin Gore MD 05/12/2021 11:07 AM Procedure Note Endoscopy Type: Laryngoscopy without stroboscopy 60642 Endoscope: Flexible 4mm Scope Anesthesia: Lidocaine 2% and Neosynephrine 1/2% (nasal) Procedure Details: The patient was sitting upright in a chair with the head in a slightly anterior sniffing position. The topical anesthesia was administered and then adequate time was allowed for an anesthetic effect. The endoscope was passed [...] visualized protruding in the pyriform Condition: Stable. Patient tolerated procedure well. Complications: None I was present for the entirety of the procedure. Griffin Gore MD PROCEDURE/MINOR SURG ICAL ORDERABLES * GA LARYNGOSCOPY,FLEX/RIGID+STROBOSCOPY (04/05/2021 2:06 PM CDT) Silviano Pierre MD - 04/05/2021 2:06 PM CDT Silviano Pineda MD 04/05/2021 2:26 PM Procedure Note Anesthesia: Lidocaine and Neosynephrine Endoscopy Type: Flexible Otahf-Cysvflkznymudm-Bxmxppjxxzsk Procedure Details: Informed consent was obtained. The patient was placed in the sitting position. After topical anesthesia and decongestion, the 4 mm laryngoscope was passed. The nasal cavities, nasopharynx, oropharynx, hypopharynx, and larynx were all examined. Vocal cords were examined during respiration and phonation. The following findings were noted: Slight asymmetry to left pharynx no mucosal lesion TVC normal function tonsil +3. The patient tolerated procedure well. Complications: None Silviano Pineda MD PROCEDURE/MINOR SURG ICAL ORDERABLES * GA LARYNGOSCOPY,FLEX FIBER,DIAGNOSTIC, GA LARYNGOSCOPY,FLEX/RIGID+STROBOSCOPY (12/21/2020 1:50 PM CDT) Narrative Silviano Pineda MD - 12/21/2020 1:50 PM CDT Silviano Pineda MD 12/21/2020 1:52 PM Procedure Note Anesthesia: Lidocaine and Neosynephrine Endoscopy Type: Flexible Gvzcf-Mpfqiyjtokuxfm-Juhtampgfghe Procedure Details: Informed consent was obtained. The patient was placed in the sitting position. After topical anesthesia and decongestion, the 4 mm laryngoscope was passed. The nasal cavities, nasopharynx, oropharynx, hypopharynx, and larynx were all examined. Vocal cords were examined during respiration and phonation. The following findings were noted: Mild asymmetry left laryngeal cartilage likely from injury mucosa intact no effect on airway. The patient tolerated procedure well. Complications: None Silviano Pineda MD PROCEDURE/MINOR SURG ICAL ORDERABLES * (ABNORMAL) CBC W AUTO DIFFERENTIAL (09/29/2020 2:03 AM [facility]) Only the most recent of2 resultswithin the time period is included. WBC 7.4 3.5 - 10.5 10 3/uL 09/29/2020 2:41 AM [facility] RBC 4.38 4.30 - 5.70 10 6/uL 09/29/2020 2:41 AM [facility] Hemoglobin [...] HOSPITAL Platelet Count 282 150 - 400 10 3/uL 09/29/2020 2:41 AM [facility] RDW-SD 39.9 36.0 - 50.0 fL 09/29/2020 2:41 AM [facility] RDW-CV 12.4 11.2 - 14.8 % 09/29/2020 2:41 AM [facility] MPV 9.6 9.3 - 12.8 fL 09/29/2020 2:41 AM [facility] nRBC Absolute 0.00 0 10 3/uL 09/29/2020 2:41 AM [facility] nRBC [...] HOSPITAL Neutrophils Absolute 4.5 1.6 - 7.0 10 3/uL 09/29/2020 2:41 AM [facility] Lymphocyte Absolute 2.1 0.8 - 2.9 10 3/uL 09/29/2020 2:41 AM [facility] Monocytes Absolute 0.63 0.14 - 0.66 10 3/uL 09/29/2020 2:41 AM [facility] Eosinophils Absolute 0.08 0.00 - 0.45 10 3/uL 09/29/2020 2:41 AM [facility] Basophils Absolute 0.02 0.00 - 0.06 10 3/uL 09/29/2020 2:41 AM [facility] Immature Granulocytes % 0.5 0.0 - 1.0 % 09/29/2020 2:41 AM [facility] Blood BLOOD SPECIMEN / Unknown Lab Venipuncture / Unknown 09/29/2020 2:03 AM GEOGRAPHIC INFORMATION SYSTEM SURVEYOR 09/29/2020 2:35 AM GEOGRAPHIC INFORMATION SYSTEM SURVEYOR Manny Wall MD LAB - HEMATOLOGY O RDERABLES [facility] [address] [place] [address], [facility] [phone] * (ABNORMAL) BASIC METABOLIC PANEL (CALCIUM TOTAL) (09/29/2020 2:03 AM [facility]) Only the most recent of2 resultswithin the [...] Lab Venipuncture / Unknown 09/29/2020 2:03 AM GEOGRAPHIC INFORMATION SYSTEM SURVEYOR 09/29/2020 2:35 AM [facility] Manny Wall MD LAB - CHEMISTRY OR DERABLES [facility] [address] [place] [address], [facility] [phone] * PHOSPHORUS BLOOD (09/29/2020 2:03 AM GEOGRAPHIC INFORMATION SYSTEM SURVEYOR) Phosphorus 4.0 2.3 - 4.7 mg/dL 09/29/2020 3:06 AM GEOGRAPHIC INFORMATION SYSTEM SURVEYOR [facility] Blood BLOOD SPECIMEN / Unknown Lab Venipuncture / Unknown 09/29/2020 2:03 AM GEOGRAPHIC INFORMATION SYSTEM SURVEYOR 09/29/2020 2:35 AM GEOGRAPHIC INFORMATION SYSTEM SURVEYOR Manny Wall MD LAB - CHEMISTRY OR DERABLES Performing Organization Address City/[facility]/ZIP Co de Phone Number [address] [address], [facility] [phone] * MAGNESIUM BLOOD (09/29/2020 2:03 AM GEOGRAPHIC INFORMATION SYSTEM SURVEYOR) Magnesium 1.9 1.6 - 2.6 mg/dL 09/29/2020 3:06 AM GEOGRAPHIC INFORMATION SYSTEM SURVEYOR [facility] Blood BLOOD SPECIMEN / Unknown Lab Venipuncture / Unknown 09/29/2020 2:03 AM GEOGRAPHIC INFORMATION SYSTEM SURVEYOR 09/29/2020 2:35 AM GEOGRAPHIC INFORMATION SYSTEM SURVEYOR Manny Wall MD LAB - CHEMISTRY OR DERABLES Performing Organization Address City/[facility] Co de Phone Number [address] [address], [facility] [phone] * MRI CERVICAL SPINE WO CONTRAST (09/28/2020 7:11 PM GEOGRAPHIC INFORMATION SYSTEM SURVEYOR) Anatomical Region Laterality Modality Pelvis Magnetic Resonan ce 09/29/2020 7:47 AM GEOGRAPHIC INFORMATION SYSTEM SURVEYOR Impressions 09/29/2020 12:06 PM GEOGRAPHIC INFORMATION SYSTEM SURVEYOR IMPRESSION: 1. No ligamentous injury is identified. [...] ALBARO BURT on 09/29/2020 12:06 PM . Narrative 09/29/2020 12:06 PM GEOGRAPHIC INFORMATION SYSTEM SURVEYOR MRI CERVICAL SPINE WITHOUT INTRAVENOUS CONTRAST, 09/28/2020 [...] (COVID-19)+INFLU A+B PCR RAPID (09/28/2020 2:30 PM GEOGRAPHIC INFORMATION SYSTEM SURVEYOR) COVID-19 PCR Not detected Not detected 09/29/19 3:23 PM GEOGRAPHIC INFORMATION SYSTEM SURVEYOR [facility] Influenza A Rapid SAMM Not Detected Not Detected 09/28/2020 3:23 PM GEOGRAPHIC INFORMATION SYSTEM SURVEYOR [facility] Influenza B SAMM Rapid Not Detected Not Detected 09/28/2020 3:23 PM GEOGRAPHIC INFORMATION SYSTEM SURVEYOR [facility] Microbiology SPECIMEN FROM NASOPHARYNGEAL STRUCTURE / Unknown Collection / Unknown 09/28/2020 2:30 PM GEOGRAPHIC INFORMATION SYSTEM SURVEYOR 09/28/2020 2:55 PM GEOGRAPHIC INFORMATION SYSTEM SURVEYOR Narrative [facility] - 09/28/2020 3:23 PM GEOGRAPHIC INFORMATION SYSTEM SURVEYOR Influenza assay performed by Nucleic Acid Amplification. Results do not exclude the possibility of a mixed viral infection. NOTE: Detecting and identifying specific viral nucleic acids from individuals exhibiting signs and symptoms of respiratory infection aids in the diagnosis of respiratory infection, if used in conjunction with other clinical and laboratory findings. The results of this test should not be used as the sole basis for diagnosis, treatment, or patient management decisions. This nucleic acid amplification assay performance was validated by [facility]. This test has been authorized by the Food and Drug administration (FDA)under an Emergency Use Authorization (EUA). This test has been validated [...] Manny Wall MD LAB - MICROBIOLOGY ORDERABLES Performing Organization Address City/State/[facility] Co de Phone Number [facility] [address] [place] [address], [facility] [phone] * DRUG SCREEN TOX URINE PANEL (09/28/2020 2:20 PM GEOGRAPHIC INFORMATION SYSTEM SURVEYOR) [facility] Amphetamines Screen Urine Negative Negative: < 1000 [...] Unknown Collection / Unknown 09/28/2020 2:20 PM GEOGRAPHIC INFORMATION SYSTEM SURVEYOR 09/28/2020 2:42 PM GEOGRAPHIC INFORMATION SYSTEM SURVEYOR [facility] - 09/28/2020 2:56 PM GEOGRAPHIC INFORMATION SYSTEM SURVEYOR The Urine Toxicology Screening Panel does not screen for Propoxyphene, Meprobamate, Carisoprodol, Trazodone, ncmk-cfv-ofitgdu medications and/or volatiles (Acetone, Isopropanol, Methanol or Ethylene Glycol). Ethanol, Salicylate, Acetaminophen, Tricyclic Antidepressants and several therapeutic drugs may be individually assayed in serum or plasma specimen. Toxicology testing by the [facility] is an aid to medical diagnosis and treatment of patients. No documented chain of custody was maintained. Results are intended to be used for clinical purposes only. Manny Rajendra Kandy DO LAB - URINE CHEMISTR Y ORDERABLES [facility] [address] [place] [address], [facility] [phone] * CT ANGIO BRAIN AND NECK (09/28/2020 1:14 PM GEOGRAPHIC INFORMATION SYSTEM SURVEYOR) Anatomical Region Laterality Modality Head Computed Tomogra phy 09/28/2020 2:44 PM GEOGRAPHIC INFORMATION SYSTEM SURVEYOR Impressions 09/28/2020 3:33 PM GEOGRAPHIC INFORMATION SYSTEM SURVEYOR IMPRESSION: 1.Mildly displaced left inferior thyroid cartilage fracture with adjacent soft tissue swelling. 2.No evidence of large arterial injury identified in the neck. 3.No large arterial occlusion, significant stenoses, or aneurysm identified in the head or neck. Dictated by Laurie Menezes MD (vice president mission integration). This report was approved by Laurie Menezes on 09/28/2020 3:33 PM . I, Dr. MORGAN QUEVEDO have personally reviewed and interpreted this examination/study. This report was electronically signed by MORGAN QUEVEDO on 09/28/2020 3:33 PM . Narrative 09/28/2020 3:33 PM GEOGRAPHIC INFORMATION SYSTEM SURVEYOR CT ANGIO BRAIN AND NECK DATE: 09/28/2020 [...] or neck. Dictated by Laurie Menezes MD (vice president mission integration). This report was approved by Laurie Menezes on 09/28/2020 3:33 PM . I, Dr. MORGAN QUEVEDO have personally reviewed and interpreted this examination/study. This report was electronically signed by MORGAN QUEVEDO on09/28/2020 3:33 PM . Manny Gaitan DO CT ORDERABLES * CT CERVICAL SPINE WO CONTRAST (09/28/2020 1:14 PM GEOGRAPHIC INFORMATION SYSTEM SURVEYOR) Anatomical Region Laterality Modality Spine Computed Tomogra phy 09/28/2020 1:51 PM GEOGRAPHIC INFORMATION SYSTEM SURVEYOR Impressions 09/28/2020 3:28 PM GEOGRAPHIC INFORMATION SYSTEM SURVEYOR IMPRESSION: 1.No acute facial bone fractures identified. [...] evaluation. Report dictated by Laurie Menezes MD (vice president mission integration). This report was approved by Laurie Menezes on 09/28/2020 3:28 PM . I, Dr. MORGAN QUEVEDO have personally reviewed and interpreted this examination/study. This report was electronically signed by MORGAN QUEVEDO on 09/28/2020 3:28 PM . Narrative 09/28/2020 3:28 PM GEOGRAPHIC INFORMATION SYSTEM SURVEYOR CT FACIAL BONES WO CONTRAST, CT CERVICAL [...] evaluation. Report dictated by Laurie Menezes MD (vice president mission integration). This report was approved by Laurie Menezes on 09/28/2020 3:28 PM . I, Dr. MORGAN QUEVEDO have personally reviewed and interpreted this examination/study. This report was electronically signed by MORGAN QUEVEDO on09/28/2020 3:28 PM . Manny Gaitan DO CT ORDERABLES * CT FACIAL BONES WO CONTRAST (09/28/2020 1:14 PM GEOGRAPHIC INFORMATION SYSTEM SURVEYOR) Anatomical Region Laterality Modality Head Computed Tomogra phy 09/28/2020 1:51 PM GEOGRAPHIC INFORMATION SYSTEM SURVEYOR Impressions 09/28/2020 3:28 PM GEOGRAPHIC INFORMATION SYSTEM SURVEYOR IMPRESSION: 1.No acute facial bone fractures identified. [...] evaluation. Report dictated by Laurie Menezes MD (vice president mission integration). This report was approved by Laurie Menezes on 09/28/2020 3:28 PM . I, Dr. MORGAN QUEVEDO have personally reviewed and interpreted this examination/study. This report was electronically signed by MORGAN QUEVEDO on 09/28/2020 3:28 PM . Narrative 09/28/2020 3:28 PM GEOGRAPHIC INFORMATION SYSTEM SURVEYOR CT FACIAL BONES WO CONTRAST, CT CERVICAL [...] evaluation. Report dictated by Laurie Menezes MD (vice president mission integration). This report was approved by Laurie Menezes on 09/28/2020 3:[address] MORGAN Coleman have personally reviewed and interpreted this examination/study. This report was electronically signed by MORGAN QUEVEDO on09/28/2020 3:28 PM . Manny Drew Kandy DO CT ORDERABLES * XR CHEST 1VW PORTABLE (09/28/2020 12:42 PM GEOGRAPHIC INFORMATION SYSTEM SURVEYOR) Anatomical Region Laterality Modality Chest Radiographic Fatou ging 09/28/2020 1:11 PM GEOGRAPHIC INFORMATION SYSTEM SURVEYOR Impressions 09/28/2020 1:23 PM GEOGRAPHIC INFORMATION SYSTEM SURVEYOR FINDINGS/IMPRESSION: There are low bilateral lung volumes with associated bronchovascular crowding. There is no focal consolidation, pleural effusion, or pneumothorax. The cardiomediastinal silhouette is normal. Dictated by Song Estrada MD (vice president mission integration). Dr. JA Coleman MD have personally reviewed and interpreted this examination/study. This report was electronically signed by JA ZHANG MD on 09/28/2020 1:23 PM . Narrative 09/28/2020 1:23 PM GEOGRAPHIC INFORMATION SYSTEM SURVEYOR EXAMINATION: XR CHEST 1VW PORTABLE HISTORY: Trauma [...] is normal. Dictated by Song Estrada MD (vice president mission integration). Dr. JA Coleman MD have personally reviewed and interpreted this examination/study. This report was electronically signed by JA ZHANG MD on09/28/2020 1:23 PM . Manny Gaitan DO DIAGNOSTIC IMAGING O RDERABLES * PTT [facility] (09/28/2020 12:42 PM GEOGRAPHIC INFORMATION SYSTEM SURVEYOR) APTT 25.8 23.0 - 38.4 Seconds 09/28/2020 1:25 PM GEOGRAPHIC INFORMATION SYSTEM SURVEYOR [facility] Comment:Suggested therapeuti c range for full dose I.V. unfractionated heparin therapy for venous thromboembolism is 71 to 109 seconds. Blood BLOOD SPECIMEN / Unknown Venipuncture / Unknown 09/28/2020 12:42 PM GEOGRAPHIC INFORMATION SYSTEM SURVEYOR 09/28/2020 1:15 PM GEOGRAPHIC INFORMATION SYSTEM SURVEYOR Manny Gaitan DO LAB - COAGULATION OR DERABLES Performing Organization Address City/[facility]/ZIP Co de Phone Number [facility] [address] [place] [address], [facility] [phone] * PT-INR [facility] (09/28/2020 12:42 PM GEOGRAPHIC INFORMATION SYSTEM SURVEYOR) PT 12.2 12.1 - 14.8 Seconds 09/28/2020 1:25 PM [facility] INR 0.9 See Comment 09/28/2020 1:25 PM [facility] Comment:The suggested therap eutic range for standard coumadin (warfarin) therapy is an INR of 2.0-3.0. For high-risk patients (Mechanical Mitral Valve Prosthesis, etc.), the suggested prophylactic therapeutic range is an INR of 2.5-3.5. Blood BLOOD SPECIMEN / Unknown Venipuncture / Unknown 09/28/2020 12:42 PM GEOGRAPHIC INFORMATION SYSTEM SURVEYOR 09/28/2020 1:15 PM GEOGRAPHIC INFORMATION SYSTEM SURVEYOR Manny Gaitan DO LAB - COAGULATION OR DERABLES [facility] [address] [place] [address], [facility] [phone] * TYPE + SCREEN PANEL (09/28/2020 12:42 PM GEOGRAPHIC INFORMATION SYSTEM SURVEYOR) Antibody Screen NEG 1:32 PM GEOGRAPHIC INFORMATION SYSTEM SURVEYOR [facility] ABO Rh A POS 09/28/2020 1:32 PM GEOGRAPHIC INFORMATION SYSTEM SURVEYOR [facility] Blood Bank BLOOD SPECIMEN / Unknown Venipuncture / Unknown 09/28/2020 12:42 PM GEOGRAPHIC INFORMATION SYSTEM SURVEYOR 09/28/2020 12:47 PM GEOGRAPHIC INFORMATION SYSTEM SURVEYOR Manny Guillermoper DO LAB - BLOOD BANK ORD GRETA Performing Organization Address City/[facility]/ZIP Co de Phone Number [facility] [address] [place] [address], [facility] [phone] * ALCOHOL ETHYL BLOOD (09/28/2020 12:42 PM GEOGRAPHIC INFORMATION SYSTEM SURVEYOR) Interpretation Ethanol None Detected None Detected mg/dL 09/28/2020 1:12 PM GEOGRAPHIC INFORMATION SYSTEM SURVEYOR [facility] Comment:Ethanol levels less than 10 mg/dL are resulted as None detected . Blood BLOOD SPECIMEN / Unknown Venipuncture / Unknown 09/28/2020 12:42 PM GEOGRAPHIC INFORMATION SYSTEM SURVEYOR 09/28/2020 12:49 PM GEOGRAPHIC INFORMATION SYSTEM SURVEYOR Manny Drew Kandy DO LAB - CHEMISTRY SALEEM RANGEL Performing Organization Address City/[facility]/ZIP Co de Phone Number [facility] [address] [place] [address], [facility] [phone] Care Teams Traffic Or System Dispatcher Relationship Specialty [place] [address] [place] [address] PCP - General Family Medicine 09/28/20 Unknown, Provider [address] [place] [address] 09/28/20
--- OUTSIDE RECORDS SUMMARY | 2024-10-08 14:32 | XMS_ITS | Encounter Summary ---
Author Organization [facility] Address [facility] [place] [address] Care Team Providers Care Relay Operator Name Role Phone Mckay Bradley MD Primary Care Provider [phone] Jann Saucedo MD Unavailable [phone] Luiz Matta MD Primary Care Provider [phone] Luiz Matta MD Primary Care Provider [phone] Encounter Details Date Type Department Care Team (Late st Contact Info) Description 02/26/2018 Abstract [facility] CONVERSION [address] [place] [address] , Generic ConversionMD Social History Tobacco Use Types Packs/Day Years [...] 7:50 AM CDT COVID-19 Rule Out 08/10/2020 08/10/2020 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 COVID-19 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 Out 03/29/2021 03/29/2021 03/29/2021 3:32 PM CDT COVID-19 Rule Out 03/29/2021 03/29/2021 03/31/2021 4:30 AM CDT COVID-19 Rule Out 04/09/2023 04/09/2023 04/09/2023 8:30 AM CDT COVID-19 Confirmed 04/09/2023 04/09/2023 12:32 AM CDT documented as of this encounter Care Teams Relay Operator Relationship Specialty Start Date End Date Mckay Bradley MD PCP - General INTERNAL MEDICINE 02/20/18 02/24/20 [place] [address] [place] [address] PCP - General FAMILY PRACTICE 02/25/20 09/12/21 [place] [address] [place] [address] PCP - General FAMILY PRACTICE 09/13/21 Jann Saucedo MD [facility]. [facility] [address] [place] [address] [place] [facility] Helper INTERVENTIONAL CARDIOLOGY 02/26/18 documented as of this encounter
--- OUTSIDE RECORDS SUMMARY | 2024-10-08 14:32 | XMS_ITS | Clinical Summary ---
Author Organization [facility] [employer] Address [address] [place] [address] Care Team Providers Care Subpoena Server Name Role Phone Luiz Matta MD Primary Care Provider [phone] Unknown, Provider Unavailable Unavailable Source Comments [facility] [employer],non-owned Affiliates and Associated Physician Practices is amultiple site organization consisting of ambulatory clinics and hospital sitesin [place], [place], [place] and [place]. This disclosure is being madepursuant to the Care Everywhere program and may not contain all information available regarding this patient. Last updated 18.[facility] [employer] Allergies No known active allergies Medications * [...] needed 05/24/2021 Active ergocalciferol (DRISDOL) 1.25 MG (37044 UT) capsule Take 1 (one) capsule by [...] 37 C (98.6 F) 07/18/2022 1:37 PM SALES REPRESENTATIVE MEATS Respiratory Rate 18 09/29/2020 3:58 PM SALES REPRESENTATIVE MEATS Oxygen Saturation 96% 09/29/2020 3:58 PM SALES REPRESENTATIVE MEATS Inhaled Oxygen Concentration - - Weight 98 kg (216 lb) 04/19/2023 3:24 PM CDT Height 185.4 cm (6' 1 ) 04/19/2023 3:24 PM CDT Body Mass Index 28.5 04/19/2023 3:24 PM CDT Plan of Treatment Health Maintenance Due Date Last Done Comments HIV SCREENING 12/13/1994 HEPATITIS C SCREENING 12/09/1997 HEPATITIS B VACCINE (1 of 3 - 19+ 3-dose series) 12/13/1998 SCREENING FOR DIABETES 09/30/2023 09/29/2020, 2020 COVID-19 VACCINE ( season) 2024 03/28/2021, 10/17/2020, 09/18/2020 INFLUENZA VACCINE (#1) 2024 DEPRESSION SCREENING 07/29/2024 LIPID TESTING 09/13/2026 09/13/2021, 08/24/2020 ZOSTER VACCINE (1 of 2) 12/13/2029 DTAP/TDAP/TD VACCINES (7 - Td or Tdap) 09/13/2031 09/13/2021, 02/26/1994, 02/26/1994, Additional history exists HIB VACCINE Aged Out No longer eligi ble based on patient's age to complete this topic HPV VACCINE Aged Out No longer eligi ble based on patient's age to complete this topic MENINGOCOCCAL (Group B) VACCINE SHARED DECISION-MAKING Aged Out No longer eligible based on patient's age to complete this topic MENINGOCOCCAL GROUPS A/C/Y/W VACCINE Aged Out No longer eligible based on patient's age to complete this topic PNEUMOCOCCAL VACCINE Aged Out No long er eligible based on patient's age to complete this topic Procedures Procedure Name Priority Date/Time Associated Diagnosis Comments BASIC METABOLIC PANEL (CALCIUM TOTAL) Routine 09/29/2020 2:03 AM SALES REPRESENTATIVE MEATS Blunt trauma of neck, initial encounter from Last 3 Months or Most Recently Relevant to Health Maintenance Results * (ABNORMAL) BASIC METABOLIC PANEL (CALCIUM TOTAL) (09/29/2020 2:03 AM SALES REPRESENTATIVE MEATS) BUN 20 7 - 26 mg/dL 09/29/2020 3:06 AM [facility] Creatinine 0.7 0.6 - 1.2 mg/dL 09/29/2020 3:06 AM [facility] Sodium 139 136 - 145 mmol/L 09/29/2020 3:06 AM [facility] Potassium 3.4(L) 3.5 - 4.5 mmol/L 09/29/2020 3:06 AM [facility] Chloride 105 98 - 107 mmol/L 09/29/2020 3:06 AM [facility] CO2 25 22 - 29 mmol/L 09/29/2020 3:06 AM [facility] Glucose 107 70 - 115 mg/dL 09/29/2020 3:06 AM [facility] Calcium 8.1(L) 8.4 - 10.2 mg/dL 09/29/2020 3:06 AM [facility] Anion Gap 12 8 - 18 09/29/2020 3:06 AM [facility] BUN/Creatinine Ratio 29(H) 7 - 23 09/29/2020 3:06 AM [facility] Osmolality Calculated 291 270 - 300 mOsm/kg 09/29/2020 3:06 AM [facility] eGFR >60 >60 mL/min/1.7 3 m2 09/29/2020 3:06 AM [facility] Blood BLOOD SPECIMEN / Unknown Lab Venipuncture / Unknown 09/29/2020 2:03 AM SALES REPRESENTATIVE MEATS 09/29/2020 2:35 AM [facility] Manny Wall MD LAB - CHEMISTRY OR DERABLES Performing Organization Address [facility]/State/ZIP Co de Phone Number [facility] [address] [place] [address], [facility] [phone] from Last 3 Months or Most Recently Relevant to Health Maintenance Advance Directives * Full Code (Latest Code Status on File) Date Activated Date Inactivated Comments 09/28/2020 5:29 PM 09/29/2020 6:59 PM Care Teams Subpoena Server Relationship Specialty [place] [address] [place] [address] PCP - General Family Medicine 09/28/20 Unknown, Provider [address] [place] [address] 09/28/20
--- OUTSIDE RECORDS SUMMARY | 2024-10-08 14:32 | XMS_ITS | Encounter Summary ---
Author Organization [facility] Address [facility] [place] [address] Care Team Providers Care Pension Manager Name Role Phone Mckay Bradley MD Primary Care Provider [phone] Jann Saucedo MD Unavailable [phone] Luiz Matta MD Primary Care Provider [phone] Luiz Matta MD Primary Care Provider [phone] Encounter Details Date Type Department Care Team (Late st Contact Info) Description 02/20/2018 Abstract 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 PIPE REPAIRER COVID-19 Rule Out 03/29/2021 03/29/2021 03/29/2021 3:32 PM CDT COVID-19 Rule Out 03/29/2021 03/29/2021 03/31/2021 4:30 AM CDT COVID-19 Rule Out 04/09/2023 04/09/2023 04/09/2023 8:30 AM CDT COVID-19 Confirmed 04/09/2023 04/09/2023 12:32 AM CDT documented as of this encounter Care Teams Pension Manager Relationship Specialty Start Date End Date Mckay Bradley MD PCP - General INTERNAL MEDICINE 02/20/18 02/24/20 [place] [address] [place] [address] PCP - General FAMILY PRACTICE 02/25/20 09/12/21 [place] [address] [place] [address] PCP - General FAMILY PRACTICE 09/13/21 Jann Saucedo MD Three [facility]. [facility] [address] [place] [address] [place] Grinder Tender INTERVENTIONAL CARDIOLOGY 02/26/18 documented as of this encounter
--- OUTSIDE RECORDS SUMMARY | 2024-10-08 14:32 | XMS_ITS | Clinical Summary ---
Author Organization [facility] Address [address] [place] [address] Care Team Providers Care Pearl Glue Operator Name Role Phone Luiz Matta MD Primary Care Provider [phone] Allergies No known active allergies Social History [...] age to complete this topic PNEUMOCOCCAL VACCINE 0-49 YEARS Aged Out No longer eligible based on patient's age to complete this topic Care Teams Pearl Glue Operator Relationship Specialty [place] [address] [place] [address] PCP - General Family Practice 12/01/20
--- OUTSIDE RECORDS SUMMARY | 2024-10-08 14:32 | XMS_ITS | Referral Summary ---
Author Organization [facility] [employer] Address [address] [place] [address] Care Team Providers Care Glass Forming Crew Member Name Role Phone Luiz Matta MD Primary Care Provider [phone] Unknown, Provider Unavailable Unavailable Source Comments [facility],non-owned Affiliates and Associated Physician Practices is amultiple site organization consisting of ambulatory clinics and hospital sitesin [place], [place], [place] and [place]. This disclosure is being madepursuant to the Care Everywhere program and may not contain all information available regarding this patient. Last updated 18.[facility] [employer] Allergies No known active allergies Medications * [...] needed 05/24/2021 Active ergocalciferol (DRISDOL) 1.25 MG (97784 UT) capsule Take 1 (one) capsule by [...] 37 C (98.6 F) 07/18/2022 1:37 PM NEWBORN HEARING SCREENER Respiratory Rate 18 09/29/2020 3:58 PM NEWBORN HEARING SCREENER Oxygen Saturation 96% 09/29/2020 3:58 PM NEWBORN HEARING SCREENER Inhaled Oxygen Concentration - - Weight 98 kg (216 lb) 04/19/2023 3:24 PM CDT Height 185.4 cm (6' 1 ) 04/19/2023 3:24 PM CDT Body Mass Index 28.5 04/19/2023 3:24 PM CDT Plan of Treatment Not on file Procedures Procedure Name Priority Date/Time Associated Diagnosis Comments BASIC METABOLIC PANEL (CALCIUM TOTAL) Routine 09/29/2020 2:03 AM NEWBORN HEARING SCREENER Blunt trauma of neck, initial encounter from Last 3 Months or Most Recently Relevant to Health Maintenance Results * (ABNORMAL) BASIC METABOLIC PANEL (CALCIUM TOTAL) (09/29/2020 2:03 AM NEWBORN HEARING SCREENER) BUN 20 7 - 26 mg/dL 09/29/2020 3:06 AM [facility] Creatinine 0.7 0.6 - 1.2 mg/dL 09/29/2020 3:06 AM [facility] Sodium 139 136 - 145 mmol/L 09/29/2020 3:06 AM [facility] Potassium 3.4(L) 3.5 - 4.5 mmol/L 09/29/2020 3:06 AM [facility] Chloride 105 98 - 107 mmol/L 09/29/2020 3:06 AM [facility] CO2 25 22 - 29 mmol/L 09/29/2020 3:06 AM [facility] Glucose 107 70 - 115 mg/dL 09/29/2020 3:06 AM [facility] Calcium 8.1(L) 8.4 - 10.2 mg/dL 09/29/2020 3:06 AM [facility] Anion Gap 12 8 - 18 09/29/2020 3:06 AM [facility] BUN/Creatinine Ratio 29(H) 7 - 23 09/29/2020 3:06 AM [facility] Osmolality Calculated 291 270 - 300 mOsm/kg 09/29/2020 3:06 AM [facility] eGFR >60 >60 mL/min/1.7 3 m2 09/29/2020 3:06 AM [facility] Blood BLOOD SPECIMEN / Unknown Lab Venipuncture / Unknown 09/29/2020 2:03 AM NEWBORN HEARING SCREENER 09/29/2020 2:35 AM NEWBORN HEARING SCREENER Manny Wall MD LAB - CHEMISTRY OR DERABLES [facility] [address] [place] [address], [facility] [phone] from Last 3 Months or Most Recently Relevant to Health Maintenance Advance Directives * Full Code (Latest Code Status on File) Date Activated Date Inactivated Comments 09/28/2020 5:29 PM 09/29/2020 6:59 PM Care Teams Glass Forming Crew Member Relationship Specialty [place] [address] [place] [address] PCP - General Family Medicine 09/28/20 Unknown, Provider [address] [place] [address] 09/28/20
--- OUTSIDE RECORDS SUMMARY | 2024-10-08 14:32 | XMS_ITS | Encounter Summary ---
Author Organization [facility] Address [facility] [place] [address] Care Team Providers Care American Indian Policy Specialist Name Role Phone Jann Saucedo MD Unavailable [phone] Luiz Matta MD Primary Care Provider [phone] Luiz Matta MD Primary Care Provider [phone] Reason for Referral * Surgical (Routine) - Closed Specialty Diagnoses / Procedures Referred By Alexandria barrios Referred To Contact Procedures Case request operating room: INJECTION TRIGGER POINT Cervical paraspinous, trapezius, deltoid Alta Oropeza APNP Phone: tel: fax: Referral ID Status Reason Start Date Expiration Date Visits Re quested Visits Authorized [id number] Closed 05/29/2021 06/28/2022 1 1 Encounter Details Date Type Department Care Team (Late st Contact Info) Description 05/29/2021 Prep for Procedure [facility] [place] [address] [id number] Alta Oropeza APNP [address] [place] [id number] Social History Tobacco Use Types Packs/Day Years Used Date Smoking Tobacco: Former Cigarettes 1 10 1 990 - 1999 Smokeless Tobacco: Former Chew [...] 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 [facility] [address] [place] [address] [employer] Winery Worker INTERVENTIONAL CARDIOLOGY 02/26/18 documented as of this encounter
--- OUTSIDE RECORDS SUMMARY | 2024-10-08 14:32 | XMS_ITS | Encounter Summary ---
Author Organization [facility] Address [facility] [place] [address] Care Team Providers Care Research Animal Facility Supervisor Name Role Phone Jann Saucedo MD Unavailable [phone] Luiz Matta MD Primary Care Provider [phone] Luiz Matta MD Primary Care Provider [phone] Encounter Details Date Type Department Care Team (Late st Contact Info) Description 08/18/2021 Fundly Message Enc [facility] Family & Internal Medicine [address] [address] [facility] Provider Work Comp Information Social History [...] 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 [address] [place] [address] [employer] Product Management Internship INTERVENTIONAL CARDIOLOGY 02/26/18 documented as of this encounter
--- OUTSIDE RECORDS SUMMARY | 2024-10-08 14:33 | XMS_ITS | Continuity of Care Document ---
Author Organization [facility] Address [facility] [place] [address] Care Team Providers Care Channel Account Manager Name Role Phone Fran Newby MD Unavailable [phone] Luiz Matta MD Primary Care Provider [phone] Encounters Date Type Department Care Team Description 09/03/2024 Scan [facility] INFO SRVCS Scanned, Doc [facility] Group Image (SCAN) 08/28/2024 Scan [facility] INFO SRVCS Scanned, [facility] Image (SCAN); Procedure (SCAN) 08/21/2024 Scan [facility] INFO SRVCS Scanned, Doc [facility] Image (SCAN) 08/13/2024 Scan [facility] INFO SRVCS Scanned, Doc [facility] Image (SCAN) 07/31/2024 Scan [facility] HE[facility] INFO SRVCS Scanned, Doc [facility] Image (SCAN) 07/25/2024 2:12 PM SOUNDSCRIBER MECHANIC - 07/27/2024 8:33 AM SOUNDSCRIBER MECHANIC Hospital Encounter [facility] [address]rd [place] [address] Tod Cifuentes MD Discharge Disposition: Home or Self Care (Routine Discharge) 07/26/2024 6:19 PM SOUNDSCRIBER MECHANIC Anesthesia Event [facility] [place] [address] Dony Reyna MD 07/26/2024 6:18 PM SOUNDSCRIBER MECHANIC - 07/26/2024 7:14 PM SOUNDSCRIBER MECHANIC Surgery [facility] [place] [place] [address] Bob Elmore MD CYSTOSCOPY; LEFT URETERAL STENT PLACMENT, LEFT RETROGRADE PYLEOGRAM 07/25/2024 Travel 07/25/2024 7:51 AM SOUNDSCRIBER MECHANIC - 07/25/2024 1:31 PM SOUNDSCRIBER MECHANIC Emergency [facility] Emergency Room [address] [place] [address] Issac Boston MD Flank Pain Discharge Disposition: Transfer to Acute Care Hospital 06/08/2024 Scan HEALTH INFO SRVCS Scanned, Doc Med Group 03/31/2024 Travel 03/31/2024 Telephone [facility] Family & Internal [facility] [id number] [place] [address] Luiz Matta MD Appointment Request 03/31/2024 2:00 PM CDT Office Visit [facility] Family & Internal [facility] [address] [place] [address] Luiz Matta MD Follow Up (F/u from work comp. Due to pain in both arms & neck. ) 03/17/2024 Scan [facility] HE[facility] INFO SRVCS Scanned, Doc [facility] 02/06/2024 Travel 02/06/2024 3:20 PM CDT Office Visit [address] [address] Cami Garnett APRN Diverticulitis (Flare up, started Saturday. ) 02/06/[address] [address] Luiz Matta MD Error 11/26/2023 Travel 11/26/2023 7:00 AM CDT - 11/26/2023 11:59 PM CDT Hospital Encounter [facility] MRI [address] [place] [address] Luiz Matta MD Discharge Disposition: Home or Self Care (Routine Discharge) 11/11/[address] [address] Luiz Matta MD Referral 11/05/2023 Orders Only [facility] Family & Internal Medicine [facility] [address] [place] [address] Luiz Matta MD 11/04/[address] [address] Luiz Matta MD Results (MRI) 11/01/2023 Travel 11/01/2023 2:25 PM CDT - 11/01/2023 11:59 PM CDT Hospital Encounter [facility] MRI [address] [place] [address] Luiz Matta MD Discharge Disposition: Home or Self Care (Routine Discharge) 10/17/2023 Telephone [facility] Family & Internal Medicine [facility] [address] [place] [address] Luiz Matta MD Orders 09/27/[address] [address] Luiz Matta MD Error 09/25/2023 Orders Only [facility] [address] [place] [address] Luiz Matta MD 09/25/2023 4:10 PM SOUNDSCRIBER MECHANIC - 09/25/2023 11:59 PM SOUNDSCRIBER MECHANIC Hospital Encounter [facility] [address] [place] [address] Luiz Matta MD Discharge Disposition: Home or Self Care (Routine Discharge) 09/25/2023 Travel 09/25/2023 3:40 PM SOUNDSCRIBER MECHANIC Office Visit [address] [address] Luiz Matta MD Back Pain 09/13/[address] [address] Luiz Matta MD Lab Results 09/12/[address] [facility] [address] [place] [address] Luiz Matta MD 09/12/2023 Travel 09/12/2023 2:05 PM SOUNDSCRIBER MECHANIC - 09/12/2023 11:59 PM SOUNDSCRIBER MECHANIC Hospital Encounter [facility] [address] [place] [address] Luiz Matta MD Discharge Disposition: Home or Self Care (Routine Discharge) 09/12/[address] [address] Luiz Matta MD Lab Order 09/11/2023 Travel 09/11/2023 8:00 AM SOUNDSCRIBER MECHANIC Office Visit [address] [address] Olga Gaines NP Back Pain (Lower left back pain. Xs 1 month) 04/09/2023 Travel 04/09/2023 7:20 AM CDT Office Visit [facility] Family & Internal Medicine [address] [address] Rena Perkins, SENIOR POLICY ASSOCIATE URI (Headache congestion, sore throat, cough, body aches x 3 days) 01/16/[address] [address] Luiz Matta MD Medication Request 01/16/2023 Telephone [facility] Family & Internal [address] [address] Luiz Matta MD Sinus Problem 01/01/2023 Travel 01/01/2023 2:40 PM CDT Office Visit [facility] Family & Internal Medicine [address] [address] Perkins Rena A, SENIOR POLICY ASSOCIATE Cough (Itchy eyes, was outside Saturday and sx's started. Hx of bad allergies. ) 10/12/2022 Travel 10/12/2022 9:00 AM CDT - 10/12/2022 11:59 PM CDT Hospital Encounter [facility] Outpatient Rehab [address] [place] [address] Manny Chung, Malina Garay, PT Cervical Pain Discharge Disposition: Home or Self Care (Routine Discharge) 10/10/2022 Travel 10/10/2022 12:37 PM CDT - 10/10/2022 11:59 PM CDT Hospital Encounter [facility] Outpatient Rehab [address] [place] [address] Manny Chung MD Meyer, Beverly L, PT Cervical Pain Discharge Disposition: Home or Self Care (Routine Discharge) 10/08/2022 Travel 10/08/2022 1:40 PM CDT - 10/08/2022 11:59 PM CDT Hospital Encounter [facility] Outpatient Rehab [address] [place] [address] Manny Chung MD Rittenhouse, Tiffany J, TICK ERADICATOR Neck Pain Discharge Disposition: Home or Self Care (Routine Discharge) 10/05/2022 Travel 10/05/2022 9:07 AM SOUNDSCRIBER MECHANIC - 10/05/2022 11:59 PM SOUNDSCRIBER MECHANIC Hospital Encounter [facility] Outpatient Rehab [address] [place] [address] Manny Chung MD Rittenhouse, Tiffany J, TICK ERADICATOR Neck Pain Discharge Disposition: Home or Self Care (Routine Discharge) 10/03/2022 Travel 10/03/2022 1:44 PM SOUNDSCRIBER MECHANIC - 10/03/2022 11:59 PM SOUNDSCRIBER MECHANIC Hospital Encounter [facility] Outpatient Rehab [address] [place] [address] Manny Chung MD Rittenhouse, Tiffany J, TICK ERADICATOR Neck Pain Discharge Disposition: Home or Self Care (Routine Discharge) 10/01/2022 Travel 10/01/2022 8:34 AM SOUNDSCRIBER MECHANIC - 10/01/2022 11:59 PM SOUNDSCRIBER MECHANIC Hospital Encounter [facility] Outpatient Rehab [address] [place] [address] Manny Chung MD Meyer, Beverly L, PT Neck Pain Discharge Disposition: Home or Self Care (Routine Discharge) 09/21/2022 Travel 09/21/2022 8:00 AM SOUNDSCRIBER MECHANIC - 09/21/2022 8:51 AM SOUNDSCRIBER MECHANIC Surgery [facility] Surgery [address] [place] [address] Shant Whitehead MD Colonoscopy 09/21/2022 8:29 AM SOUNDSCRIBER MECHANIC Anesthesia Event [facility] Surgery [address] [place] [address] Sylvester Yadav, Yeimy De Santiago, RAFTSMAN 09/21/2022 7:24 AM SOUNDSCRIBER MECHANIC - 09/21/2022 9:40 AM SOUNDSCRIBER MECHANIC Hospital Encounter [facility] Surgery [address] [place] [address] Shant Whitehead MD Discharge Disposition: Home or Self Care (Routine Discharge) 09/14/2022 Orders Only [facility] General [address], [address] [address] Shant Whitehead MD 09/14/2022 Telephone [facility] One Day Services [address] [place] [address] Shant Whitehead MD Medication 08/29/2022 Travel 08/29/2022 7:40 AM SOUNDSCRIBER MECHANIC Office Visit [facility] Medical [facility] Family & Internal Medicine [address] [address] Eloise Macias, FRANCES Abdominal Pain (Pt states he is having Diverticulitis flare) 08/10/2022 Orders Only [facility] General Surgery [address], [address] [address] Shant Whitehead MD 08/10/2022 Prep for Procedure [facility] Surgery [address] [place] [address] Shant Whitehead MD 08/08/2022 Travel 08/08/2022 3:40 PM SOUNDSCRIBER MECHANIC Office Visit [facility] General Surgery [address], [address] [place] [address] Shant Whitehead MD Consult (Abdominal pain( new patient)) 07/26/2022 Travel 07/26/2022 1:40 PM SOUNDSCRIBER MECHANIC Office Visit [facility] Family & Internal Medicine [address] [address] Luiz Matta MD URI/ENT Symptoms (Going into the chest. /Chest pressure. ); Ear Problem; Cough (Started July 21. /Uses OTC medication.) 07/18/2022 Scan iodine SRVCS Scanned, Doc Med Group 07/13/2022 Travel 07/13/2022 3:41 PM SOUNDSCRIBER MECHANIC - 07/13/2022 6:11 PM SOUNDSCRIBER MECHANIC Emergency [facility] Emergency Room [address] [place] [address] Milagro Aponte, FLOOR LAYER- Leg Pain Discharge Disposition: Home or Self Care (Routine Discharge) 05/17/2022 Travel 05/17/2022 1:00 PM CDT Office Visit [facility] Family & Internal [address] [address] Luiz Matta MD Diverticulitis; TCM (05/08/22 - 05/10/22. ER gave his antibiotics, Ivs and a liquid diet. ) 05/14/2022 Telephone [facility] Family Internal [address] [address] Luiz Matta MD TCM 05/11/2022 Telephone [facility] Med/Surg [address] [place] [address] [phone] Pippa Manrique RN Follow Up Call 05/08/2022 11:42 PM CDT - 05/10/2022 3:10 PM CDT Emergency [facility] Med/Surg [address] [place] [address] Valdez Roberson MD Harris, Michael, MD Malcolm, Chanel Rodriguez MD Abdominal Pain Discharge Disposition: Home or Self Care (Routine Discharge) 05/08/2022 Travel 03/14/2022 Travel 03/14/2022 7:00 AM CDT Office Visit [facility] Family & Internal [address] [address] Mariola Taylor, CASTING SORTER Follow Up (6 month f/u, was low on vit D. Pt states he took pills for a little while, they made him not feel the best. ) 02/02/2022 Travel 02/02/2022 9:20 AM CDT Office Visit [facility] Family & Internal [address] [address] Eloise Macias NP Abdominal Pain (Pt c/o right side lower abdominal pain that radiates to back. Pt states the pain is constant with a burning sensation when touched) 12/19/2021 Travel 12/19/2021 2:40 PM CDT Office Visit [facility] Family & Internal [address] [address] Luiz Matta MD Constipation (Diverticulitis acting up.); GERD (Wants to start his medication again) 09/25/2021 Orders Only [facility] [address] [place] [address] Irma iDehl, PA 09/13/2021 Travel 09/13/2021 7:00 AM SOUNDSCRIBER MECHANIC Office Visit [facility] & Internal [address] [address] Mariola Taylor, CASTING SORTER Sinus Problem (Having Sinus problems for 3 weeks, making him dizzy, in his chest, pressure in his ears) 08/29/2021 Travel 08/29/2021 3:20 PM SOUNDSCRIBER MECHANIC Office Visit [facility] Family & Internal Medicine [address] [address] Luiz Matta MD Work Comp (fractured thyroid cartlage, bulging disc c6 & c7, Injury September 28 2020) 08/18/2021 LIFE INTERACTIONhart Message Enc [facility] Family & Internal [address] [address] [facility] Provider Work Comp Information 08/17/[address] [address] Luiz Matta MD Other 08/03/2021 Scan HEALTH INFO SRVCS Scanned, Documents 07/20/2021 Scan HEALTH INFO SRVCS Scanned, Documents 07/04/2021 Travel 07/04/2021 4:00 PM SOUNDSCRIBER MECHANIC Office Visit [facility] Family Internal [address] [address] Luiz Matta MD Follow Up (Follow up to discuss pain management) 06/26/2021 Telephone [facility] [place]ventional [place] [address] [id number] Nick Gabriel, RN Follow Up Call 06/12/2021 Travel 06/12/2021 3:20 PM SOUNDSCRIBER MECHANIC - 06/12/2021 3:40 PM SOUNDSCRIBER MECHANIC Surgery [facility] [place] [address] [id number] Jeri Callahan MD INJECTION TRIGGER POINT Cervical paraspinous, trapezius, deltoid 06/12/2021 2:26 PM SOUNDSCRIBER MECHANIC - 06/12/2021 3:50 PM SOUNDSCRIBER MECHANIC Hospital Encounter [facility] [place] [address] [id number] Jeri Callahan MD Discharge Disposition: Home or Self Care (Routine Discharge) 06/01/2021 Telephone [facility] [place] [address] [id number] Flaquita Madsen, RN Follow Up Call 06/01/2021 Telephone [facility] Medical Group Family & Internal Medicine [address] [address] Luiz Matta MD Referral Request 05/29/2021 Prep for Procedure [facility] [place] [address] [id number] Alta Oropeza APNP 05/29/2021 Travel 05/29/2021 9:02 AM CDT - 05/29/2021 11:59 PM CDT Hospital Encounter [facility] [place] [address] [id number] Alta Oropeza APNP Discharge Disposition: Home or Self Care (Routine Discharge) 05/15/2021 Scan HEALTH INFO SRVCS Scanned, Documents 05/15/[address] [address] Luiz Matta MD Error 05/09/2021 Orders Only [address] [address] Luiz Matta MD 05/02/[address] [address] Luiz Matta MD Referral; Returned Call 05/02/2021 Travel 05/02/2021 10:20 AM CDT Office Visit [address] [address] Luiz Matta MD Referral Request (ent, tonsils) 03/29/2021 2:40 PM CDT Office Visit [facility] Family & Internal Medicine [facility] [address] [place] [address] Maksim Bone MD URI 03/28/2021 Travel 03/28/2021 3:10 PM CDT Flu/Imm Clinic [address] [address] 03/23/2021 Patient Self-Triage [facility] [address] [place] [address] Mycema, [facility] Provider 03/23/2021 Patient Self-Triage [facility] [address] [place] [address] Mycema, [facility] Provider 03/16/2021 Travel 03/16/2021 1:00 PM CDT Office Visit [facility] Family & Internal [facility] [address] [place] [phone] Luiz Matta MD Follow Up (pt here to discuss results of CT scan); Sore Throat (pt c/o of a sore throat for the last few days) 03/14/2021 Telephone [facility] Internal [facility] [address] [place] [phone] Luiz Matta MD Results 03/13/2021 Telephone [facility] [address] [place] [address] Luiz Matta MD Question 03/13/2021 Travel 03/13/2021 9:58 AM CDT - 03/13/2021 11:59 PM CD[place] [address] [place] [address] Luiz Matta MD Discharge Disposition: Home or Self Care (Routine Discharge) 02/23/2021 Travel 02/23/2021 3:00 PM CDT Office Visit [facility] Family & Internal Medicine [address] [address] Luiz Matta MD Follow Up (review results from ENT at [facility].) 02/23/2021 Telephone [facility] Family & Internal Medicine [address] [address] Luiz Matta MD Other 01/12/2021 Travel 01/12/2021 1:00 PM CDT Office Visit [facility] Family & Internal Medicine [address] [address] Luiz Matta MD Follow Up (workmans comp go over records) 01/11/2021 Scan MG HEALTH INFO SRVCS Scanned, Documents 01/04/2021 Scan [facility] HEALTH INFO SRVCS Scanned, Documents 01/04/[address] [address] Luzi Matta MD Question 12/23/2020 Scan [facility] HEALTH INFO SRVCS Scanned, Documents 12/21/2020 Scan [facility] HE[facility] INFO SRVCS Scanned, Documents 12/19/2020 Scan [facility] HE[facility] INFO SRVCS Scanned, Documents Image (SCAN) 12/19/[address] [address] Luiz Matta MD Question 12/04/2020 Scan [facility] HEALTH INFO SRVCS Scanned, Documents 12/01/2020 Scan [facility] HE[facility] INFO SRVCS Scanned, Documents MRI (SCAN) 11/21/2020 Travel 11/21/2020 7:40 AM CDT Office Visit [facility] Family & Internal Medicine [address] [address] Qian Ricks FNP-JOSE Follow Up (2 week f/u on R ear- patient c/o dizziness and throbbing in the ear ) 11/14/2020 Scan [facility] HEALTH INFO SRVCS Scanned, Documents 11/09/2020 Scan [facility] INFO SRVCS Scanned, Documents 11/03/2020 Travel 11/03/2020 10:20 AM CDT Office Visit [address] [address] Qian Ricks, DOROTHY- Earache (right ear. onset- 2 days ago); Sinus Problem (onset- 1 mo. spitting up brownish sputum) 09/28/2020 8:54 AM SOUNDSCRIBER MECHANIC - 09/28/2020 12:01 PM SOUNDSCRIBER MECHANIC Emergency [facility] Emergency [place] [place] [address] Neck Injury Discharge Disposition: Transfer to Acute Care Hospital 08/31/2020 8:40 AM SOUNDSCRIBER MECHANIC - 08/31/2020 11:59 PM SOUNDSCRIBER MECHANIC Hospital Encounter [facility] Laboratory [address] [place] [address] Luiz Matta MD Discharge Disposition: Home or Self Care (Routine Discharge) 08/30/2020 Orders Only [facility] Laboratory [address] [place] [address] Luiz Matta MD 08/30/2020 3:30 PM SOUNDSCRIBER MECHANIC - 08/30/2020 11:59 PM SOUNDSCRIBER MECHANIC Hospital Encounter [facility] Laboratory [address] [place] [address] Luiz Matta MD Discharge Disposition: Home or Self Care (Routine Discharge) 08/30/2020 Travel 08/30/2020 3:00 PM SOUNDSCRIBER MECHANIC Office Visit [address] [phone] Luiz Matta MD Physical (6 mo. annual wellness physical. ); Lab Order (discuss lab work.) 08/24/2020 Travel 08/24/2020 11:20 AM SOUNDSCRIBER MECHANIC Laboratory Only [facility] Family & Internal Medicine [address] [address] 08/24/2020 11:00 AM SOUNDSCRIBER MECHANIC Telemedicine [facility] Medical [facility] Family & Internal [address] [phone] Yvonne Arguelles, APNP Headache (x 3 days ); Gi Problem (diarreha and stomach upset- started this morning (3 bouts this am) ); Sinus Problem (L tonsil hurts for a few days- sinus issue since last visit thinks drainage is upsetting his stomach (requesting steroid shot) ) 08/12/2020 Orders Only [facility] Family & Internal [address] [address] Yvonne Arguelles, APNP 08/10/2020 3:40 PM SOUNDSCRIBER MECHANIC Telemedicine [facility] Internal [address] [address] Yvonne Arguelles, APNP Suspected Coronavirus (Covid-19) (headache started today and nausea, runny nose- has tried a benjamín pot today, fatigue ) 08/09/2020 Travel 08/09/2020 4:30 PM SOUNDSCRIBER MECHANIC - 08/09/2020 11:59 PM SOUNDSCRIBER MECHANIC Hospital Encounter [facility] Outpatient Rehab [address] [place] [address] Luiz Matta MD Meyer, Beverly L, PT Cervical Pain Discharge Disposition: Home or Self Care (Routine Discharge) 08/04/2020 Travel 08/04/2020 4:50 PM SOUNDSCRIBER MECHANIC - 08/04/2020 11:59 PM SOUNDSCRIBER MECHANIC Hospital Encounter [facility] Outpatient Rehab [address] [place] [address] Vanessa Medrano, PT Luiz Matta MD Neck Pain Discharge Disposition: Home or Self Care (Routine Discharge) 08/01/2020 Travel 08/01/2020 3:36 PM SOUNDSCRIBER MECHANIC - 08/01/2020 11:59 PM SOUNDSCRIBER MECHANIC Hospital Encounter [facility] Outpatient Rehab [address] [place] [address] Luiz Matta MD Meyer, Beverly L, PT Cervical Pain Discharge Disposition: Home or Self Care (Routine Discharge) 07/19/2020 Travel 07/19/2020 3:40 PM SOUNDSCRIBER MECHANIC Office Visit [facility] Family & Internal [facility] [address] [place] [address] Nohelia Dupree, FLOOR LAYER Luiz Matta MD Shoulder Pain (right shoulder pain. . back side of arm gets numb and then moves down to the fingers. ) 07/18/2020 [place] [address] Luiz Matta MD Referral 06/21/2020 Travel 06/21/2020 4:20 PM SOUNDSCRIBER MECHANIC Office Visit [facility] Family & Internal [address] [address] Yvonne Arguelles APNP Back Pain (sciatic pain L side of back into leg x 2 weeks) 05/18/[address] [address] Luiz Matta MD Results 05/18/2020 Travel 05/18/2020 10:43 AM CDT - 05/18/2020 11:59 PM CDT Hospital Encounter [facility] [address] [place] [address] Luiz Matta MD Discharge Disposition: Home or Self Care (Routine Discharge) 05/17/[address] [address] Luiz Matta MD Information 05/16/2020 Orders Only [facility] [address] [place] [address] Luiz Matta MD 05/16/2020 12:07 PM CDT - 05/16/2020 11:59 PM CDT Hospital Encounter [facility] [address] [place] [address] Luiz Matta MD Discharge Disposition: Home or Self Care (Routine Discharge) 05/16/2020 Travel 05/16/2020 11:20 AM CDT Office Visit [address] [address] Luiz Matta MD Back Pain (above shoulder); Chest Pain (wraps around to lt side); Mass (lt side of chest and on neck); Rash (lt thigh) 04/05/2020 Travel 04/05/2020 3:20 PM CDT Office Visit [facility] Family & Internal [address] [address] Luiz Matta MD Diverticulitis (Flare up); Knee Pain (left for 3 weeks.) 04/01/2020 Scan MG HEALTH INFO SRVCS Scanned, Documents 03/04/[address] [address] Luiz Matta MD Other 03/03/2020 Travel 03/03/2020 3:00 PM CDT Telemedicine [facility] Family & Internal [address] [address] Luiz Matta MD Sinus Problem (yellow drainage, sneezing, slight sore throat,x 3days no fever) 02/25/[address] [address] Luiz Matta MD Medication 02/25/2020 Travel 02/25/2020 3:00 PM CDT Office Visit [facility] Family & Internal [address] [address] Luiz Matta MD New Patient (New Patient, [...] - 03/18/2019 11:59 PM CDT [place] [address] [place] [address] Mckay Bradley MD Discharge Disposition: Home or Self Care (Routine Discharge) 03/12/2019 Scan [facility] INFO SRVCS Scanned, Documents Image (SCAN) 03/11/2019 Scan [facility] INFO SRVCS Scanned, Documents 12/01/2018 Scan [facility] INFO SRVCS Scanned, Documents Image (SCAN) 11/15/2018 Scan [facility] INFO SRVCS Scanned, Documents Lab (SCAN) 11/13/2018 Scan [facility] INFO SRVCS Scanned, Documents Image (SCAN) 07/01/2018 Abstract [facility] Favian Jarvis MD 03/11/[address] [facility] [place] [address] Kori Gonzalez NP Results 03/10/2018 Orders Only [facility] AT [address] [address] Farn Newby MD 03/10/2018 Telephone [facility] at [address] [address] Eliza Garnett RN Results 03/08/2018 Abstract [facility] [address] [place] [address] Fran Newby MD 03/05/2018 Scan [facility] at [facility], [address] [address] Scanned, Documents 03/03/2018 Orders Only [facility] [facility] at [facility], [address] [address] Fran Newby MD 02/28/2018 10:45 AM CDT Office Visit [facility] [place] [address] [place] [address] Fran Newby MD Consult (chest pain) 02/26/2018 Abstract [facility] CONVERSION [address] [facility] [place] [address] , Generic ConversionMD 02/20/2018 Scan HEALTH INFO SRVCS Scanned, Documents Lab (SCAN) 02/20/2018 Scan HEALTH INFO SRVCS Scanned, Documents ECG (SCAN) 02/20/2018 Abstract [facility] CONVERSION [address] [facility] [place] [place] [address] , Generic ConversionMD 02/20/2018 Orders Only [facility] at [address] [address] Mckay Bradley MD 12/26/[address] [facility] Emergency Room [id number] [place] [address] Manny Cotter MD 12/17/2017 Scan HEALTH INFO SRVCS Scanned, Documents 2017 Abstract [facility] Diagnostic Imaging [address] [place] [address] Luis Arteaga MD 10/22/2017 Scan HEALTH INFO SRVCS Scanned, Documents Image (SCAN) 09/04/2017 Abstract [facility] Imaging [address] [place] [address] Fredy Duff MD 08/27/2017 Scan HEALTH INFO SRVCS Scanned, Documents 06/01/2017 [place] [address] , Generic ConversionMD 04/05/2017 Scan HEALTH INFO SRVCS Scanned, Documents Image (SCAN) 03/23/2017 Scan HEALTH INFO SRVCS Scanned, Documents 06/13/2016 Scan HEALTH INFO SRVCS Scanned, Documents 03/19/2016 Abstract [facility] Medical Group , Generic ConversionMD 03/18/2016 Abstract [facility] [address] [place] [address] Adriana Quinteros, SENIOR POLICY ASSOCIATE 03/16/2016 Abstract [facility] [address] [place] [address] Fredy Duff MD 03/16/2016 Abstract [facility] Medical [facility] Fredy Duff MD 01/03/2016 Scan HEALTH INFO SRVCS Scanned, Documents 12/13/2015 Abstract [facility] Emergency Room [address] [place] [address] Howard Bryan MD 10/30/2015 Abstract [facility] Care [address] [place] [address] 07/28/2015 Scan [facility] INFO SRVCS Scanned, Documents 01/07/2015 Abstract [facility] [address] [place] [address] Fredy Duff MD 01/07/2015 Abstract [facility] Services [address] [place] [address] Fredy Duff MD 10/22/2014 Abstract [facility] [address] [place] [address] Fredy Duff MD 10/08/2014 Abstract [facility] Diagnostic Imaging [address] [place] [address] Fredy Duff MD 08/19/2014 Scan [facility] INFO SRVCS Scanned, Documents 07/25/2014 Abstract [facility] Care [address] [place] [address] Adriana Quinteros, SENIOR POLICY ASSOCIATE 10/07/2013 Abstract [facility] [address] [place] [address] Emma Solis, DOROTHY 09/15/2012 Abstract [facility] Medical Group Brant Decker DO 08/13/2012 Abstract [facility] Medical Group 08/11/2012 Abstract [facility] [address] [place] [address] Riaz Abreu MD 08/11/2012 Abstract [facility] Medical Group Riaz Abreu MD 05/07/2012 Abstract [facility] Medical Group Ronald Rogers MD 09/06/2008 Abstract [facility] Emergency Room [address] [facility] [place] [address] 03/12/2005 Abstract [facility] Conversion Favian Rand MD 03/07/2005 Abstract [facility] CONVERSION [address] [facility] [place] [address] Favian Rand MD 03/07/2005 Abstract [facility] Conversion Md Generic ConversionMD 11/29/2004 Abstract [facility] Conversion Md Generic MD Yakelin 11/21/2004 Abstract [facility] [address] [facility] [place] [address] Favian Rand MD 11/21/2004 Abstract [facility] Conversion Favian Rand MD 11/21/2004 Abstract [facility] Conversion Md Generic ConversionMD 01/25/2003 Abstract [facility] [place] [address] 01/25/2003 Abstract [place] [address] 01/21/2002 Emergency [facility] [place] [place] [address] Md Generic ConversionMD 12/05/2001 Abstract [facility] [place] [address] Allergies No known active allergies Medications fluticasone [...] Patient Refused) MMR 03/27/1990,10/28/1981 MMR (Generic) 03/27/1990,10/28/1981 Ppzkphu-Vrzmk-Snzmfie-Varicell Sc Inj 03/27/1990 ,10/28/1981 Opv 03/21/1985, 4,09/06/1981,1979 PFIZER COVID-19 (ORIGINAL FORMULATION, PURPLE CAP) mRNA, LNP-S, PF, 30 MCG/0.3 ML DOSE 03/28/2021,10/17/2020,09/18/2020 Td 02/26/1994 Td (Tenivac) preservative free 02/26/1994 Tdap (Adacel) 09/13/2021 Family History Medical History Relation Comments Hypertension Father No Known Problems Mother no hx of CAD Other Relation Status Comments Father Alive Mother Alive Other Social History Smoking Status as of 10/08/2024 Tobacco Use Types Packs/Day Years Used Date Smoking Tobacco: Never Assessed [facility] Utilities Answer Date Recorded In the past 12 months has th e Thucy, oil, or water [employer] threatened to shut off services in your [...] any time in the past 12 m onths, were you homeless or living in a longterm (including now)? No 07/25/2024 Education Answer Date [...] Comments Blood Pressure 159/89 07/27/2024 7:41 AM SOUNDSCRIBER MECHANIC Pulse 83 07/27/2024 7:41 AM SOUNDSCRIBER MECHANIC Temperature 36.7 C (98.1 F) 07/27/2024 7:41 AM SOUNDSCRIBER MECHANIC Respiratory Rate 21 07/27/2024 7:41 AM SOUNDSCRIBER MECHANIC Oxygen Saturation 98% 07/27/2024 7:41 AM SOUNDSCRIBER MECHANIC Inhaled Oxygen Concentration - - Weight 102.1 kg (225 lb) 07/25/2024 3:26 PM SOUNDSCRIBER MECHANIC Height 185.4 cm (6' 1 ) 07/25/2024 3:26 PM SOUNDSCRIBER MECHANIC Body Mass Index 29.69 07/25/2024 3:26 PM SOUNDSCRIBER MECHANIC Plan of Treatment Not on file Medical Devices Implanted Type Area Fire [employer] Marine Engineer Device Identifier Shelf Expiration Date Model / Serial / Lot Stent Ureteral Contour Vl 4.8fr X 22-30cm - [id number] Implanted:Qty : 1 on 07/26/2024 by Bob Elmore MD at [facility] Stent Left: Ureter [employer] ELISA [id number] 03/19/2027 [id number] / / [id number] Procedures Procedure Name Priority Date/Time Associated Diagnosis Comments IMAGE GENERIC 09/03/2024 IMAGE GENERIC 08/28/2024 PROCEDURE GENERIC (SCAN ORDER) 08/28/2024 IMAGE GENERIC 08/21/2024 IMAGE GENERIC 08/13/2024 IMAGE GENERIC 07/31/2024 BASIC METABOLIC PANEL Routine 07/27/2024 5:00 AM SOUNDSCRIBER MECHANIC CBC W/DIFF AUTOMATED Routine 07/27/2024 5:00 AM SOUNDSCRIBER MECHANIC XR ABD KUB Today 07/26/2024 7:25 PM SOUNDSCRIBER MECHANIC SURG XR RETROGRD UROGRAPHY Routine 07/26/2024 6:45 PM SOUNDSCRIBER MECHANIC CYSTOSCOPY STENT INSERTION/REMOVAL/PRAVEEN NGE 07/26/2024 6:18 PM SOUNDSCRIBER MECHANIC Urinary tract obstruction by kidney stone PROTHROMBIN TIME, VENOUS Routine 07/26/2024 6:20 AM SOUNDSCRIBER MECHANIC HEMOGLOBIN, GLYCOSYLATED Routine 07/26/2024 5:18 AM SOUNDSCRIBER MECHANIC BASIC METABOLIC PANEL Routine 07/26/2024 5:18 AM SOUNDSCRIBER MECHANIC CBC W/DIFF AUTOMATED Routine 07/26/2024 5:[address] ABD+PEL KIDNEY STONE STAT 07/25/2024 8:45 AM SOUNDSCRIBER MECHANIC URINALYSIS, AUTO, COMPLETE STAT 07/25/2024 8:13 AM SOUNDSCRIBER MECHANIC COMPREHENSIVE METABOLIC PANEL STAT 07/25/2024 8:10 AM SOUNDSCRIBER MECHANIC CBC W/DIFF AUTOMATED STAT 07/25/2024 8:10 AM SOUNDSCRIBER MECHANIC MRI ABD WWO CON Routine 11/26/2023 8:19 AM CDT Renal mass MRI LUMB SPINE WO CON DEE 11/01/2023 3:05 PM CDT Lumbar radiculopathy COMPREHENSIVE METABOLIC PANEL Routine 09/25/2023 4:30 PM SOUNDSCRIBER MECHANIC Routine general medical examination at a [facility] LIPID PANEL Routine 09/25/2023 4:30 PM SOUNDSCRIBER MECHANIC Routine general medical examination at a [facility] URINALYSIS WI REFLEX TO CULTURE Routine 09/12/2023 2:13 PM SOUNDSCRIBER MECHANIC Hematuria URINALYSIS AUTO DIP Routine 09/11/2023 Mid back pain on left side CORONAVIRUS (COVID-19) INFLUENZA A & B ANTIGEN IA PANEL Routine 04/09/2023 Suspected COVID-19 virus infection COLONOSCOPY FLX DX W/COLLJ SPEC WHEN PFRMD 09/21/2022 8:16 AM SOUNDSCRIBER MECHANIC Diverticulitis COLONOSCOPY Routine 09/21/2022 7:25 AM SOUNDSCRIBER MECHANIC CBC W/DIFF AUTOMATED Today 08/29/2022 8:24 AM SOUNDSCRIBER MECHANIC Diverticulitis COLLECTION VENOUS BLOOD VENIPUNCTURE Routine 08/29/2022 8:21 AM SOUNDSCRIBER MECHANIC Diverticulitis D-DIMER, QUANTITATIVE STAT 07/13/2022 3:53 PM SOUNDSCRIBER MECHANIC CBC W/DIFF AUTOMATED STAT 07/13/2022 3:53 PM SOUNDSCRIBER MECHANIC BASIC METABOLIC PANEL Routine 05/10/2022 6:47 AM [...] D, 25 [place] Routine 09/13/2021 8:09 AM SOUNDSCRIBER MECHANIC Annual physical exam Obesity (BMI 30-39.9) TSH W/REFLEX Routine 09/13/2021 8:09 AM SOUNDSCRIBER MECHANIC Annual physical exam Obesity (BMI 30-39.9) LIPID PANEL Routine 09/13/2021 8:09 AM SOUNDSCRIBER MECHANIC Mixed hyperlipidemia COMPREHENSIVE METABOLIC PANEL Routine 09/13/2021 8:09 AM SOUNDSCRIBER MECHANIC Annual physical exam Obesity (BMI 30-39.9) CBC W/DIFF AUTOMATED Routine 09/13/2021 8:09 AM SOUNDSCRIBER MECHANIC Annual physical exam Obesity (BMI 30-39.9) COLLECTION VENOUS BLOOD VENIPUNCTURE Routine 09/13/2021 7:44 AM SOUNDSCRIBER MECHANIC Annual physical exam Obesity (BMI 30-39.9) INJECTION TRIGGER POINT 06/12/2021 3:35 PM SOUNDSCRIBER MECHANIC myofascial pain CORONAVIRUS (COVID 19) Routine 03/29/2021 [...] HEAD WO CON STAT 09/28/2020 10:[address] SOFT TISSUE NECK W CON STAT 09/28/2020 10:37 AM SOUNDSCRIBER MECHANIC COMPREHENSIVE METABOLIC PANEL STAT 09/28/2020 9:54 AM SOUNDSCRIBER MECHANIC CBC W/DIFF AUTOMATED STAT 09/28/2020 9:54 AM SOUNDSCRIBER MECHANIC ECG 12-LEAD STAT 09/28/2020 9:52 AM SOUNDSCRIBER MECHANIC OCCULT BLOOD, FECES Routine 08/31/2020 7 :00 AM SOUNDSCRIBER MECHANIC Anemia, unspecified IRON SAT PANEL (IRON,IBC,%SAT) Routine 08/30/2020 3:44 PM SOUNDSCRIBER MECHANIC Anemia, unspecified COLLECTION VENOUS BLOOD VENIPUNCTURE Routine 08/24/2020 11:24 AM SOUNDSCRIBER MECHANIC Mixed hyperlipidemia Low hematocrit Hypokalemia LIPID PANEL Routine 08/24/2020 11:18 AM SOUNDSCRIBER MECHANIC Mixed hyperlipidemia COMPREHENSIVE METABOLIC PANEL Routine 08/24/2020 11:18 AM SOUNDSCRIBER MECHANIC Hypokalemia CBC W/DIFF AUTOMATED Routine 08/24/2020 11:18 AM SOUNDSCRIBER MECHANIC Low hematocrit CORONAVIRUS (COVID 19) Routine 08/10/2020 4:36 PM SOUNDSCRIBER MECHANIC Acute nonintractable headache, unspecified headache type Post-nasal [...] 1:11 PM CDT Results * IMAGE GENERIC (09/03/2024) Only the most recent of11 resultswithin the time period is included. Anatomical Region Laterality Modality Other 09/03/2024 us [facility] Scanned SCANNING Final Resu lt * PROCEDURE GENERIC (SCAN ORDER) (08/28/2024) 08/28/2024 us [facility] Scanned SCANNING Final Resu lt * (ABNORMAL) BASIC METABOLIC PANEL (07/27/2024 5:00 AM SOUNDSCRIBER MECHANIC) Only the most recent of3 resultswithin the time period is included. GLUCOSE 127(H) 70 - 99 MG/DL 07/27/2024 6:[address] [facility] BUN 27(H) 7 - 18 MG/DL 07/27/2024 6:[address] [facility] CREATININE S/P/B 1.06 0.7 - 1.3 MG/DL 07/27/2024 6:06 AM [facility] SODIUM S/P/B 137 136 - 145 MMOL/L 07/27/2024 6:06 AM [facility] POTASSIUM S/P/B 3.7 3.5 - 5.1 MMOL/L 07/27/2024 6:06 AM [facility] CHLORIDE S/P/B 103 97 - 115 MMOL/L 07/27/2024 6:06 AM [facility] CO2 27.4 21 - 32 MMOL/L 07/27/2024 6:06 AM [facility] CALCIUM S/P/B 8.7 8.5 - 10.1 MG/DL 07/27/2024 6:06 AM [facility] ANION GAP 6.6 2 - 10 MMOL/L 07/27/2024 6:06 AM [facility] BUN CREATININE RATIO 25.5 6 - 26 07/27/2024 6:06 AM [facility] GFR ESTIMATE 89(L) >90 ML/MIN/1.7 3 M2 07/27/2024 6:06 AM [facility] Comment: NOTE: eGFR is not calculated for patients <18 years of age or gender unknown. This is an estimated GFR calculation using the new CKD EPI creatinine equation without race and so does not require a correction factor for race. This estimated GFR should not be used for calculating drug doses. 07/27/2024 5:00 AM SOUNDSCRIBER MECHANIC us Tod Cifuentes MD LABORATORY Final Result [facility] [address] [place] [address], [place] [phone] * (ABNORMAL) CBC W/DIFF AUTOMATED (07/27/2024 5:00 AM [facility]) Only the most recent of11 resultswithin the time period is included. [facility] Signature WBC 9.23 4.5 - 11.0 x10'3/uL 07/27/2024 5:47 AM [facility] RBC 4.36(L) 4.70 - 6.10 x10'6/uL 07/27/2024 5:47 AM [facility] HGB 12.7(L) 14.0 - 18.0 G/DL 07/27/2024 5:47 AM [facility] HCT 37.5(L) 43.0 - 54.0 % 07/27/2024 5:47 AM [facility] MCV 86.0 80.0 - 94.0 FL 07/27/2024 5:47 AM [facility] MCH 29.1 27.0 - 31.0 PG 07/27/2024 5:47 AM [facility] MCHC 33.9 32.0 - 36.0 G/DL 07/27/2024 5:47 AM [facility] RDW 12.1 11.5 - 14.5 % 07/27/2024 5:47 AM [facility] PLT 295 130 - 400 x10'3/uL 07/27/2024 5:47 AM [facility] MPV 9.5 9.3 - 12.2 FL 07/27/2024 5:47 AM [facility] DIFFERENTIAL TYPE AUTOMATED DIFFERENTIAL 07/27/2024 5:47 AM [facility] NEUTROPHILS % 78.1 % 07/27/2024 5:47 AM [facility] LYMPHOCYTES % 13.1 % 07/27/2024 5:47 AM [facility] MONOCYTES % 8.3 % 07/27/2024 5:[address] [facility] EOSINOPHILS 0.1 % 07/27/2024 5:[address] [facility] BASOPHILS 0.1 % 07/27/2024 5:47 AM [facility] IMMATURE GRANS % 0.3 % 07/27/20 5:[address] [facility] ABS. NEUTROPHILS 7.20 1.80 - 7.70 x10'3/uL 07/27/2024 5:[address] [facility] ABS. LYMPHOCYTES 1.21 1.00 - 4.80 x10'3/uL 07/27/2024 5:[address] [facility] ABS. MONOCYTES 0.77 0.30 - 0.82 x10'3/uL 07/27/2024 5:[address] [facility] ABS. EOSINOPHILS 0.01(L) 0.04 - 0.54 x10'3/uL 07/27/2024 5:[address] [facility] ABS. BASOPHILS 0.01 0.01 - 0.08 x10'3/uL 07/27/2024 5:47 AM [facility] ABS. IMMATURE GRANULOCYTES 0.03 0.00 - 0.49 x10'3/uL 07/27/2024 5:47 AM [facility] 07/27/2024 5:00 AM SOUNDSCRIBER MECHANIC us Tod Cifuentes MD LABORATORY Final Result [facility] [address] [place] [address], [place] [phone] * XR ABD KUB (07/26/2024 7:25 PM SOUNDSCRIBER MECHANIC) Anatomical Region Laterality Modality Abdomen Radiographic Fatou ging 07/26/2024 10:4 5 PM SOUNDSCRIBER MECHANIC Impressions 07/26/2024 10:47 PM SOUNDSCRIBER MECHANIC IMPRESSION: Left ureteral stent extending from a lower pole calyx to the urinary bladder. Referred By: ISSAC BOSTON Interpreted By: Paxton Orr MD, 07/26/2024 10:45 PM Narrative 07/26/2024 10:47 PM SOUNDSCRIBER MECHANIC [place] [id number] Abdomen single view INDICATION: Ureteral stent position. COMPARISON: None. TECHNIQUE: Single AP view. FINDINGS: The left ureteral stent extends from the lower pole calyx to the urinary bladder. Multiple calculi are seen at the lower pole of the left kidney. No calculi can be seen on the right. Normal bowel gas pattern. Bony structures are unremarkable. Procedure Note Paxton Orr MD - 07/26/2024 [place] [address] Abdomen single view INDICATION: Ureteral stent position. [...] SURG XR RETROGRD UROGRAPHY (07/26/2024 6:45 PM SOUNDSCRIBER MECHANIC) Anatomical Region Laterality Modality Abdomen Fluoroscopy 07/27/2024 7:16 AM SOUNDSCRIBER MECHANIC Impressions 07/27/2024 7:16 AM SOUNDSCRIBER MECHANIC Impression: Fluoroscopic spot views of left retrograde urography obtained for intraoperative control purposes and evaluated postoperatively. Ordered By: BOB ELMORE Interpreted By: Gabriel Haynes MD, 07/27/2024 7:16 AM Narrative 07/27/2024 7:16 AM SOUNDSCRIBER MECHANIC [place] [address] Intraoperative fluoroscopic views of the retrograde urography History: Urolithiasis Technique: Fluoroscopic images obtained for intraoperative control purposes. Total DAP for exam: 1.7081 Gy-cm2. Findings: Single submitted image demonstrates partial opacification of the left renal collecting system and ureter with contrast. Procedure Note Gabriel Haynes MD - 07/27/[address] [address] Intraoperative fluoroscopic views of the retrograde urography [...] By: Gabriel Haynes MD, 07/27/2024 7:16 AM us Bob Elmore MD IMAGES ONLY Final Result * PROTIME/INR, VENOUS (07/26/2024 6:20 AM SOUNDSCRIBER MECHANIC) Only the most recent of2 resultswithin the time period is included. PROTIME 11.1 10.2 - 12.9 SEC 07/26/2024 6:[address] [facility] INR 1.0 07/26/2024 6:[address] [facility] Comment: Recommended INR Therapeutic Goals: 2.0-3.0 Routine Therapy 2.5-3.5 Mechanical Prosthetic Valves (High Risk) 07/26/2024 6:20 AM SOUNDSCRIBER MECHANIC Tod Cifuentes MD LABORATORY Final Result [facility] [address] [place] [address], [place] [phone] * (ABNORMAL) HEMOGLOBIN, GLYCOSYLATED (07/26/2024 5:18 AM SOUNDSCRIBER MECHANIC) Pathologist [facility] HGB A1C 5.9(H) <5.7 % 07/26/2024 10:[address] [facility] Comment: ADA GUIDELINES 2010 5.7 TO 6.4% INCREASED RISK OF DIABETES > OR = 6.5% CONSISTENT WITH DIABETES ESTIMATED AVG GLUCOSE 123 mg/dL 07/26/2024 10:[address] [facility] 07/26/2024 5:18 AM SOUNDSCRIBER MECHANIC Tod Cifuentes MD LABORATORY Final Result [facility] [address] [place] [address], [place] [phone] * CT ABD+PEL KIDNEY STONE (07/25/2024 8:45 AM SOUNDSCRIBER MECHANIC) Anatomical Region Laterality Modality Abdomen Computed Tomogra phy 07/25/2024 8:48 AM SOUNDSCRIBER MECHANIC Impressions 07/25/2024 8:50 AM SOUNDSCRIBER MECHANIC IMPRESSION: 1. Mild left-sided hydronephrosis due to an 8 x 5 mm irregular stone residing at the left UPJ. Additional nonobstructing stones are present within the lower pole of the left kidney Ordered By: ISSAC BOSTON Interpreted By: Karthik Padgett MD, 07/25/2024 8:48 AM Narrative 07/25/2024 8:50 AM SOUNDSCRIBER MECHANIC [facility] [address] [place] [address] CT ABDOMEN AND PELVIS WITHOUT CONTRAST Clinical [...] Procedure Note Karthik Padgett MD - 07/25/2024 [facility] [address] [place] [address] CT ABDOMEN AND PELVIS WITHOUT CONTRAST Clinical [...] (ABNORMAL) Urinalysis, Auto, Complete (07/25/2024 8:13 AM SOUNDSCRIBER MECHANIC) COLOR (U) DARK YELLOW 07/25/2024 8:49 AM [facility] TRANSPARENCY HAZY 07/25/2024 8:49 AM [facility] SPECIFIC GRAVITY (U) >1.030(H) 1.000 - 1.030 07/25/2024 8:49 AM [facility] U PH 5.5 5.0 - 9.0 07/25/2024 8:49 AM [facility] LEUKOCYTES (U) NEGATIVE NEGATIVE 07/25/2024 8:49 AM [facility] NITRITES NEGATIVE NEGATIVE 07/25/2024 8:49 AM [facility] PROTEIN RANDOM (U) 2+(A) NEGATIVE 07/25/2024 8:49 AM [facility] GLUCOSE (U) NEGATIVE NEGATIVE 07/25/2024 8:49 AM [facility] KETONES MG/DL (U) NEGATIVE NEGATIVE 07/25/2024 8:49 AM [facility] BILIRUBIN (U) 1+(A) NEGATIVE 07/25/2024 8:49 AM [facility] BLOOD (U) 3+(A) NEGATIVE 07/25/2024 8:49 AM [facility] WBC/HPF NONE SEEN 0 - 5 /HPF 07/25/2024 8:49 AM [facility] RBC/HPF 50-100 0 - 5 /HPF 07/25/2024 8:49 AM [facility] EPI/HPF NONE SEEN /HPF 07/25/2024 8:49 AM [facility] URINE SPECIMEN OBTAINED BY CLEAN CATCH PROCEDURE / Unknown 07/25/2024 8:13 AM [facility] Issac Boston MD URINE ORDERABLES Final Result [facility] [address] [place] [address], * (ABNORMAL) COMPREHENSIVE METABOLIC PANEL (07/25/2024 8:10 AM SOUNDSCRIBER MECHANIC) Only the most recent of8 resultswithin the time period is included. GLUCOSE 149(H) 70 - 99 MG/DL 07/25/2024 8:31 AM [facility] BUN 29(H) 7 - 18 MG/DL 07/25/2024 8:31 AM [facility] CREATININE S/P/B 1.14 0.7 - 1.3 MG/DL 07/25/2024 8:31 AM [facility] SODIUM S/P/B 142 136 - 145 MMOL/L 07/25/2024 8:31 AM [facility] POTASSIUM S/P/B 4.2 3.5 - 5.1 MMOL/L 07/25/2024 8:31 AM [facility] CHLORIDE S/P/B 103 100 - 108 MMOL/L 07/25/2024 8:31 AM [facility] CO2 27.7 21 - 32 MMOL/L 07/25/2024 8:31 AM [facility] CALCIUM S/P/B 9.2 8.5 - 10.1 MG/DL 07/25/2024 8:31 AM [facility] BILIRUBIN TOTAL S/P/B 0.4 0.2 - 1.2 MG/DL 07/25/2024 8:31 AM [facility] TOTAL PROTEIN S/P/B 7.3 6.4 - 8.2 G/DL 07/25/2024 8:31 AM [facility] ALBUMIN S/P/B 3.8 3.4 - 5.0 G/DL 07/25/2024 8:31 AM [facility] AST 19 15 - 37 U/L 07/25/2024 8:31 AM [facility] ALT 31 16 - 60 U/L 07/25/2024 8:31 AM [facility] ALKALINE PHOSPHATASE S/P/B 88 50 - 136 U/L 07/25/2024 8:31 AM [facility] ANION GAP 11.3 5 - 15 MMOL/L 07/25/2024 8:31 AM [facility] BUN CREATININE RATIO 25.4 6 - 26 07/25/2024 8:31 AM [facility] A/G RATIO 1.1 1.0 - 2.0 RATIO 07/25/2024 8:31 AM [facility] GFR ESTIMATE 81(L) >90 ML/MIN/1.7 3 M2 07/25/2024 8:31 AM [facility] Comment: NOTE: eGFR is not calculated for patients <18 years of age. This is an estimated GFR calculation using the new CKD EPI creatinine equation without race and so does not require a correction factor for race. This estimated GFR should not be used for calculating drug doses. 07/25/2024 8:10 AM [employer] Issac Boston MD LABORATORY Final Result [facility] [id number] [place] [address], * MRI ABD WWO CON (11/26/2023 8:19 [...] Impressions 11/02/2023 12:47 AM CDT IMPRESSION: 1. Mild multilevel lumbar spondylosis, allowing for transitional lumbosacral anatomy, as described above. 2. There is a T1 and T2 hypointense exophytic nodule arising from the inferior pole the right kidney, indeterminate. Nonemergent MRI abdomen with contrast and renal protocol [...] anatomy with 6 nonrib-bearing lumbar-type vertebral bodies. There is suggestion of incomplete fusion involving the right L1 transverse process. Probable lumbarized S1 vertebral body. Allowing for this designation, there is intervertebral disc height loss at L1-2, L2-3, L3-4 and L5-S1. There is 0.4 cm of retrolisthesis of L5 on S1. The conus medullaris terminates at L1, normal. There is a normal distribution of cauda equina within the thecal sac. There is a 0.6 cm right renal cyst. There is a 0.9 cm T2 hypointense, T1 hypointense nodule arising from the inferior pole the right kidney (series 6 image 8, series 5 image 18). L1-2: No significant spinal canal or neural foraminal stenosis L2-3: No significant spinal canal or neural foraminal stenosis. L3-4: No significant spinal canal stenosis. Eaoi-eq-dtnnnqzv facet hypertrophy. Mild left neural foraminal stenosis. No right neural foraminal stenosis. L4-5: No significant spinal canal stenosis. Mild to moderate facet hypertrophy. Mild bilateral neural foraminal stenosis. L5-S1: No significant spinal canal stenosis. Ckas-gu-hjcofynq facet hypertrophy. Mild bilateral neural foraminal stenosis. Procedure Note Qasim Cardenas MD - 11/02/2023 EXAMINATION: MRI LUMB SPINE WO [facility], 11/02/2023 12:37 AM TECHNIQUE: Multiplanar multisequence magnetic resonance images of thelumbar spine were obtained without intravenous contrast. HISTORY: Back pain COMPARISON: CT abdomen and pelvis 05/09/2022, CT chest 03/08/2018 FINDINGS: There is transitional lumbosacral anatomy with 6 mowiss-siytkjjdnyqhe-kdry vertebral bodies. There is suggestion of incomplete fusioninvolving the right L1 transverse process. Probable lumbarized A7jtqssztta body. Allowing for this designation, there is intervertebraldisc height loss at L1-2, L2-3, L3-4 and L5- S1. There is 0.4 cm ofretrolisthesis of L5 on S1. The conus medullaris terminates at L1,normal. There is a normal distribution of cauda equina within the thecalsac. There is a 0.6 cm right renal cyst. There is a 0.9 cm I0tegtliqgagw, T1 hypointense nodule arising from the inferior pole theright kidney (series 6 image 8, series 5 image 18). L1-2: No significant spinal canal or neural foraminal stenosis L2-3: No significant spinal canal or neural foraminal stenosis. L3-4: No significant spinal canal stenosis. Wmjp-jc-ixvqlrsr facethypertrophy. Mild left neural foraminal stenosis. No right neuralforaminal stenosis. L4-5: No significant spinal canal stenosis. Mild to moderate facethypertrophy. Mild bilateral neural foraminal stenosis. L5-S1: No significant spinal canal stenosis. Dbpy-nz-fttkxpcf facethypertrophy. Mild bilateral neural foraminal stenosis. IMPRESSION: [...] * (ABNORMAL) LIPID PANEL (09/25/2023 4:30 PM SOUNDSCRIBER MECHANIC) Only the most recent of4 resultswithin the time period is included. CHOLESTEROL 267(H) <200 MG/DL 09/25/2023 5:16 PM [facility] TRIGLYCERIDES 129 <150 MG/DL 09/25/2023 5:16 PM [facility] HDL 56 >40.0 MG/DL 09/25/2023 5:16 PM [facility] LDL (CALCULATED) 185(H) <100 MG/DL 09/25/2023 5:16 PM [facility] NON HDL CHOLESTEROL 211(H) <130 MG/DL 09/25/2023 5:16 PM [facility] Comment: NOTE: WHEN THE TRIGLYCERIDES ARE >200 mg/dL, NON HDL C IS A SECONDARY TARGET OF THERAPY, WITH A GOAL 30 mg/dL HIGHER THAN THE IDENTIFIED LDL C GOAL. CHOL/HDL RATIO 4.8(H) 0.0 - 4.5 09/25/2023 5:16 PM [facility] VLDL CALCULATION 26 5 - 55 MG/DL 09/25/2023 5:16 PM [facility] LIPID INTERPRETATION 09/25/2023 5:16 PM SOUNDSCRIBER MECHANIC [facility] Comment: NIH CONCENSUS REPORT RECOMMENDATIONS: ADULT CHILD LOW RISK: CHOLESTEROL <200 <170 TRIGLYCERIDE <150 --- HDL >=60 --- LDL <100 <110 BORDERLINE: CHOLESTEROL 200-239 170-199 TRIGLYCERIDE 150-199 --- HDL 40-59 --- LDL 100-159 110-129 HIGH RISK: CHOLESTEROL >=240 >=200 TRIGLYCERIDE >=200 --- HDL <40 --- LDL >=160 >=130 09/25/2023 4:30 PM SOUNDSCRIBER MECHANIC us Luiz Matta MD LABORATORY Final Resul t [facility] [address] [place] [address], [place] [phone] * (ABNORMAL) URINALYSIS WI REFLEX TO CULTURE (09/12/2023 2:13 PM SOUNDSCRIBER MECHANIC) Only the most recent of2 resultswithin the time period is included. COLOR (U) YELLOW 09/12/2023 3:19 PM [facility] TRANSPARENCY CLEAR 09/12/2023 3:19 PM [facility] SPECIFIC GRAVITY (U) 1.025 1.000 - 1.030 09/12/2023 3:19 PM [facility] U PH 6.0 5.0 - 9.0 09/12/2023 3:19 PM [facility] LEUKOCYTES (U) NEGATIVE NEGATIVE 09/12/2023 3:19 PM [facility] NITRITES NEGATIVE NEGATIVE 09/12/2023 3:19 PM [facility] PROTEIN RANDOM (U) NEGATIVE NEGATIVE 09/12/2023 3:19 PM [facility] GLUCOSE (U) NEGATIVE NEGATIVE 09/12/2023 3:19 PM [facility] KETONES MG/DL (U) NEGATIVE NEGATIVE 09/12/2023 3:19 PM [facility] BILIRUBIN (U) NEGATIVE NEGATIVE 09/12/2023 3:19 PM [facility] BLOOD (U) TRACE(A) NEGATIVE 09/12/2023 3:19 PM SOUNDSCRIBER MECHANIC [facility] WBC/HPF NONE SEEN 0 - 5 /HPF 09/12/2023 3:19 PM [facility] RBC/HPF 0-5 0 - 5 /HPF 09/12/2023 3:19 PM [facility] EPI/HPF FEW /HPF 09/12/2023 3:19 PM [facility] CULTURE & SENSITIVITY INDICATED? CULTURE IS NOT INDICATED 09/12/2023 3:19 PM [facility] URINE SPECIMEN OBTAINED BY CLEAN CATCH PROCEDURE / Unknown 09/12/2023 2:13 PM SOUNDSCRIBER MECHANIC us Luiz Matta MD URINE ORDERABLES Final Resu lt [facility] [address] [place] [address], [place] [phone] * (ABNORMAL) URINALYSIS AUTO DIP (09/11/2023) COLOR (U) YELLOW YELLOW [facility] (9401), [facility] TRANSPARENCY CLEAR CLEAR [facility] (9401), [facility] GLUCOSE (U) NEGATIVE NEGATIVE MG/DL [facility] (9401), [facility] BILIRUBIN (U) NEGATIVE NEGATIVE [facility] (9401), [facility] KETONES MG/DL (U) NEGATIVE NEGATIVE MG/DL [facility] (9401), [facility] SPECIFIC GRAVITY (U) 1.025 1.001 - 1.035 [facility] (9401), [facility] BLOOD (U) TRACE (Non Hemolyzed, Intact)(A) NEGATIVE [facility] (9401), [facility] U PH 6.0 5.0 - 9.0 [facility] (9401), [facility] PROTEIN (U) NEGATIVE NEGATIVE mg/dL [facility] (9401), [facility] UROBILINOGEN 0.2 0.2 - 1.0 EU/dL = mg/dL [facility] (9401), [facility] NITRITES NEGATIVE NEGATIVE MG/DL [facility] (9401), [facility] LEUKOCYTES (U) NEGATIVE NEGATIVE [facility] L[facility] (9401), [facility] URINE SPECIMEN OBTAINED BY CLEAN CATCH PROCEDURE / Unknown 09/11/2023 Olga Gaines [facility] URINE ORDERABLES Final Re sult [facility] (9401), [facility] [address] [place] [id number], [place] [phone] * (ABNORMAL) CORONAVIRUS (COVID-19) INFLUENZA A & B ANTIGEN IA PANEL (04/09/2023) Pathologist [facility] CORONAVIRUS ANTIGEN IA POSITIVE(A) NEGATIVE [id number], [place] INFLUENZA A NEGATIVE NEGATIVE MG-[address], [place] INFLUENZA B NEGATIVE NEGATIVE MG-[address], [place] Internal Control: VALID VALID MG-[address], [place] NASAL STRUCTURE / Unknown 04/09/2023 Rena Perkins APRN MICROBIOLOGY - GENERAL ORD ERABLES Final Result Performing Organization Address City/[facility]/ZIP Co de Phone Number -[phone], [place] [address] [place] [address], [place] [phone] * D-DIMER, QUANTITATIVE (07/13/2022 3:53 PM SOUNDSCRIBER MECHANIC) Only the most recent of2 resultswithin the time period is included. Pathologist [facility] D-DIMER 222 0 - 500 ng{FEU}/mL 07/13/2022 4:09 PM SOUNDSCRIBER MECHANIC [facility] Comment: D-Dimer values less than or [...] additional false negative findings. 07/13/2022 3:53 PM SOUNDSCRIBER MECHANIC us Milagro Aponte [facility]ORATORY Final Res ult [facility] [address] [place] [address], * CT ABD+PEL W IV CON ONLY [...] ORAL CONTRAST WITH SAGITTAL AND CORONAL RECONSTRUCTION DATE: 05/09/2022 12:46 AM [...] Interpreted By: Kapil Abad, 05/09/2022 7:20 AM Valdez Roberson MD CT Final Result * LACTIC ACID (05/09/2022 12:26 AM CDT) LACTIC ACID VENOUS 1.2 0.4 - 2.0 MMOL/L 05/09/2022 1:27 AM CDT [facility] 05/09/2022 12:2 6 AM CDT us Valdez Roberson MD LABORATORY Final Result [facility] [address] [place] [address], [place] [phone] * LIPASE (05/08/2022 11:51 PM CDT) LIPASE 75 73 - 393 UNITS/L 05/09/2022 12:44 AM CDT [facility] 05/08/2022 11:5 1 PM CDT us Valdez Roberson MD LABORATORY Final Result Performing Organization Address [facility] Co de Phone Number [facility] [address] [place] [address], [place] [phone] * (ABNORMAL) VITAMIN D, 25 [place] (03/14/2022 7:44 AM CDT) Only the most recent of2 resultswithin the time period is included. VITAMIN D 25 HYDROXY TOTAL S/P/B 26.9(L) >29.9 ng/mL [place] [facility] Comment: Vitamin D, 25-Hydroxy reports concentrations of [...] Blayne MF, Fatuma NC, Britney SHEETS, et al. Evaluation, treatment, and prevention of vitamin D deficiency: an Endocrine Society clinical practice guideline. J Clin Endocrinol Metab. 2011;96(7):1911-30.This test is performed by a Liquid Chromatography-Tandem Mass Spectrometry (LC-MS/MS) method. This test was developed and its performance characteristics determined by the [employer]. It has not been cleared or approved by the U.S. FDA. The [employer]. is regulated under Clinical Laboratory Improvement Amendments [...] D 25 HYDROXY D3 S/P/B 25.9 ng/mL [employer]. Comment: This test was developed and its analytical performance characteristics have been determined by [employer]. It has not been cleared or approved by the FDA. This assay has been validated pursuant to the CLIA regulations and is used for clinical purposes. VITAMIN D 25 HYDROXY D2 S/P/B 1.0 ng/mL [employer]. Comment: This test was developed and its analytical performance characteristics have been determined by [employer]. It has not been cleared or approved by the FDA. This assay has been validated pursuant to the CLIA regulations and is used for clinical purposes. 03/14/2022 7:44 AM CDT 03/15/2022 4:13 AM CDT Mariola Taylor [facility] LABORATORY Final Result [facility] [place] [employer] [employer]. [address], [address] [place] [address] * TSH W/REFLEX (09/13/2021 8:09 AM SOUNDSCRIBER MECHANIC) Pathologist [facility] TSH 1.59 0.40 - 4.50 mIU/L [facility] 09/13/2021 8:09 AM SOUNDSCRIBER MECHANIC 09/14/2021 4:11 PM SOUNDSCRIBER MECHANIC us Mariola Taylor [facility] LABORATORY Final Result [facility] [address] [place] [address] * [facility] SARS-COV RNA QUAL NAAT (03/29/2021 3:37 PM CDT) Only the most recent of3 resultswithin the time period is included. [facility] CORONAVIRUS SARS COV 2 PCR (RESP) NOT DETECTED NOT DETECTED [facility] Comment: A Not Detected result means that SARS-CoV-2 RNA was not present in the specimen above the limit of detection. A Not Detected result does not rule [...] Method: Nucleic Acid Amplification Test including reverse recycling assistant polymerase chain reaction (RT-PCR) and recycling assistant mediated amplification (TMA). The test method meets the [place] Centers for Disease Control and prevention (CDC) pre departure and arrival requirement for viral test for COVID-19 dated August 25, 2020. Testing requirements for traveling may change with time. The patient is responsible for determining the test requirements for each nation while they are traveling. This test has been authorized by the FDA under an Emergency Use Authorization (EUA) for use by authorized laboratories. Please review the Fact Sheets and FDA authorized labeling available for health care providers and patients using the following websites: [email or web address]/home/Covid-19/HCP/[facility]/fact- sheet.html [email or web address]://[email or web address].[email or web address]/home/Covid-19/Patients/ [facility]/fact-sheet.html Due to the current public health emergency, [employer] is accepting samples from appropriate clinical sources [...] monitoring, including collection of an additional specimen. Additional information about COVID-19 can be found at the [employer] website: [email or web address]. NASAL STRUCTURE / Unknown 03/29/2021 3:37 PM CDT 03/30/2021 8:32 AM CDT Maksim Bone MD MICROBIOLOGY - GENERAL O RDERABLES Final Result [facility] [address] [place] [address] * CORONAVIRUS (COVID-19) ANTIGEN (03/29/2021) Only the most recent of2 resultswithin the time period is included. CORONAVIRUS ANTIGEN IA NEGATIVE NEGATIVE [id number], [place] Internal Control: VALID VALID MG-[address], [place] Specimen from nose (specimen) NASAL STRUCTURE / Unknown 03/29/2021 Maksim Bone MD MICROBIOLOGY - GENERAL O RDERABLES Final Result Performing Organization Address City/[facility]/ZIP Co de Phone Number [phone], [facility] [address] [place] [address], [place] [phone] * CREATININE WHOLE BLOOD (Radiology only) (03/13/2021 7:29 PM CDT) CREATININE WHOLE BLOOD 0.9 0.6 - 1.3 MG/DL 03/13/2021 7:35 PM CDT [facility] 03/13/2021 7:29 PM CDT us Luiz Matta MD LABORATORY Final Resul t [facility] [address] [place] [address], * CT SOFT TISSUE NECK W CON (03/13/2021 11:44 AM CDT) Only the most recent of2 resultswithin the time period is included. Anatomical Region Laterality Modality Neck Computed Tomogra phy 03/13/2021 12:5 8 PM CDT Impressions 03/13/2021 1:05 PM CDT FINDINGS AND IMPRESSION: 1. History of comminuted fracture of the thyroid cartilage. The cartilage remains heterogeneous in attenuation with numerous bilateral hairline lucencies particularly along its superior margin resembling the previous exam. The hyoid bone appears intact. 2. Minimal asymmetric appearance of the vocal cords without discrete mass. The epiglottis is not enlarged. No prevertebral edema. Exam compromised by artifact affecting the visualization of the oropharynx from dental origin. 3. Mild bilateral symmetric palatine tonsillar hypertrophy. 4. No obvious lymphadenopathy. The parathyroid, sublingual and submandibular salivary glands appear symmetric and homogeneous. The thyroid gland appears unremarkable. 5. Lung apices are clear. Airway appears patent. Paranasal sinuses appear grossly clear. Mastoids appear well-aerated. 6. Mild degenerative changes of the lower cervical spine Voice recognition software utilized. Referred By: LUIZ MATTA Interpreted By: Donn Gorman, 03/13/2021 12:58 PM Narrative 03/13/2021 1:05 PM CDT IMAGING STUDIES: CT SOFT TISSUE NECK W CON DATE: 03/13/2021 10:17 AM HISTORY: Pain, Blunt Trauma history of laryngeal fracture. Persistent dysphagia since trauma [...] CT HEAD WO CON (09/28/2020 10:37 AM SOUNDSCRIBER MECHANIC) Anatomical Region Laterality Modality Head Computed Tomogra phy 09/28/2020 10:3 9 AM SOUNDSCRIBER MECHANIC Impressions 09/28/2020 10:41 AM SOUNDSCRIBER MECHANIC IMPRESSION: No acute intracranial process. Referred By: CHANEL NOLASCO Interpreted By: Len Hernandez MD, 09/28/2020 10:39 AM Narrative 09/28/2020 10:41 AM SOUNDSCRIBER MECHANIC EXAMINATION: CT of the head without contrast DATE: 09/28/2020 CLINICAL HISTORY: Hit in the throat with a steel pipe while working. Reports another worker stepped on a lever causing the pipe to hit his throat. Reports difficultly breathing . O2 in triage 95-96%. Reports can taste blood going down throat COMPARISON: None. TECHNIQUE: CT examination of the head without contrast was performed with axial images obtained. A dose [...] visualized paranasal sinuses or mastoid air cells. Procedure Note Len Hernandez MD - 09/28/2020 [...] * ECG 12 lead (09/28/2020 9:52 AM SOUNDSCRIBER MECHANIC) 09/28/2020 9:52 AM SOUNDSCRIBER MECHANIC Narrative [facility] ([facility]IC[place]) RAD - 09/28/2020 5:23 PM SOUNDSCRIBER MECHANIC [facility] [address] Test Date: 2020-09-28 Pat Name: PORTILLO KIDD Department: Room: [place] [address] Gender: Male Splitter Machine: RAVI : 1980 Requested By: CHANEL NOLASCO Order Number: [id number] Reading MD: Griffin Jackson Measurements Intervals [place] Rate: 66 P: -12 OR: 140 QRS: 24 QRSD: 98 T: 32 QT: 377 QTc: 396 Interpretive Statements SINUS RHYTHM No previous ECG available for comparison No ischemic changes Gabriel Mascorro M.D. CRITICAL ALERT ISSUED ON 09-28-2020 9:56:39 DSCRIBER MECHANIC Procedure Note Griffin Jackson MD - 09/28/2020 [facility] [address] Test Date: 2020-09-28 Pat Name: PORTILLO KIDD Department: Room: [place] [address] Gender: Male Splitter Machine: IE : 1980 Requested By: CHANEL NOLASCO Order Number: [id number] Reading MD: Griffin Jackson Measurements Intervals [place] Rate: 66 P: -12 OR: 140 QRS: 24 QRSD: 98 T: 32 QT: 377 QTc: 396 Interpretive Statements SINUS RHYTHM No previous ECG available for comparison No ischemic changes Gabriel Mascorro M.D. CRITICAL ALERT ISSUED ON 09-28-2020 9:56:39 DSCRIBER MECHANIC us Chanel Nolasco MD ECG ORDERABLES Final Result Performing Organization Address City/[facility]/ZIP Co de Phone Number [facility]) RAD * OCCULT BLOOD, FECES (08/31/2020 7:00 AM SOUNDSCRIBER MECHANIC) OCCULT BLOOD FECAL NEGATIVE NEGATIVE 08/31/2020 8:49 AM SOUNDSCRIBER MECHANIC [facility] STOOL SPECIMEN / Unknown 08/31/2020 7:00 AM SOUNDSCRIBER MECHANIC Luiz Matta MD BODY FLUIDS AND STOOLS ORDAgus JUAN CARLOS Final Result [facility] [address] [place] [address], * (ABNORMAL) IRON SAT PANEL (IRON,IBC,%SAT) (08/30/2020 3:44 PM SOUNDSCRIBER MECHANIC) IRON 64(L) 65 - 175 MCG/DL 08/30/2020 4:41 PM SOUNDSCRIBER MECHANIC [facility] IRON BINDING CAPACITY 327 250 - 450 MCG/DL 08/30/2020 4:41 PM [facility] IRON SATURATION 20 20 - 55 % 4:41 PM SOUNDSCRIBER MECHANIC [facility] 08/30/2020 3:44 PM SOUNDSCRIBER MECHANIC Luiz Matta MD LABORATORY Final Resul t [facility] [address] [place] [address], [place] [phone] * XR CHEST PA+LAT (05/18/2020 10:50 AM CDT) Anatomical Region Laterality Modality Chest Radiographic Fatou ging 05/18/2020 11:0 6 AM CDT Impressions 05/18/2020 11:06 AM CDT IMPRESSION: No evidence of acute cardiopulmonary disease. Lungs are clear. No pneumothorax or large pleural effusion. Normal heart size. Interpreted By: Benton Brownlee, 05/18/2020 11:06 AM Narrative 05/18/2020 11:06 AM CDT IMAGING STUDIES: XR CHEST PA+LAT EXAM DATE/TIME: 05/18/2020 10:45 AM INDICATION: chest pain . COMPARISON: No comparison. TECHNIQUE: 2 views. Procedure Note Benton [...] - 0.056 ng/mL. 05/16/2020 6:54 PM CDT [facility] Comment: NORMAL: LESS THAN OR EQUAL TO 0.056 NG/ML INDETERMINATE ZONE: 0.056 TO 0.599 NG/ML CONDITIONS RESULTING IN MYOCARDIAL CELL DAMAGE CAN POTENTIALLY INCREASE LEVELS ABOVE THE EXPECTED RANGE. HIGH DOSES OF BIOTIN MAY INTERFERE WITH THIS TEST RESULT. CORRELATION TO CLINICAL HISTORY AND PRESENTATION RECOMMENDED. 05/16/2020 12:2 0 PM CDT us Luiz Matta MD LABORATORY Final Resul t [facility] [address] [place] [address], [place] [phone] * COLONOSCOPY GENERIC (05/26/2019) 05/26/2019 Narrative 05/26/2019 [...] Narrative 03/10/2018 12:00 AM CDT PORTILLO KIDD Admit/Service Date: 03/08/18 Acct: [id number] Discharge Date: : 1980 Sex: M Ord Site: [facility] Pt Type: REG CLI Ordering MD: FRAN NEWBY MD Study Date Report # Order # Ext Order ID 03/08/18 [id number] Proc Code: A-CHST Procedure Description: CTA Chest IMAGING STUDIES: CTA CHEST DATE: 03/08/2018 8:18 AM INDICATION: OTHER - CHEST PAIN . COMPARISON: No prior studies for comparison.. CONTRAST DOSE: 125 mL Isovue-370 Radiation dose reduction technique was utilized. IMPRESSION: No airspace disease, soft tissue attenuation nodule or mass. No pleural effusion. Both lungs are clear. CTPA: There is no low attenuation filling defect present within the main pulmonary flow tract, pulmonary arteries or its major branches to suggest the presence of pulmonary embolism. No aortic dissection. No lymphadenopathy. Normal heart size without pericardial effusion. Only mild degenerative changes present within the thoracic spine. Small hiatal hernia. Small amount of residual thymus present within the anterior mediastinum. Procedure Note Carrie Sosa MD - 03/10/2018 PORTILLO KIDD Admit/Service Date:03/08/18 Acct: [id number] Discharge Date: : 1980 Sex: M Ord Site: [facility] Type: REG CLI Ordering MD:FRAN NEWBY MD Study Date Report # Order # Ext Order ID 03/08/18 [id number] Proc Code: A-CHST Procedure Description: CTA Chest [...] E COLI O157:H7 ISOLATED REPORT STATUS FINAL [id number] [employer] TO EPIC CONVERSION 03/07/2005 1:11 PM [...] 08/31/2020 Fracture, thyroid cartilage closed, initial encounter ([facility]) 09/28/2020 Seasonal allergic rhinitis, unspecified [...] 09/13/2021 Screening for depression 09/13/2021 Need for qqwcelsabu-phvdjfz-woricttql (Tdap) vaccine Need for prophylactic vaccination with combined jxurzovyjw-zbsvzrs-ulsmdjhhr (DTP) vaccine 09/13/2021 Vitamin D deficiency Unspecified [...] No John Paul Knapp RN Care Teams Channel Account Manager Relationship Specialty [place] [address] [place] [address] PCP - General FAMILY PRACTICE 09/13/21 Fran Newby MD [facility]. [facility] [address] [place] [address] [place] [employer] INTERVENTIONAL CARDIOLOGY 02/26/18
== END 2024-10-08 12:56 | disposition home or self-care (01) ==
PROVIDERS: PCP Family Medicine Sports Medicine; Visit Provider Urology
DX: N20.0 Calculus of kidney (principal)
CPT/HCPCS: 74018